=== PATIENT | male | born 1960 | race Caucasian/White ===

== ENCOUNTER 2018-08-14 16:48 | Inpatient (IN) ==
--- NOTE | 2018-08-14 18:42 | XRay Report ---
XR chest 1V portable CLINICAL HISTORY: raza dyspnea COMPARISON STUDY: No previous studies for comparison. FINDINGS: Mild cardiomegaly. Right lung is clear. Diffuse parenchymal infiltrative process left mid t o lower lung. Probable small left pleural effusion. IMPRESSION: 1. Diffuse parenchymal infiltrative process left mid and lower lung. 2. This study should be repeated as a later date to ensure complete resolution. The above report was generated using voice recognition software. It may contain grammatical, syntax or spelling errors. Electronically signed by: Favian De Jesus M.D. 08/14/2018 6:40 PM
[2018-08-14 18:58] LABS: INR 2.2 (0.9-1.1); Prothrombin Time 21.7 Seconds (9.0-12.0)
[2018-08-14 19:16] LABS: Alanine Aminotransferase 35 U/L (12-78); Albumin Globulin Ratio 0.2 (0.9-2); Albumin Level 1.4 gm/dl (3.4-5.0); Alkaline Phosphatase 80 U/L (45-117); Aspartate Aminotransferase 100 U/L (15-37); BUN Creatinine Ratio 8.7 (10-20); Bilirubin,Total 14.2 mg/dl (0.2-1); Blood Urea Nitrogen 5 mg/dl (7-18); Calcium 7.2 mg/dl (8.5-10.1); Carbon Dioxide 23 mmol/L (21-32); Chloride 92 mmol/L (98-107); Est GFR (African American) 126.7; Est GFR (Non-African American) 109.3; Globulin 5.7 gm/dl (2.5-4.0); Glucose 111 mg/dl (70-99); Magnesium 2.1 mg/dl (1.8-2.4); Potassium 4.3 mmol/L (3.5-5.1); Sodium 121 mmol/L (136-145); Total Protein 7.1 gm/dl (6.4-8.2); Troponin I < 0.015 ng/ml (0-0.045)
[2018-08-14 19:17] LABS: Anisocytosis Present; Basophils # (auto) 0.02 K/uL (0-0.2); Basophils % (auto) 0.7 %; Eosinophils # (auto) 0.04 K/uL (0-0.5); Eosinophils % (auto) 1.4 %; Hematocrit (blood only) 17.9 % (42-52); Hemoglobin 6.2 g/dL (14.0-18.0); Immature Granulocytes # (auto) 0.03 K/uL (0.00-0.02); Lymphocytes # (auto) 0.52 K/uL (1.2-3.4); Lymphocytes % (auto) 18.1 %; Mean Corpuscular Hgb Conc 34.6 g/dL (32-36); Mean Corpuscular Volume 113.3 fL (80-100); Mean Platelet Volume 8.2 fL (7.4-10.4); Monocytes # (auto) 0.28 K/uL (0.11-0.59); Monocytes % (auto) 9.7 %; Neutrophils # (auto) 1.99 K/uL (1.4-6.5); Neutrophils % (auto) 69.1 %; Platelet Count 61 K/uL (130-400); Platelet Estimate Decreased (Normal); Polychromasia 1+; RDW Coefficient of Variation 17.8 % (11.5-14.5); RDW Standard Deviation 71.9 fL (36.4-46.3); Red Blood Count 1.58 M/uL (4.7-6.1); White Blood Count 2.88 K/uL (4.8-10.8)
[2018-08-14] MEDS ORDERED: IOVERSOL 100ml IV PRN (20:24)
--- NOTE | 2018-08-14 20:43 | CT Scan Report ---
CT abd pelvis IV con only CT DOSE: 1420.67 mGy.cm HISTORY: abd distention, new anemia, cirrhosis TECHNIQUE: Multiaxial CT images of the abdomen and pelvis were performed following the use of intrave nous contrast. A dose lowering technique was utilized adhering to the principles of ALARA. COMPARISON STUDY: None. FINDINGS: Moderate to significant left pleural effusion. Mild bibasilar dependent atelectasis. Considerable abdominal and pelvic ascites. Significant hepatic cirrhosis. Moderate splenomegaly. Sign ificant upper abdominal or calyces. Bowel pattern is nonobstructive. Kidneys negative for hydronephro sis. Moderate renal cortical scarring bilaterally. Moderate body wall anasarca. Right inguinal hernia containing fluid exclusively. Soft tissue edematou s change about the upper thighs and pelvic region. IMPRESSION: 1. Significant abdominal and pelvic ascites. 2. Hepatic cirrhosis. 3. Splenomegaly. 4. Left pleural effusion. 5. Body wall anasarca 6. Fluid containing right inguinal hernia. 7. Abdominal varicosities 8. Several very small gallstones. The above report was generated using voice recognition software. It may contain grammatical, syntax or spelling errors. Electronically signed by: Favian De Jesus M.D. 08/14/2018 8:40 PM
[2018-08-14] MEDS ORDERED: levoFLOXacin 750 MG TAB PO ONE (21:35)
--- NOTE | 2018-08-14 21:35 | Emergency Department Note ---
Entered by Christiana Webb acting as a scribe for Emelia Carroll DO History of Present Illness General Chief complaint: Abnormal Labs/Diagnostic Testing Stated complaint: HEMOGLOBIN 5.9 Time Seen by Provider: 08/14/18 17:19 Source: patient Mode of arrival: ambulatory Limitations: no limitations History of Present Illness Provider complaint: Abnormal labs Onset (ago): hour(s) 1 Location: head ("labs") Relieved By: + none Exacerbated By: + none Associated symptoms: + denies other symptoms, + cough, + shortness of breath and + other (leg swelling); no chest pain, no fever/chills, no headaches and no nausea/vomiting Treatments prior to arrival: none Patient is a 58 year old male presenting to the ED with abnormal lab findings beginning today. Patient states that he had blood work done at [facility] in [place], noting his hemoglobin was low. Patient shares he has been coughing up mild red colored mucus intermittently. He denies every needing a blood transfusion. Patient was diagnosed with cirrhosis x3 years ago. He includes that he has seen a GI specialist since the diagnosis, and recommended a colonoscopy. He denies any endoscopy or colonoscopy. He denies any regular alcohol use. Patient shares that he noticed bilateral leg swelling for the past x2 weeks, radiating up to the upper thighs and lower abd. Patient includes he has been having increased SOB and weight gain as well. He denies any hematuria, hematochezia, melena, nausea, vomiting, diarrhea, fevers, chills, lightheadedness or any other complaints or concerns at this time. Home Medications Home Medications Medication Instructions Recorded Confirmed Type No Known Home Medications 08/14/18 08/14/18 History Allergies Allergy/AdvReac Type Severity Reaction Status Date / Time No Known Allergies Allergy Verified 08/14/18 17:20 Past Med/Surg History Medical History Cirrhosis (Chronic) Family history non-contributory Surgical History No pertinent past surgical history Family History Other Family history non-contributory Social History Preferred Language: Surinamese Communication Ability: Effective Title Assistant Required: No Beliefs That Will Affect Care: None Current Living Situation: Alone Current Living Situation Comment: Apt Other Information That Helps Us Care for You: No Feels Safe at Home: Yes Safety Concerns: Feels Safe At This Time Smoking Status: Never smoker Tobacco Type: smokeless tobacco Do You Dip or Chew Tobacco: Yes Hx Alcohol Use: Yes Alcohol type: beer Hx Substance Use: No Review of Systems See HPI for pertinent positives & negatives. and A total of 10 systems reviewed and were otherwise negative Physical Exam Vital Signs Vital Signs - 24 hr 08/16/18 00:21 08/16/18 00:28 08/16/18 00:41 Temperature 36.5 C 36.8 C 36.8 C Temperature Source Oral Oral Oral End-Tidal CO2 Pulse Rate 94 H 108 H Pulse Rate [Left Finger] 88 Pulse Rhythm Regular Regular Pulse Rhythm [Left Finger] Pulse Strength Normal Normal Pulse Strength [Left Finger] Respiratory Rate 16 18 20 Respiratory Effort / Characteristics Respiratory Depth Respiratory Pattern Blood Pressure 100/59 L 102/60 Blood Pressure [Left Arm] Blood Pressure [Right Arm] 102/62 Blood Pressure Mean 72 74 Blood Pressure Mean [Left Arm] Blood Pressure Mean [Right Arm] 75 Blood Pressure Position Lying Lying Blood Pressure Position [Left Arm] Blood Pressure Position [Right Arm] Pulse Oximetry 93 93 96 Oxygen Delivery Method Oxygen Flow Rate 2 2 2 Fraction of Inspired Oxygen SaO2/FiO2 Ratio 08/16/18 00:56 08/16/18 01:26 08/16/18 02:24 Temperature 36.7 C 36.6 C 36.7 C Temperature Source Oral Oral Oral End-Tidal CO2 Pulse Rate 101 H 112 H 80 Pulse Rate [Left Finger] Pulse Rhythm Regular Regular Regular Pulse Rhythm [Left Finger] Pulse Strength Normal Normal Normal Pulse Strength [Left Finger] Respiratory Rate 20 20 16 Respiratory Effort / Characteristics Respiratory Depth Respiratory Pattern Blood Pressure 99/59 L 108/64 96/62 L Blood Pressure [Left Arm] Blood Pressure [Right Arm] Blood Pressure Mean 72 78 73 Blood Pressure Mean [Left Arm] Blood Pressure Mean [Right Arm] Blood Pressure Position Lying Lying Lying Blood Pressure Position [Left Arm] Blood Pressure Position [Right Arm] Pulse Oximetry 95 97 93 Oxygen Delivery Method Oxygen Flow Rate 2 2 2 Fraction of Inspired Oxygen SaO2/FiO2 Ratio 08/16/18 03:47 08/16/18 06:53 08/16/18 07:15 Temperature 36.7 C 36.5 C Temperature Source Oral Oral End-Tidal CO2 Pulse Rate 80 Pulse Rate [Left Finger] 45 L 47 L Pulse Rhythm Pulse Rhythm [Left Finger] Regular Pulse Strength Pulse Strength [Left Finger] Normal Respiratory Rate 16 20 Respiratory Effort / Characteristics Non-Labored Spontaneous Respiratory Depth Normal Respiratory Pattern Regular Blood Pressure Blood Pressure [Left Arm] 88/60 L Blood Pressure [Right Arm] 92/56 L Blood Pressure Mean Blood Pressure Mean [Left Arm] 69 Blood Pressure Mean [Right Arm] 68 Blood Pressure Position Blood Pressure Position [Left Arm] Lying Blood Pressure Position [Right Arm] Lying Pulse Oximetry 93 95 Oxygen Delivery Method Nasal Cannula Nasal Cannula Oxygen Flow Rate 2 2.5 Fraction of Inspired Oxygen SaO2/FiO2 Ratio 08/16/18 07:20 08/16/18 11:22 08/16/18 14:20 Temperature 36.9 C Temperature Source Oral End-Tidal CO2 Pulse Rate 80 Pulse Rate [Left Finger] 121 H Pulse Rhythm Pulse Rhythm [Left Finger] Pulse Strength Pulse Strength [Left Finger] Respiratory Rate 21 Respiratory Effort / Characteristics Respiratory Depth Respiratory Pattern Blood Pressure Blood Pressure [Left Arm] 99/55 L Blood Pressure [Right Arm] 102/58 L Blood Pressure Mean Blood Pressure Mean [Left Arm] 69 Blood Pressure Mean [Right Arm] 72 Blood Pressure Position Blood Pressure Position [Left Arm] Blood Pressure Position [Right Arm] Lying Pulse Oximetry 92 Oxygen Delivery Method Room Air Oxygen Flow Rate 2.0 Fraction of Inspired Oxygen SaO2/FiO2 Ratio 08/16/18 15:30 08/16/18 18:46 08/16/18 20:20 Temperature 36.8 C 36.6 C Temperature Source Oral Oral End-Tidal CO2 Pulse Rate 125 H Pulse Rate [Left Finger] 86 78 Pulse Rhythm Pulse Rhythm [Left Finger] Regular Pulse Strength Pulse Strength [Left Finger] Normal Respiratory Rate 18 18 Respiratory Effort / Characteristics Non-Labored Respiratory Depth Normal Respiratory Pattern Blood Pressure Blood Pressure [Left Arm] 93/54 L Blood Pressure [Right Arm] 95/57 L Blood Pressure Mean Blood Pressure Mean [Left Arm] 67 Blood Pressure Mean [Right Arm] 69 Blood Pressure Position Blood Pressure Position [Left Arm] Blood Pressure Position [Right Arm] Pulse Oximetry 93 98 Oxygen Delivery Method Nasal Cannula Room Air Oxygen Flow Rate 2 Fraction of Inspired Oxygen SaO2/FiO2 Ratio 08/16/18 21:00 08/16/18 22:35 08/16/18 22:43 Temperature 37 C Temperature Source Oral End-Tidal CO2 30 Pulse Rate 121 H Pulse Rate [Left Finger] 89 131 H Pulse Rhythm Pulse Rhythm [Left Finger] Irregular Irregular Pulse Strength Pulse Strength [Left Finger] Normal Normal Respiratory Rate 26 H 22 14 Respiratory Effort / Characteristics Non-Labored Spontaneous Non-Labored Mechanically Ventilated Respiratory Depth Normal Normal Respiratory Pattern Regular Regular Blood Pressure Blood Pressure [Left Arm] 108/65 Blood Pressure [Right Arm] 108/65 98/53 L Blood Pressure Mean Blood Pressure Mean [Left Arm] 79 Blood Pressure Mean [Right Arm] 79 68 Blood Pressure Position Blood Pressure Position [Left Arm] Blood Pressure Position [Right Arm] Pulse Oximetry 97 97 99 Oxygen Delivery Method Nasal Cannula Mechanical Vent Oxygen Flow Rate 6 Fraction of Inspired Oxygen 40 40 SaO2/FiO2 Ratio 242 08/16/18 23:00 Temperature 37 C Temperature Source End-Tidal CO2 Pulse Rate Pulse Rate [Left Finger] 131 H Pulse Rhythm Pulse Rhythm [Left Finger] Pulse Strength Pulse Strength [Left Finger] Respiratory Rate 14 Respiratory Effort / Characteristics Respiratory Depth Respiratory Pattern Blood Pressure Blood Pressure [Left Arm] 108/65 Blood Pressure [Right Arm] 98/53 L Blood Pressure Mean Blood Pressure Mean [Left Arm] Blood Pressure Mean [Right Arm] Blood Pressure Position Blood Pressure Position [Left Arm] Blood Pressure Position [Right Arm] Pulse Oximetry 99 Oxygen Delivery Method Oxygen Flow Rate Fraction of Inspired Oxygen SaO2/FiO2 Ratio GENERAL: alert, well appearing, well nourished, no distress, non-toxic, obvious severe jaundice EYE EXAM: PERRL and EOM's grossly intact. Sclera icterus. OROPHARYNX: no exudate, no erythema, lips, buccal mucosa, and tongue normal and mucous membranes are dry NECK: supple, no nuchal rigidity, no adenopathy, non-tender LUNGS: Clear to auscultation. Normal chest wall mechanics, no W/R/R HEART: no murmurs, S1 normal and S2 normal ABDOMEN: abdomen soft, normo-active bowel sounds, no masses, no rebound or guarding. Distended abd. Lower abd wall edema. Positive fluid wave. BACK: Back is symmetrical on inspection and there is no deformity, no midline tenderness, no CVA tenderness. SKIN: Obvious jaundice. No petechiae, no rash. UPPER EXTREMITIES: upper extremities are grossly normal. Full range of motion bilaterally, normal pulses bilaterally. LOWER EXTREMITIES: Diffuse lower extremity edema up through the proximal thigh bilaterally. Mild erythema noted in the pretibial region however not consistent with acute cellulitis. NEURO EXAM: Normal sensorium, cranial nerves II-XII grossly intact, normal speech, no gross weakness of arms, no gross weakness of legs. Course 1747: Patient was evaluated in room A03. A full history and physical examination were obtained. 1910: Reassessed patient and discussed transfusion. Patient states he will thi nk about it in regards to blood transfusion. 1949: Discussed and went over all results. Patient was notified that he is at high risk for bleeding, infection, sudden . Patient wants to take some time to consider hospital admission. States he still does not want blood transfusion at this time. 2037: Reassessed patient who is back from receiving his CT scan. Patient is still debating admission and transfusion. Patient at this time does not wish to have blood transfusion, and is asking if he could leave and follow-up with his family doctor. 2106: Discussed risks again associated with leaving AMA. Discussed benefits of additional inpatient evaluation, transfusion and hemodynamic monitoring. Patient was given option of financial help with admission, to which he declined. Patient was encouraged to follow up with PCP and GI specialist. Patient was agreeable to course of antibiotics for pneumonia. I did asked case management to speak with him as a precaution while I completed additional paperwork. 2137: Updated by nursing staff and case management that patient is now in agreement to admission. 2146: Discussed case with Dr. Langston, who accepts patient for admission. Administered Medications Discontinued Medications Diltiazem HCl (Cardizem) 10 mg IV NOW STA Stop: 08/15/18 04:11 Last Admin: 08/15/18 04:32 Dose: 10 mg Documented by: [id number] Cosigned by: [id number] Doxycycline Hyclate (Vibramycin) 100 mg PO BID@1000,2200 [facility] Stop: 08/22/18 09:59 Last Admin: 08/16/18 21:35 Dose: Not Given Documented by: [id number] Admin: 08/16/18 09:57 Dose: 100 mg Documented by: [id number] Admin: 08/15/18 21:15 Dose: 100 mg Documented by: [id number] Admin: 08/15/18 11:18 Dose: 100 mg Documented by: [id number] Folic Acid (Folvite) 1 mg PO QAM [facility] Stop: 09/14/18 08:59 Last Admin: 08/16/18 08:09 Dose: 1 mg Documented by: [id number] Admin: 08/15/18 08:22 Dose: 1 mg Documented by: [id number] Gabapentin (Neurontin) 600 mg PO Q24H [facility] Stop: 08/18/18 14:01 Last Admin: 08/15/18 14:00 Dose: 600 mg Documented by: [id number] Gabapentin (Neurontin) 600 mg PO Q6H [facility] Stop: 08/15/18 14:01 Last Admin: 08/15/18 14:02 Dose: 600 mg Documented by: [id number] Admin: 08/15/18 08:23 Dose: 600 mg Documented by: [id number] Gabapentin (Neurontin) 600 mg PO Q8H [facility] Stop: 08/16/18 14:01 Last Admin: 08/16/18 13:41 Dose: 600 mg Documented by: [id number] Admin: 08/16/18 07:38 Dose: 600 mg Documented by: [id number] Admin: 08/15/18 21:16 Dose: 600 mg Documented by: [id number] Gabapentin (Neurontin) 1,200 mg PO TODAY@0200 [facility] Stop: 08/15/18 02:01 Last Admin: 08/15/18 02:15 Dose: 1,200 mg Documented by: [id number] Piperacillin Sod/Tazobactam Sod (Zosyn) 4.5 gm in 120 mls @ 240 mls/hr IV NOW ONE Stop: 08/14/18 22:07 Last Infusion: 08/14/18 23:24 Dose: 0 mls/hr Documented by: [id number] Admin: 08/14/18 22:41 Dose: 240 mls/hr Documented by: [id number] Vancomycin HCl 2,000 mg/ (Sodium Chloride) 540 mls @ 200 mls/hr IV NOW ONE; Protocol Stop: 08/15/18 00:19 Last Infusion: 08/15/18 02:57 Dose: 0 mls/hr Documented by: [id number] Admin: 08/15/18 00:10 Dose: 200 mls/hr Documented by: [id number] Sodium Chloride (Nss 1000ml) 1,000 mls @ 200 mls/hr IV .Q5H [facility] Stop: 09/13/18 21:44 Last Infusion: 08/15/18 01:47 Dose: 0 mls/hr Documented by: [id number] Admin: 08/14/18 22:45 Dose: 200 mls/hr Documented by: [id number] Lorazepam (Ativan) 1.5 mg in 3 mls @ 3 mls/min IV Q2H PRN PRN Reason: Anxiety/Agitation Stop: 09/14/18 01:43 Last Admin: 08/16/18 16:29 Dose: 3 mls/min Documented by: [id number] Thiamine HCl 100 mg/ Syringe 10 mls @ 2 mls/hr IV DAILY [facility] Stop: 09/14/18 08:59 Last Admin: 08/16/18 08:15 Dose: 2 mls/hr Documented by: [id number] Admin: 08/15/18 08:22 Dose: 2 mls/hr Documented by: [id number] Piperacillin Sod/Tazobactam (Sod 3.375 gm/ Dextrose) 115 mls @ 28.75 mls/hr IV Q8H [facility]; Protocol Stop: 08/22/18 03:59 Last Admin: 08/16/18 19:53 Dose: 28.8 mls/hr Documented by: [id number] Infusion: 08/16/18 15:52 Dose: 0 mls/hr Documented by: [id number] Admin: 08/16/18 11:54 Dose: 28.8 mls/hr Documented by: [id number] Infusion: 08/16/18 07:37 Dose: 0 mls/hr Documented by: [id number] Admin: 08/16/18 03:38 Dose: 28.8 mls/hr Documented by: [id number] Infusion: 08/16/18 01:12 Dose: 0 mls/hr Documented by: [id number] Admin: 08/15/18 21:12 Dose: 28.8 mls/hr Documented by: [id number] Infusion: 08/15/18 15:34 Dose: 0 mls/hr Documented by: [id number] Admin: 08/15/18 12:04 Dose: 28.8 mls/hr Documented by: [id number] Infusion: 08/15/18 10:52 Dose: 0 mls/hr Documented by: [id number] Infusion: 08/15/18 09:18 Dose: 28.8 mls/hr Documented by: [id number] Infusion: 08/15/18 08:28 Dose: 0 mls/hr Documented by: [id number] Infusion: 08/15/18 06:29 Dose: 28.8 mls/hr Documented by: [id number] Infusion: 08/15/18 04:11 Dose: 0 mls/hr Documented by: [id number] Admin: 08/15/18 04:06 Dose: 28.8 mls/hr Documented by: [id number] Multivitamins 10 ml/ Thiamine HCl 100 mg/ Folic Acid 1 mg/Sodium Chloride 1,011.2 mls @ 500 mls/hr IV .Q2H2M [facility] Stop: 08/15/18 04:01 Last Infusion: 08/15/18 04:41 Dose: 0 mls/hr Documented by: [id number] Admin: 08/15/18 02:14 Dose: 500 mls/hr Documented by: [id number] Furosemide 30 mg/ Albumin (Human) 53 mls @ 53 mls/hr IV Q6H [facility] Stop: 08/18/18 01:59 Last Infusion: 08/16/18 09:48 Dose: 0 mls/hr Documented by: [id number] Admin: 08/16/18 08:07 Dose: 53 mls/hr Documented by: [id number] Infusion: 08/16/18 03:16 Dose: 0 mls/hr Documented by: [id number] Admin: 08/16/18 02:43 Dose: 53 mls/hr Documented by: [id number] Infusion: 08/15/18 21:41 Dose: 0 mls/hr Documented by: [id number] Admin: 08/15/18 20:41 Dose: 53 mls/hr Documented by: [id number] Infusion: 08/15/18 15:54 Dose: 0 mls/hr Documented by: [id number] Admin: 08/15/18 14:46 Dose: 53 mls/hr Documented by: [id number] Infusion: 08/15/18 09:19 Dose: 0 mls/hr Documented by: [id number] Admin: 08/15/18 08:26 Dose: 53 mls/hr Documented by: [id number] Infusion: 08/15/18 02:25 Dose: 0 mls/hr Documented by: [id number] Admin: 08/15/18 02:15 Dose: 53 mls/hr Documented by: [id number] Famotidine 20 mg/ Syringe 5 mls @ 2.5 mls/min IV BID [facility] Stop: 09/14/18 01:59 Last Admin: 08/15/18 08:31 Dose: 2.5 mls/min Documented by: [id number] Admin: 08/15/18 02:14 Dose: 2.5 mls/min Documented by: [id number] Diltiazem HCl 125 mg/ Dextrose 125 mls @ 5 mls/hr IV .Q24H [facility]; Protocol Stop: 09/14/18 04:14 Last Titration: 08/15/18 10:23 Dose: 0 mg/hr, 0 mls/hr Documented by: [id number] Titration: 08/15/18 07:12 Dose: 5 mg/hr, 5 mls/hr Documented by: [id number] Cosigned by: [id number] Admin: 08/15/18 04:40 Dose: 5 mg/hr, 5 mls/hr Documented by: [id number] Cosigned by: [id number] Multivitamins 10 ml/ Thiamine HCl 100 mg/ Folic Acid 1 mg/Sodium Chloride 1,011.2 mls @ 1,011.2 mls/hr IV .Q1H [facility] Stop: 08/15/18 09:59 Last Infusion: 08/15/18 10:38 Dose: 0 mls/hr Documented by: [id number] Admin: 08/15/18 10:24 Dose: 500 mls/hr Documented by: [id number] Furosemide 60 mg/ Syringe 6 mls @ 4 mls/min IV ONE ONE Stop: 08/15/18 10:16 Last Admin: 08/15/18 11:05 Dose: 4 mls/min Documented by: [id number] Furosemide 100 mg/ Dextrose 100 mls @ 15 mls/hr IV .Q6H40M [facility] Stop: 09/14/18 10:29 Last Infusion: 08/16/18 21:24 Dose: 0 mg/hr, 0 mls/hr Documented by: [id number] Admin: 08/16/18 19:50 Dose: 15 mg/hr, 15 mls/hr Documented by: [id number] Infusion: 08/16/18 19:50 Dose: 15 mg/hr, 15 mls/hr Documented by: [id number] Admin: 08/16/18 13:54 Dose: 15 mg/hr, 15 mls/hr Documented by: [id number] Infusion: 08/16/18 10:23 Dose: 0 mg/hr, 0 mls/hr Documented by: [id number] Admin: 08/16/18 03:39 Dose: 15 mg/hr, 15 mls/hr Documented by: [id number] Infusion: 08/16/18 03:39 Dose: 15 mg/hr, 15 mls/hr Documented by: [id number] Admin: 08/15/18 21:10 Dose: 15 mg/hr, 15 mls/hr Documented by: [id number] Infusion: 08/15/18 21:10 Dose: 15 mg/hr, 15 mls/hr Documented by: [id number] Admin: 08/15/18 16:26 Dose: 15 mg/hr, 15 mls/hr Documented by: [id number] Infusion: 08/15/18 16:26 Dose: 15 mg/hr, 15 mls/hr Documented by: [id number] Admin: 08/15/18 11:05 Dose: 15 mg/hr, 15 mls/hr Documented by: [id number] Pantoprazole Sodium 40 mg/ (Syringe) 10 mls @ 5 mls/min IV BID@0900,2100 [facility] Stop: 09/14/18 20:59 Last Admin: 08/16/18 19:54 Dose: 5 mls/min Documented by: [id number] Admin: 08/16/18 08:15 Dose: 5 mls/min Documented by: [id number] Admin: 08/15/18 21:15 Dose: 5 mls/min Documented by: [id number] Pantoprazole Sodium 40 mg/ (Syringe) 10 mls @ 5 mls/min IV .EXTRA DOSE ONE Stop: 08/15/18 13:16 Last Admin: 08/15/18 13:59 Dose: 5 mls/min Documented by: [id number] Acetylcysteine 14,400 mg/ (Dextrose) 272 mls @ 272 mls/hr IV NOW ONE; Protocol Stop: 08/15/18 15:29 Last Infusion: 08/15/18 16:24 Dose: 0 mls/hr Documented by: [id number] Admin: 08/15/18 15:16 Dose: 272 mls/hr Documented by: [id number] Acetylcysteine 4,800 mg/ (Dextrose) 524 mls @ 131 mls/hr IV TODAY@1530 [facility]; Protocol Stop: 08/15/18 19:29 Last Infusion: 08/15/18 20:23 Dose: 0 mls/hr Documented by: [id number] Admin: 08/15/18 16:23 Dose: 131 mls/hr Documented by: [id number] Acetylcysteine 9,600 mg/ (Dextrose) 1,048 mls @ 65.5 mls/hr IV .Q16H [facility]; Protocol Stop: 08/16/18 11:29 Last Infusion: 08/16/18 13:38 Dose: 0 mls/hr Documented by: [id number] Infusion: 08/16/18 03:16 Dose: 65.5 mls/hr Documented by: [id number] Admin: 08/15/18 21:09 Dose: 65.5 mls/hr Documented by: [id number] Potassium Chloride (K Stefan / Wtr) 10 meq in 100 mls @ 100 mls/hr IV Q1H [facility] Stop: 08/16/18 02:03 Last Infusion: 08/16/18 03:35 Dose: 0 mls/hr Documented by: [id number] Admin: 08/16/18 02:35 Dose: 100 mls/hr Documented by: [id number] Infusion: 08/16/18 02:34 Dose: 100 mls/hr Documented by: [id number] Admin: 08/16/18 01:34 Dose: 100 mls/hr Documented by: [id number] Infusion: 08/16/18 01:30 Dose: 100 mls/hr Documented by: [id number] Admin: 08/16/18 00:30 Dose: 100 mls/hr Documented by: [id number] Infusion: 08/15/18 23:52 Dose: 100 mls/hr Documented by: [id number] Admin: 08/15/18 22:52 Dose: 100 mls/hr Documented by: [id number] Lorazepam (Ativan) 3 mg in 6 mls @ 6 mls/min IV Q1H PRN; Protocol PRN Reason: Symptoms of alcohol withdrawal Last Admin: 08/16/18 21:06 Dose: 6 mls/min Documented by: [id number] Potassium Chloride (K Stefan / Wtr) 10 meq in 100 mls @ 100 mls/hr IV Q1H [facility] Stop: 08/16/18 23:19 Last Admin: 08/16/18 22:51 Dose: 100 mls/hr Documented by: [id number] Infusion: 08/16/18 22:28 Dose: 100 mls/hr Documented by: [id number] Admin: 08/16/18 21:28 Dose: 100 mls/hr Documented by: [id number] Magnesium Sulfate/Dextrose (Magnesium Sulfate / D5w) 1 gm in 100 mls @ 100 mls/hr IV Q1H [facility] Stop: 08/16/18 23:29 Last Infusion: 08/16/18 22:34 Dose: 100 mls/hr Documented by: [id number] Admin: 08/16/18 21:34 Dose: 100 mls/hr Documented by: [id number] Ioversol (Optiray 320 100ml) 94 ml IV ONCE PRN PRN Reason: Interaction Checking Stop: 08/18/18 20:23 Last Admin: 08/14/18 20:25 Dose: 94 ml Documented by: [id number] Levofloxacin (Levaquin) 750 mg PO ONE ONE Stop: 08/14/18 21:36 Last Admin: 08/15/18 06:43 Dose: Not Given Documented by: [id number] Metoprolol Tartrate (Lopressor) 2.5 mg IV Q4 PRN PRN Reason: Tachycardia Stop: 09/14/18 03:59 Last Admin: 08/15/18 03:03 Dose: 2.5 mg Documented by: [id number] Metoprolol Tartrate (Lopressor) 12.5 mg PO QID [facility] Stop: 09/15/18 16:59 Last Admin: 08/16/18 18:42 Dose: Not Given Documented by: [id number] Metoprolol Tartrate (Lopressor) Confirm Administered Dose 5 mg IV .STK-MED ONE Stop: 08/16/18 18:46 Last Admin: 08/16/18 18:46 Dose: 5 mg Documented by: [id number] Miscellaneous (Patient's Height And/Or Weight Needed) 1 ea N/A Q2H [facility] Stop: 09/14/18 02:14 Last Admin: 08/15/18 02:49 Dose: Not Given Documented by: [id number] Miscellaneous Information (Consult) 1 ea N/A UD ONE Stop: 08/14/18 21:39 Last Admin: 08/15/18 06:43 Dose: Not Given Documented by: [id number] Multivitamins/Minerals (Multivitamin W/ Minerals Tab) 1 tab PO QAM [facility] Stop: 09/14/18 08:59 Last Admin: 08/16/18 08:07 Dose: 1 tab Documented by: [id number] Admin: 08/15/18 08:23 Dose: 1 tab Documented by: [id number] Naloxone HCl (Narcan) 0.4 mg IV NOW STA Stop: 08/16/18 17:43 Last Admin: 08/16/18 17:51 Dose: 0.4 mg Documented by: [id number] Naloxone HCl (Narcan) Confirm Administered Dose 0.4 mg .ROUTE .STK-MED ONE Stop: 08/16/18 17:51 Last Admin: 08/16/18 18:53 Dose: Not Given Documented by: [id number] Perflutren Lipid Microsphere (Definity) 2 ml IV ONCE ONE Stop: 08/15/18 07:02 Last Admin: 08/15/18 07:01 Dose: 2 ml Documented by: [id number] Phytonadione (Mephyton) 2.5 mg PO NOW STA Stop: 08/15/18 01:45 Last Admin: 08/15/18 02:14 Dose: 2.5 mg Documented by: [id number] Phytonadione (Mephyton) 5 mg PO ONE ONE Stop: 08/15/18 10:16 Last Admin: 08/15/18 11:06 Dose: 5 mg Documented by: [id number] Phytonadione (Mephyton) 5 mg PO NOW STA Stop: 08/15/18 16:51 Last Admin: 08/15/18 17:43 Dose: 5 mg Documented by: [id number] Potassium Chloride (Klor-Con M20) 40 meq PO NOW STA Stop: 08/15/18 16:52 Last Admin: 08/15/18 17:43 Dose: 40 meq Documented by: [id number] Potassium Chloride (Klor-Con M20) 40 meq PO TID [facility] Stop: 09/14/18 22:04 Last Admin: 08/16/18 08:07 Dose: 40 meq Documented by: [id number] Admin: 08/15/18 22:53 Dose: 40 meq Documented by: [id number] Potassium Chloride (Klor-Con M20) 80 meq PO TID [facility] Stop: 09/15/18 13:59 Last Admin: 08/16/18 21:35 Dose: Not Given Documented by: [id number] Admin: 08/16/18 13:39 Dose: 80 meq Documented by: [id number] Potassium Chloride (Klor-Con M20) 80 meq PO TODAY@1000 [facility]; Protocol Stop: 08/16/18 10:01 Last Admin: 08/16/18 09:57 Dose: 80 meq Documented by: [id number] Prednisone (Prednisone) 40 mg PO DAILY [facility] Stop: 09/14/18 01:43 Last Admin: 08/15/18 08:22 Dose: 40 mg Documented by: [id number] Admin: 08/15/18 05:28 Dose: 40 mg Documented by: [id number] Propranolol HCl (Inderal) 10 mg PO BID [facility] Stop: 09/14/18 10:29 Last Admin: 08/16/18 08:07 Dose: 10 mg Documented by: [id number] Admin: 08/15/18 21:15 Dose: 10 mg Documented by: [id number] Admin: 08/15/18 11:05 Dose: 10 mg Documented by: [id number] Medical Decision Making Differential Diagnosis Differential diagnosis: Etiologies such as metabolic, infection, hypo/hyperglycemia, electrolyte abnormalities, cardiac sources, intracerebral event, toxicologic, neurologic, as well as others were entertained. Medical Records Attestation: I reviewed the patient's medical records. Home Medications Current Medication List: was personally reviewed by me Laboratory Data Attestation: I reviewed the patient's lab results. Result diagrams: 08/16/18 19:28 08/16/18 19:28 Lab Results 08/14/18 08/14/18 08/14/18 Range/Units 18:35 18:35 18:35 WBC 2.88 L (4.8-10.8) K/uL RBC 1.58 L (4.7-6.1) M/uL Hgb 6.2 L* (14.0-18.0) g/dL Hct 17.9 L* (42-52) % MCV 113.3 H (80-100) fL MCH 39.2 H (25-34) pg MCHC 34.6 (32-36) g/dL RDW Std Deviation 71.9 H (36.4-46.3) fL RDW Coeff of Lesley 17.8 H (11.5-14.5) % Plt Count 61 L (130-400) K/uL MPV 8.2 (7.4-10.4) fL Immature Gran % (Auto) 1.0 % Neut % (Auto) 69.1 % Lymph % (Auto) 18.1 % [place] % (Auto) 9.7 % Eos % (Auto) 1.4 % Baso % (Auto) 0.7 % Immature Gran # (Auto) 0.03 H (0.00-0.02) K/uL Neut # (Auto) 1.99 (1.4-6.5) K/uL Lymph # (Auto) 0.52 L (1.2-3.4) K/uL [place] # (Auto) 0.28 (0.11-0.59) K/uL Eos # (Auto) 0.04 (0-0.5) K/uL Baso # (Auto) 0.02 (0-0.2) K/uL Absolute Nucleated RBC (0-0) K/uL Nucleated RBC % (auto) % Platelet Estimate Decreased (Normal) Polychromasia 1+ Basophilic Stippling Anisocytosis Present Macrocytosis Target Cells Tear Drop Cells PT 21.7 H (9.0-12.0) Seconds INR 2.2 H (0.9-1.1) Sample Site POC pH (7.35-7.45) POC pCO2 (35-46) mmHg POC pO2 (80-95) mmHg POC HCO3 (19-24) solomon/L POC Total CO2 (24-31) mEq/l POC Base Excess (-9-1.8) solomon/L POC ABG O2 Sat (90-95) % Mervin Test O2 Delivery Device Sodium 121 L (136-145) mmol/L Potassium 4.3 (3.5-5.1) mmol/L Chloride 92 L (98-107) mmol/L Carbon Dioxide 23 (21-32) mmol/L Anion Gap 6.0 (3-11) BUN 5 L (7-18) mg/dl Creatinine 0.60 (0.6-1.4) mg/dl Est Cr Clr Drug Dosing Not Reportable Est GFR ( Amer) 126.7 Est GFR (Non-Af Amer) 109.3 BUN/Creatinine Ratio 8.7 L (10-20) Glucose 111 H (70-99) mg/dl Osmolality (280-300) mOsm/kg Calcium 7.2 L (8.5-10.1) mg/dl Magnesium 2.1 (1.8-2.4) mg/dl Iron (35-175) mcg/dl Ferritin (8-388) ng/ml Total Bilirubin 14.2 H (0.2-1) mg/dl Direct Bilirubin (0-0.2) mg/dl AST 100 H (15-37) U/L ALT 35 (12-78) U/L Alkaline Phosphatase 80 (45-117) U/L Ammonia (11-32) umol/L Troponin I < 0.015 (0-0.045) ng/ml Total Protein 7.1 (6.4-8.2) gm/dl Albumin 1.4 L (3.4-5.0) gm/dl Globulin 5.7 H (2.5-4.0) gm/dl Albumin/Globulin Ratio 0.2 L (0.9-2) Lipase 385 (73-393) U/L Vitamin B12 (211-911) pg/ml Folate (>5.38) ng/ml Procalcitonin (0-0.5) ng/ml Urine Color Urine Appearance (Clear) Urine pH (4.5-7.5) Ur Specific [place] (1.000-1.030) Urine Protein (Negative) Urine Glucose (UA) (Negative) Urine Ketones (Negative) Urine Blood (Negative) Urine Nitrite (Negative) Urine Bilirubin (Negative) Urine Urobilinogen (Negative) Ur Leukocyte Esterase (Negative) Urine WBC (Auto) (0-5) /hpf Urine RBC (Auto) (0-4) /hpf U Hyaline Cast (Auto) (0-5) /lpf U Epithel Cells (Auto) (0-5) /lpf Urine Bacteria (Auto) (Negative) Urine Osmolality (500-800) mOsm/kg Ur Random Creatinine mg/dl U Random Total Protein (0-11.9) mg/dl Ur Random Sodium mmol/L Protein/Creatinin Ratio (0-0.2) Nasal Screen MRSA (PCR) (Negative) Ethyl Alcohol mg/dL (0-3) mg/dl Hep Bs Antigen (Neg) Hepatitis C Antibody (Neg) Blood Type Blood Type Recheck Antibody Screen Crossmatch 08/14/18 08/14/18 08/14/18 Range/Units 18:35 18:35 18:35 WBC (4.8-10.8) K/uL RBC (4.7-6.1) M/uL Hgb (14.0-18.0) g/dL Hct (42-52) % MCV (80-100) fL MCH (25-34) pg MCHC (32-36) g/dL RDW Std Deviation (36.4-46.3) fL RDW Coeff of [place] (11.5-14.5) % Plt Count (130-400) K/uL MPV (7.4-10.4) fL Immature Gran % (Auto) % Neut % (Auto) % Lymph % (Auto) % [place] % (Auto) % Eos % (Auto) % Baso % (Auto) % Immature Gran # (Auto) (0.00-0.02) K/uL Neut # (Auto) (1.4-6.5) K/uL Lymph # (Auto) (1.2-3.4) K/uL [place] # (Auto) (0.11-0.59) K/uL Eos # (Auto) (0-0.5) K/uL Baso # (Auto) (0-0.2) K/uL Absolute Nucleated RBC (0-0) K/uL Nucleated RBC % (auto) % Platelet Estimate (Normal) Polychromasia Basophilic Stippling Anisocytosis Macrocytosis Target Cells Tear Drop Cells PT (9.0-12.0) Seconds INR (0.9-1.1) Sample Site POC pH (7.35-7.45) POC pCO2 (35-46) mmHg POC pO2 (80-95) mmHg POC HCO3 (19-24) solomon/L POC Total CO2 (24-31) mEq/l POC Base Excess (-9-1.8) solomon/L POC ABG O2 Sat (90-95) % Mervin Test O2 Delivery Device Sodium (136-145) mmol/L Potassium (3.5-5.1) mmol/L Chloride (98-107) mmol/L Carbon Dioxide (21-32) mmol/L Anion Gap (3-11) BUN (7-18) mg/dl Creatinine (0.6-1.4) mg/dl Est Cr Clr Drug Dosing Est GFR ( Amer) Est GFR (Non-Af Amer) BUN/Creatinine Ratio (10-20) Glucose (70-99) mg/dl Osmolality (280-300) mOsm/kg Calcium (8.5-10.1) mg/dl Magnesium (1.8-2.4) mg/dl Iron (35-175) mcg/dl Ferritin (8-388) ng/ml Total Bilirubin (0.2-1) mg/dl Direct Bilirubin (0-0.2) mg/dl AST (15-37) U/L ALT (12-78) U/L Alkaline Phosphatase (45-117) U/L Ammonia 11.0 (11-32) umol/L Troponin I (0-0.045) ng/ml Total Protein (6.4-8.2) gm/dl Albumin (3.4-5.0) gm/dl Globulin (2.5-4.0) gm/dl Albumin/Globulin Ratio (0.9-2) Lipase (73-393) U/L Vitamin B12 (211-911) pg/ml Folate (>5.38) ng/ml Procalcitonin (0-0.5) ng/ml Urine Color Urine Appearance (Clear) Urine pH (4.5-7.5) Ur Specific [place] (1.000-1.030) Urine Protein (Negative) Urine Glucose (UA) (Negative) Urine Ketones (Negative) Urine Blood (Negative) Urine Nitrite (Negative) Urine Bilirubin (Negative) Urine Urobilinogen (Negative) Ur Leukocyte Esterase (Negative) Urine WBC (Auto) (0-5) /hpf Urine RBC (Auto) (0-4) /hpf U Hyaline Cast (Auto) (0-5) /lpf U Epithel Cells (Auto) (0-5) /lpf Urine Bacteria (Auto) (Negative) Urine Osmolality (500-800) mOsm/kg Ur Random Creatinine mg/dl U Random Total Protein (0-11.9) mg/dl Ur Random Sodium mmol/L Protein/Creatinin Ratio (0-0.2) Nasal Screen MRSA (PCR) (Negative) Ethyl Alcohol mg/dL 119.5 H (0-3) mg/dl Hep Bs Antigen (Neg) Hepatitis C Antibody (Neg) Blood Type O Negative Blood Type Recheck Antibody Screen NEGATIVE Crossmatch See Detail 08/14/18 08/14/18 08/15/18 Range/Units 18:35 19:14 01:53 WBC (4.8-10.8) K/uL RBC (4.7-6.1) M/uL Hgb (14.0-18.0) g/dL Hct (42-52) % MCV (80-100) fL MCH (25-34) pg MCHC (32-36) g/dL RDW Std Deviation (36.4-46.3) fL RDW Coeff of Lesley (11.5-14.5) % Plt Count (130-400) K/uL MPV (7.4-10.4) fL Immature Gran % (Auto) % Neut % (Auto) % Lymph % (Auto) % [place] % (Auto) % Eos % (Auto) % Baso % (Auto) % Immature Gran # (Auto) (0.00-0.02) K/uL Neut # (Auto) (1.4-6.5) K/uL Lymph # (Auto) (1.2-3.4) K/uL [place] # (Auto) (0.11-0.59) K/uL Eos # (Auto) (0-0.5) K/uL Baso # (Auto) (0-0.2) K/uL Absolute Nucleated RBC (0-0) K/uL Nucleated RBC % (auto) % Platelet Estimate (Normal) Polychromasia Basophilic Stippling Anisocytosis Macrocytosis Target Cells Tear Drop Cells PT (9.0-12.0) Seconds INR (0.9-1.1) Sample Site POC pH (7.35-7.45) POC pCO2 (35-46) mmHg POC pO2 (80-95) mmHg POC HCO3 (19-24) solomon/L POC Total CO2 (24-31) mEq/l POC Base Excess (-9-1.8) solomon/L POC ABG O2 Sat (90-95) % Mervin Test O2 Delivery Device Sodium (136-145) mmol/L Potassium (3.5-5.1) mmol/L Chloride (98-107) mmol/L Carbon Dioxide (21-32) mmol/L Anion Gap (3-11) BUN (7-18) mg/dl Creatinine (0.6-1.4) mg/dl Est Cr Clr Drug Dosing Est GFR ( Amer) Est GFR (Non-Af Amer) BUN/Creatinine Ratio (10-20) Glucose (70-99) mg/dl Osmolality 276 L (280-300) mOsm/kg Calcium (8.5-10.1) mg/dl Magnesium (1.8-2.4) mg/dl Iron (35-175) mcg/dl Ferritin (8-388) ng/ml Total Bilirubin (0.2-1) mg/dl Direct Bilirubin (0-0.2) mg/dl AST (15-37) U/L ALT (12-78) U/L Alkaline Phosphatase (45-117) U/L Ammonia (11-32) umol/L Troponin I (0-0.045) ng/ml Total Protein (6.4-8.2) gm/dl Albumin (3.4-5.0) gm/dl Globulin (2.5-4.0) gm/dl Albumin/Globulin Ratio (0.9-2) Lipase (73-393) U/L Vitamin B12 (211-911) pg/ml Folate (>5.38) ng/ml Procalcitonin 0.16 (0-0.5) ng/ml Urine Color Urine Appearance (Clear) Urine pH (4.5-7.5) Ur Specific [place] (1.000-1.030) Urine Protein (Negative) Urine Glucose (UA) (Negative) Urine Ketones (Negative) Urine Blood (Negative) Urine Nitrite (Negative) Urine Bilirubin (Negative) Urine Urobilinogen (Negative) Ur Leukocyte Esterase (Negative) Urine WBC (Auto) (0-5) /hpf Urine RBC (Auto) (0-4) /hpf U Hyaline Cast (Auto) (0-5) /lpf U Epithel Cells (Auto) (0-5) /lpf Urine Bacteria (Auto) (Negative) Urine Osmolality (500-800) mOsm/kg Ur Random Creatinine mg/dl U Random Total Protein (0-11.9) mg/dl Ur Random Sodium mmol/L Protein/Creatinin Ratio (0-0.2) Nasal Screen MRSA (PCR) (Negative) Ethyl Alcohol mg/dL (0-3) mg/dl Hep Bs Antigen (Neg) Hepatitis C Antibody (Neg) Blood Type Blood Type Recheck O Negative Antibody Screen Crossmatch 08/15/18 08/15/18 08/15/18 Range/Units 01:53 01:55 03:15 WBC (4.8-10.8) K/uL RBC (4.7-6.1) M/uL Hgb (14.0-18.0) g/dL Hct (42-52) % MCV (80-100) fL MCH (25-34) pg MCHC (32-36) g/dL RDW Std Deviation (36.4-46.3) fL RDW Coeff of Lesley (11.5-14.5) % Plt Count (130-400) K/uL MPV (7.4-10.4) fL Immature Gran % (Auto) % Neut % (Auto) % Lymph % (Auto) % [place] % (Auto) % Eos % (Auto) % Baso % (Auto) % Immature Gran # (Auto) (0.00-0.02) K/uL Neut # (Auto) (1.4-6.5) K/uL Lymph # (Auto) (1.2-3.4) K/uL [place] # (Auto) (0.11-0.59) K/uL Eos # (Auto) (0-0.5) K/uL Baso # (Auto) (0-0.2) K/uL Absolute Nucleated RBC (0-0) K/uL Nucleated RBC % (auto) % Platelet Estimate (Normal) Polychromasia Basophilic Stippling Anisocytosis Macrocytosis Target Cells Tear Drop Cells PT (9.0-12.0) Seconds INR (0.9-1.1) Sample Site POC pH (7.35-7.45) POC pCO2 (35-46) mmHg POC pO2 (80-95) mmHg POC HCO3 (19-24) solomon/L POC Total CO2 (24-31) mEq/l POC Base Excess (-9-1.8) solomon/L POC ABG O2 Sat (90-95) % Mervin Test O2 Delivery Device Sodium 123 L (136-145) mmol/L Potassium 4.2 (3.5-5.1) mmol/L Chloride 93 L (98-107) mmol/L Carbon Dioxide 25 (21-32) mmol/L Anion Gap 5.0 (3-11) BUN 5 L (7-18) mg/dl Creatinine 0.59 L (0.6-1.4) mg/dl Est Cr Clr Drug Dosing Not Reportable Est GFR ( Amer) 127.5 Est GFR (Non-Af Amer) 110.0 BUN/Creatinine Ratio 9.2 L (10-20) Glucose 91 (70-99) mg/dl Osmolality (280-300) mOsm/kg Calcium 6.8 L (8.5-10.1) mg/dl Magnesium (1.8-2.4) mg/dl Iron (35-175) mcg/dl Ferritin (8-388) ng/ml Total Bilirubin (0.2-1) mg/dl Direct Bilirubin (0-0.2) mg/dl AST (15-37) U/L ALT (12-78) U/L Alkaline Phosphatase (45-117) U/L Ammonia (11-32) umol/L Troponin I (0-0.045) ng/ml Total Protein (6.4-8.2) gm/dl Albumin (3.4-5.0) gm/dl Globulin (2.5-4.0) gm/dl Albumin/Globulin Ratio (0.9-2) Lipase (73-393) U/L Vitamin B12 (211-911) pg/ml Folate (>5.38) ng/ml Procalcitonin (0-0.5) ng/ml Urine Color [place] Urine Appearance Clear (Clear) Urine pH 5.0 (4.5-7.5) Ur Specific [place] 1.017 (1.000-1.030) Urine Protein Negative (Negative) Urine Glucose (UA) Negative (Negative) Urine Ketones Negative (Negative) Urine Blood Negative (Negative) Urine Nitrite Positive H (Negative) Urine Bilirubin 2+ H (Negative) Urine Urobilinogen Negative (Negative) Ur Leukocyte Esterase Trace H (Negative) Urine WBC (Auto) 0 (0-5) /hpf Urine RBC (Auto) 0-4 (0-4) /hpf U Hyaline Cast (Auto) 0 (0-5) /lpf U Epithel Cells (Auto) 0-5 (0-5) /lpf Urine Bacteria (Auto) Negative (Negative) Urine Osmolality (500-800) mOsm/kg Ur Random Creatinine mg/dl U Random Total Protein (0-11.9) mg/dl Ur Random Sodium mmol/L Protein/Creatinin Ratio (0-0.2) Nasal Screen MRSA (PCR) Negative (Negative) Ethyl Alcohol mg/dL (0-3) mg/dl Hep Bs Antigen (Neg) Hepatitis C Antibody (Neg) Blood Type Blood Type Recheck Antibody Screen Crossmatch 08/15/18 08/15/18 08/15/18 Range/Units 03:15 03:15 07:14 WBC 3.14 L (4.8-10.8) K/uL RBC 1.72 L (4.7-6.1) M/uL Hgb 6.5 L* (14.0-18.0) g/dL Hct 18.6 L* (42-52) % MCV 108.1 H (80-100) fL MCH 37.8 H (25-34) pg MCHC 34.9 (32-36) g/dL RDW Std Deviation 88.2 H (36.4-46.3) fL RDW Coeff of Lesley 23.6 H (11.5-14.5) % Plt Count 57 L (130-400) K/uL MPV 8.3 (7.4-10.4) fL Immature Gran % (Auto) 0.3 % Neut % (Auto) 70.1 % Lymph % (Auto) 11.1 % [place] % (Auto) 16.6 % Eos % (Auto) 1.3 % Baso % (Auto) 0.6 % Immature Gran # (Auto) 0.01 (0.00-0.02) K/uL Neut # (Auto) 2.20 (1.4-6.5) K/uL Lymph # (Auto) 0.35 L (1.2-3.4) K/uL [place] # (Auto) 0.52 (0.11-0.59) K/uL Eos # (Auto) 0.04 (0-0.5) K/uL Baso # (Auto) 0.02 (0-0.2) K/uL Absolute Nucleated RBC (0-0) K/uL Nucleated RBC % (auto) % Platelet Estimate (Normal) Polychromasia 1+ Basophilic Stippling Anisocytosis Macrocytosis Present Target Cells Tear Drop Cells PT (9.0-12.0) Seconds INR (0.9-1.1) Sample Site POC pH (7.35-7.45) POC pCO2 (35-46) mmHg POC pO2 (80-95) mmHg POC HCO3 (19-24) solomon/L POC Total CO2 (24-31) mEq/l POC Base Excess (-9-1.8) solomon/L POC ABG O2 Sat (90-95) % Mervin Test O2 Delivery Device Sodium (136-145) mmol/L Potassium (3.5-5.1) mmol/L Chloride (98-107) mmol/L Carbon Dioxide (21-32) mmol/L Anion Gap (3-11) BUN (7-18) mg/dl Creatinine (0.6-1.4) mg/dl Est Cr Clr Drug Dosing Est GFR ( Amer) Est GFR (Non-Af Amer) BUN/Creatinine Ratio (10-20) Glucose (70-99) mg/dl Osmolality (280-300) mOsm/kg Calcium (8.5-10.1) mg/dl Magnesium (1.8-2.4) mg/dl Iron (35-175) mcg/dl Ferritin (8-388) ng/ml Total Bilirubin (0.2-1) mg/dl Direct Bilirubin (0-0.2) mg/dl AST (15-37) U/L ALT (12-78) U/L Alkaline Phosphatase (45-117) U/L Ammonia (11-32) umol/L Troponin I (0-0.045) ng/ml Total Protein (6.4-8.2) gm/dl Albumin (3.4-5.0) gm/dl Globulin (2.5-4.0) gm/dl Albumin/Globulin Ratio (0.9-2) Lipase (73-393) U/L Vitamin B12 (211-911) pg/ml Folate (>5.38) ng/ml Procalcitonin (0-0.5) ng/ml Urine Color Urine Appearance (Clear) Urine pH (4.5-7.5) Ur Specific [place] (1.000-1.030) Urine Protein (Negative) Urine Glucose (UA) (Negative) Urine Ketones (Negative) Urine Blood (Negative) Urine Nitrite (Negative) Urine Bilirubin (Negative) Urine Urobilinogen (Negative) Ur Leukocyte Esterase (Negative) Urine WBC (Auto) (0-5) /hpf Urine RBC (Auto) (0-4) /hpf U Hyaline Cast (Auto) (0-5) /lpf U Epithel Cells (Auto) (0-5) /lpf Urine Bacteria (Auto) (Negative) Urine Osmolality 282 L (500-800) mOsm/kg Ur Random Creatinine 41.6 mg/dl U Random Total Protein 7.0 (0-11.9) mg/dl Ur Random Sodium 53 mmol/L Protein/Creatinin Ratio 0.2 (0-0.2) Nasal Screen MRSA (PCR) (Negative) Ethyl Alcohol mg/dL (0-3) mg/dl Hep Bs Antigen (Neg) Hepatitis C Antibody (Neg) Blood Type Blood Type Recheck Antibody Screen Crossmatch 08/15/18 08/15/18 08/15/18 Range/Units 07:14 07:14 07:14 WBC (4.8-10.8) K/uL RBC (4.7-6.1) M/uL Hgb (14.0-18.0) g/dL Hct (42-52) % MCV (80-100) fL MCH (25-34) pg MCHC (32-36) g/dL RDW Std Deviation (36.4-46.3) fL RDW Coeff of Lesley (11.5-14.5) % Plt Count (130-400) K/uL MPV (7.4-10.4) fL Immature Gran % (Auto) % Neut % (Auto) % Lymph % (Auto) % [place] % (Auto) % Eos % (Auto) % Baso % (Auto) % Immature Gran # (Auto) (0.00-0.02) K/uL Neut # (Auto) (1.4-6.5) K/uL Lymph # (Auto) (1.2-3.4) K/uL [place] # (Auto) (0.11-0.59) K/uL Eos # (Auto) (0-0.5) K/uL Baso # (Auto) (0-0.2) K/uL Absolute Nucleated RBC (0-0) K/uL Nucleated RBC % (auto) % Platelet Estimate (Normal) Polychromasia Basophilic Stippling Anisocytosis Macrocytosis Target Cells Tear Drop Cells PT 24.0 H (9.0-12.0) Seconds INR 2.5 H (0.9-1.1) Sample Site POC pH (7.35-7.45) POC pCO2 (35-46) mmHg POC pO2 (80-95) mmHg POC HCO3 (19-24) solomon/L POC Total CO2 (24-31) mEq/l POC Base Excess (-9-1.8) solomon/L POC ABG O2 Sat (90-95) % Mervin Test O2 Delivery Device Sodium 127 L (136-145) mmol/L Potassium 4.3 (3.5-5.1) mmol/L Chloride 96 L (98-107) mmol/L Carbon Dioxide 23 (21-32) mmol/L Anion Gap 8.0 (3-11) BUN 6 L (7-18) mg/dl Creatinine 0.61 (0.6-1.4) mg/dl Est Cr Clr Drug Dosing 144.8 Est GFR ( Amer) 125.8 Est GFR (Non-Af Amer) 108.5 BUN/Creatinine Ratio 9.3 L (10-20) Glucose 86 (70-99) mg/dl Osmolality (280-300) mOsm/kg Calcium 7.0 L (8.5-10.1) mg/dl Magnesium 1.9 (1.8-2.4) mg/dl Iron (35-175) mcg/dl Ferritin (8-388) ng/ml Total Bilirubin 13.7 H (0.2-1) mg/dl Direct Bilirubin 6.5 H (0-0.2) mg/dl AST 81 H (15-37) U/L ALT 30 (12-78) U/L Alkaline Phosphatase 78 (45-117) U/L Ammonia (11-32) umol/L Troponin I 0.020 (0-0.045) ng/ml Total Protein 6.3 L (6.4-8.2) gm/dl Albumin 1.4 L (3.4-5.0) gm/dl Globulin 4.9 H (2.5-4.0) gm/dl Albumin/Globulin Ratio 0.3 L (0.9-2) Lipase (73-393) U/L Vitamin B12 1533 H (211-911) pg/ml Folate 14.87 (>5.38) ng/ml Procalcitonin (0-0.5) ng/ml Urine Color Urine Appearance (Clear) Urine pH (4.5-7.5) Ur Specific [place] (1.000-1.030) Urine Protein (Negative) Urine Glucose (UA) (Negative) Urine Ketones (Negative) Urine Blood (Negative) Urine Nitrite (Negative) Urine Bilirubin (Negative) Urine Urobilinogen (Negative) Ur Leukocyte Esterase (Negative) Urine WBC (Auto) (0-5) /hpf Urine RBC (Auto) (0-4) /hpf U Hyaline Cast (Auto) (0-5) /lpf U Epithel Cells (Auto) (0-5) /lpf Urine Bacteria (Auto) (Negative) Urine Osmolality (500-800) mOsm/kg Ur Random Creatinine mg/dl U Random Total Protein (0-11.9) mg/dl Ur Random Sodium mmol/L Protein/Creatinin Ratio (0-0.2) Nasal Screen MRSA (PCR) (Negative) Ethyl Alcohol mg/dL (0-3) mg/dl Hep Bs Antigen (Neg) Hepatitis C Antibody (Neg) Blood Type Blood Type Recheck Antibody Screen Crossmatch 08/15/18 08/15/18 08/15/18 Range/Units 15:51 15:51 15:51 WBC 2.34 L (4.8-10.8) K/uL RBC 1.94 L (4.7-6.1) M/uL Hgb 6.9 L* (14.0-18.0) g/dL Hct 20.1 L* (42-52) % MCV 103.6 H (80-100) fL MCH 35.6 H (25-34) pg MCHC 34.3 (32-36) g/dL RDW Std Deviation (36.4-46.3) fL RDW Coeff of Lesley (11.5-14.5) % Plt Count 52 L (130-400) K/uL MPV 8.3 (7.4-10.4) fL Immature Gran % (Auto) % Neut % (Auto) % Lymph % (Auto) % [place] % (Auto) % Eos % (Auto) % Baso % (Auto) % Immature Gran # (Auto) (0.00-0.02) K/uL Neut # (Auto) (1.4-6.5) K/uL Lymph # (Auto) (1.2-3.4) K/uL [place] # (Auto) (0.11-0.59) K/uL Eos # (Auto) (0-0.5) K/uL Baso # (Auto) (0-0.2) K/uL Absolute Nucleated RBC 0.02 H (0-0) K/uL Nucleated RBC % (auto) 1.0 % Platelet Estimate (Normal) Polychromasia Basophilic Stippling Anisocytosis Macrocytosis Target Cells Tear Drop Cells PT 24.6 H (9.0-12.0) Seconds INR 2.6 H (0.9-1.1) Sample Site POC pH (7.35-7.45) POC pCO2 (35-46) mmHg POC pO2 (80-95) mmHg POC HCO3 (19-24) solomon/L POC Total CO2 (24-31) mEq/l POC Base Excess (-9-1.8) solomon/L POC ABG O2 Sat (90-95) % Mervin Test O2 Delivery Device Sodium 129 L (136-145) mmol/L Potassium 3.0 L D (3.5-5.1) mmol/L Chloride 91 L (98-107) mmol/L Carbon Dioxide 23 (21-32) mmol/L Anion Gap 15.0 H (3-11) BUN 7 (7-18) mg/dl Creatinine 0.72 (0.6-1.4) mg/dl Est Cr Clr Drug Dosing 122.7 Est GFR ( Amer) 117.5 Est GFR (Non-Af Amer) 101.4 BUN/Creatinine Ratio 9.3 L (10-20) Glucose 155 H (70-99) mg/dl Osmolality (280-300) mOsm/kg Calcium 7.0 L (8.5-10.1) mg/dl Magnesium (1.8-2.4) mg/dl Iron 116 (35-175) mcg/dl Ferritin 782.4 H (8-388) ng/ml Total Bilirubin (0.2-1) mg/dl Direct Bilirubin (0-0.2) mg/dl AST (15-37) U/L ALT (12-78) U/L Alkaline Phosphatase (45-117) U/L Ammonia (11-32) umol/L Troponin I (0-0.045) ng/ml Total Protein (6.4-8.2) gm/dl Albumin (3.4-5.0) gm/dl Globulin (2.5-4.0) gm/dl Albumin/Globulin Ratio (0.9-2) Lipase (73-393) U/L Vitamin B12 (211-911) pg/ml Folate (>5.38) ng/ml Procalcitonin (0-0.5) ng/ml Urine Color Urine Appearance (Clear) Urine pH (4.5-7.5) Ur Specific [place] (1.000-1.030) Urine Protein (Negative) Urine Glucose (UA) (Negative) Urine Ketones (Negative) Urine Blood (Negative) Urine Nitrite (Negative) Urine Bilirubin (Negative) Urine Urobilinogen (Negative) Ur Leukocyte Esterase (Negative) Urine WBC (Auto) (0-5) /hpf Urine RBC (Auto) (0-4) /hpf U Hyaline Cast (Auto) (0-5) /lpf U Epithel Cells (Auto) (0-5) /lpf Urine Bacteria (Auto) (Negative) Urine Osmolality (500-800) mOsm/kg Ur Random Creatinine mg/dl U Random Total Protein (0-11.9) mg/dl Ur Random Sodium mmol/L Protein/Creatinin Ratio (0-0.2) Nasal Screen MRSA (PCR) (Negative) Ethyl Alcohol mg/dL (0-3) mg/dl Hep Bs Antigen (Neg) Hepatitis C Antibody (Neg) Blood Type Blood Type Recheck Antibody Screen Crossmatch 08/15/18 08/15/18 08/15/18 Range/Units 15:51 19:57 21:54 WBC 2.95 L (4.8-10.8) K/uL RBC 2.00 L (4.7-6.1) M/uL Hgb 7.2 L (14.0-18.0) g/dL Hct 20.2 L* (42-52) % MCV 101.0 H (80-100) fL MCH 36.0 H (25-34) pg MCHC 35.6 (32-36) g/dL RDW Std Deviation 91.0 H (36.4-46.3) fL RDW Coeff of Lesley 26.8 H (11.5-14.5) % Plt Count 51 L (130-400) K/uL MPV 8.8 (7.4-10.4) fL Immature Gran % (Auto) % Neut % (Auto) % Lymph % (Auto) % [place] % (Auto) % Eos % (Auto) % Baso % (Auto) % Immature Gran # (Auto) (0.00-0.02) K/uL Neut # (Auto) (1.4-6.5) K/uL Lymph # (Auto) (1.2-3.4) K/uL [place] # (Auto) (0.11-0.59) K/uL Eos # (Auto) (0-0.5) K/uL Baso # (Auto) (0-0.2) K/uL Absolute Nucleated RBC (0-0) K/uL Nucleated RBC % (auto) % Platelet Estimate (Normal) Polychromasia Basophilic Stippling Anisocytosis Macrocytosis Target Cells Tear Drop Cells PT (9.0-12.0) Seconds INR (0.9-1.1) Sample Site POC pH (7.35-7.45) POC pCO2 (35-46) mmHg POC pO2 (80-95) mmHg POC HCO3 (19-24) solomon/L POC Total CO2 (24-31) mEq/l POC Base Excess (-9-1.8) solomon/L POC ABG O2 Sat (90-95) % Mervin Test O2 Delivery Device Sodium 130 L (136-145) mmol/L Potassium 2.8 L (3.5-5.1) mmol/L Chloride 91 L (98-107) mmol/L Carbon Dioxide 23 (21-32) mmol/L Anion Gap 15.0 H (3-11) BUN 9 (7-18) mg/dl Creatinine 0.90 (0.6-1.4) mg/dl Est Cr Clr Drug Dosing 98.1 Est GFR ( Amer) 107.2 Est GFR (Non-Af Amer) 92.5 BUN/Creatinine Ratio 10.1 (10-20) Glucose 220 H (70-99) mg/dl Osmolality (280-300) mOsm/kg Calcium 6.7 L (8.5-10.1) mg/dl Magnesium (1.8-2.4) mg/dl Iron (35-175) mcg/dl Ferritin (8-388) ng/ml Total Bilirubin (0.2-1) mg/dl Direct Bilirubin (0-0.2) mg/dl AST (15-37) U/L ALT (12-78) U/L Alkaline Phosphatase (45-117) U/L Ammonia (11-32) umol/L Troponin I (0-0.045) ng/ml Total Protein (6.4-8.2) gm/dl Albumin (3.4-5.0) gm/dl Globulin (2.5-4.0) gm/dl Albumin/Globulin Ratio (0.9-2) Lipase (73-393) U/L Vitamin B12 (211-911) pg/ml Folate (>5.38) ng/ml Procalcitonin (0-0.5) ng/ml Urine Color Urine Appearance (Clear) Urine pH (4.5-7.5) Ur Specific [place] (1.000-1.030) Urine Protein (Negative) Urine Glucose (UA) (Negative) Urine Ketones (Negative) Urine Blood (Negative) Urine Nitrite (Negative) Urine Bilirubin (Negative) Urine Urobilinogen (Negative) Ur Leukocyte Esterase (Negative) Urine WBC (Auto) (0-5) /hpf Urine RBC (Auto) (0-4) /hpf U Hyaline Cast (Auto) (0-5) /lpf U Epithel Cells (Auto) (0-5) /lpf Urine Bacteria (Auto) (Negative) Urine Osmolality (500-800) mOsm/kg Ur Random Creatinine mg/dl U Random Total Protein (0-11.9) mg/dl Ur Random Sodium mmol/L Protein/Creatinin Ratio (0-0.2) Nasal Screen MRSA (PCR) (Negative) Ethyl Alcohol mg/dL (0-3) mg/dl Hep Bs Antigen Neg (Neg) Hepatitis C Antibody Neg (Neg) Blood Type Blood Type Recheck Antibody Screen Crossmatch 08/15/18 08/16/18 08/16/18 Range/Units 21:54 06:02 06:02 WBC 4.20 L (4.8-10.8) K/uL RBC 2.22 L (4.7-6.1) M/uL Hgb Cancelled 7.8 L (14.0-18.0) g/dL Hct Cancelled 21.8 L (42-52) % MCV 98.2 (80-100) fL MCH 35.1 H (25-34) pg MCHC 35.8 (32-36) g/dL RDW Std Deviation 86.7 H (36.4-46.3) fL RDW Coeff of Lesley 27.2 H (11.5-14.5) % Plt Count 53 L (130-400) K/uL MPV 8.5 (7.4-10.4) fL Immature Gran % (Auto) 0.0 % Neut % (Auto) 80.0 % Lymph % (Auto) 10.7 % [place] % (Auto) 9.3 % Eos % (Auto) 0.0 % Baso % (Auto) 0.0 % Immature Gran # (Auto) 0.00 (0.00-0.02) K/uL Neut # (Auto) 3.36 (1.4-6.5) K/uL Lymph # (Auto) 0.45 L (1.2-3.4) K/uL [place] # (Auto) 0.39 (0.11-0.59) K/uL Eos # (Auto) 0.00 (0-0.5) K/uL Baso # (Auto) 0.00 (0-0.2) K/uL Absolute Nucleated RBC (0-0) K/uL Nucleated RBC % (auto) % Platelet Estimate (Normal) Polychromasia 1+ Basophilic Stippling 1+ Anisocytosis Present Macrocytosis Target Cells Tear Drop Cells PT 29.6 H (9.0-12.0) Seconds INR 3.1 H (0.9-1.1) Sample Site POC pH (7.35-7.45) POC pCO2 (35-46) mmHg POC pO2 (80-95) mmHg POC HCO3 (19-24) solomon/L POC Total CO2 (24-31) mEq/l POC Base Excess (-9-1.8) solomon/L POC ABG O2 Sat (90-95) % Mervin Test O2 Delivery Device Sodium (136-145) mmol/L Potassium (3.5-5.1) mmol/L Chloride (98-107) mmol/L Carbon Dioxide (21-32) mmol/L Anion Gap (3-11) BUN (7-18) mg/dl Creatinine (0.6-1.4) mg/dl Est Cr Clr Drug Dosing Est GFR ( Amer) Est GFR (Non-Af Amer) BUN/Creatinine Ratio (10-20) Glucose (70-99) mg/dl Osmolality (280-300) mOsm/kg Calcium (8.5-10.1) mg/dl Magnesium (1.8-2.4) mg/dl Iron (35-175) mcg/dl Ferritin (8-388) ng/ml Total Bilirubin (0.2-1) mg/dl Direct Bilirubin (0-0.2) mg/dl AST (15-37) U/L ALT (12-78) U/L Alkaline Phosphatase (45-117) U/L Ammonia (11-32) umol/L Troponin I (0-0.045) ng/ml Total Protein (6.4-8.2) gm/dl Albumin (3.4-5.0) gm/dl Globulin (2.5-4.0) gm/dl Albumin/Globulin Ratio (0.9-2) Lipase (73-393) U/L Vitamin B12 (211-911) pg/ml Folate (>5.38) ng/ml Procalcitonin (0-0.5) ng/ml Urine Color Urine Appearance (Clear) Urine pH (4.5-7.5) Ur Specific [place] (1.000-1.030) Urine Protein (Negative) Urine Glucose (UA) (Negative) Urine Ketones (Negative) Urine Blood (Negative) Urine Nitrite (Negative) Urine Bilirubin (Negative) Urine Urobilinogen (Negative) Ur Leukocyte Esterase (Negative) Urine WBC (Auto) (0-5) /hpf Urine RBC (Auto) (0-4) /hpf U Hyaline Cast (Auto) (0-5) /lpf U Epithel Cells (Auto) (0-5) /lpf Urine Bacteria (Auto) (Negative) Urine Osmolality (500-800) mOsm/kg Ur Random Creatinine mg/dl U Random Total Protein (0-11.9) mg/dl Ur Random Sodium mmol/L Protein/Creatinin Ratio (0-0.2) Nasal Screen MRSA (PCR) (Negative) Ethyl Alcohol mg/dL (0-3) mg/dl Hep Bs Antigen (Neg) Hepatitis C Antibody (Neg) Blood Type Blood Type Recheck Antibody Screen Crossmatch 08/16/18 08/16/18 08/16/18 Range/Units 06:02 19:28 19:28 WBC 4.28 L (4.8-10.8) K/uL RBC 2.46 L (4.7-6.1) M/uL Hgb 8.6 L (14.0-18.0) g/dL Hct 24.6 L (42-52) % MCV 100.0 (80-100) fL MCH 35.0 H (25-34) pg MCHC 35.0 (32-36) g/dL RDW Std Deviation 93.7 H (36.4-46.3) fL RDW Coeff of Lesley 28.3 H (11.5-14.5) % Plt Count 51 L (130-400) K/uL MPV 8.5 (7.4-10.4) fL Immature Gran % (Auto) 0.5 % Neut % (Auto) 73.9 % Lymph % (Auto) 10.0 % [place] % (Auto) 14.7 % Eos % (Auto) 0.7 % Baso % (Auto) 0.2 % Immature Gran # (Auto) 0.02 (0.00-0.02) K/uL Neut # (Auto) 3.16 (1.4-6.5) K/uL Lymph # (Auto) 0.43 L (1.2-3.4) K/uL [place] # (Auto) 0.63 H (0.11-0.59) K/uL Eos # (Auto) 0.03 (0-0.5) K/uL Baso # (Auto) 0.01 (0-0.2) K/uL Absolute Nucleated RBC (0-0) K/uL Nucleated RBC % (auto) % Platelet Estimate (Normal) Polychromasia 1+ Basophilic Stippling 1+ Anisocytosis Present Macrocytosis Target Cells 1+ Tear Drop Cells Occasional PT 28.2 H (9.0-12.0) Seconds INR 3.0 H (0.9-1.1) Sample Site POC pH (7.35-7.45) POC pCO2 (35-46) mmHg POC pO2 (80-95) mmHg POC HCO3 (19-24) sloomon/L POC Total CO2 (24-31) mEq/l POC Base Excess (-9-1.8) solomon/L POC ABG O2 Sat (90-95) % Mervin Test O2 Delivery Device Sodium 129 L (136-145) mmol/L Potassium 2.8 L (3.5-5.1) mmol/L Chloride 93 L (98-107) mmol/L Carbon Dioxide 28 (21-32) mmol/L Anion Gap 8.0 (3-11) BUN 11 (7-18) mg/dl Creatinine 0.88 (0.6-1.4) mg/dl Est Cr Clr Drug Dosing 99.9 Est GFR ( Amer) 108.2 Est GFR (Non-Af Amer) 93.4 BUN/Creatinine Ratio 12.4 (10-20) Glucose 165 H (70-99) mg/dl Osmolality (280-300) mOsm/kg Calcium 6.6 L (8.5-10.1) mg/dl Magnesium (1.8-2.4) mg/dl Iron (35-175) mcg/dl Ferritin (8-388) ng/ml Total Bilirubin 16.6 H (0.2-1) mg/dl Direct Bilirubin 7.4 H (0-0.2) mg/dl AST 66 H (15-37) U/L ALT 29 (12-78) U/L Alkaline Phosphatase 56 (45-117) U/L Ammonia (11-32) umol/L Troponin I (0-0.045) ng/ml Total Protein 6.3 L (6.4-8.2) gm/dl Albumin 1.9 L (3.4-5.0) gm/dl Globulin 4.4 H (2.5-4.0) gm/dl Albumin/Globulin Ratio 0.4 L (0.9-2) Lipase (73-393) U/L Vitamin B12 (211-911) pg/ml Folate (>5.38) ng/ml Procalcitonin (0-0.5) ng/ml Urine Color Urine Appearance (Clear) Urine pH (4.5-7.5) Ur Specific [place] (1.000-1.030) Urine Protein (Negative) Urine Glucose (UA) (Negative) Urine Ketones (Negative) Urine Blood (Negative) Urine Nitrite (Negative) Urine Bilirubin (Negative) Urine Urobilinogen (Negative) Ur Leukocyte Esterase (Negative) Urine WBC (Auto) (0-5) /hpf Urine RBC (Auto) (0-4) /hpf U Hyaline Cast (Auto) (0-5) /lpf U Epithel Cells (Auto) (0-5) /lpf Urine Bacteria (Auto) (Negative) Urine Osmolality (500-800) mOsm/kg Ur Random Creatinine mg/dl U Random Total Protein (0-11.9) mg/dl Ur Random Sodium mmol/L Protein/Creatinin Ratio (0-0.2) Nasal Screen MRSA (PCR) (Negative) Ethyl Alcohol mg/dL (0-3) mg/dl Hep Bs Antigen (Neg) Hepatitis C Antibody (Neg) Blood Type Blood Type Recheck Antibody Screen Crossmatch 08/16/18 08/16/18 08/16/18 Range/Units 19:28 22:04 Unknown WBC (4.8-10.8) K/uL RBC (4.7-6.1) M/uL Hgb (14.0-18.0) g/dL Hct (42-52) % MCV (80-100) fL MCH (25-34) pg MCHC (32-36) g/dL RDW Std Deviation (36.4-46.3) fL RDW Coeff of Lesley (11.5-14.5) % Plt Count (130-400) K/uL MPV (7.4-10.4) fL Immature Gran % (Auto) % Neut % (Auto) % Lymph % (Auto) % [place] % (Auto) % Eos % (Auto) % Baso % (Auto) % Immature Gran # (Auto) (0.00-0.02) K/uL Neut # (Auto) (1.4-6.5) K/uL Lymph # (Auto) (1.2-3.4) K/uL [place] # (Auto) (0.11-0.59) K/uL Eos # (Auto) (0-0.5) K/uL Baso # (Auto) (0-0.2) K/uL Absolute Nucleated RBC (0-0) K/uL Nucleated RBC % (auto) % Platelet Estimate (Normal) Polychromasia Basophilic Stippling Anisocytosis Macrocytosis Target Cells Tear Drop Cells PT (9.0-12.0) Seconds INR (0.9-1.1) Sample Site L Radial POC pH 7.49 H (7.35-7.45) POC pCO2 39 (35-46) mmHg POC pO2 94 (80-95) mmHg POC HCO3 30 H (19-24) solomon/L POC Total CO2 31 (24-31) mEq/l POC Base Excess 7.0 H (-9-1.8) solomon/L POC ABG O2 Sat 98.0 H (90-95) % Mervin Test Pass O2 Delivery Device Cannula Sodium 133 L (136-145) mmol/L Potassium 2.6 L (3.5-5.1) mmol/L Chloride 95 L (98-107) mmol/L Carbon Dioxide 33 H (21-32) mmol/L Anion Gap 5.0 (3-11) BUN 11 (7-18) mg/dl Creatinine 0.94 (0.6-1.4) mg/dl Est Cr Clr Drug Dosing 93.6 Est GFR ( Amer) 101.7 Est GFR (Non-Af Amer) 87.8 BUN/Creatinine Ratio 11.5 (10-20) Glucose 95 (70-99) mg/dl Osmolality (280-300) mOsm/kg Calcium 6.4 L (8.5-10.1) mg/dl Magnesium 1.5 L (1.8-2.4) mg/dl Iron (35-175) mcg/dl Ferritin (8-388) ng/ml Total Bilirubin 13.8 H (0.2-1) mg/dl Direct Bilirubin (0-0.2) mg/dl AST 66 H (15-37) U/L ALT 29 (12-78) U/L Alkaline Phosphatase 54 (45-117) U/L Ammonia (11-32) umol/L Troponin I (0-0.045) ng/ml Total Protein 6.5 (6.4-8.2) gm/dl Albumin 1.9 L (3.4-5.0) gm/dl Globulin 4.6 H (2.5-4.0) gm/dl Albumin/Globulin Ratio 0.4 L (0.9-2) Lipase (73-393) U/L Vitamin B12 (211-911) pg/ml Folate (>5.38) ng/ml Procalcitonin (0-0.5) ng/ml Urine Color Urine Appearance (Clear) Urine pH (4.5-7.5) Ur Specific [place] (1.000-1.030) Urine Protein (Negative) Urine Glucose (UA) (Negative) Urine Ketones (Negative) Urine Blood (Negative) Urine Nitrite (Negative) Urine Bilirubin (Negative) Urine Urobilinogen (Negative) Ur Leukocyte Esterase (Negative) Urine WBC (Auto) (0-5) /hpf Urine RBC (Auto) (0-4) /hpf U Hyaline Cast (Auto) (0-5) /lpf U Epithel Cells (Auto) (0-5) /lpf Urine Bacteria (Auto) (Negative) Urine Osmolality (500-800) mOsm/kg Ur Random Creatinine mg/dl U Random Total Protein (0-11.9) mg/dl Ur Random Sodium mmol/L Protein/Creatinin Ratio (0-0.2) Nasal Screen MRSA (PCR) Negative (Negative) Ethyl Alcohol mg/dL (0-3) mg/dl Hep Bs Antigen (Neg) Hepatitis C Antibody (Neg) Blood Type Blood Type Recheck Antibody Screen Crossmatch Imaging Data Radiologist's Impression: XR chest 1V portable CLINICAL HISTORY: raza dyspnea COMPARISON STUDY: No previous studies for comparison. FINDINGS: Mild cardiomegaly. Right lung is clear. Diffuse parenchymal infiltrative process left mid to lower lung. Probable small left pleural effusion. IMPRESSION: 1. Diffuse parenchymal infiltrative process left mid and lower lung. 2. This study should be repeated as a later date to ensure complete resolution. The above report was generated using voice recognition software. It may contain grammatical, syntax or spelling errors. Electronically signed by: Favian De Jesus M.D. 08/14/2018 6:[address] abd pelvis IV con only CT DOSE: 1420.67 mGy.cm HISTORY: abd distention, new anemia, cirrhosis TECHNIQUE: Multiaxial CT images of the abdomen and pelvis were performed following the use of intravenous contrast. A dose lowering technique was utilized adhering to the principles of ALARA. COMPARISON STUDY: None. FINDINGS: Moderate to significant left pleural effusion. Mild bibasilar dependent atelectasis. Considerable abdominal and pelvic ascites. Significant hepatic cirrhosis. Moderate splenomegaly. Significant upper abdominal or calyces. Bowel pattern is nonobstructive. Kidneys negative for hydronephrosis. Moderate renal cortical scarring bilaterally. Moderate body wall anasarca. Right inguinal hernia containing fluid exclusively. Soft tissue edematous change about the upper thighs and pelvic region. IMPRESSION: 1. Significant abdominal and pelvic ascites. 2. Hepatic cirrhosis. 3. Splenomegaly. 4. Left pleural effusion. 5. Body wall anasarca 6. Fluid containing right inguinal hernia. 7. Abdominal varicosities 8. Several very small gallstones. The above report was generated using voice recognition software. It may contain grammatical, syntax or spelling errors. Electronically signed by: Favian De Jesus M.D. 08/14/2018 8:40 PM ECG Data Attestation: I personally reviewed and interpreted this ECG as follows: Indication: other (abnormal labs) Rate (beats per minute): 103 Rhythm: sinus tachycardia Findings: + other (normal axis), + RBBB and + prolonged QT; no acute ischemic change Blood Pressure Blood Pressure Findings: Normal blood pressure MDM Narrative Patient here markedly ill-appearing with obvious jaundice, anasarca, abdominal distention. Patient admits to chronic alcohol use and likely alcohol related cirrhosis, pancytopenia, and hyponatremia due to beer drinker potomania. Per patient report, patient poorly compliant with follow-up with his family doctor. Patient found to be pancytopenic, elevated INR, and I discussed with him his risk of bleeding. Due to the abdominal distention and anemia, patient sent for CT abdomen and pelvis to rule out occult bleeding. Patient denied any recent black or bloody stools, hematemesis, hemoptysis. No evidence of petechiae despite thrombocytopenia. CT of the abdomen pelvis did not reveal any other acute trauma, source of bleeding, or infectious pathology. Did show the ascites that was noted clinically in the presumed cirrhosis given patient's constellation of physical exam findings and lab abnormalities. Patient was mildly tachycardic here was gently given a small amount of IV fluids. Patient was found to have an elevated alcohol level here although was clinically sober. I do feel patient is high risk for alcohol withdrawal related symptoms and DTs. Patient found to be hyponatremic, I suspect this is likely chronic and the patient do to his admission of beer consumption. No evidence of renal involvement. I discussed with patient need for blood transfusion, concern for [place] light abnormalities, coagulopathy, risk of bleeding, risk of seizures, risk of DTs and other alcohol withdrawal symptoms. I spent significant time at bedside discussing all of the lab abnormalities, risks associated with these, and need for additional management with the patient and he was very reluctant to agree with plan for inpatient treatment. I offered the patient blood transfusion and spent time going over risks versus benefits of transfusion at bedside and he refused on multiple occasions. I did not perform rectal exam due to thrombocytopenia and elevated INR. Concern for possible infiltrate noted on chest x-ray, patient was in agreement with plan for antibiotics. After patient agreed with admission, blood cultures drawn and sent and patient started on IV antibiotics. Feel patient is high risk for acute decompensation due to multiple medical problems, lab abnormalities, and high risk due to his pathology. This was discussed with patient as well as a friend at bedside as patient has no other family or POA. We did discuss CODE STATUS and end-of-life care as a precaution, at this time patient is a full code. Impression & Plan Pancytopenia, Cirrhosis, Pneumonia, Anemia, Hyperbilirubinemia, Pleural effusion, left, Alcohol intoxication, Anasarca, Hypoalbuminemia, Hyponatremia Critical Care Time I have personally spent 60 minutes of critical care time in the direct management of this patient. This includes bedside care, interpretation of diagnostic studies, and testing, discussion with consultants, patient, and family members, and other required patient management activities. This 60 minutes is in excess of all separately billable procedures. Critical Care Time: Yes Total Critical Care Time: 60 Discharge Plan Visit Data *Final* Discharge Date/Time: 08/15/18 00:59 Chief Complaint: Abnormal Labs/Diagnostic Testing Stated Complaint: HEMOGLOBIN 5.9 ED Provider: Emelia Carroll Discharge Problem: Pancytopenia, Cirrhosis, Pneumonia, Anemia, Hyperbilirubinemia, Pleural effusion, left, Alcohol intoxication, Anasarca, Hypoalbuminemia, Hyponatremia Patient Disposition: Admitted As Inpatient Condition: Serious Discharge Instructions Interventions: ED Discharge Assessment Last Done: 08/15/18 00:59 Discharge Problem: Cirrhosis Qualifiers: Hepatic cirrhosis type: alcoholic cirrhosis Ascites presence: with ascites Qualified Code(s): K70.31 - Alcoholic cirrhosis of liver with ascites Pneumonia Qualifiers: Pneumonia type: due to unspecified organism Laterality: left Lung location: lower lobe of lung Qualified Code(s): J18.1 - Lobar pneumonia, unspecified organism Anemia Qualifiers: Anemia type: other cause Other causes of anemia: other cause, not classified Qualified Code(s): D64.89 - Other specified anemias Alcohol intoxication Qualifiers: Complication of substance-induced condition: with unspecified complication Qualified Code(s): F10.929 - Alcohol use, unspecified with intoxication, unspecified The scribe's documentation has been prepared under my direction and personally reviewed by me in its entirety. I confirm that the note above accurately reflects all work, treatment, procedures, and medical decision making performed by me.
[2018-08-14] MEDS ORDERED: PIPERACILLIN/TAZOBACTAM 4.5 GM/120 ML BAG IV ONE (21:38)
[2018-08-14] MEDS ORDERED: VANCOMYCIN CONSULT ACTIVE ONE (21:38)
[2018-08-14] MEDS ORDERED: VANCOMYCIN CONSULT ACTIVE PRN (21:38)
[2018-08-14] MEDS ORDERED: VANCOMYCIN HCL 2,000 MG in SODIUM CHLORIDE 0.9% 500 ML IV ONE (21:38)
[2018-08-14] MEDS ORDERED: PIPERACILL/TAZOBAC CONSULT ACTIVE PRN (21:38)
[2018-08-14] MEDS ORDERED: SODIUM CHLORIDE 0.9% 1000ML 1,000 ML IV SCH (21:45)
[2018-08-15] MEDS ORDERED: SODIUM CHLORIDE 0.9% 250 ML IV PRN ×4 (01:44→22:30)
[2018-08-15] MEDS ORDERED: GABAPENTIN 1200MG ALCOHOL WITHDRAWAL LOAD PO STA (01:44)
[2018-08-15] MEDS ORDERED: PHYTONADIONE 5 MG TAB PO STA ×2 (01:44→16:50)
[2018-08-15] MEDS ORDERED: NITROGLYCERIN SL 0.4 MG/TAB TAB SL PRN (01:44)
[2018-08-15] MEDS ORDERED: LORazepam 1.5 MG/3 ML VIAL IV PRN (01:44)
[2018-08-15] MEDS ORDERED: PIPERACILL/TAZOBAC CONSULT ACTIVE PRN (01:44)
[2018-08-15] MEDS ORDERED: FAMOTIDINE 20MG/5ML IV PUSH IV STA (01:44)
[2018-08-15] MEDS ORDERED: ONDANSETRON INJ 2 MG/ML 2 ML VIAL IV PRN (01:44)
[2018-08-15] MEDS ORDERED: METOPROLOL TARTRATE 1 MG/ML VIAL IV PRN (01:59)
[2018-08-15] MEDS ORDERED: MULTI-VITAMIN INFUSION 10 ML, THIAMINE HCL 100 MG, FOLIC ACID 1 MG in SODIUM CHLORIDE 0... IV SCH ×2 (02:00→09:00)
[2018-08-15] MEDS ORDERED: GABAPENTIN 600 MG TAB PO SCH (02:00)
[2018-08-15] MEDS ORDERED: LEVOFLOXACIN CONSULT ACTIVE PRN (02:14)
[2018-08-15] MEDS: FAMOTIDINE 20 MG in SYRINGE 3 ML IV SCH ×2 (02:14→08:31)
[2018-08-15] MEDS: ALBUMIN 25% IV SCH ×4 (02:15→20:41)
[2018-08-15] MEDS: FUROSEMIDE IV SCH ×4 (02:15→20:41)
[2018-08-15] MEDS ORDERED: PATIENT'S HEIGHT AND/OR WEIGHT NEEDED SCH (02:15)
[2018-08-15 02:33] LABS: BUN Creatinine Ratio 9.2 (10-20); Blood Urea Nitrogen 5 mg/dl (7-18); Calcium 6.8 mg/dl (8.5-10.1); Carbon Dioxide 25 mmol/L (21-32); Chloride 93 mmol/L (98-107); Est GFR (African American) 127.5; Glucose 91 mg/dl (70-99); Potassium 4.2 mmol/L (3.5-5.1); Sodium 123 mmol/L (136-145)
[2018-08-15 03:37] LABS: Appearance Urine Clear (Clear); Bacteria Urine Automated Negative (Negative); Blood Urine Negative (Negative); Cast Urine Automated 0 /lpf (0-5); Color Urine Orange; Epithelial Cell Urine Auto 0-5 /lpf (0-5); Glucose Urine UA Negative (Negative); Ketones Urine Negative (Negative); Leukocyte Esterase Urine Trace (Negative); Nitrite Urine Positive (Negative); Protein Urine Negative (Negative); RBC Urine Automated 0-4 /hpf (0-4); Specific Gravity Urine 1.017 (1.000-1.030); Urobilinogen Urine Negative (Negative); WBC Urine Automated 0 /hpf (0-5)
[2018-08-15 03:54] LABS: Bilirubin Urine 2+ (Negative)
[2018-08-15 03:55] LABS: Ictotest Urine Positive (Negative)
[2018-08-15] MEDS: PIPERACILLIN/TAZOBACTAM 3.375 GM in DEXTROSE 5% 100 ML IV SCH ×3 (04:06→21:12)
[2018-08-15] MEDS ORDERED: dilTIAZem HCl 5 MG/ML 5 ML VIAL IV STA (04:10)
[2018-08-15] MEDS ORDERED: dilTIAZem HCl 125 MG in DEXTROSE 5% 100 ML IV SCH (04:15)
[2018-08-15 04:17] LABS: Creatinine Urine Random 41.6 mg/dl
[2018-08-15] MEDS: predniSONE 20 MG TAB PO SCH ×2 (05:28→08:22)
[2018-08-15] MEDS ORDERED: PERFLUTREN LIPID MICROSPHERE (DEFINITY) IV ONE (07:01)
--- NOTE | 2018-08-15 07:04 | Ultrasound Report ---
ULTRASOUND BILATERAL LOWER EXTREMITY VENOUS CLINICAL HISTORY: Lower extremity edema. COMPARISON STUDY: No priors. TECHNIQUE: Real-time, grayscale, and color Doppler sonography of the deep veins of the right and left lower extremity was performed from the inguinal crease to the calf. Compression and augmentation wer e utilized. FINDINGS: There is no sonographic evidence of deep venous thrombosis identified in the right or left lower extremity. The common femoral, superficial femoral, and popliteal veins are patent and normally compressible bilaterally. The greater saphenous vein and the profunda femoris vein at the junction w ith the common femoral vein are clear in both legs. The visualized calf veins are patent bilaterally. Soft tissue edema is noted in both legs. IMPRESSION: There is no sonographic evidence of deep venous thrombosis identified in the right or lef t lower extremity. Electronically signed by: Krunal Traylor M.D. 08/15/2018 7:03 AM
[2018-08-15 07:59] LABS: INR 2.5 (0.9-1.1)
--- NOTE | 2018-08-15 07:59 | History and Physical Report ---
DATE OF ADMISSION: 08/15/2018 CHIEF COMPLAINT: Abnormal labs. HISTORY OF PRESENT ILLNESS: This 58-year-old male who was diagnosed with alcoholic liver cirrhosis over 3 years ago, chronic alcoholism, presents because of abnormal labs. The patient states since last 3 weeks he has swollen up in his legs and his abdomen got distended and causing him shortness of breath. He is also having cough with yellowish phlegm, once in a while he gets arnold sputum. He lives alone. having difficulty ambulation.Because of his ongoing symptoms, he went to [facility] and labs were done and his friend was called and told that he needs to go to the ER and he came here. He has yellow discoloration of his skin and eyes and labs showed his hemoglobin was 6.2, pancytopenia with platelets of 51 and WBC is 2.8. His INR was 2.2. Sodium of 121, total bilirubin of 14.2, albumin of 1.4. Alcohol level 119. CT abdomen shows left pleural effusion, splenomegaly, hepatic cirrhosis, significant abdominal ascites. The patient initially refused blood transfusion, but he is okay now. Chest x-ray also shows pneumonia in the right lung. The patient denies any headache. No blurred vision, no earache, no runny nose, no sore throat, no difficulty swallowing. He says he is still drinking 4 beers every day. He says he is eating food okay. Denies any chest pain. Has some shortness of breath on exertion. Denies any fever, chills. Denies any abdominal pain. Normal bowel and bladder movements. Denies any black stools or blood in the stools. Denies any burning micturition or hematuria. Has lower extremity edema. Hemodynamics were okay in the ER. ALLERGIES: No known drug allergies. PAST MEDICAL HISTORY: As mentioned above. PAST SURGICAL HISTORY: The patient denies any surgeries. MEDICATIONS: The patient does not take any medication. FAMILY HISTORY: Denies any pertinent family history. SOCIAL HISTORY: He has been drinking alcohol for a long time. Denies any drug abuse. Denies any smoking. Lives alone. REVIEW OF SYMPTOMS: As per HPI. Rest of review of systems negative. PHYSICAL EXAMINATION: GENERAL: The patient is of moderate build, not in acute distress. VITAL SIGNS: Temperature 36.8, pulse 104, respiratory rate 19, blood pressure 100/49, oxygen 94% on 2 liters. HEENT: No pallor or icterus present. Pupils equal, round, reactive to light. NECK: No JVD, no neck masses, no carotid bruits. CARDIOVASCULAR: S1, S2 heard. Tachycardia. No murmurs. RESPIRATORY SYSTEM: Normal AP diameter. No accessory muscle use. No wheezing. Mild bibasilar crackles. ABDOMEN: Distended, nontender. Bowel sounds present. CENTRAL NERVOUS SYSTEM: Cranial nerves II-XII grossly intact. Nonfocal. EXTREMITIES: Bilateral lower extremity gross edema with erythematous changes. SKIN: Yellow discoloration. LABS: WBC 2.8, hemoglobin 6.2, hematocrit 17.9, platelets 61, PTT of 21.7, INR 2.2. Sodium 121, potassium 4.3, chloride 92, CO2 23, BUN 5, creatinine 0.6, serum glucose 111, calcium 7.2, magnesium 2.1, total bilirubin 14.2, AST 100, ALT 35, alkaline phosphatase 80, ammonia 11. Troponin I less than 0.015. Albumin 1.4, lipase 385. Procalcitonin 0.16. Ethyl alcohol 119. CT of abdomen and pelvis significant abdominal and pelvic ascites, hepatic cirrhosis, splenomegaly, left pleural effusion, body wall anasarca, fluid containing right inguinal hernia with small gallstones. Chest x-ray: Diffuse parenchymal infiltrative process in right mid and lower lung. EKG: Sinus tachycardia at the rate of 103, right bundle branch block, no previous EKG available. ASSESSMENT AND PLAN: This is a 58-year-old male who presents with alcoholism and abnormal labs. 1. Alcoholism and acute alcoholic hepatitis with total bilirubin of 14.2. Discriminant function score is 59. We will start him on prednisone 40 mg daily. Consult GI for further recommendations. Recommendation for alcohol abstinence. 2. Alcoholism. Alcohol level was 119. Chronic alcoholism We will put him back on alcohol withdrawal protocol with gabapentin and IV Ativan p.r.n. banana bag, thiamine and mvi . Needs counseling. 3. Hyponatremia. Sodium 121, most likely secondary from his alcoholism, has anasarca, volume overloaded. Discussed with Nephrology. We will check a urine osmolality, serum osmolality, urine sodium levels and urine protein-albumin ratio. Start him on IV albumin with IV Lasix 30 mg every 6 hours. We will follow daily weights, I's and O's. Closely monitor his sodium levels. Will avoid rapid sodium correction. 4. Pancytopenia and anemia, hemoglobin 6.2. No obvious signs of bleeding. Place him on IV Pepcid 20 b.i.d. The patient will be transfused 1 unit of PRBC. We will check stool for Hemoccult. GI consulted. Monitor for bleeding. 5. Pneumonia. CAT scan shows right middle and lower lobe pneumonia. Started on IV Zosyn and IV vancomycin in the ER. We will continue IV Zosyn and p.o. Levaquin. follow cx .Monitor for response.follow MRSA swab. 6. Elevated INR. We will give vitamin K mostly secondary to liver disease. 7. Lower extremity edema from liver cirrhosis. We will do lower extremity Doppler to rule out any deep venous thrombosis. 8. Possible UTI.follow cx. abx as above. 9. Left pleural effusion. On iv lasix. will monitor. 10. Deep venous thrombosis prophylaxis, sequential compression devices for now as patient has . Thrombocytopenia. DISPOSITION: Closely monitor in tele floor. Level 1 full code. Social service will help with discharge planning. Addendum: Later on the floor patient went into rapid afib. iv Lopressor did not helped. Started on iv Cardizem drip with bolus.Serial CE. Echo and cardiology consult. LISET[facility]
[2018-08-15] MEDS: THIAMINE HCL 100 MG in SYRINGE 9 ML IV SCH (08:22)
[2018-08-15] MEDS: FOLIC ACID 1 MG TAB PO SCH (08:22)
[2018-08-15] MEDS: CEROVITE ADV FORMULA TAB PO SCH (08:23)
[2018-08-15] MEDS: GABAPENTIN 600 MG TAB PO SCH ×3 (08:23→21:16)
[2018-08-15 08:36] LABS: Albumin Globulin Ratio 0.3 (0.9-2); Albumin Level 1.4 gm/dl (3.4-5.0); BUN Creatinine Ratio 9.3 (10-20); Bilirubin Direct 6.5 mg/dl (0-0.2); Bilirubin,Total 13.7 mg/dl (0.2-1); Creatinine Clr Calc Pharmacy 144.8 ml/min; Est GFR (African American) 125.8; Est GFR (Non-African American) 108.5; Globulin 4.9 gm/dl (2.5-4.0); Magnesium 1.9 mg/dl (1.8-2.4); Potassium 4.3 mmol/L (3.5-5.1); Total Protein 6.3 gm/dl (6.4-8.2); Troponin I 0.02 ng/ml (0-0.045)
[2018-08-15 08:39] LABS: Folate (Folic Acid) 14.87 ng/ml (>5.38)
[2018-08-15 08:41] LABS: Hematocrit (blood only) 18.6 % (42-52); Hemoglobin 6.5 g/dL (14.0-18.0); Mean Corpuscular Hgb Conc 34.9 g/dL (32-36); Mean Corpuscular Volume 108.1 fL (80-100); Mean Platelet Volume 8.3 fL (7.4-10.4); Platelet Count 57 K/uL (130-400); RDW Coefficient of Variation 23.6 % (11.5-14.5); RDW Standard Deviation 88.2 fL (36.4-46.3); Red Blood Count 1.72 M/uL (4.7-6.1); White Blood Count 3.14 K/uL (4.8-10.8)
[2018-08-15 09:26] LABS: Basophils # (auto) 0.02 K/uL (0-0.2); Basophils % (auto) 0.6 %; Eosinophils # (auto) 0.04 K/uL (0-0.5); Eosinophils % (auto) 1.3 %; Immature Granulocytes # (auto) 0.01 K/uL (0.00-0.02); Immature Granulocytes % (auto) 0.3 %; Lymphocytes # (auto) 0.35 K/uL (1.2-3.4); Lymphocytes % (auto) 11.1 %; Macrocytosis Present; Monocytes # (auto) 0.52 K/uL (0.11-0.59); Monocytes % (auto) 16.6 %; Neutrophils % (auto) 70.1 %; Polychromasia 1+
--- NOTE | 2018-08-15 09:36 | Gastrointestinal Consultation ---
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 He is jaundiced w/ elevated coagulation studies and low plt c ount, baseline unknown w/ suspected UTI and pneumonia Elevated LFTS - Concerning for ETOH hepatitis superimposed on ETOH cirrhosis - Please start NAC per protocol - Not candidate for steroid therapy given UTI/pneumonia - Once infectious etiology is cleared/ruled out would recommend prednisolone w/ Mayelin calculation on day 7 - Strict ETOH cessation was recommended and encouraged - ETOH withdrawal protocol - He has gallstones on CT imaging - Recommend MRCP to rule out biliary obstruction - Acute Hep panel - CHINMAY, AMA, ASMA, Tylenol level, HSV, CMV, EBV Anemia - Denies any gross evidence of GIB - HGB 6.2 on admission, 1 unit RBC, HGB this AM only 6.5 - Has never had EGD/Colonoscopy - Agree w/ IV PPI - Trend H&H - Transfuse PRN per primary service - Monitor and document all GI output - Keep NPO - Plan for EGD today vs tomorrow - Will need OP colonoscopy Ascites/Anasarca - Hepatic duplex to rule out PVT - Consider diagnostic echocardiogram - Agree w/ IV albumin as ordered - Agree w/ IV lasix as ordered - Once clinically stable will need a diagnostic and therapeutic - Would need PLTs> 60 - Would need INR < 1.6 - Send fluid for cytology, cell count, culture, protein and albumin Appreciate ongoing management of electrolytes per the primary service Daily MELD labs for now Consider transfer to tertiary care center. ESLD admitted w/ decompensations likely secondary to ongoing ETOH abuse and infectious etiology. Will discuss w/ attending and with primary service. Thank you for allowing us to participate in the care of this patient. Please call with any acute changes, questions or concerns. Please see addendum below with additional recommendation from my supervising physician. Present on Admission?: Yes (2) Anemia: Present on Admission?: Yes Supervising Physician Co-Signing Physician Notes I have performed a history and physical examination of this patient and reviewed the electronic medical record. Specifically, on physical examination there is deep jaundice, abdominal distention, and no asterixis. I have discussed the case with KULDIP Caruso. The above note reflects my findings, conclusions, and recommendations. Cheng Ray MD History of Present Illness Reason for Consultation: anemia, cirrhosis Requesting Physician: Jorje Attending Physician: Angelica Recinos MD History of Present Illness 58 year old male with history of cirrhosis, ETOH abuse still drinking ETOH 4-5 drinks 2-3 times a week who presents for abnormal outpatient labs - GI asked to evaluate for anemia. Pt was seen and evaluated, chart reviewed. He is awake, al ert and oriented. Denies any prior history other than cirrhosis. Does not follow with a GI or liver specialist. Notes that he was in his typical state of health up until about 2-3 weeks ago. Noted bilateral lower extremity edema which progress to his knees. Over this course of time he also noted worsening abdominal distention but denies any abd pain. Grew concerned when he developed cough w/ occasional blood tinged sputum so sought PCP evaluation. Basic labs prompted ED evaluation and admission. Upon arrival to pt room he notes he wants to go home. He denies any abd pain. Moving bowels well. Denies black or bloody stools. No nausea, vomiting. Denies any prior episodes of coffee ground emesis or hematemesis. Denies uring concerns. No fever, chills, CP, SOB. Diagnosis: suspected ETOH cirrhosis MELD: 31 - 52.6% estimated three month mortality Maddrey: 69.2 - indicative of a poor prognosis and that he may benefit from steroid once cleared from an infectious standpoint Decompensations Varices: unknown Ascites: new x 1 week HE: none Screenings Varices: due HCC: January Immunizations: unknown Venous Duplex: Negative exam CT: Moderate to significant left pleural effusion. Mild bibasilar dependent atelectasis.Considerable abdominal and pelvic ascites. Significant hepatic cirrhosis. Moderate splenomegaly. Significant upper abdominal or calyces. Bowel pattern is nonobstructive. Kidneys negative for hydronephrosis. Moderate renal cortical scarring bilaterally.Moderate body wall anasarca. Right inguinal hernia containing fluid exclusively. Soft tissue edematous change about the upper thighs and pelvic region. EGD: none Colonoscopy: none Allergies Allergy/AdvReac Type Severity Reaction Status Date / Time No Known Allergies Allergy Verified 08/14/18 17:20 Home Medications Home Medications Medication Instructions Recorded Confirmed Type No Known Home Medications 08/14/18 08/14/18 History Patient History Medical History Cirrhosis (Chronic) Family history non-contributory Surgical History No pertinent past surgical history Family History Other Family history non-contributory Social History Preferred Language: Kazakh Communication Ability: Effective Cargo Agent Required: No Beliefs That Will Affect Care: None Current Living Situation: Alone Current Living Situation Comment: Apt Other Information That Helps Us Care for You: No Feels Safe at Home: Yes Safety Concerns: Feels Safe At This Time Smoking Status: Never smoker Tobacco Type: smokeless tobacco Do You Dip or Chew Tobacco: Yes Hx Alcohol Use: Yes Alcohol type: beer Hx Substance Use: No Review of Systems Constitutional: + weight gain; no fever, no body aches, no weakness and no insomnia Respiratory: + cough, + change in sputum, + dyspnea and + sputum production; no pain on inspiration, no stopping breathing during sleep and no wheezing Cardiovascular: no chest pain, no radiating jaw, neck or arm pain, no dyspnea on exertion and no palpitations Gastrointestinal: no abdominal pain, no bloating, no early satiety, no heartburn, no nausea, no vomiting, no coffee ground emesis, no hematemesis, no pain with swallowing, no dysphagia, no cramping, no excessive flatulence, no change in bowel habits, no change in stools, no diarrhea/loose stools, no fecal incontinence, no blood in stools and no melena Physical Exam Constitutional: well developed, well nourished and + ill appearing; no acute distress Eyes: sclerae not anicteric Respiratory: normal respiratory effort, lungs clear to auscultation Cardiovascular: Rate/Rhythm: regular rate and regular rhythm Heart Sounds: no click, no gallop and no murmur Gastrointestinal (Abdomen): Inspection/Auscultation: + abdomen distended and normal bowel sounds Percussion/Palpation: abdomen soft and + ascites; abdomen nontender, no guarding, abdomen not rigid and no abdominal mass Skin: + jaundice Results & Data Vital Signs (Past 12 Hours) Vital Signs Temp Pulse Pulse Resp BP BP Pulse Ox 08/15/18 07:18 36.9 C 81 18 110/54 L 95 08/15/18 06:27 36.9 C 80 18 105/63 95 08/15/18 05:23 90 107/64 08/15/18 05:11 36.7 C 84 19 105/61 95 08/15/18 04:42 36.7 C 118 H 17 101/63 94 08/15/18 04:26 36.6 C 132 H 17 102/68 93 08/15/18 04:08 36.8 C 156 H 22 108/63 08/15/18 03:15 36.7 C 77 18 105/71 95 08/15/18 03:03 140 H 114/73 08/15/18 01:45 145 H 08/15/18 01:30 36.8 C 103 H 19 111/68 93 08/15/18 01:22 103 H 08/15/18 00:59 106 H 16 95/50 L 94 08/15/18 00:30 102 H 18 95/50 L 94 08/15/18 00:00 104 H 19 100/49 L 94 08/14/18 23:30 107 H 21 112/70 94 08/14/18 23:00 102 H 15 101/66 95 08/14/18 22:30 107 H 114/58 L 93 08/14/18 22:01 104 H 20 107/69 93 Pulse Ox 08/15/18 07:18 08/15/18 06:27 08/15/18 05:23 08/15/18 05:11 08/15/18 04:42 94 08/15/18 04:26 08/15/18 04:08 08/15/18 03:15 08/15/18 03:03 08/15/18 01:45 08/15/18 01:30 08/15/18 01:22 08/15/18 00:59 08/15/18 00:30 08/15/18 00:00 08/14/18 23:30 08/14/18 23:00 08/14/18 22:30 08/14/18 22:01 Laboratory Results 08/15/18 08/15/18 08/15/18 Range/Units 07:14 07:14 07:14 WBC (4.8-10.8) K/uL RBC (4.7-6.1) M/uL Hgb (14.0-18.0) g/dL Hct (42-52) % MCV (80-100) fL MCH (25-34) pg MCHC (32-36) g/dL RDW Std Deviation (36.4-46.3) fL RDW Coeff of Lesley (11.5-14.5) % Plt Count (130-400) K/uL MPV (7.4-10.4) fL Immature Gran % (Auto) % Neut % (Auto) % Lymph % (Auto) % [place] % (Auto) % Eos % (Auto) % Baso % (Auto) % Immature Gran # (Auto) (0.00-0.02) K/uL Neut # (Auto) (1.4-6.5) K/uL Lymph # (Auto) (1.2-3.4) K/uL [place] # (Auto) (0.11-0.59) K/uL Eos # (Auto) (0-0.5) K/uL Baso # (Auto) (0-0.2) K/uL Platelet Estimate (Normal) Polychromasia Anisocytosis Macrocytosis PT 24.0 H (9.0-12.0) Seconds INR 2.5 H (0.9-1.1) Sodium 127 L (136-145) mmol/L Potassium 4.3 (3.5-5.1) mmol/L Chloride 96 L (98-107) mmol/L Carbon Dioxide 23 (21-32) mmol/L Anion Gap 8.0 (3-11) BUN 6 L (7-18) mg/dl Creatinine 0.61 (0.6-1.4) mg/dl Est Cr Clr Drug Dosing 144.8 Est GFR ( Amer) 125.8 Est GFR (Non-Af Amer) 108.5 BUN/Creatinine Ratio 9.3 L (10-20) Glucose 86 (70-99) mg/dl Osmolality (280-300) mOsm/kg Calcium 7.0 L (8.5-10.1) mg/dl Magnesium 1.9 (1.8-2.4) mg/dl Total Bilirubin 13.7 H (0.2-1) mg/dl Direct Bilirubin 6.5 H (0-0.2) mg/dl AST 81 H (15-37) U/L ALT 30 (12-78) U/L Alkaline Phosphatase 78 (45-117) U/L Ammonia (11-32) umol/L Troponin I 0.020 (0-0.045) ng/ml Total Protein 6.3 L (6.4-8.2) gm/dl Albumin 1.4 L (3.4-5.0) gm/dl Globulin 4.9 H (2.5-4.0) gm/dl Albumin/Globulin Ratio 0.3 L (0.9-2) Lipase (73-393) U/L Vitamin B12 1533 H (211-911) pg/ml Folate 14.87 (>5.38) ng/ml Procalcitonin (0-0.5) ng/ml Urine Color Urine Appearance (Clear) Urine pH (4.5-7.5) Ur Specific [place] (1.000-1.030) Urine Protein (Negative) Urine Glucose (UA) (Negative) Urine Ketones (Negative) Urine Blood (Negative) Urine Nitrite (Negative) Urine Bilirubin (Negative) Urine Urobilinogen (Negative) Ur Leukocyte Esterase (Negative) Urine WBC (Auto) (0-5) /hpf Urine RBC (Auto) (0-4) /hpf U Hyaline Cast (Auto) (0-5) /lpf U Epithel Cells (Auto) (0-5) /lpf Urine Bacteria (Auto) (Negative) Urine Osmolality (500-800) mOsm/kg Ur Random Creatinine mg/dl U Random Total Protein (0-11.9) mg/dl Ur Random Sodium mmol/L Protein/Creatinin Ratio (0-0.2) Nasal Screen MRSA (PCR) (Negative) Ethyl Alcohol mg/dL (0-3) mg/dl Blood Type Blood Type Recheck Antibody Screen Crossmatch 08/15/18 08/15/18 08/15/18 Range/Units 07:14 03:15 03:15 WBC 3.14 L (4.8-10.8) K/uL RBC 1.72 L (4.7-6.1) M/uL Hgb 6.5 L* (14.0-18.0) g/dL Hct 18.6 L* (42-52) % MCV 108.1 H (80-100) fL MCH 37.8 H (25-34) pg MCHC 34.9 (32-36) g/dL RDW Std Deviation 88.2 H (36.4-46.3) fL RDW Coeff of Lesley 23.6 H (11.5-14.5) % Plt Count 57 L (130-400) K/uL MPV 8.3 (7.4-10.4) fL Immature Gran % (Auto) 0.3 % Neut % (Auto) 70.1 % Lymph % (Auto) 11.1 % [place] % (Auto) 16.6 % Eos % (Auto) 1.3 % Baso % (Auto) 0.6 % Immature Gran # (Auto) 0.01 (0.00-0.02) K/uL Neut # (Auto) 2.20 (1.4-6.5) K/uL Lymph # (Auto) 0.35 L (1.2-3.4) K/uL [place] # (Auto) 0.52 (0.11-0.59) K/uL Eos # (Auto) 0.04 (0-0.5) K/uL Baso # (Auto) 0.02 (0-0.2) K/uL Platelet Estimate (Normal) Polychromasia 1+ Anisocytosis Macrocytosis Present PT (9.0-12.0) Seconds INR (0.9-1.1) Sodium (136-145) mmol/L Potassium (3.5-5.1) mmol/L Chloride (98-107) mmol/L Carbon Dioxide (21-32) mmol/L Anion Gap (3-11) BUN (7-18) mg/dl Creatinine (0.6-1.4) mg/dl Est Cr Clr Drug Dosing Est GFR ( Amer) Est GFR (Non-Af Amer) BUN/Creatinine Ratio (10-20) Glucose (70-99) mg/dl Osmolality (280-300) mOsm/kg Calcium (8.5-10.1) mg/dl Magnesium (1.8-2.4) mg/dl Total Bilirubin (0.2-1) mg/dl Direct Bilirubin (0-0.2) mg/dl AST (15-37) U/L ALT (12-78) U/L Alkaline Phosphatase (45-117) U/L Ammonia (11-32) umol/L Troponin I (0-0.045) ng/ml Total Protein (6.4-8.2) gm/dl Albumin (3.4-5.0) gm/dl Globulin (2.5-4.0) gm/dl Albumin/Globulin Ratio (0.9-2) Lipase (73-393) U/L Vitamin B12 (211-911) pg/ml Folate (>5.38) ng/ml Procalcitonin (0-0.5) ng/ml Urine Color Urine Appearance (Clear) Urine pH (4.5-7.5) Ur Specific [place] (1.000-1.030) Urine Protein (Negative) Urine Glucose (UA) (Negative) Urine Ketones (Negative) Urine Blood (Negative) Urine Nitrite (Negative) Urine Bilirubin (Negative) Urine Urobilinogen (Negative) Ur Leukocyte Esterase (Negative) Urine WBC (Auto) (0-5) /hpf Urine RBC (Auto) (0-4) /hpf U Hyaline Cast (Auto) (0-5) /lpf U Epithel Cells (Auto) (0-5) /lpf Urine Bacteria (Auto) (Negative) Urine Osmolality 282 L (500-800) mOsm/kg Ur Random Creatinine 41.6 mg/dl U Random Total Protein 7.0 (0-11.9) mg/dl Ur Random Sodium 53 mmol/L Protein/Creatinin Ratio 0.2 (0-0.2) Nasal Screen MRSA (PCR) (Negative) Ethyl Alcohol mg/dL (0-3) mg/dl Blood Type Blood Type Recheck Antibody Screen Crossmatch 08/15/18 08/15/18 08/15/18 Range/Units 03:15 01:55 01:53 WBC (4.8-10.8) K/uL RBC (4.7-6.1) M/uL Hgb (14.0-18.0) g/dL Hct (42-52) % MCV (80-100) fL MCH (25-34) pg MCHC (32-36) g/dL RDW Std Deviation (36.4-46.3) fL RDW Coeff of Lesley (11.5-14.5) % Plt Count (130-400) K/uL MPV (7.4-10.4) fL Immature Gran % (Auto) % Neut % (Auto) % Lymph % (Auto) % [place] % (Auto) % Eos % (Auto) % Baso % (Auto) % Immature Gran # (Auto) (0.00-0.02) K/uL Neut # (Auto) (1.4-6.5) K/uL Lymph # (Auto) (1.2-3.4) K/uL [place] # (Auto) (0.11-0.59) K/uL Eos # (Auto) (0-0.5) K/uL Baso # (Auto) (0-0.2) K/uL Platelet Estimate (Normal) Polychromasia Anisocytosis Macrocytosis PT (9.0-12.0) Seconds INR (0.9-1.1) Sodium 123 L (136-145) mmol/L Potassium 4.2 (3.5-5.1) mmol/L Chloride 93 L (98-107) mmol/L Carbon Dioxide 25 (21-32) mmol/L Anion Gap 5.0 (3-11) BUN 5 L (7-18) mg/dl Creatinine 0.59 L (0.6-1.4) mg/dl Est Cr Clr Drug Dosing Not Reportable Est GFR ( Amer) 127.5 Est GFR (Non-Af Amer) 110.0 BUN/Creatinine Ratio 9.2 L (10-20) Glucose 91 (70-99) mg/dl Osmolality (280-300) mOsm/kg Calcium 6.8 L (8.5-10.1) mg/dl Magnesium (1.8-2.4) mg/dl Total Bilirubin (0.2-1) mg/dl Direct Bilirubin (0-0.2) mg/dl AST (15-37) U/L ALT (12-78) U/L Alkaline Phosphatase (45-117) U/L Ammonia (11-32) umol/L Troponin I (0-0.045) ng/ml Total Protein (6.4-8.2) gm/dl Albumin (3.4-5.0) gm/dl Globulin (2.5-4.0) gm/dl Albumin/Globulin Ratio (0.9-2) Lipase (73-393) U/L Vitamin B12 (211-911) pg/ml Folate (>5.38) ng/ml Procalcitonin (0-0.5) ng/ml Urine Color [place] Urine Appearance Clear (Clear) Urine pH 5.0 (4.5-7.5) Ur Specific [place] 1.017 (1.000-1.030) Urine Protein Negative (Negative) Urine Glucose (UA) Negative (Negative) Urine Ketones Negative (Negative) Urine Blood Negative (Negative) Urine Nitrite Positive H (Negative) Urine Bilirubin 2+ H (Negative) Urine Urobilinogen Negative (Negative) Ur Leukocyte Esterase Trace H (Negative) Urine WBC (Auto) 0 (0-5) /hpf Urine RBC (Auto) 0-4 (0-4) /hpf U Hyaline Cast (Auto) 0 (0-5) /lpf U Epithel Cells (Auto) 0-5 (0-5) /lpf Urine Bacteria (Auto) Negative (Negative) Urine Osmolality (500-800) mOsm/kg Ur Random Creatinine mg/dl U Random Total Protein (0-11.9) mg/dl Ur Random Sodium mmol/L Protein/Creatinin Ratio (0-0.2) Nasal Screen MRSA (PCR) Negative (Negative) Ethyl Alcohol mg/dL (0-3) mg/dl Blood Type Blood Type Recheck Antibody Screen Crossmatch 08/15/18 08/14/18 08/14/18 Range/Units 01:53 19:14 18:35 WBC (4.8-10.8) K/uL RBC (4.7-6.1) M/uL Hgb (14.0-18.0) g/dL Hct (42-52) % MCV (80-100) fL MCH (25-34) pg MCHC (32-36) g/dL RDW Std Deviation (36.4-46.3) fL RDW Coeff of Lesley (11.5-14.5) % Plt Count (130-400) K/uL MPV (7.4-10.4) fL Immature Gran % (Auto) % Neut % (Auto) % Lymph % (Auto) % [place] % (Auto) % Eos % (Auto) % Baso % (Auto) % Immature Gran # (Auto) (0.00-0.02) K/uL Neut # (Auto) (1.4-6.5) K/uL Lymph # (Auto) (1.2-3.4) K/uL [place] # (Auto) (0.11-0.59) K/uL Eos # (Auto) (0-0.5) K/uL Baso # (Auto) (0-0.2) K/uL Platelet Estimate (Normal) Polychromasia Anisocytosis Macrocytosis PT (9.0-12.0) Seconds INR (0.9-1.1) Sodium (136-145) mmol/L Potassium (3.5-5.1) mmol/L Chloride (98-107) mmol/L Carbon Dioxide (21-32) mmol/L Anion Gap (3-11) BUN (7-18) mg/dl Creatinine (0.6-1.4) mg/dl Est Cr Clr Drug Dosing Est GFR ( Amer) Est GFR (Non-Af Amer) BUN/Creatinine Ratio (10-20) Glucose (70-99) mg/dl Osmolality 276 L (280-300) mOsm/kg Calcium (8.5-10.1) mg/dl Magnesium (1.8-2.4) mg/dl Total Bilirubin (0.2-1) mg/dl Direct Bilirubin (0-0.2) mg/dl AST (15-37) U/L ALT (12-78) U/L Alkaline Phosphatase (45-117) U/L Ammonia (11-32) umol/L Troponin I (0-0.045) ng/ml Total Protein (6.4-8.2) gm/dl Albumin (3.4-5.0) gm/dl Globulin (2.5-4.0) gm/dl Albumin/Globulin Ratio (0.9-2) Lipase (73-393) U/L Vitamin B12 (211-911) pg/ml Folate (>5.38) ng/ml Procalcitonin 0.16 (0-0.5) ng/ml Urine Color Urine Appearance (Clear) Urine pH (4.5-7.5) Ur Specific [place] (1.000-1.030) Urine Protein (Negative) Urine Glucose (UA) (Negative) Urine Ketones (Negative) Urine Blood (Negative) Urine Nitrite (Negative) Urine Bilirubin (Negative) Urine Urobilinogen (Negative) Ur Leukocyte Esterase (Negative) Urine WBC (Auto) (0-5) /hpf Urine RBC (Auto) (0-4) /hpf U Hyaline Cast (Auto) (0-5) /lpf U Epithel Cells (Auto) (0-5) /lpf Urine Bacteria (Auto) (Negative) Urine Osmolality (500-800) mOsm/kg Ur Random Creatinine mg/dl U Random Total Protein (0-11.9) mg/dl Ur Random Sodium mmol/L Protein/Creatinin Ratio (0-0.2) Nasal Screen MRSA (PCR) (Negative) Ethyl Alcohol mg/dL (0-3) mg/dl Blood Type Blood Type Recheck O Negative Antibody Screen Crossmatch 08/14/18 08/14/18 08/14/18 Range/Units 18:35 18:35 18:35 WBC (4.8-10.8) K/uL RBC (4.7-6.1) M/uL Hgb (14.0-18.0) g/dL Hct (42-52) % MCV (80-100) fL MCH (25-34) pg MCHC (32-36) g/dL RDW Std Deviation (36.4-46.3) fL RDW Coeff of Lesley (11.5-14.5) % Plt Count (130-400) K/uL MPV (7.4-10.4) fL Immature Gran % (Auto) % Neut % (Auto) % Lymph % (Auto) % [place] % (Auto) % Eos % (Auto) % Baso % (Auto) % Immature Gran # (Auto) (0.00-0.02) K/uL Neut # (Auto) (1.4-6.5) K/uL Lymph # (Auto) (1.2-3.4) K/uL [place] # (Auto) (0.11-0.59) K/uL Eos # (Auto) (0-0.5) K/uL Baso # (Auto) (0-0.2) K/uL Platelet Estimate (Normal) Polychromasia Anisocytosis Macrocytosis PT (9.0-12.0) Seconds INR (0.9-1.1) Sodium (136-145) mmol/L Potassium (3.5-5.1) mmol/L Chloride (98-107) mmol/L Carbon Dioxide (21-32) mmol/L Anion Gap (3-11) BUN (7-18) mg/dl Creatinine (0.6-1.4) mg/dl Est Cr Clr Drug Dosing Est GFR ( Amer) Est GFR (Non-Af Amer) BUN/Creatinine Ratio (10-20) Glucose (70-99) mg/dl Osmolality (280-300) mOsm/kg Calcium (8.5-10.1) mg/dl Magnesium (1.8-2.4) mg/dl Total Bilirubin (0.2-1) mg/dl Direct Bilirubin (0-0.2) mg/dl AST (15-37) U/L ALT (12-78) U/L Alkaline Phosphatase (45-117) U/L Ammonia 11.0 (11-32) umol/L Troponin I (0-0.045) ng/ml Total Protein (6.4-8.2) gm/dl Albumin (3.4-5.0) gm/dl Globulin (2.5-4.0) gm/dl Albumin/Globulin Ratio (0.9-2) Lipase (73-393) U/L Vitamin B12 (211-911) pg/ml Folate (>5.38) ng/ml Procalcitonin (0-0.5) ng/ml Urine Color Urine Appearance (Clear) Urine pH (4.5-7.5) Ur Specific [place] (1.000-1.030) Urine Protein (Negative) Urine Glucose (UA) (Negative) Urine Ketones (Negative) Urine Blood (Negative) Urine Nitrite (Negative) Urine Bilirubin (Negative) Urine Urobilinogen (Negative) Ur Leukocyte Esterase (Negative) Urine WBC (Auto) (0-5) /hpf Urine RBC (Auto) (0-4) /hpf U Hyaline Cast (Auto) (0-5) /lpf U Epithel Cells (Auto) (0-5) /lpf Urine Bacteria (Auto) (Negative) Urine Osmolality (500-800) mOsm/kg Ur Random Creatinine mg/dl U Random Total Protein (0-11.9) mg/dl Ur Random Sodium mmol/L Protein/Creatinin Ratio (0-0.2) Nasal Screen MRSA (PCR) (Negative) Ethyl Alcohol mg/dL 119.5 H (0-3) mg/dl Blood Type O Negative Blood Type Recheck Antibody Screen NEGATIVE Crossmatch See Detail 04/08/14/18 08/14/18 Range/Units 18:35 18:35 18:35 WBC 2.88 L (4.8-10.8) K/uL RBC 1.58 L (4.7-6.1) M/uL Hgb 6.2 L* (14.0-18.0) g/dL Hct 17.9 L* (42-52) % MCV 113.3 H (80-100) fL MCH 39.2 H (25-34) pg MCHC 34.6 (32-36) g/dL RDW Std Deviation 71.9 H (36.4-46.3) fL RDW Coeff of Lesley 17.8 H (11.5-14.5) % Plt Count 61 L (130-400) K/uL MPV 8.2 (7.4-10.4) fL Immature Gran % (Auto) 1.0 % Neut % (Auto) 69.1 % Lymph % (Auto) 18.1 % [place] % (Auto) 9.7 % Eos % (Auto) 1.4 % Baso % (Auto) 0.7 % Immature Gran # (Auto) 0.03 H (0.00-0.02) K/uL Neut # (Auto) 1.99 (1.4-6.5) K/uL Lymph # (Auto) 0.52 L (1.2-3.4) K/uL [place] # (Auto) 0.28 (0.11-0.59) K/uL Eos # (Auto) 0.04 (0-0.5) K/uL Baso # (Auto) 0.02 (0-0.2) K/uL Platelet Estimate Decreased (Normal) Polychromasia 1+ Anisocytosis Present Macrocytosis PT 21.7 H (9.0-12.0) Seconds INR 2.2 H (0.9-1.1) Sodium 121 L (136-145) mmol/L Potassium 4.3 (3.5-5.1) mmol/L Chloride 92 L (98-107) mmol/L Carbon Dioxide 23 (21-32) mmol/L Anion Gap 6.0 (3-11) BUN 5 L (7-18) mg/dl Creatinine 0.60 (0.6-1.4) mg/dl Est Cr Clr Drug Dosing Not Reportable Est GFR ( Amer) 126.7 Est GFR (Non-Af Amer) 109.3 BUN/Creatinine Ratio 8.7 L (10-20) Glucose 111 H (70-99) mg/dl Osmolality (280-300) mOsm/kg Calcium 7.2 L (8.5-10.1) mg/dl Magnesium 2.1 (1.8-2.4) mg/dl Total Bilirubin 14.2 H (0.2-1) mg/dl Direct Bilirubin (0-0.2) mg/dl AST 100 H (15-37) U/L ALT 35 (12-78) U/L Alkaline Phosphatase 80 (45-117) U/L Ammonia (11-32) umol/L Troponin I < 0.015 (0-0.045) ng/ml Total Protein 7.1 (6.4-8.2) gm/dl Albumin 1.4 L (3.4-5.0) gm/dl Globulin 5.7 H (2.5-4.0) gm/dl Albumin/Globulin Ratio 0.2 L (0.9-2) Lipase 385 (73-393) U/L Vitamin B12 (211-911) pg/ml Folate (>5.38) ng/ml Procalcitonin (0-0.5) ng/ml Urine Color Urine Appearance (Clear) Urine pH (4.5-7.5) Ur Specific [place] (1.000-1.030) Urine Protein (Negative) Urine Glucose (UA) (Negative) Urine Ketones (Negative) Urine Blood (Negative) Urine Nitrite (Negative) Urine Bilirubin (Negative) Urine Urobilinogen (Negative) Ur Leukocyte Esterase (Negative) Urine WBC (Auto) (0-5) /hpf Urine RBC (Auto) (0-4) /hpf U Hyaline Cast (Auto) (0-5) /lpf U Epithel Cells (Auto) (0-5) /lpf Urine Bacteria (Auto) (Negative) Urine Osmolality (500-800) mOsm/kg Ur Random Creatinine mg/dl U Random Total Protein (0-11.9) mg/dl Ur Random Sodium mmol/L Protein/Creatinin Ratio (0-0.2) Nasal Screen MRSA (PCR) (Negative) Ethyl Alcohol mg/dL (0-3) mg/dl Blood Type Blood Type Recheck Antibody Screen Crossmatch (1) Anemia Anemia type: other cause Other causes of anemia: other cause, not classified Qualified Code(s): D64.89 - Other specified anemias (2) Cirrhosis Ascites presence: with ascites Hepatic cirrhosis type: alcoholic cirrhosis Qualified Code(s): K70.31 - Alcoholic cirrhosis of liver with ascites
--- NOTE | 2018-08-15 09:54 | Nephrology Consultation ---
Date of Consultation August 15, 2018 Assessment & Plan (1) Hyponatremia: Due hypervolemia. He has high urine osmolarity and physical exam consistent with hypervolemia. Recommend: -Fluid restriction when eating to 1.2 litres daily -IV diuresis. Will give lasix 60mg bolus and lasix drip titrated between 15mg to 20mg /hr depending on output -Strict input/output. -Monitor Na daily. -Target rate of correction of 6points daily (2) Alcoholic cirrhosis of liver with ascites: Patient with decompensated cirrhosis. He continues to drink. He likely needs paracentesis to reduce intrabdominal hypertension. Will continue diuresis although hypoalbuminemia will be a limiting factor in mobilizing fluid (3) Anemia: Likely due to GI bleed. He is getting EGD. Monitor and transfuse as needed. No role for CELESTE History of Present Illness Reason for Consultation: Hyponatremia Requesting Physician: Kian Vivar MD Attending Physician: Angelica Recinos MD History of Present Illness This is a 58-year-old male with history of alcoholic cirrhosis who continues to drink 4-5 beers a day, he does not see doctors often, anemia who came in 08/14 after finding of abnormal labs. Patient had gone to primary care physician with complaints of lower extremity swelling for 2 weeks. He was found to have severe anemia and sent to the emergency room. He reports progressive lower extremity swelling all the way up to the abdomen over 2 to 3-week. He was also having nausea but denied vomiting or diarrhea. He continues to drink alcohol 4-5 beers a day. He drinks about 1 L of water in addition. He does not recall having hyponatremia in the past. He was found to have a sodium 1.1 yesterday and that increased to 123 this morning. Urine osmolality was 282 and urine sodium of 53. He was found to have severe anemia with hemoglobin of 6.2. CT abdomen with contrast showed left pleural effusion, liver cirrhosis and ascites. We have been asked to evaluate him for etiology and management of his hyponatremia. Overnight he got 1 L of normal saline. He is also on diltiazem drip for atrial fibrillation with RVR. He denies shortness of breath. He has no urinary symptoms such as dysuria, hematuria or frequency. He denied NSAID use. 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: No Beliefs That Will Affect Care: None Current Living Situation: Alone Current Living Situation Comment: Apt Other Information That Helps Us Care for You: No Feels Safe at Home: Yes Safety Concerns: Feels Safe At This Time Smoking Status: Never smoker Tobacco Type: smokeless tobacco Do You Dip or Chew Tobacco: Yes Hx Alcohol Use: Yes Alcohol type: beer Hx Substance Use: No Review of Systems Review of Systems: All systems reviewed & are unremarkable except as noted in HPI & below Physical Exam Physical Exam: General exam: Patient has anasarca, appears comfortable, no acute distress HEENT: Pupils are equal and reactive to light. Deep jaundice Neck: No JVD, neck is supple trachea is midline Respiratory system: Crackles in the bases bilaterally. Gastrointestinal: Abdomen is soft, distended and tense, non tender, bowel sounds are present CVS: Regular rate and rhythm. No murmurs, rubs or gallops Musculoskeletal: No joint or muscle tenderness Extremities: Non tender, 3+ edema, peripheral pulses are present Neuro: Oriented, no tremors, no focal neurological deficits Skin: No rashes but deep jaundice Results & Data Vital Signs (Past 12 Hours) Vital Signs Temp Pulse Pulse Resp BP BP Pulse Ox 08/15/18 07:18 36.9 C 81 18 110/54 L 95 08/15/18 06:27 36.9 C 80 18 105/63 95 08/15/18 05:23 90 107/64 08/15/18 05:11 36.7 C 84 19 105/61 95 08/15/18 04:42 36.7 C 118 H 17 101/63 94 08/15/18 04:26 36.6 C 132 H 17 102/68 93 08/15/18 04:08 36.8 C 156 H 22 108/63 08/15/18 03:15 36.7 C 77 18 105/71 95 08/15/18 03:03 140 H 114/73 08/15/18 01:45 145 H 08/15/18 01:30 36.8 C 103 H 19 111/68 93 08/15/18 01:22 103 H 08/15/18 00:59 106 H 16 95/50 L 94 08/15/18 00:30 102 H 18 95/50 L 94 08/15/18 00:00 104 H 19 100/49 L 94 08/14/18 23:30 107 H 21 112/70 94 08/14/18 23:00 102 H 15 101/66 95 08/14/18 22:30 107 H 114/58 L 93 08/14/18 22:01 104 H 20 107/69 93 Pulse Ox 08/15/18 07:18 08/15/18 06:27 08/15/18 05:23 08/15/18 05:11 08/15/18 04:42 94 08/15/18 04:26 08/15/18 04:08 08/15/18 03:15 08/15/18 03:03 08/15/18 01:45 08/15/18 01:30 08/15/18 01:22 08/15/18 00:59 08/15/18 00:30 08/15/18 00:00 08/14/18 23:30 08/14/18 23:00 08/14/18 22:30 08/14/18 22:01 Laboratory Results Laboratory Results - last 24 hr 08/14/18 08/14/18 08/14/18 18:35 18:35 18:35 WBC 2.88 L RBC 1.58 L Hgb 6.2 L* Hct 17.9 L* MCV 113.3 H MCH 39.2 H MCHC 34.6 RDW Std Deviation 71.9 H RDW Coeff of Lesley 17.8 H Plt Count 61 L MPV 8.2 Immature Gran % (Auto) 1.0 Neut % (Auto) 69.1 Lymph % (Auto) 18.1 [place] % (Auto) 9.7 Eos % (Auto) 1.4 Baso % (Auto) 0.7 Immature Gran # (Auto) 0.03 H Neut # (Auto) 1.99 Lymph # (Auto) 0.52 L [place] # (Auto) 0.28 Eos # (Auto) 0.04 Baso # (Auto) 0.02 Platelet Estimate Decreased Polychromasia 1+ Anisocytosis Present Macrocytosis PT 21.7 H INR 2.2 H Sodium 121 L Potassium 4.3 Chloride 92 L Carbon Dioxide 23 Anion Gap 6.0 BUN 5 L Creatinine 0.60 Est Cr Clr Drug Dosing Not Reportable Est GFR ( Amer) 126.7 Est GFR (Non-Af Amer) 109.3 BUN/Creatinine Ratio 8.7 L Glucose 111 H Osmolality Calcium 7.2 L Magnesium 2.1 Total Bilirubin 14.2 H Direct Bilirubin AST 100 H ALT 35 Alkaline Phosphatase 80 Ammonia Troponin I < 0.015 Total Protein 7.1 Albumin 1.4 L Globulin 5.7 H Albumin/Globulin Ratio 0.2 L Lipase 385 Vitamin B12 Folate Procalcitonin Urine Color Urine Appearance Urine pH Ur Specific [place] Urine Protein Urine Glucose (UA) Urine Ketones Urine Blood Urine Nitrite Urine Bilirubin Urine Urobilinogen Ur Leukocyte Esterase Urine WBC (Auto) Urine RBC (Auto) U Hyaline Cast (Auto) U Epithel Cells (Auto) Urine Bacteria (Auto) Urine Osmolality Ur Random Creatinine U Random Total Protein Ur Random Sodium Protein/Creatinin Ratio Nasal Screen MRSA (PCR) Ethyl Alcohol mg/dL Blood Type Blood Type Recheck Antibody Screen Crossmatch 08/14/18 08/14/18 08/14/18 18:35 18:35 18:35 WBC RBC Hgb Hct MCV MCH MCHC RDW Std Deviation RDW Coeff of Lesley Plt Count MPV Immature Gran % (Auto) Neut % (Auto) Lymph % (Auto) [place] % (Auto) Eos % (Auto) Baso % (Auto) Immature Gran # (Auto) Neut # (Auto) Lymph # (Auto) [place] # (Auto) Eos # (Auto) Baso # (Auto) Platelet Estimate Polychromasia Anisocytosis Macrocytosis PT INR Sodium Potassium Chloride Carbon Dioxide Anion Gap BUN Creatinine Est Cr Clr Drug Dosing Est GFR ( Amer) Est GFR (Non-Af Amer) BUN/Creatinine Ratio Glucose Osmolality Calcium Magnesium Total Bilirubin Direct Bilirubin AST ALT Alkaline Phosphatase Ammonia 11.0 Troponin I Total Protein Albumin Globulin Albumin/Globulin Ratio Lipase Vitamin B12 Folate Procalcitonin Urine Color Urine Appearance Urine pH Ur Specific [place] Urine Protein Urine Glucose (UA) Urine Ketones Urine Blood Urine Nitrite Urine Bilirubin Urine Urobilinogen Ur Leukocyte Esterase Urine WBC (Auto) Urine RBC (Auto) U Hyaline Cast (Auto) U Epithel Cells (Auto) Urine Bacteria (Auto) Urine Osmolality Ur Random Creatinine U Random Total Protein Ur Random Sodium Protein/Creatinin Ratio Nasal Screen MRSA (PCR) Ethyl Alcohol mg/dL 119.5 H Blood Type O Negative Blood Type Recheck Antibody Screen NEGATIVE Crossmatch See Detail 08/14/18 08/14/18 08/15/18 18:35 19:14 01:53 WBC RBC Hgb Hct MCV MCH MCHC RDW Std Deviation RDW Coeff of Lesley Plt Count MPV Immature Gran % (Auto) Neut % (Auto) Lymph % (Auto) [place] % (Auto) Eos % (Auto) Baso % (Auto) Immature Gran # (Auto) Neut # (Auto) Lymph # (Auto) [place] # (Auto) Eos # (Auto) Baso # (Auto) Platelet Estimate Polychromasia Anisocytosis Macrocytosis PT INR Sodium Potassium Chloride Carbon Dioxide Anion Gap BUN Creatinine Est Cr Clr Drug Dosing Est GFR ( Amer) Est GFR (Non-Af Amer) BUN/Creatinine Ratio Glucose Osmolality 276 L Calcium Magnesium Total Bilirubin Direct Bilirubin AST ALT Alkaline Phosphatase Ammonia Troponin I Total Protein Albumin Globulin Albumin/Globulin Ratio Lipase Vitamin B12 Folate Procalcitonin 0.16 Urine Color Urine Appearance Urine pH Ur Specific [place] Urine Protein Urine Glucose (UA) Urine Ketones Urine Blood Urine Nitrite Urine Bilirubin Urine Urobilinogen Ur Leukocyte Esterase Urine WBC (Auto) Urine RBC (Auto) U Hyaline Cast (Auto) U Epithel Cells (Auto) Urine Bacteria (Auto) Urine Osmolality Ur Random Creatinine U Random Total Protein Ur Random Sodium Protein/Creatinin Ratio Nasal Screen MRSA (PCR) Ethyl Alcohol mg/dL Blood Type Blood Type Recheck O Negative Antibody Screen Crossmatch 08/15/18 08/15/18 08/15/18 01:53 01:55 03:15 WBC RBC Hgb Hct MCV MCH MCHC RDW Std Deviation RDW Coeff of Lesley Plt Count MPV Immature Gran % (Auto) Neut % (Auto) Lymph % (Auto) [place] % (Auto) Eos % (Auto) Baso % (Auto) Immature Gran # (Auto) Neut # (Auto) Lymph # (Auto) [place] # (Auto) Eos # (Auto) Baso # (Auto) Platelet Estimate Polychromasia Anisocytosis Macrocytosis PT INR Sodium 123 L Potassium 4.2 Chloride 93 L Carbon Dioxide 25 Anion Gap 5.0 BUN 5 L Creatinine 0.59 L Est Cr Clr Drug Dosing Not Reportable Est GFR ( Amer) 127.5 Est GFR (Non-Af Amer) 110.0 BUN/Creatinine Ratio 9.2 L Glucose 91 Osmolality Calcium 6.8 L Magnesium Total Bilirubin Direct Bilirubin AST ALT Alkaline Phosphatase Ammonia Troponin I Total Protein Albumin Globulin Albumin/Globulin Ratio Lipase Vitamin B12 Folate Procalcitonin Urine Color [place] Urine Appearance Clear Urine pH 5.0 Ur Specific [place] 1.017 Urine Protein Negative Urine Glucose (UA) Negative Urine Ketones Negative Urine Blood Negative Urine Nitrite Positive H Urine Bilirubin 2+ H Urine Urobilinogen Negative Ur Leukocyte Esterase Trace H Urine WBC (Auto) 0 Urine RBC (Auto) 0-4 U Hyaline Cast (Auto) 0 U Epithel Cells (Auto) 0-5 Urine Bacteria (Auto) Negative Urine Osmolality Ur Random Creatinine U Random Total Protein Ur Random Sodium Protein/Creatinin Ratio Nasal Screen MRSA (PCR) Negative Ethyl Alcohol mg/dL Blood Type Blood Type Recheck Antibody Screen Crossmatch 08/15/18 08/15/18 08/15/18 03:15 03:15 07:14 WBC 3.14 L RBC 1.72 L Hgb 6.5 L* Hct 18.6 L* MCV 108.1 H MCH 37.8 H MCHC 34.9 RDW Std Deviation 88.2 H RDW Coeff of Lesley 23.6 H Plt Count 57 L MPV 8.3 Immature Gran % (Auto) 0.3 Neut % (Auto) 70.1 Lymph % (Auto) 11.1 [place] % (Auto) 16.6 Eos % (Auto) 1.3 Baso % (Auto) 0.6 Immature Gran # (Auto) 0.01 Neut # (Auto) 2.20 Lymph # (Auto) 0.35 L [place] # (Auto) 0.52 Eos # (Auto) 0.04 Baso # (Auto) 0.02 Platelet Estimate Polychromasia 1+ Anisocytosis Macrocytosis Present PT INR Sodium Potassium Chloride Carbon Dioxide Anion Gap BUN Creatinine Est Cr Clr Drug Dosing Est GFR ( Amer) Est GFR (Non-Af Amer) BUN/Creatinine Ratio Glucose Osmolality Calcium Magnesium Total Bilirubin Direct Bilirubin AST ALT Alkaline Phosphatase Ammonia Troponin I Total Protein Albumin Globulin Albumin/Globulin Ratio Lipase Vitamin B12 Folate Procalcitonin Urine Color Urine Appearance Urine pH Ur Specific [place] Urine Protein Urine Glucose (UA) Urine Ketones Urine Blood Urine Nitrite Urine Bilirubin Urine Urobilinogen Ur Leukocyte Esterase Urine WBC (Auto) Urine RBC (Auto) U Hyaline Cast (Auto) U Epithel Cells (Auto) Urine Bacteria (Auto) Urine Osmolality 282 L Ur Random Creatinine 41.6 U Random Total Protein 7.0 Ur Random Sodium 53 Protein/Creatinin Ratio 0.2 Nasal Screen MRSA (PCR) Ethyl Alcohol mg/dL Blood Type Blood Type Recheck Antibody Screen Crossmatch 08/15/18 08/15/18 08/15/18 07:14 07:14 07:14 WBC RBC Hgb Hct MCV MCH MCHC RDW Std Deviation RDW Coeff of Lesley Plt Count MPV Immature Gran % (Auto) Neut % (Auto) Lymph % (Auto) [place] % (Auto) Eos % (Auto) Baso % (Auto) Immature Gran # (Auto) Neut # (Auto) Lymph # (Auto) [place] # (Auto) Eos # (Auto) Baso # (Auto) Platelet Estimate Polychromasia Anisocytosis Macrocytosis PT 24.0 H INR 2.5 H Sodium 127 L Potassium 4.3 Chloride 96 L Carbon Dioxide 23 Anion Gap 8.0 BUN 6 L Creatinine 0.61 Est Cr Clr Drug Dosing 144.8 Est GFR ( Amer) 125.8 Est GFR (Non-Af Amer) 108.5 BUN/Creatinine Ratio 9.3 L Glucose 86 Osmolality Calcium 7.0 L Magnesium 1.9 Total Bilirubin 13.7 H Direct Bilirubin 6.5 H AST 81 H ALT 30 Alkaline Phosphatase 78 Ammonia Troponin I 0.020 Total Protein 6.3 L Albumin 1.4 L Globulin 4.9 H Albumin/Globulin Ratio 0.3 L Lipase Vitamin B12 1533 H Folate 14.87 Procalcitonin Urine Color Urine Appearance Urine pH Ur Specific [place] Urine Protein Urine Glucose (UA) Urine Ketones Urine Blood Urine Nitrite Urine Bilirubin Urine Urobilinogen Ur Leukocyte Esterase Urine WBC (Auto) Urine RBC (Auto) U Hyaline Cast (Auto) U Epithel Cells (Auto) Urine Bacteria (Auto) Urine Osmolality Ur Random Creatinine U Random Total Protein Ur Random Sodium Protein/Creatinin Ratio Nasal Screen MRSA (PCR) Ethyl Alcohol mg/dL Blood Type Blood Type Recheck Antibody Screen Crossmatch (1) Anemia Anemia type: other cause Other causes of anemia: other cause, not classified Qualified Code(s): D64.89 - Other specified anemias
[2018-08-15] MEDS ORDERED: PHYTONADIONE 5 MG TAB PO ONE (10:15)
[2018-08-15] MEDS ORDERED: FUROSEMIDE 60 MG in SYRINGE 0 ML IV ONE (10:15)
--- NOTE | 2018-08-15 10:29 | Cardiology Consultation ---
Date of Consultation August 15, 2018 Assessment & Plan (1) Paroxysmal atrial fibrillation with RVR: Patient denies any symptoms. Echocardiogram reveals normal to hyperdynamic LV systolic function. He has a mild murmur, likely due to aortic valve sclerosis. It is difficult to determine the chronicity of his atrial fibrillation. If he did not feel the episode last evening, he could be going in and out of it on a long-term basis. This is likely due to his underlying alcohol use, and myocardial strain from his volume overload related to cirrhosis. At this time we will discontinue IV diltiazem, although if he reverts back to atrial fibrillation, we know that this is worked for him and may be useful again in the future. Given his history of cirrhosis, we will proceed with a trial of nonselective beta-negro as he may have underlying esophageal varices. My initial preference would be for the patient to be on nadolol, but his blood pressure is relatively low. I think it would be most reasonable to start him on propranolol 10 mg twice daily and titrate as tolerated. In terms of stroke prophylaxis, the patient is not a candidate for systemic anticoagulation due to his profound anemia and thrombocytopenia. Agree with transfusion. (2) RBBB: This is not typically associated with coronary heart disease. We will continue to follow. (3) Cirrhosis: Patient with market volume overload including pleural effusion, abdominal ascites, lower extremity edema. Patient requires transfusion and IV antibiotics, agree with also proceeding with furosemide. Nephrology input noted and appreciated. History of Present Illness Attending Physician: Angelica Recinos MD History of Present Illness Niranjan Barraza is a 58-year-old male seen in cardiology consultation per the request of Dr. Langston for the evaluation of new onset atrial fibrillation with rapid ventricular response. The patient tells me this is the first time he has seen a business director. He denies any past history of congestive heart failure, coronary heart disease, or atrial fibrillation. 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 He describes having been seen by primary care at [facility] yesterday for complaints of progressive lower extremity edema that he states recently started in his ankles and progressed to his knees. Per his description it sounds as if he has some degree of chronic abdominal swelling but this is also worsened. Blood work was performed and revealed significant lab abnormalities including anemia and hyponatremia. He was therefore referred for admission. On presentation he was noted to be grossly jaundiced in appearance. Hemoglobin had been 6.2 on admission, platelet count 61,000, INR 2.2 on no anticoagulants, sodium 123. His albumin was 14.2 and 13.7 on repeat this morning. The patient had been admitted to the telemetry unit and at 131 a.m. he was observed to go into atrial fibrillation with rapid ventricular response in the 100 to 130 bpm range. He was placed on an IV diltiazem infusion and spontaneously converted to sinus rhythm at 505 this morning. Remains in sinus rhythm. He has no subjective sensation of having an irregular heartbeat overnight last night. Allergies Allergy/AdvReac Type Severity Reaction Status Date / Time No Known Allergies Allergy Verified 08/14/18 17:20 Home Medications Home Medications Medication Instructions Recorded Confirmed Type No Known Home Medications 08/14/18 08/14/18 History Patient History Medical History Cirrhosis (Chronic) Family history non-contributory Surgical History No pertinent past surgical history Family History Other Family history non-contributory Social History Preferred Language: Kyr[place]z Communication Ability: Effective Processing Assistant Required: No Beliefs That Will Affect Care: None Current Living Situation: Alone Current Living Situation Comment: Apt Other Information That Helps Us Care for You: No Feels Safe at Home: Yes Safety Concerns: Feels Safe At This Time Smoking Status: Never smoker Tobacco Type: smokeless tobacco Do You Dip or Chew Tobacco: Yes Hx Alcohol Use: Yes Alcohol type: beer Hx Substance Use: No Review of Systems Review of Systems: All systems reviewed & are unremarkable except as noted in HPI & below Physical Exam Constitutional: + ill appearing Eyes: + scleral abnormality (Scleral icterus noted) Respiratory: Decreased breath sounds the bases, no rales rhonchi or wheezing Cardiovascular: Rate/Rhythm: regular rate and regular rhythm Heart Sounds: + murmur (I/ systolic murmur) Extremities: + edema (2+ lower extremity edema) Gastrointestinal (Abdomen): Inspection/Auscultation: + abdomen distended Percussion/Palpation: + hepatomegaly; abdomen nontender Skin: + jaundice Neurologic: moves all extremities; no focal motor deficits Results & Data Vital Signs (Past 12 Hours) Vital Signs Temp Pulse Pulse Resp BP BP Pulse Ox 08/15/18 09:53 36.7 C 86 18 112/63 94 08/15/18 07:18 36.9 C 81 18 110/54 L 95 08/15/18 06:27 36.9 C 80 18 105/63 95 08/15/18 05:23 90 107/64 08/15/18 05:11 36.7 C 84 19 105/61 95 08/15/18 04:42 36.7 C 118 H 17 101/63 94 08/15/18 04:26 36.6 C 132 H 17 102/68 93 08/15/18 04:08 36.8 C 156 H 22 108/63 08/15/18 03:15 36.7 C 77 18 105/71 95 08/15/18 03:03 140 H 114/73 08/15/18 01:45 145 H 08/15/18 01:30 36.8 C 103 H 19 111/68 93 08/15/18 01:22 103 H 08/15/18 00:59 106 H 16 95/50 L 94 08/15/18 00:30 102 H 18 95/50 L 94 08/15/18 00:00 104 H 19 100/49 L 94 08/14/18 23:30 107 H 21 112/70 94 08/14/18 23:00 102 H 15 101/66 95 08/14/18 22:30 107 H 114/58 L 93 08/14/18 22:01 104 H 20 107/69 93 Pulse Ox 08/15/18 09:53 08/15/18 07:18 08/15/18 06:27 08/15/18 05:23 08/15/18 05:11 08/15/18 04:42 94 08/15/18 04:26 08/15/18 04:08 08/15/18 03:15 08/15/18 03:03 08/15/18 01:45 08/15/18 01:30 08/15/18 01:22 08/15/18 00:59 08/15/18 00:30 08/15/18 00:00 08/14/18 23:30 08/14/18 23:00 08/14/18 22:30 08/14/18 22:01 Laboratory Results Cardiac Enzymes 08/14/18 08/15/18 Range/Units 18:35 07:14 AST 100 H 81 H (15-37) U/L Troponin I < 0.015 0.020 (0-0.045) ng/ml Coagulation 08/14/18 08/15/18 Range/Units 18:35 07:14 PT 21.7 H 24.0 H (9.0-12.0) Seconds CBC 08/14/18 08/15/18 Range/Units 18:35 07:14 WBC 2.88 L 3.14 L (4.8-10.8) K/uL RBC 1.58 L 1.72 L (4.7-6.1) M/uL Hgb 6.2 L* 6.5 L* (14.0-18.0) g/dL Hct 17.9 L* 18.6 L* (42-52) % Plt Count 61 L 57 L (130-400) K/uL Neut # (Auto) 1.99 2.20 (1.4-6.5) K/uL Lymph # (Auto) 0.52 L 0.35 L (1.2-3.4) K/uL [place] # (Auto) 0.28 0.52 (0.11-0.59) K/uL Eos # (Auto) 0.04 0.04 (0-0.5) K/uL Baso # (Auto) 0.02 0.02 (0-0.2) K/uL Comprehensive Metabolic Panel 08/14/18 08/15/18 08/15/18 Range/Units 18:35 01:53 07:14 Sodium 121 L 123 L 127 L (136-145) mmol/L Potassium 4.3 4.2 4.3 (3.5-5.1) mmol/L Chloride 92 L 93 L 96 L (98-107) mmol/L Carbon Dioxide 23 25 23 (21-32) mmol/L BUN 5 L 5 L 6 L (7-18) mg/dl Creatinine 0.60 0.59 L 0.61 (0.6-1.4) mg/dl Glucose 111 H 91 86 (70-99) mg/dl Calcium 7.2 L 6.8 L 7.0 L (8.5-10.1) mg/dl Direct Bilirubin 6.5 H (0-0.2) mg/dl AST 100 H 81 H (15-37) U/L ALT 35 30 (12-78) U/L Alkaline Phosphatase 80 78 (45-117) U/L Total Protein 7.1 6.3 L (6.4-8.2) gm/dl Albumin 1.4 L 1.4 L (3.4-5.0) gm/dl Intake and Output 08/14/18 08/15/18 08/15/18 22:59 06:59 14:59 Intake Total 2721.267 / 2721.267 122.787 / 122.787 Output Total 1500 / 1500 Balance 1221.267 / 1221.267 122.787 / 122.787 Intake: IV 2333.267 / 2333.267 122.787 / 122.787 Lasix 30 mg In Albumin 25% 50 53 / 53 53 / 53 ml @ 53 mls/hr IV Q6H [facility] Rx#: [id number] Mvi Infusion 10 ml Vitamin B-1 1011.2 / 1011.2 100 mg Folvite 1 mg In Nss 1000ML 1,000 ml @ 500 mls/hr IV .Q2H2M [facility] Rx#:[id number] Zosyn 3.375 gm In D5 100 ml @ 2.4 / 2.4 57.12 / 57.12 28.75 mls/hr IV Q8H [facility] Rx#: [id number] ZOSYN 4.5 gm In 120 ml @ 240 120 / 120 mls/hr IV NOW ONE Rx#:[id number] Nss 1000ML 1,000 ml @ 200 mls/ 606.667 / 606.667 hr IV .Q5H [facility] Rx#:[id number] Vancomycin HCl 2,000 mg In Nss 540 / 540 500 ml @ 200 mls/hr IV NOW ONE Rx#:[id number] Cardizem 125 mg In D5 100 ml @ 12.667 / 12.667 5 mls/hr IV .Q24H [facility] Rx#: [id number] Oral 100 / 100 Intake (Blood Product) Amt 288 / 288 0 / 0 Packed Cells, Leukoreduced 288 / 288 Unit [id number] Packed Cells, Leukoreduced 2 0 / 0 Unit [id number] Output: Urine 1500 / 1500 Other: Weight 105 kg 96.1 kg Diagnostic Findings Summary of CT of the abdomen and pelvis per radiology report: IMPRESSION: 1. Significant abdominal and pelvic ascites. 2. Hepatic cirrhosis. 3. Splenomegaly. 4. Left pleural effusion. 5. Body wall anasarca 6. Fluid containing right inguinal hernia. 7. Abdominal varicosities 8. Several very small gallstones. Lower extremity venous duplex, negative for DVT Transthoracic echocardiogram performed this morning reviewed independently by the undersigned. Sinus rhythm at 80 bpm was present during the echocardiogram evaluation. Left ventricle chamber size and myocardial thickness were normal. No left ventricular wall motion abnormalities were noted. The left ventricular systolic function is hyperdynamic with ejection fraction of 65 to 70%. The right ventricular chamber size and systolic function are normal. The aortic valve is not well-visualized and therefore the number of leaflets cannot be determined, no significant aortic valve stenosis or aortic valve regurgitation was noted. Grade 1 diastolic dysfunction was present. EKG performed 08/14/2018 1826 revealed sinus tachycardia 103 bpm with right bundle branch block. EKG performed 08/15/2018 at 1:50 AM: Atrial fibrillation with rapid ventricular response at 151 bpm, right bundle branch block, T wave abnormality noted. Compared to the prior tracing, atrial fibrillation replaced sinus rhythm. Troponin was performed x2 with level of less than 0.015 08/14/2018, 1835, and 0.020 NG per mL on 08/15/2018 7:14 AM. Medications Administered Current Inpatient Medications Doxycycline Hyclate (Vibramycin) 100 mg PO BID@1000,2200 [facility] Stop: 08/22/18 09:59 Folic Acid (Folvite) 1 mg PO QAM [facility] Stop: 09/14/18 08:59 Last Admin: 08/15/18 08:22 Dose: 1 mg Documented by: Gabapentin (Neurontin) 600 mg PO Q24H [facility] Stop: 08/18/18 14:01 Gabapentin (Neurontin) 600 mg PO Q6H [facility] Stop: 08/15/18 14:01 Last Admin: 08/15/18 08:23 Dose: 600 mg Documented by: Gabapentin (Neurontin) 600 mg PO Q8H [facility] Stop: 08/16/18 14:01 Gabapentin (Neurontin) 600 mg PO Q12H [facility] Stop: 08/17/18 14:01 Lorazepam (Ativan) 1.5 mg in 3 mls @ 3 mls/min IV Q2H PRN PRN Reason: Anxiety/Agitation Stop: 09/14/18 01:43 Thiamine HCl 100 mg/ Syringe 10 mls @ 2 mls/hr IV DAILY [facility] Stop: 09/14/18 08:59 Last Admin: 08/15/18 08:22 Dose: 2 mls/hr Documented by: Sodium Chloride (Nss) 250 mls @ 15 mls/hr IV .[id number] PRN PRN Reason: For Transfusion Stop: 09/14/18 01:43 Piperacillin Sod/Tazobactam (Sod 3.375 gm/ Dextrose) 115 mls @ 28.75 mls/hr IV Q8H [facility]; Protocol Stop: 08/22/18 03:59 Last Infusion: 08/15/18 09:18 Dose: 28.8 mls/hr Documented by: Furosemide 30 mg/ Albumin (Human) 53 mls @ 53 mls/hr IV Q6H [facility] Stop: 08/18/18 01:59 Last Infusion: 08/15/18 09:19 Dose: Infused Documented by: Famotidine 20 mg/ Syringe 5 mls @ 2.5 mls/min IV BID [facility] Stop: 09/14/18 01:59 Last Admin: 08/15/18 08:31 Dose: 2.5 mls/min Documented by: Diltiazem HCl 125 mg/ Dextrose 125 mls @ 5 mls/hr IV .Q24H [facility]; Protocol Stop: 09/14/18 04:14 Last Titration: 08/15/18 07:12 Dose: 5 mg/hr, 5 mls/hr Documented by: Sodium Chloride (Nss) 250 mls @ 15 mls/hr IV .[id number] PRN PRN Reason: For Transfusion Stop: 09/14/18 08:46 Furosemide 60 mg/ Syringe 6 mls @ 4 mls/min IV ONE ONE Stop: 08/15/18 10:16 Furosemide 100 mg/ Dextrose 100 mls @ 15 mls/hr IV .Q6H40M [facility] Stop: 09/14/18 10:29 Metoprolol Tartrate (Lopressor) 2.5 mg IV Q4 PRN PRN Reason: Tachycardia Stop: 09/14/18 03:59 Last Admin: 08/15/18 03:03 Dose: 2.5 mg Documented by: Miscellaneous Information (Consult) 1 ea N/A UD PRN PRN Reason: Consult Stop: 09/14/18 01:43 Multivitamins/Minerals (Multivitamin W/ Minerals Tab) 1 tab PO QAM [facility] Stop: 09/14/18 08:59 Last Admin: 08/15/18 08:23 Dose: 1 tab Documented by: Nitroglycerin (Nitrostat) 0.4 mg SL UD PRN PRN Reason: Chest Pain Stop: 09/14/18 01:43 Ondansetron HCl (Zofran) 4 mg IV Q6H PRN PRN Reason: Nausea Stop: 09/14/18 01:43 Phytonadione (Mephyton) 5 mg PO ONE ONE Stop: 08/15/18 10:16 Prednisone (Prednisone) 40 mg PO DAILY [facility] Stop: 09/14/18 01:43 Last Admin: 08/15/18 08:22 Dose: 40 mg Documented by:
[2018-08-15] MEDS ORDERED: levoFLOXacin 750 MG TAB PO SCH (11:00)
[2018-08-15] MEDS: PROPRANOLOL HCL 10 MG TAB PO SCH ×2 (11:05→21:15)
[2018-08-15] MEDS: FUROSEMIDE 100 MG in DEXTROSE 5% 90 ML IV SCH ×3 (11:05→21:10)
[2018-08-15] MEDS: DOXYCYCLINE HYCLATE 100 MG CAP PO SCH ×2 (11:18→21:15)
[2018-08-15] MEDS ORDERED: PANTOprazole 40 MG in SYRINGE 0 ML IV ONE (13:15)
--- NOTE | 2018-08-15 13:33 | Hospitalist Progress Note ---
Date of Service August 15, 2018 Assessment & Plan (1) Alcoholic liver disease: History of chronic heavy alcohol consumption, presents with anasarca, deeply jaundiced Patient input from GI, Advanced end-stage alcoholic liver disease Strict abstinence from alcohol is advised Patient given IV albumin Started on alcohol withdrawal protocol, Risk for DT, severe withdrawal reaction Continue monitoring telemetry, very low threshold to transfer to ICU for IV Precedex drip Given advanced liver disease, GI team suggested transfer to tertiary care, pt is unstable for EGD/endoscopy, high risk for life-threatening organ failure for severe alcohol withdrawal Plan of care discussed with Mr. Barraza at bedside Updated regarding advanced liver disease, risk of seizure, bleeding, needs tertiary care transfer for support of multiorgan failure Patient refused to be transferred to [place], states he has high deductible approximately $3000, does not want to be transferred as it may cost him more money Present on Admission?: Yes (2) Alcoholic cirrhosis of liver with ascites: Presents with end-stage alcoholic liver disease/alcoholic hepatitis with large amount of ascites CT abdomen pelvis confirmed-ascites Appreciate input from GI Patient ordered IV Lasix Will need diagnostic and therapeutic paracentesis INR needs to be less than 1.6(present auto anticoagulated INR more than 2, ordered p.o. vitamin K) We will repeat CBC INR at 4 PM today Radiology consulted for diagnostic paracentesis will need to be drainage approximately 4 to 6 L of ascitic fluids, albumin will be given pre-and post procedure Ascitic fluid will be sent for diagnostic studies: Cell count, Gram stain, albumin Present on Admission?: Yes (3) Hyponatremia: Possible secondary to chronic alcohol abuse, advanced cirrhosis of liver/anasarca Appreciate input from nephrology Patient given IV Lasix Follow PRP Present on Admission?: Yes (4) Paroxysmal atrial fibrillation with RVR: Developed paroxysmal A. fib with RVR, Converted to sinus with IV Cardizem Echo shows normal ejection fraction, no significant valvular disease, no wall motion abnormality Should input from cardiology, started on beta-negro Anticoagulation is not indicated, patient is already auto anticoagulated secondary to end-stage liver disease, severe thrombocytopenia Overall prognosis remains extremely poor Present on Admission?: Yes (5) Hypoalbuminemia: Secondary to alcoholic liver disease, advanced cirrhosis Ordered for albumin And will need albumin 25%, 25 g transfusion before and after paracentesis Present on Admission?: Yes (6) Anasarca: Secondary to advanced alcoholic disease alcoholic cirrhosis, with high me ld score 34 prognosis Order for IV Lasix Need diagnostic and therapeutic paracentesis Present on Admission?: Yes (7) Alcohol intoxication: Here for long-term chronic alcohol abuse On admission alcohol level 119 High risk for severe withdrawal Continue Neurontin/PRN IV Ativan for withdrawal protocol Low threshold to transfer to intensive care unit Present on Admission?: Yes (8) Pleural effusion, left: Secondary to alcoholic liver disease cirrhosis, hypoalbuminemia. Given IV Lasix Present on Admission?: Yes (9) Hyperbilirubinemia: Secondary to end-stage liver disease GI following The poor prognosis (10) Anemia: anemia of chronic disease, secondary to end-stage liver disease, presents with worsening of hemoglobin 6.2 Received 2 units of PRBC transfusion No overt sign of GI bleed On Protonix IV 40 g twice daily Should input from GI, high risk for upper endoscopy EGD-poor anesthesia candidate, paroxysmal A. fib /high risk for alcohol withdrawal Recommends transfer to higher level of care, patient declines to transfer to [place] Present on Admission?: Yes (11) Pneumonia: Possible secondary to aspiration during intoxicated status\ Continue on Zosyn, doxycycline (12) Pancytopenia: Secondary to advanced liver disease, alcoholic cirrhosis Follow CBC closely Avoid antiplatelets, anticoagulation Status: Full code DVT prophylaxis: SCD and teds, pharmacological anticoagulation prohibited Patient is auto anticoagulated INR more than 2 for end-stage liver disease Disposition: Be determined To monitor in PCUpatient refused to be transferred to [place] Low threshold to transfer to ICU with any signs or symptoms of alcohol withdrawal Subjective Seen in room 234 bed 1, Deeply icteric/jaundiced, denies of any discomfort, Confusion or agitation noted Patient feels his legs swelling has improved, Persistent abdominal distention/ascites, denies of any abdominal pain, No nausea vomiting Physical Exam Constitutional: + ill appearing Deeply jaundiced Eyes: + scleral abnormality (Deeply jaundiced) Deeply jaundiced ENMT: Dry oral mucosa, Neck: trachea midline, no thyromegaly Respiratory: normal respiratory effort, lungs clear to auscultation Cardiovascular: Rate/Rhythm: regular rate and regular rhythm Extremities: + pedal edema and + edema (+3 bilateral pitting edema) +3 bilateral pitting edema Gastrointestinal (Abdomen): Inspection/Auscultation: + abdomen distended Percussion/Palpation: + ascites; abdomen nontender Distention with positive tense ascites, Musculoskeletal: Deeply icteric sclera, multiple petechiae noted, bilateral +3 lower extremity pitting edema, Skin: + jaundice (Deeply jaundiced) Neurologic: PERRL, EOMI, accommodation nl, no face palsy, no dysarthria Psychiatric: A+Ox3, euthymic affect Results & Data Vital Signs (Past 12 Hours) Vital Signs Temp Pulse Pulse Resp BP BP Pulse Ox 08/15/18 12:01 36.7 C 79 18 121/76 94 08/15/18 10:56 36.8 C 90 16 109/64 95 08/15/18 10:55 36.8 C 90 16 109/64 95 08/15/18 10:25 36.7 C 88 18 112/66 94 08/15/18 10:10 36.7 C 85 18 117/63 93 08/15/18 09:53 36.7 C 86 18 112/63 94 08/15/18 07:18 36.9 C 81 18 110/54 L 95 08/15/18 06:27 36.9 C 80 18 105/63 95 08/15/18 05:23 90 107/64 08/15/18 05:11 36.7 C 84 19 105/61 95 08/15/18 04:42 36.7 C 118 H 17 101/63 94 08/15/18 04:26 36.6 C 132 H 17 102/68 93 08/15/18 04:08 36.8 C 156 H 22 108/63 08/15/18 03:15 36.7 C 77 18 105/71 95 08/15/18 03:03 140 H 114/73 08/15/18 01:45 145 H Pulse Ox 08/15/18 12:01 08/15/18 10:56 08/15/18 10:55 08/15/18 10:25 08/15/18 10:10 08/15/18 09:53 08/15/18 07:18 08/15/18 06:27 08/15/18 05:23 08/15/18 05:11 08/15/18 04:42 94 08/15/18 04:26 08/15/18 04:08 08/15/18 03:15 08/15/18 03:03 08/15/18 01:45 (1) Alcohol intoxication Complication of substance-induced condition: with unspecified complication Qualified Code(s): F10.929 - Alcohol use, unspecified with intoxication, unspecified (2) Anemia Anemia type: other cause Other causes of anemia: other cause, not classified Qualified Code(s): D64.89 - Other specified anemias (3) Pneumonia Laterality: left Lung location: lower lobe of lung Pneumonia type: due to unspecified organism Qualified Code(s): J18.1 - Lobar pneumonia, unspecified organism
[2018-08-15] MEDS ORDERED: AcetylCYSTEINE IV 21 HR REGIMEN (21-40KG) IV STA (14:15)
[2018-08-15] MEDS ORDERED: DEXTROSE 5% IV SCH ×2 (15:30→19:30)
[2018-08-15] MEDS ORDERED: ACETYLCYSTEINE IV SCH ×2 (15:30→19:30)
[2018-08-15 16:30] LABS: INR 2.6 (0.9-1.1); Prothrombin Time 24.6 Seconds (9.0-12.0)
[2018-08-15 16:35] LABS: BUN Creatinine Ratio 9.3 (10-20); Creatinine Clr Calc Pharmacy 122.7 ml/min; Est GFR (African American) 117.5; Est GFR (Non-African American) 101.4
[2018-08-15 16:37] LABS: Ferritin 782.4 ng/ml (8-388); Hematocrit (blood only) 20.1 % (42-52); Hemoglobin 6.9 g/dL (14.0-18.0); Mean Corpuscular Hgb Conc 34.3 g/dL (32-36); Mean Corpuscular Volume 103.6 fL (80-100); Mean Platelet Volume 8.3 fL (7.4-10.4); Nucleated RBC # (auto) 0.02 K/uL (0-0); Platelet Count 52 K/uL (130-400); Red Blood Count 1.94 M/uL (4.7-6.1); White Blood Count 2.34 K/uL (4.8-10.8)
[2018-08-15] MEDS ORDERED: POTASSIUM CHLORIDE 20 MEQ TABCR PO STA (16:51)
[2018-08-15 17:02] LABS: Hepatitis B Surface Antigen Neg (Neg)
[2018-08-15 17:30] LABS: Hepatitis C IgG 13Yrs+Old_Rflx Neg (Neg)
[2018-08-15 20:22] LABS: BUN Creatinine Ratio 10.1 (10-20); Calcium 6.7 mg/dl (8.5-10.1); Creatinine Clr Calc Pharmacy 98.1 ml/min; Est GFR (African American) 107.2; Est GFR (Non-African American) 92.5; Potassium 2.8 mmol/L (3.5-5.1)
[2018-08-15] MEDS: PANTOprazole 40 MG in SYRINGE 0 ML IV SCH (21:15)
[2018-08-15 22:27] LABS: Hematocrit (blood only) 20.2 % (42-52); Hemoglobin 7.2 g/dL (14.0-18.0); Mean Corpuscular Hgb Conc 35.6 g/dL (32-36); Mean Platelet Volume 8.8 fL (7.4-10.4); Platelet Count 51 K/uL (130-400); RDW Coefficient of Variation 26.8 % (11.5-14.5); White Blood Count 2.95 K/uL (4.8-10.8)
[2018-08-15] MEDS: POTASSIUM CHLORIDE / WTR 10 MEQ/100 ML PLCT IV SCH (22:52)
[2018-08-15] MEDS: POTASSIUM CHLORIDE 20 MEQ TABCR PO SCH (22:53)
[2018-08-15] MEDS ORDERED: ETOMIDATE 2 MG/ML 20 ML VIAL IV ONE (23:44)
[2018-08-15] MEDS ORDERED: ROCURONIUM BROMIDE 10 MG/ML 5 ML VIAL IV ONE (23:44)
[2018-08-15] MEDS ORDERED: fentaNYL citrate 100 MCG/2 ML CARP IV ONE (23:44)
[2018-08-15] MEDS ORDERED: SUCCINYLCHOLINE CHLORIDE 20 MG/ML 10 ML VIAL IV ONE (23:44)
[2018-08-16] MEDS: POTASSIUM CHLORIDE / WTR 10 MEQ/100 ML PLCT IV SCH ×5 (00:30→22:51)
[2018-08-16] MEDS: ALBUMIN 25% IV SCH ×2 (02:43→08:07)
[2018-08-16] MEDS: FUROSEMIDE IV SCH ×2 (02:43→08:07)
[2018-08-16] MEDS: PIPERACILLIN/TAZOBACTAM 3.375 GM in DEXTROSE 5% 100 ML IV SCH ×3 (03:38→19:53)
[2018-08-16] MEDS: FUROSEMIDE 100 MG in DEXTROSE 5% 90 ML IV SCH ×3 (03:39→19:50)
[2018-08-16 06:48] LABS: Hematocrit (blood only) 21.8 % (42-52); Hemoglobin 7.8 g/dL (14.0-18.0); Mean Corpuscular Hgb Conc 35.8 g/dL (32-36); Mean Corpuscular Volume 98.2 fL (80-100); RDW Coefficient of Variation 27.2 % (11.5-14.5); RDW Standard Deviation 86.7 fL (36.4-46.3); Red Blood Count 2.22 M/uL (4.7-6.1)
[2018-08-16 06:52] LABS: INR 3.1 (0.9-1.1); Prothrombin Time 29.6 Seconds (9.0-12.0)
[2018-08-16 07:14] LABS: Mean Platelet Volume 8.5 fL (7.4-10.4); Platelet Count 53 K/uL (130-400)
[2018-08-16 07:15] LABS: Anisocytosis Present; Basophilic Stippling 1+; Lymphocytes # (auto) 0.45 K/uL (1.2-3.4); Lymphocytes % (auto) 10.7 %; Monocytes # (auto) 0.39 K/uL (0.11-0.59); Monocytes % (auto) 9.3 %; Neutrophils # (auto) 3.36 K/uL (1.4-6.5); Polychromasia 1+
[2018-08-16 07:28] LABS: Albumin Globulin Ratio 0.4 (0.9-2); Albumin Level 1.9 gm/dl (3.4-5.0); BUN Creatinine Ratio 12.4 (10-20); Bilirubin Direct 7.4 mg/dl (0-0.2); Bilirubin,Total 16.6 mg/dl (0.2-1); Calcium 6.6 mg/dl (8.5-10.1); Creatinine Clr Calc Pharmacy 99.9 ml/min; Est GFR (African American) 108.2; Est GFR (Non-African American) 93.4; Globulin 4.4 gm/dl (2.5-4.0); Potassium 2.8 mmol/L (3.5-5.1); Total Protein 6.3 gm/dl (6.4-8.2)
[2018-08-16] MEDS: GABAPENTIN 600 MG TAB PO SCH ×2 (07:38→13:41)
[2018-08-16] MEDS: PROPRANOLOL HCL 10 MG TAB PO SCH (08:07)
[2018-08-16] MEDS: POTASSIUM CHLORIDE 20 MEQ TABCR PO SCH ×3 (08:07→21:35)
[2018-08-16] MEDS: CEROVITE ADV FORMULA TAB PO SCH (08:07)
[2018-08-16] MEDS: FOLIC ACID 1 MG TAB PO SCH (08:09)
[2018-08-16] MEDS: THIAMINE HCL 100 MG in SYRINGE 9 ML IV SCH (08:15)
[2018-08-16] MEDS: PANTOprazole 40 MG in SYRINGE 0 ML IV SCH ×2 (08:15→19:54)
[2018-08-16] MEDS ORDERED: prednisoLONE SYRUP 15 MG/5 ML BTL PO SCH (09:00)
[2018-08-16] MEDS ORDERED: POTASSIUM CHLORIDE 20 MEQ TABCR PO STA (09:25)
--- NOTE | 2018-08-16 09:51 | Gastroenterology Progress Note ---
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 He is jaundiced w/ elevated coagulation studies and low plt count, baseline unknown w/ suspected UTI and pneumonia. Given his ESLD, it was recommend he be transfer to a tertiary care center w/ hepatology on 08/15/18 but he had refused transfer. This AM, we discussed this option given concern for worsening liver function w/ raise in MELD in 33, DF 98. He was started on NAC per protocol, received 1 day of IV steroid but this was held given infectious concern. In light of worsening DF will discuss re- initiation of steroid despite ?pneumonia. Elevated LFTS - Concerning for ETOH hepatitis superimposed on ETOH cirrhosis - Please start NAC per protocol - Treat infection - UTI/Pneumonia - Would recommend re-starting prednisolone w/ [place] calculation on day 7 - Strict ETOH cessation was recommended and encouraged - ETOH withdrawal protocol - He has gallstones on CT imaging - reviewed w/ radiology no evidence of CBD stone - Acute Hep panel - CHINMAY, AMA, ASMA, Tylenol level, HSV, CMV, EBV Anemia - Denies any gross evidence of GIB - HGB 6.2 on admission, 1 unit RBC, HGB this AM only 6.5 - Has never had EGD/Colonoscopy - Agree w/ IV PPI - Trend H&H - Transfuse PRN per primary service - Monitor and document all GI output - Keep NPO - EGD planning candidacy - ? new afib - Will need OP colonoscopy Ascites/Anasarca - Hepatic duplex to rule out PVT - Consider diagnostic echocardiogram - Agree w/ IV albumin as ordered - Agree w/ IV lasix as ordered - Once clinically stable will need a diagnostic and therapeutic - Would need PLTs> 60 - Would need INR < 1.6 - Send fluid for cytology, cell count, culture, protein and albumin Appreciate ongoing management of electrolytes per the primary service Daily MELD labs for now Pt now agreeable to transfer to liver center. Primary team was updated. ESLD admitted w/ decompensations likely secondary to ongoing ETOH abuse and infectious etiology. Thank you for allowing us to participate in the care of this patient. Please call with any acute changes, questions or concerns. Please see addendum below with additional recommendation from my supervising physician. (2) Anemia: Supervising Physician Co-Signing Physician Notes I have performed a history and physical examination of this patient and reviewed the electronic medical record. Specifically, on physical examination there is mild lethargy and deep jaundice. Abdomen is distended. I have discussed the case with KULDIP Caruso. The above note reflects my findings, conclusions, and recommendations. Cheng Ray MD Subjective Pt was seen and evaluated, chart reviewed. Pt was to be transferred to liver center yesterday, however later had refused this despite recommendation. Was concerned about his deductible This AM after discussion seems more agreeable. Offers no complaints other than abd distention No abd painNo nausea, vomiting Denies black/bloody stools.No fever, chills Nursing verbalizes concern regarding change in mental status but pt is alert, oriented and answering questions appropriately this AM for me. Was unable to have diagnostic para yesterday secondary to increasing coag studies desptie Vit K therapy. Diagnosis: suspected ETOH cirrhosis MELD: 33 - 53% estimated three month mortality [place]: 98 - indicative of a poor prognosis and that he may benefit from steroid once cleared from an infectious standpoint Decompensations Varices: unknown Ascites: new x 1 week HE: none Screenings Varices: due HCC: January Immunizations: unknown Venous Duplex: Negative exam CT: Moderate to significant left pleural effusion. Mild bibasilar dependent atelectasis.Considerable abdominal and pelvic ascites. Significant hepatic cirrhosis. Moderate splenomegaly. Significant upper abdominal or calyces. Bowel pattern is nonobstructive. Kidneys negative for hydronephrosis. Moderate renal cortical scarring bilaterally.Moderate body wall anasarca. Right inguinal hernia containing fluid exclusively. Soft tissue edematous change about the upper thighs and pelvic region. EGD: none Colonoscopy: none Review of Systems Constitutional: no fever, no body aches, no weakness and no insomnia Respiratory: + cough; no dyspnea, no pain on inspiration and no wheezing Cardiovascular: no chest pain, no radiating jaw, neck or arm pain, no dyspnea on exertion and no palpitations Gastrointestinal: + bloating; no abdominal pain, no belching, no early satiety, no heartburn, no nausea, no vomiting, no coffee ground emesis, no hematemesis, no pain with swallowing, no dysphagia, no cramping, no excessive flatulence, no change in bowel habits, no change in stools, no constipation, no diarrhea/loose stools, no fecal incontinence, no constant urge to pass stools, no blood in stools, no melena and no problem reported Physical Exam Constitutional: well developed, well nourished and + ill appearing; no acute distress Eyes: sclerae not anicteric Respiratory: normal respiratory effort, lungs clear to auscultation Cardiovascular: Rate/Rhythm: regular rate and regular rhythm Heart Sounds: no click, no gallop and no murmur Gastrointestinal (Abdomen): Inspection/Auscultation: + abdomen distended and normal bowel sounds Percussion/Palpation: abdomen soft and + ascites; abdomen nontender, no guarding, abdomen not rigid and no abdominal mass Skin: + jaundice Results & Data Vital Signs (Past 12 Hours) Vital Signs Temp Pulse Pulse Resp BP BP BP 08/16/18 07:20 99/55 L 08/16/18 07:15 36.5 C 47 L 20 88/60 L 08/16/18 06:53 80 08/16/18 03:47 36.7 C 45 L 16 92/56 L 08/16/18 02:24 36.7 C 80 16 96/62 L 08/16/18 01:26 36.6 C 112 H 20 108/64 08/16/18 00:56 36.7 C 101 H 20 99/59 L 08/16/18 00:41 36.8 C 108 H 20 102/60 08/16/18 00:28 36.8 C 88 18 102/62 08/16/18 00:21 36.5 C 94 H 16 100/59 L 08/16/18 00:00 87 Pulse Ox 08/16/18 07:20 08/16/18 07:15 95 08/16/18 06:53 08/16/18 03:47 93 08/16/18 02:24 93 08/16/18 01:26 97 08/16/18 00:56 95 08/16/18 00:41 96 08/16/18 00:28 93 08/16/18 00:21 93 08/16/18 00:00 Laboratory Results 08/16/18 08/16/18 08/16/18 Range/Units 06:02 06:02 06:02 WBC 4.20 L (4.8-10.8) K/uL RBC 2.22 L (4.7-6.1) M/uL Hgb 7.8 L (14.0-18.0) g/dL Hct 21.8 L (42-52) % MCV 98.2 (80-100) fL MCH 35.1 H (25-34) pg MCHC 35.8 (32-36) g/dL RDW Std Deviation 86.7 H (36.4-46.3) fL RDW Coeff of Lesley 27.2 H (11.5-14.5) % Plt Count 53 L (130-400) K/uL MPV 8.5 (7.4-10.4) fL Immature Gran % (Auto) 0.0 % Neut % (Auto) 80.0 % Lymph % (Auto) 10.7 % [place] % (Auto) 9.3 % Eos % (Auto) 0.0 % Baso % (Auto) 0.0 % Immature Gran # (Auto) 0.00 (0.00-0.02) K/uL Neut # (Auto) 3.36 (1.4-6.5) K/uL Lymph # (Auto) 0.45 L (1.2-3.4) K/uL [place] # (Auto) 0.39 (0.11-0.59) K/uL Eos # (Auto) 0.00 (0-0.5) K/uL Baso # (Auto) 0.00 (0-0.2) K/uL Absolute Nucleated RBC (0-0) K/uL Nucleated RBC % (auto) % Polychromasia 1+ Basophilic Stippling 1+ Anisocytosis Present PT 29.6 H (9.0-12.0) Seconds INR 3.1 H (0.9-1.1) Sodium 129 L (136-145) mmol/L Potassium 2.8 L (3.5-5.1) mmol/L Chloride 93 L (98-107) mmol/L Carbon Dioxide 28 (21-32) mmol/L Anion Gap 8.0 (3-11) BUN 11 (7-18) mg/dl Creatinine 0.88 (0.6-1.4) mg/dl Est Cr Clr Drug Dosing 99.9 ml/min Est GFR ( Amer) 108.2 Est GFR (Non-Af Amer) 93.4 BUN/Creatinine Ratio 12.4 (10-20) Glucose 165 H (70-99) mg/dl Calcium 6.6 L (8.5-10.1) mg/dl Iron (35-175) mcg/dl Ferritin (8-388) ng/ml Total Bilirubin 16.6 H (0.2-1) mg/dl Direct Bilirubin 7.4 H (0-0.2) mg/dl AST 66 H (15-37) U/L ALT 29 (12-78) U/L Alkaline Phosphatase 56 (45-117) U/L Total Protein 6.3 L (6.4-8.2) gm/dl Albumin 1.9 L (3.4-5.0) gm/dl Globulin 4.4 H (2.5-4.0) gm/dl Albumin/Globulin Ratio 0.4 L (0.9-2) IgA [facility] Screen Anti-Mitochondrial Ab Anti-Smooth Muscle Ab Tiss Transglutamin IgA Celiac Disease Interp CMV IgG Ab CMV IgM Ab EBV Capsid Ag IgM Ab Hepatitis A IgM Ab Hep Bs Antigen (Neg) Hep B Core IgM Ab Hepatitis C Antibody (Neg) Blood Type Antibody Screen Crossmatch 08/15/18 08/15/18 08/15/18 Range/Units 21:54 21:54 19:57 WBC 2.95 L (4.8-10.8) K/uL RBC 2.00 L (4.7-6.1) M/uL Hgb Cancelled 7.2 L (14.0-18.0) g/dL Hct Cancelled 20.2 L* (42-52) % MCV 101.0 H (80-100) fL MCH 36.0 H (25-34) pg MCHC 35.6 (32-36) g/dL RDW Std Deviation 91.0 H (36.4-46.3) fL RDW Coeff of Lesley 26.8 H (11.5-14.5) % Plt Count 51 L (130-400) K/uL MPV 8.8 (7.4-10.4) fL Immature Gran % (Auto) % Neut % (Auto) % Lymph % (Auto) % [place] % (Auto) % Eos % (Auto) % Baso % (Auto) % Immature Gran # (Auto) (0.00-0.02) K/uL Neut # (Auto) (1.4-6.5) K/uL Lymph # (Auto) (1.2-3.4) K/uL [place] # (Auto) (0.11-0.59) K/uL Eos # (Auto) (0-0.5) K/uL Baso # (Auto) (0-0.2) K/uL Absolute Nucleated RBC (0-0) K/uL Nucleated RBC % (auto) % Polychromasia Basophilic Stippling Anisocytosis PT (9.0-12.0) Seconds INR (0.9-1.1) Sodium 130 L (136-145) mmol/L Potassium 2.8 L (3.5-5.1) mmol/L Chloride 91 L (98-107) mmol/L Carbon Dioxide 23 (21-32) mmol/L Anion Gap 15.0 H (3-11) BUN 9 (7-18) mg/dl Creatinine 0.90 (0.6-1.4) mg/dl Est Cr Clr Drug Dosing 98.1 ml/min Est GFR ( Amer) 107.2 Est GFR (Non-Af Amer) 92.5 BUN/Creatinine Ratio 10.1 (10-20) Glucose 220 H (70-99) mg/dl Calcium 6.7 L (8.5-10.1) mg/dl Iron (35-175) mcg/dl Ferritin (8-388) ng/ml Total Bilirubin (0.2-1) mg/dl Direct Bilirubin (0-0.2) mg/dl AST (15-37) U/L ALT (12-78) U/L Alkaline Phosphatase (45-117) U/L Total Protein (6.4-8.2) gm/dl Albumin (3.4-5.0) gm/dl Globulin (2.5-4.0) gm/dl Albumin/Globulin Ratio (0.9-2) IgA [facility] Screen Anti-Mitochondrial Ab Anti-Smooth Muscle Ab Tiss Transglutamin IgA Celiac Disease Interp CMV IgG Ab CMV IgM Ab EBV Capsid Ag IgM Ab Hepatitis A IgM Ab Hep Bs Antigen (Neg) Hep B Core IgM Ab Hepatitis C Antibody (Neg) Blood Type Antibody Screen Crossmatch 05/01/19 05/01/19 05/01/19 Range/Units 15:51 15:51 15:51 WBC (4.8-10.8) K/uL RBC (4.7-6.1) M/uL Hgb (14.0-18.0) g/dL Hct (42-52) % MCV (80-100) fL MCH (25-34) pg MCHC (32-36) g/dL RDW Std Deviation (36.4-46.3) fL RDW Coeff of Lesley (11.5-14.5) % Plt Count (130-400) K/uL MPV (7.4-10.4) fL Immature Gran % (Auto) % Neut % (Auto) % Lymph % (Auto) % [place] % (Auto) % Eos % (Auto) % Baso % (Auto) % Immature Gran # (Auto) (0.00-0.02) K/uL Neut # (Auto) (1.4-6.5) K/uL Lymph # (Auto) (1.2-3.4) K/uL [place] # (Auto) (0.11-0.59) K/uL Eos # (Auto) (0-0.5) K/uL Baso # (Auto) (0-0.2) K/uL Absolute Nucleated RBC (0-0) K/uL Nucleated RBC % (auto) % Polychromasia Basophilic Stippling Anisocytosis PT 24.6 H (9.0-12.0) Seconds INR 2.6 H (0.9-1.1) Sodium (136-145) mmol/L Potassium (3.5-5.1) mmol/L Chloride (98-107) mmol/L Carbon Dioxide (21-32) mmol/L Anion Gap (3-11) BUN (7-18) mg/dl Creatinine (0.6-1.4) mg/dl Est Cr Clr Drug Dosing ml/min Est GFR ( Amer) Est GFR (Non-Af Amer) BUN/Creatinine Ratio (10-20) Glucose (70-99) mg/dl Calcium (8.5-10.1) mg/dl Iron (35-175) mcg/dl Ferritin (8-388) ng/ml Total Bilirubin (0.2-1) mg/dl Direct Bilirubin (0-0.2) mg/dl AST (15-37) U/L ALT (12-78) U/L Alkaline Phosphatase (45-117) U/L Total Protein (6.4-8.2) gm/dl Albumin (3.4-5.0) gm/dl Globulin (2.5-4.0) gm/dl Albumin/Globulin Ratio (0.9-2) IgA Pending [facility]Y Screen Pending Anti-Mitochondrial Ab Pending Anti-Smooth Muscle Ab Pending Tiss Transglutamin IgA Pending Celiac Disease Interp Pending CMV IgG Ab Pending CMV IgM Ab Pending EBV Capsid Ag IgM Ab Pending Hepatitis A IgM Ab Pending Hep Bs Antigen Neg (Neg) Hep B Core IgM Ab Pending Hepatitis C Antibody Neg (Neg) Blood Type Antibody Screen Crossmatch 08/15/18 08/15/18 08/14/18 Range/Units 15:51 15:51 18:35 WBC 2.34 L (4.8-10.8) K/uL RBC 1.94 L (4.7-6.1) M/uL Hgb 6.9 L* (14.0-18.0) g/dL Hct 20.1 L* (42-52) % MCV 103.6 H (80-100) fL MCH 35.6 H (25-34) pg MCHC 34.3 (32-36) g/dL RDW Std Deviation (36.4-46.3) fL RDW Coeff of Lesley (11.5-14.5) % Plt Count 52 L (130-400) K/uL MPV 8.3 (7.4-10.4) fL Immature Gran % (Auto) % Neut % (Auto) % Lymph % (Auto) % [place] % (Auto) % Eos % (Auto) % Baso % (Auto) % Immature Gran # (Auto) (0.00-0.02) K/uL Neut # (Auto) (1.4-6.5) K/uL Lymph # (Auto) (1.2-3.4) K/uL [place] # (Auto) (0.11-0.59) K/uL Eos # (Auto) (0-0.5) K/uL Baso # (Auto) (0-0.2) K/uL Absolute Nucleated RBC 0.02 H (0-0) K/uL Nucleated RBC % (auto) 1.0 % Polychromasia Basophilic Stippling Anisocytosis PT (9.0-12.0) Seconds INR (0.9-1.1) Sodium 129 L (136-145) mmol/L Potassium 3.0 L D (3.5-5.1) mmol/L Chloride 91 L (98-107) mmol/L Carbon Dioxide 23 (21-32) mmol/L Anion Gap 15.0 H (3-11) BUN 7 (7-18) mg/dl Creatinine 0.72 (0.6-1.4) mg/dl Est Cr Clr Drug Dosing 122.7 ml/min Est GFR ( Amer) 117.5 Est GFR (Non-Af Amer) 101.4 BUN/Creatinine Ratio 9.3 L (10-20) Glucose 155 H (70-99) mg/dl Calcium 7.0 L (8.5-10.1) mg/dl Iron 116 (35-175) mcg/dl Ferritin 782.4 H (8-388) ng/ml Total Bilirubin (0.2-1) mg/dl Direct Bilirubin (0-0.2) mg/dl AST (15-37) U/L ALT (12-78) U/L Alkaline Phosphatase (45-117) U/L Total Protein (6.4-8.2) gm/dl Albumin (3.4-5.0) gm/dl Globulin (2.5-4.0) gm/dl Albumin/Globulin Ratio (0.9-2) IgA [facility] Screen Anti-Mitochondrial Ab Anti-Smooth Muscle Ab Tiss Transglutamin IgA Celiac Disease Interp CMV IgG Ab CMV IgM Ab EBV Capsid Ag IgM Ab Hepatitis A IgM Ab Hep Bs Antigen (Neg) Hep B Core IgM Ab Hepatitis C Antibody (Neg) Blood Type O Negative Antibody Screen NEGATIVE Crossmatch See Detail (1) Anemia Anemia type: other cause Other causes of anemia: other cause, not classified Qualified Code(s): D64.89 - Other specified anemias (2) Cirrhosis Ascites presence: with ascites Hepatic cirrhosis type: alcoholic cirrhosis Qualified Code(s): K70.31 - Alcoholic cirrhosis of liver with ascites
[2018-08-16] MEDS: DOXYCYCLINE HYCLATE 100 MG CAP PO SCH ×2 (09:57→21:35)
[2018-08-16] MEDS ORDERED: POTASSIUM CHLORIDE 20 MEQ TABCR PO SCH (10:00)
--- NOTE | 2018-08-16 12:29 | Nephrology Progress Note ---
Date of Service August 16, 2018 Assessment & Plan (1) Hyponatremia: Due hypervolemia. He has high urine osmolarity and physical exam consistent with hypervolemia. Na is better at 129 today with diuresis Recommend: -Fluid restriction when eating to 1.2 litres daily -IV diuresis. Will continue lasix drip titrated between 15mg to 20mg /hr depending on output -Strict input/output. -Monitor Na daily. -Target rate of correction of 6points daily (2) Alcoholic cirrhosis of liver with ascites: Patient with decompensated cirrhosis. He continues to drink. He likely needs paracentesis. Will continue diuresis although hypoalbuminemia will be a limiting factor in mobilizing fluid. GI is on board and suggesting transfer to tertiary center (3) Anemia: Likely due to GI bleed. He is on PPI. Monitor and transfuse as needed. No role for CELESTE Subjective Patient seen this morning during rounds. He reports to be feeling fine. He says one doctor told him he has 3 weeks to live but yet he feels fine. No SOB. Urine output has increased markedly on lasix drip and net negative 3litres. Still grossly swollen. Review of Systems Constitutional: + weakness and + weight gain Eyes: yellow eyes Ear, Nose, Mouth, Throat: no problem reported Respiratory: no dyspnea Cardiovascular: + palpitations and + edema Gastrointestinal: Swollen abdomen Genitourinary: no problem reported Musculoskeletal: no problem reported Integumentary: + change in skin color Neurologic: + generalized weakness Physical Exam Physical Exam: General exam: [place], Appears comfortable, no acute distress HEENT: Pupils are equal and reactive to light Neck: No JVD, neck is supple trachea is midline Respiratory system: Clear breath sounds bilaterally. Gastrointestinal: Abdomen is soft, non distended, non tender, bowel sounds are present CVS: Regular rate and rhythm. No murmurs, rubs or gallops Musculoskeletal: No joint or muscle tenderness Extremities: Non tender, 3+ edema, peripheral pulses are present Neuro: Oriented, no tremors, no focal neurological deficits Skin: Deep jaundice Results & Data Vital Signs (Past 12 Hours) Vital Signs Temp Pulse Pulse Resp BP BP BP 08/16/18 11:22 36.9 C 121 H 21 102/58 L 08/16/18 07:20 99/55 L 08/16/18 07:15 36.5 C 47 L 20 88/60 L 08/16/18 06:53 80 08/16/18 03:47 36.7 C 45 L 16 92/56 L 08/16/18 02:24 36.7 C 80 16 96/62 L 08/16/18 01:26 36.6 C 112 H 20 108/64 08/16/18 00:56 36.7 C 101 H 20 99/59 L 08/16/18 00:41 36.8 C 108 H 20 102/60 08/16/18 00:28 36.8 C 88 18 102/62 08/16/18 00:21 36.5 C 94 H 16 100/59 L Pulse Ox 08/16/18 11:22 92 08/16/18 07:20 08/16/18 07:15 95 08/16/18 06:53 08/16/18 03:47 93 08/16/18 02:24 93 08/16/18 01:26 97 08/16/18 00:56 95 08/16/18 00:41 96 08/16/18 00:28 93 08/16/18 00:21 93 Laboratory Results Laboratory Results - last 24 hr 08/14/18 08/15/18 08/15/18 18:35 15:51 15:51 WBC 2.34 L RBC 1.94 L Hgb 6.9 L* Hct 20.1 L* MCV 103.6 H MCH 35.6 H MCHC 34.3 RDW Std Deviation RDW Coeff of Lesley Plt Count 52 L MPV 8.3 Immature Gran % (Auto) Neut % (Auto) Lymph % (Auto) [place] % (Auto) Eos % (Auto) Baso % (Auto) Immature Gran # (Auto) Neut # (Auto) Lymph # (Auto) [place] # (Auto) Eos # (Auto) Baso # (Auto) Absolute Nucleated RBC 0.02 H Nucleated RBC % (auto) 1.0 Polychromasia Basophilic Stippling Anisocytosis PT INR Sodium 129 L Potassium 3.0 L D Chloride 91 L Carbon Dioxide 23 Anion Gap 15.0 H BUN 7 Creatinine 0.72 Est Cr Clr Drug Dosing 122.7 Est GFR ( Amer) 117.5 Est GFR (Non-Af Amer) 101.4 BUN/Creatinine Ratio 9.3 L Glucose 155 H Calcium 7.0 L Iron 116 Ferritin 782.4 H Total Bilirubin Direct Bilirubin AST ALT Alkaline Phosphatase Total Protein Albumin Globulin Albumin/Globulin Ratio Hep Bs Antigen Hepatitis C Antibody Blood Type O Negative Antibody Screen NEGATIVE Crossmatch See Detail 08/15/18 08/15/18 08/15/18 15:51 15:51 19:57 WBC RBC Hgb Hct MCV MCH MCHC RDW Std Deviation RDW Coeff of Lesley Plt Count MPV Immature Gran % (Auto) Neut % (Auto) Lymph % (Auto) [place] % (Auto) Eos % (Auto) Baso % (Auto) Immature Gran # (Auto) Neut # (Auto) Lymph # (Auto) [place] # (Auto) Eos # (Auto) Baso # (Auto) Absolute Nucleated RBC Nucleated RBC % (auto) Polychromasia Basophilic Stippling Anisocytosis PT 24.6 H INR 2.6 H Sodium 130 L Potassium 2.8 L Chloride 91 L Carbon Dioxide 23 Anion Gap 15.0 H BUN 9 Creatinine 0.90 Est Cr Clr Drug Dosing 98.1 Est GFR ( Amer) 107.2 Est GFR (Non-Af Amer) 92.5 BUN/Creatinine Ratio 10.1 Glucose 220 H Calcium 6.7 L Iron Ferritin Total Bilirubin Direct Bilirubin AST ALT Alkaline Phosphatase Total Protein Albumin Globulin Albumin/Globulin Ratio Hep Bs Antigen Neg Hepatitis C Antibody Neg Blood Type Antibody Screen Crossmatch 08/15/18 08/15/18 08/16/18 21:54 21:54 06:02 WBC 2.95 L 4.20 L RBC 2.00 L 2.22 L Hgb 7.2 L Cancelled 7.8 L Hct 20.2 L* Cancelled 21.8 L MCV 101.0 H 98.2 MCH 36.0 H 35.1 H MCHC 35.6 35.8 RDW Std Deviation 91.0 H 86.7 H RDW Coeff of Lesley 26.8 H 27.2 H Plt Count 51 L 53 L MPV 8.8 8.5 Immature Gran % (Auto) 0.0 Neut % (Auto) 80.0 Lymph % (Auto) 10.7 [place] % (Auto) 9.3 Eos % (Auto) 0.0 Baso % (Auto) 0.0 Immature Gran # (Auto) 0.00 Neut # (Auto) 3.36 Lymph # (Auto) 0.45 L [place] # (Auto) 0.39 Eos # (Auto) 0.00 Baso # (Auto) 0.00 Absolute Nucleated RBC Nucleated RBC % (auto) Polychromasia 1+ Basophilic Stippling 1+ Anisocytosis Present PT INR Sodium Potassium Chloride Carbon Dioxide Anion Gap BUN Creatinine Est Cr Clr Drug Dosing Est GFR ( Amer) Est GFR (Non-Af Amer) BUN/Creatinine Ratio Glucose Calcium Iron Ferritin Total Bilirubin Direct Bilirubin AST ALT Alkaline Phosphatase Total Protein Albumin Globulin Albumin/Globulin Ratio Hep Bs Antigen Hepatitis C Antibody Blood Type Antibody Screen Crossmatch 08/16/18 08/16/18 06:02 06:02 WBC RBC Hgb Hct MCV MCH MCHC RDW Std Deviation RDW Coeff of Lesley Plt Count MPV Immature Gran % (Auto) Neut % (Auto) Lymph % (Auto) [place] % (Auto) Eos % (Auto) Baso % (Auto) Immature Gran # (Auto) Neut # (Auto) Lymph # (Auto) [place] # (Auto) Eos # (Auto) Baso # (Auto) Absolute Nucleated RBC Nucleated RBC % (auto) Polychromasia Basophilic Stippling Anisocytosis PT 29.6 H INR 3.1 H Sodium 129 L Potassium 2.8 L Chloride 93 L Carbon Dioxide 28 Anion Gap 8.0 BUN 11 Creatinine 0.88 Est Cr Clr Drug Dosing 99.9 Est GFR ( Amer) 108.2 Est GFR (Non-Af Amer) 93.4 BUN/Creatinine Ratio 12.4 Glucose 165 H Calcium 6.6 L Iron Ferritin Total Bilirubin 16.6 H Direct Bilirubin 7.4 H AST 66 H ALT 29 Alkaline Phosphatase 56 Total Protein 6.3 L Albumin 1.9 L Globulin 4.4 H Albumin/Globulin Ratio 0.4 L Hep Bs Antigen Hepatitis C Antibody Blood Type Antibody Screen Crossmatch (1) Anemia Anemia type: other cause Other causes of anemia: other cause, not classified Qualified Code(s): D64.89 - Other specified anemias
[2018-08-16] MEDS ORDERED: METOPROLOL TARTRATE 25 MG TAB PO SCH (17:00)
--- NOTE | 2018-08-16 17:02 | Cardiology Progress Note ---
Date of Service August 16, 2018 Assessment & Plan (1) Paroxysmal atrial fibrillation with RVR: DC propranolol Change to metoprolol tartrate 12.5 mg QID for improved heart rate control. Pt has no subjective symptoms of AF. INR 3.1 without any anticoagulation medication due to coagulopathy from liver disease. Hgb improved from 6.2 to 7.8 s/p transfusion. (2) Alcoholic cirrhosis of liver with ascites: agree with furosemide infusion. 7.1 liters of urine output yesterday. Potassium was down to 2.8, and is on oral replacement KCL 80 mEq TID. (3) Anemia: Subjective CC: follow up atrial fribrillation: Subjective : pt sitting in bedside chair. Telemetry reveals recent brief episodes of atrial fibrillation with V rates in the 120s. Spontanteously converted to SR during my interview with him. Physical Exam Constitutional: + ill appearing Eyes: sclerae not anicteric (icteric slceraa) Respiratory: decreased BS at bases, no rales Cardiovascular: Rate/Rhythm: regular rate Heart Sounds: no murmur Gastrointestinal (Abdomen): Inspection/Auscultation: + abdomen distended Percussion/Palpation: abdomen nontender Skin: + jaundice Neurologic: moves all extremities; no focal motor deficits Results & Data Vital Signs (Past 12 Hours) Vital Signs Temp Pulse Pulse Resp BP BP Pulse Ox 08/16/18 15:30 36.8 C 86 18 93/54 L 93 08/16/18 14:20 80 08/16/18 11:22 36.9 C 121 H 21 102/58 L 92 08/16/18 07:20 99/55 L 08/16/18 07:15 36.5 C 47 L 20 88/60 L 95 08/16/18 06:53 80 (1) Anemia Anemia type: other cause Other causes of anemia: other cause, not classified Qualified Code(s): D64.89 - Other specified anemias
[2018-08-16] MEDS ORDERED: NALOXONE HCL 0.4 MG/1 ML VIAL/CARP IV STA (17:42)
[2018-08-16] MEDS ORDERED: ATIVAN IV ALCOHOL WITHDRAWL IV SCH (17:45)
--- NOTE | 2018-08-16 17:45 | Hospitalist Progress Note ---
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 transferred to ICU for IV percedex gtt (2) Alcoholic liver disease: History of chronic heavy alcohol consumption, presents with anasarca, deeply jaundiced Patient input from GI, Advanced end-stage alcoholic liver disease Strict abstinence from alcohol is advised Patient given IV albumin Started on alcohol withdrawal protocol, developing signs of DT, severe withdrawal reaction transfer to ICU for IV Precedex drip Given advanced liver disease, GI team suggested transfer to tertiary care, pt is unstable for EGD/endoscopy, high risk for life-threatening organ failure for severe alcohol withdrawal Plan of care discussed with Mr. Barraza at bedside Updated regarding advanced liver disease, risk of seizure, bleeding, needs tertiary care transfer for support of multiorgan failure Patient refused to be transferred to [place], (3) Alcoholic cirrhosis of liver with ascites: Presents with end-stage alcoholic liver disease/alcoholic hepatitis with large amount of ascites CT abdomen pelvis confirmed-ascites Appreciate input from GI/nephrology Patient ordered IV Lasix gtt Will need diagnostic and therapeutic paracentesis INR needs to be less than 1.6(present auto anticoagulated INR more than 3 , given 10 mg pO vit K ) very poor prognosis refused to be transferred to tertiary center earlier developing s/s severe ETOH withdrawal symptoms-transferred to ICU (4) Hyponatremia: Possible secondary to chronic alcohol abuse, advanced cirrhosis of liver/anasarca Appreciate input from nephrology Patient given IV Lasix Follow PRP (5) Paroxysmal atrial fibrillation with RVR: -worsening of tachycarryhmia /Rapid Afib RVR due to Etoh withdrawl Echo shows normal ejection fraction, no significant valvular disease, no wall motion abnormality cardiology consult apprecaited was ordered PO Lopressor 12.5 mg QiD changed to IV for altered mental status /ETOH withdrawl Anticoagulation is not indicated, patient is already auto anticoagulated INR> 3 secondary to end-stage liver disease, severe thrombocytopenia Overall prognosis remains extremely poor (6) Hypoalbuminemia: Secondary to alcoholic liver disease, advanced cirrhosis Ordered for albumin (7) Anasarca: Secondary to advanced alcoholic disease alcoholic cirrhosis, worsening of MELD score GI following On IV LAsix will need theraputic /diagnositc paracenthesis when medically stable , coagulopathty improves (8) Alcohol intoxication: hx of long-term chronic alcohol abuse On admission alcohol level 119 was ordered Neurontin/PRN IV Ativan for withdrawal protocol developing s/s of severe withdrawal transfer to intensive care unit (9) Pleural effusion, left: Secondary to alcoholic liver disease cirrhosis, hypoalbuminemia. Given IV Lasix (10) Hyperbilirubinemia: Secondary to end-stage liver disease GI following The poor prognosis (11) Anemia: anemia of chronic disease, secondary to end-stage liver disease, presents with worsening of hemoglobin 6.2 Received multyiple units > 4 PRBC transfusion No overt sign of GI bleed On Protonix IV 40 g twice daily hb > 8 post transfusion Should input from GI, high risk for upper endoscopy EGD-poor anesthesia candidate, paroxysmal A. fib /high risk for alcohol withdrawal Recommends transfer to higher level of care, patient declines to transfer to [place] Pt refused transfer againg today 08/16/2018 (12) Pneumonia: Possible secondary to aspiration during intoxicated status\\ Continue on Zosyn, doxycycline (13) Electrolyte abnormality: due to end stage liver disease chronic ETOH abuse on Iv LAsix gtt oral K supplement ordered by Nephrology follow Mg and K closely may need to change oral supplements to IV if mental status /agitation worsens due to withdrawl symptom (14) Pancytopenia: Secondary to advanced liver disease, alcoholic cirrhosis Follow CBC closely Avoid antiplatelets, anticoagulation Status: Full code DVT prophylaxis: SCD and teds, pharmacological anticoagulation prohibited Patient is auto anticoagulated INR more than 2 for end-stage liver disease Disposition: Be determined pt being transferred to ICU for symptoms of alcohol withdrawal pt will need discussion with palliative care hospice his ultimate goal is to return home , willing for hospice care if it provides support for end stage condition Subjective pt was evaluated by GI team this AM discussed the benefit of transfer to [facility] -with lung transplant facility /lathe spotter pt was agreeable for transfer , I was updated by GI team later when I came to evaluate pt and asked to call to [place] for transfer , pt declined transfer does not want to go to any other hospital , does not want to stay at [facility] , want s to go home babar had a long discussion with him regarding seriousness of his liver disease /and life threatening consequences -GI bleed , infection , sepsis , increase in ascitic fluid leading to respiratory failure pt says he feels fine , he has been breathing better than he did in past few weeks he understands he has end stage liver disease ( liver -in his words ) , what other hospital can offer and liver transplant is a long wait list , does not want wait that long he is Ok to , but does not want to in hospital feels he is in a prisoner here -not allowed to walk , get out of bed by him self pt is counselled the fall precaution is for his own safety he is very coagulopahtic and weak any fall can lead to life threatening bleed Pt thinks he will be ok walking around pt is shows very poor insight and judgement , also concern about his congnitive status , able to understand and realize his illness offered for Palliative care /hopsice -with his poor life expectancy -he will qualify for hospice if he does not want to persue further care can return home with hospice /end of life care pt is willing for hospice consult discussed code status with him -very poor comprehension , does not feel he will need any heroic life resuscitation because " he is fine " indecisive about code status so per default : pt is FULL CODE Physical Exam Constitutional: + ill appearing Eyes: + scleral abnormality (Deeply jaundiced) Neck: trachea midline, no thyromegaly Respiratory: normal respiratory effort, lungs clear to auscultation Cardiovascular: Rate/Rhythm: regular rate and regular rhythm Extremities: + pedal edema and + edema (+3 bilateral pitting edema) Gastrointestinal (Abdomen): Inspection/Auscultation: + abdomen distended Percussion/Palpation: + ascites; abdomen nontender Skin: + jaundice (Deeply jaundiced) Neurologic: PERRL, EOMI, accommodation nl, no face palsy, no dysarthria Psychiatric: Insight: + poor insight Judgement: + poor judgement confusion , disorientation noted , very poor short term memory , attention span requiring same thing to be repeated multiple times Results & Data Vital Signs (Past 12 Hours) Vital Signs Temp Pulse Pulse Resp BP BP Pulse Ox 08/16/18 15:30 36.8 C 86 18 93/54 L 93 05/02/19 14:20 80 08/16/18 11:22 36.9 C 121 H 21 102/58 L 92 08/16/18 07:20 99/55 L 08/16/18 07:15 36.5 C 47 L 20 88/60 L 95 08/16/18 06:53 80 (1) Alcohol intoxication Complication of substance-induced condition: with unspecified complication Qualified Code(s): F10.929 - Alcohol use, unspecified with intoxication, unspecified (2) Anemia Anemia type: other cause Other causes of anemia: other cause, not classified Qualified Code(s): D64.89 - Other specified anemias (3) Pneumonia Laterality: left Lung location: lower lobe of lung Pneumonia type: due to unspecified organism Qualified Code(s): J18.1 - Lobar pneumonia, unspecified organism
[2018-08-16] MEDS ORDERED: NALOXONE HCL 0.4 MG/1 ML VIAL/CARP ONE (17:50)
[2018-08-16] MEDS ORDERED: LORAZEPAM 3MG IV ACTIVE PROTOCOL IV PRN (18:15)
[2018-08-16] MEDS ORDERED: LORAZEPAM 1MG IV AT RISK PROTOCOL IV PRN (18:15)
[2018-08-16] MEDS ORDERED: LORAZEPAM 2MG IV ACTIVE PROTOCOL IV PRN (18:15)
[2018-08-16] MEDS ORDERED: LORAZEPAM 1MG TAB AT RISK PROTOCOL PO PRN (18:15)
[2018-08-16] MEDS ORDERED: LORAZEPAM 1MG IV ACTIVE PROTOCOL IV PRN (18:15)
[2018-08-16] MEDS ORDERED: LORAZEPAM 1MG TAB ACTIVE PROTOCOL PO PRN (18:15)
[2018-08-16] MEDS ORDERED: METOPROLOL TARTRATE 1 MG/ML VIAL IV ONE (18:45)
[2018-08-16 19:53] LABS: Hematocrit (blood only) 24.6 % (42-52); Hemoglobin 8.6 g/dL (14.0-18.0); RDW Coefficient of Variation 28.3 % (11.5-14.5); RDW Standard Deviation 93.7 fL (36.4-46.3); Red Blood Count 2.46 M/uL (4.7-6.1); White Blood Count 4.28 K/uL (4.8-10.8)
[2018-08-16 19:55] LABS: Mean Platelet Volume 8.5 fL (7.4-10.4); Platelet Count 51 K/uL (130-400)
[2018-08-16 20:02] LABS: Prothrombin Time 28.2 Seconds (9.0-12.0)
[2018-08-16 20:04] LABS: Albumin Globulin Ratio 0.4 (0.9-2); Albumin Level 1.9 gm/dl (3.4-5.0); BUN Creatinine Ratio 11.5 (10-20); Bilirubin,Total 13.8 mg/dl (0.2-1); Calcium 6.4 mg/dl (8.5-10.1); Creatinine Clr Calc Pharmacy 93.6 ml/min; Est GFR (African American) 101.7; Est GFR (Non-African American) 87.8; Globulin 4.6 gm/dl (2.5-4.0); Magnesium 1.5 mg/dl (1.8-2.4); Potassium 2.6 mmol/L (3.5-5.1); Total Protein 6.5 gm/dl (6.4-8.2)
[2018-08-16 20:35] LABS: Anisocytosis Present; Basophilic Stippling 1+; Basophils # (auto) 0.01 K/uL (0-0.2); Basophils % (auto) 0.2 %; Eosinophils # (auto) 0.03 K/uL (0-0.5); Eosinophils % (auto) 0.7 %; Immature Granulocytes # (auto) 0.02 K/uL (0.00-0.02); Immature Granulocytes % (auto) 0.5 %; Lymphocytes # (auto) 0.43 K/uL (1.2-3.4); Monocytes # (auto) 0.63 K/uL (0.11-0.59); Monocytes % (auto) 14.7 %; Neutrophils # (auto) 3.16 K/uL (1.4-6.5); Neutrophils % (auto) 73.9 %; Polychromasia 1+; Target Cells 1+; Tear Drop Cells Occasional
[2018-08-16] MEDS ORDERED: MAGNESIUM SULFATE / D5W 1 GM/100 ML BAG IV SCH (21:30)
[2018-08-16] MEDS ORDERED: RAPID SEQUENCE INDUCTION BAG ONE (22:08)
--- NOTE | 2018-08-16 22:15 | Critical Care Consultation ---
Date of Consultation August 16, 2018 Assessment & Plan (1) Electrolyte abnormality: Patient was initially transferred down to the ICU in the setting of acute delirium tremens with need for escalating care. On review of nurse's notes as well as recent documentation, the patient had been receiving intravenous Ativan per nurse driven CIWA protocol. He had change in mental status with worsening agitation. He had received a dose of Narcan for somnolence prior to this. In an effort to prevent self-harm or injury to staff members, the patient received a dose of Ativan per withdrawal scale protocol. This did seem to help sedate the patient appropriately. End-tidal CO2 was monitored without significant changes noted. SaO2 remained in the high 90s throughout. The patient did have fluctuations of A. fib with rapid RVR with heart rates ranging into the 130s to 140s. His Lasix drip was discontinued secondary to moderate hypokalemia. I did add an additional 20 mEq of IV potassium chloride. He was treated with albumin 4 labile blood pressures. I did have a discussion with the patient's primary service and there was reviewed previous documentation. Apparently, there was discussion as to patient's wishes for transfer to tertiary care facility. The patient's friend, Mckenna, had presented to the ICU. Discussion was had with her. She reports that she had spoken with the patient earlier this morning and he had expressed to her that they were discussing need for transfer. She reports that he seemed amenable to transfer to higher level of care. Per gastroenterology documentation, he had agreed to transfer to higher level of care at the recommendation. Per recent notes, however, there is discussion where he had declined transfer. At this point, the patient is unable to make any informed decisions at this time secondary to mental status in the setting of delirium tremens and acutely ill state. After discussion with hospitalist and discussion with friends, I do feel that at this point, the patient has reached a point where he is unable to make decisions for himself. He has no next of kin. His friend is unable to make decisions for him, however she does appear to be his point of contact at this point. Apparently, he has been ex- whom he is estranged from. Regardless, in the young patient with full CODE STATUS and inability to make decisions for himself, I do feel that is necessary to proceed with his appropriate. Hospitalist did arrange transport, however they do request intubation for airway protection. I did reach out to anesthesia who were kind enough to perform intubation procedure. Please see separate note. Patient did have some transient hypotension after intubation procedure. He received small fluid boluses and order was placed for low-dose levo fed as needed. Patient was transferred to [facility] for higher level c are in the setting of alcoholic cirrhosis with acute liver failure, pancytopenia, elevated INR with inability to perform interventions likely, left lower lobe pneumonia -presumed to be aspiration, A. fib with rapid ventricular response, amongst others. I have personally spent 60 minutes of critical care time in the direct management of this patient. This is a life/limb threatening event. This includes time spent evaluating patient, direct bedside care, chart review, placing orders, interpretation of diagnostic studies, discussion with consultants, patient, and family members, as well as other required patient management activities. This time is exclusive of all separately billable procedures, and teaching time and separate from and in addition to any other critical care service time. (2) Acute alcohol intoxication delirium with moderate or severe use disorder: (3) Alcoholic cirrhosis of liver with ascites: (4) Alcoholic liver disease: (5) Paroxysmal atrial fibrillation with RVR: (6) Pancytopenia: (7) Anasarca: History of Present Illness Attending Physician: Angelica Recinos MD I was contacted by the nocturnal hospitalist group regarding patient's declining status. History of present illness was limited secondary to patient's current state of delirium tremens and need for sedation. Apparently, the patient has a history of heavy alcohol abuse with associated cirrhosis which was diagnosed approximately 3 years ago. The patient has not followed regularly with primary care GI since. He was admitted to this facility with new diagnosis of left lower lobe pneumonia presumed to be aspiration in nature. In addition, he was found to be pancytopenic with elevated INR. His meld score was 33 and worsening throughout stay. Per previous review of records, the patient had apparently been reluctant for admission initially. He showed reluctance for receiving PRBCs as well. On review of gastroenterology note from earlier this morning, they had recommended transfer to tertiary care facility for further evaluation. He did agree per the records for transfer. Apparently this evening during evaluation by hospitalist team, the patient was found to be more somnolent. He had been receiving Ativan as part of his alcohol withdrawal scale. He was provided a one-time dose of Narcan. Shortly after, the patient became increasingly agitated. He was defecating himself and pulling out IVs. Nursing staff was concerned as the patient had been reportedly kicking as well. On arrival in the ICU, the patient is escorted by 4 separate staff members who have been required to help prevent patient from causing harm to himself or other staff members. Patient was treated with 3 mg IV Ativan per withdrawal protocol scale. This did seem to help with symptoms. Allergies Allergy/AdvReac Type Severity Reaction Status Date / Time No Known Allergies Allergy Verified 08/14/18 17:20 Home Medications Home Medications Medication Instructions Recorded Confirmed Type No Known Home Medications 08/14/18 08/14/18 History Patient History Medical History Cirrhosis (Chronic) Family history non-contributory Surgical History No pertinent past surgical history Family History Other Family history non-contributory Social History Preferred Language: Greek Communication Ability: Effective Balance Sheet Analyst Required: No Beliefs That Will Affect Care: None Current Living Situation: Alone Current Living Situation Comment: Apt Other Information That Helps Us Care for You: No Feels Safe at Home: Yes Safety Concerns: Feels Safe At This Time Smoking Status: Never smoker Tobacco Type: smokeless tobacco Do You Dip or Chew Tobacco: Yes Hx Alcohol Use: Yes Alcohol type: beer Hx Substance Use: No Review of Systems Review of Systems: Unobtainable due to cognitive status Physical Exam Physical Exam: VITAL SIGNS - Vital signs and nursing notes were reviewed. GENERAL - 58-year-old mal appearing his stated age who is in no acute distress. Confused. Scleral icterus noted. Jaundiced skin. SKIN -jaundiced HEAD - NC/AT. EYES - PERRL with EOMI bilaterally. Sclera icterus. Palpebral conjunctiva pink and moist with no injection noted. EARS - No deformities of external structures noted on gross examination bilaterally. NOSE - Midline and without cyanosis. MOUTH/OROPHARYNX - Without perioral cyanosis. Buccal mucosa pink and moist and without leukoplakia. NECK - Neck with FROM. Supple to palpation. LUNGS - Chest wall symmetric without accessory muscle use, intercostals retractions, or central cyanosis. Coarse breath sounds appreciated bilaterally. CARDIAC - RRR with S1/S2. No murmur, rubs, or gallops appreciated. ABDOMEN - Abdominal contour protuberant with obvious ascites. EXTREMITIES - No clubbing or peripheral cyanosis. No pretibial edema present. +3/5 radial and dorsalis pedis pulses palpated throughout. +5/5 strength noted in UE/LE bilaterally. NEUROLOGIC - Cranial nerves II through XII grossly intact. PSYCH -patient is alert to name and date of . He is uncertain of location at this time. He is confused and agitated. Somewhat tremulous. Results & Data Vital Signs (Past 12 Hours) Vital Signs Temp Pulse Pulse Resp BP BP Pulse Ox 08/16/18 20:20 36.6 C 78 18 95/57 L 98 08/16/18 18:46 125 H 08/16/18 15:30 36.8 C 86 18 93/54 L 93 08/16/18 14:20 80 08/16/18 11:22 36.9 C 121 H 21 102/58 L 92
[2018-08-16 22:19] LABS: iSTAT Allen Test Pass; iSTAT Arterial Blood Gas HCO3 30 meg/L (19-24); iSTAT Arterial Blood Gas pCO2 39 mmHg (35-46); iSTAT Arterial Blood Gas pH 7.49 (7.35-7.45); iSTAT Carbon Dioxide 31 mEq/l (24-31); iSTAT Site L Radial
--- NOTE | 2018-08-16 22:20 | Discharge Summary ---
Date of Service August 16, 2018 Admission HPI Per Admitting Provider This 58-year-old male who was diagnosed with alcoholic liver cirrhosis over 3 years ago, chronic alcoholism, presents because of abnormal labs. The patient states since last 3 weeks he has swollen up in his legs and his abdomen got distended and causing him shortness of breath. He is also having cough with yellowish phlegm, once in a while he gets arnold sputum. He lives alone. having difficulty ambulation.Because of his ongoing symptoms, he went to [facility] and labs were done and his friend was called and told that he needs to go to the ER and he came here. He has yellow discoloration of his skin and eyes and labs showed his hemoglobin was 6.2, pancytopenia with platelets of 51 and WBC is 2.8. His INR was 2.2. Sodium of 121, total bilirubin of 14.2, albumin of 1.4. Alcohol level 119. CT abdomen shows left pleural effusion, splenomegaly, hepatic cirrhosis, significant abdominal ascites. The patient initially refused blood transfusion, but he is okay now. Chest x-ray also shows pneumonia in the right lung. The patient denies any headache. No blurred vision, no earache, no runny nose, no sore throat, no difficulty swallowing. He says he is still drinking 4 beers every day. He says he is eating food okay. Denies any chest pain. Has some shortness of breath on exertion. Denies any fever, chills. Denies any abdominal pain. Normal bowel and bladder movements. Denies any black stools or blood in the stools. Denies any burning micturition or hematuria. Has lower extremity edema. Hemodynamics were okay in the ER. Admission Exam Per Admitting Provider PHYSICAL EXAMINATION: GENERAL: The patient is of moderate build, not in acute distress. VITAL SIGNS: Temperature 36.8, pulse 104, respiratory rate 19, blood pressure 100/49, oxygen 94% on 2 liters. HEENT: No pallor or icterus present. Pupils equal, round, reactive to light. NECK: No JVD, no neck masses, no carotid bruits. CARDIOVASCULAR: S1, S2 heard. Tachycardia. No murmurs. RESPIRATORY SYSTEM: Normal AP diameter. No accessory muscle use. No wheezing. Mild bibasilar crackles. ABDOMEN: Distended, nontender. Bowel sounds present. CENTRAL NERVOUS SYSTEM: Cranial nerves II-XII grossly intact. Nonfocal. EXTREMITIES: Bilateral lower extremity gross edema with erythematous changes. SKIN: Yellow discoloration. Principal Diagnosis Alcohol Hepatitis Alcohol withdrawal Hyponatremia Hypokalemia Pneumonia UTI Volume overloaded Discharge Data Allergies Allergy/AdvReac Type Severity Reaction Status Date / Time No Known Allergies Allergy Verified 08/14/18 17:20 Consultations 08/14/18 21:48 ED Decision to Admit Stat 08/15/18 01:44 Consult Case Management - Discharge Planning Routine 08/15/18 08:00 Consult Cardiology Routine Consult Gastroenterology Routine Consult Nephrology Routine 08/16/18 17:06 Consult Palliative Care Routine 08/16/18 20:26 Consult On Air Director Routine 08/16/18 21:21 Burn CD for patient Stat Procedures Performed Operation Date: 08/15/18 09:30 <No data on this case meets the specified criteria> Ordered Studies 08/14/18 18:35 CT abd pelvis IV con only Stat 08/15/18 01:44 US venous doppler LE BI Routine Hospital Course (1) Acute alcohol intoxication delirium with moderate or severe use disorder: Patient was getting more agitated. Given IV ativan. Became Drowsy. Having tachycardia. Blood pressure on lower side.Transferred to ICU. As per documentation he was ok for tertiary care transfer in am When GI talked to him. But later in the day he declined to hospitalist.But question of he already in DT's by that time. Talked to the patient friend who brought him to the hospital. ( No family locally). She said that patient talked to her in the morning and he was considering going to [place] or [place] and she was ok for transfer to [facility] ICU kindly accepted patient for transfer. Nereyda will be intubated prior to transfer as he ias actively in DT's Also his K is 2.6.and Mg 1.5 Stopping lasix drip for now and replacing potassium and magnesium.Continue zosyn and doxy for pneumonia.sedation protocol for intubation and alcohol withdrawal as per ICU. 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 should be transferred to ICU for IV percedex gtt (2) Alcoholic liver disease: History of chronic heavy alcohol consumption, presents with anasarca, deeply jaundiced Patient input from GI, Advanced end-stage alcoholic liver disease Strict abstinence from alcohol is advised Patient given IV albumin Started on alcohol withdrawal protocol, developing signs of DT, severe withdrawal reaction transfer to ICU for IV Precedex drip Given advanced liver disease, GI team suggested transfer to tertiary care, pt is unstable for EGD/endoscopy, high risk for life-threatening organ failure for severe alcohol withdrawal Plan of care discussed with Mr. Barraza at bedside Updated regarding advanced liver disease, risk of seizure, bleeding, needs tertiary care transfer for support of multiorgan failure Patient refused to be transferred to [place], (3) Alcoholic cirrhosis of liver with ascites: Presents with end-stage alcoholic liver disease/alcoholic hepatitis with large amount of ascites CT abdomen pelvis confirmed-ascites Appreciate input from GI/nephrology Patient ordered IV Lasix gtt Will need diagnostic and therapeutic paracentesis INR needs to be less than 1.6(present auto anticoagulated INR more than 3 , given 10 mg pO vit K ) very poor prognosis refused to be transferred to tertiary center earlier developing s/s severe ETOH withdrawal symptoms-transferred to ICU (4) Hyponatremia: Possible secondary to chronic alcohol abuse, advanced cirrhosis of liver/anasarca Appreciate input from nephrology Patient given IV Lasix Follow PRP (5) Paroxysmal atrial fibrillation with RVR: -worsening of tachycarryhmia /Rapid Afib RVR due to Etoh withdrawl Echo shows normal ejection fraction, no significant valvular disease, no wall motion abnormality cardiology consult apprecaited was ordered PO Lopressor 12.5 mg QiD changed to IV for altered mental status /ETOH withdrawl Anticoagulation is not indicated, patient is already auto anticoagulated INR> 3 secondary to end-stage liver disease, severe thrombocytopenia Overall prognosis remains extremely poor (6) Hypoalbuminemia: Secondary to alcoholic liver disease, advanced cirrhosis Ordered for albumin (7) Anasarca: Secondary to advanced alcoholic disease alcoholic cirrhosis, worsening of MELD score GI following On IV LAsix will need theraputic /diagnositc paracenthesis when medically stable , coagulopathty improves (8) Alcohol intoxication: hx of long-term chronic alcohol abuse On admission alcohol level 119 was ordered Neurontin/PRN IV Ativan for withdrawal protocol developing s/s of severe withdrawal transfer to intensive care unit (9) Pleural effusion, left: Secondary to alcoholic liver disease cirrhosis, hypoalbuminemia. Given IV Lasix (10) Hyperbilirubinemia: Secondary to end-stage liver disease GI following The poor prognosis (11) Anemia: anemia of chronic disease, secondary to end-stage liver disease, presents with worsening of hemoglobin 6.2 Received multyiple units > 4 PRBC transfusion No overt sign of GI bleed On Protonix IV 40 g twice daily hb > 8 post transfusion Should input from GI, high risk for upper endoscopy EGD-poor anesthesia candidate, paroxysmal A. fib /high risk for alcohol withdrawal Recommends transfer to higher level of care, patient declines to transfer to [place] Pt refused transfer againg today 08/16/2018 (12) Pneumonia: Possible secondary to aspiration during intoxicated status\ Continue on Zosyn, doxycycline (13) Electrolyte abnormality: due to end stage liver disease chronic ETOH abuse on Iv LAsix gtt oral K supplement ordered by Nephrology follow Mg and K closely may need to change oral supplements to IV if mental status /agitation worsens due to withdrawl symptom (14) Pancytopenia: Secondary to advanced liver disease, alcoholic cirrhosis Follow CBC closely Avoid antiplatelets, anticoagulation Status: Full code Total Time Total Time Spent Total Time Spent (In Minutes): 60 minutes. Discharge Plan Discharge Items Patient Disposition: Transfer Acute Care Hospital Reason For Visit: ABNORMAL LABS Discharge Diagnosis: alcohol withdrawal, alcohol hepatitis, electrolyte abnorma lity, pneumonia Condition: Serious Discharge Goals: Decrease discomfort and Therapeutic intervention Activity: As commented below Activity Comment: bed rest Non-emergency contact: Primary Care Provider Call non-emergency contact if: you have any medication questions Follow-up/Referrals: Alexandre Kraus DO [Primary Care Provider] - Diet: Low Sodium (2gm) Diet Comment: NPO for now Addtl Provider Instructions: Transferring TO [place] Prescriptions: No Action No Known Home Medications RF: 0 Stand-Alone Forms: [facility] Discharge Orders: Discharge Order (Routine); Ordered 08/16/18 Ordered By: Cb Langston Admission Data Admit Date/Time: 08/15/18 00:25 Attending Provider: Angelica Recinos Admit Provider: Cb Langston Primary Care Provider: Alexandre Kraus Other Providers: Mervin Reyes ; Cb Langston ; Efren Chavez ; Alexandre Ross ; Mohamud Chacon ; Neal Wynne ; Tim Simmons ; Favian Lawson ; Lena Stinson ; Meme Sims ; Johnathan De Jesus ; Gabo Whittaker ; Margaret Soto ; Honorio Kaur ; Carl Parker ; Dread Mercado ; Maria M Ramos ; Cheng Ray ; Aleksandr Vanegas ; Kristal Jo ; Mamta Dickey ; Moni Perla ; Slime So ; Adi Valadez ; Beckie Aguirre ; Zia Hickman ; Guero Pa I ; Emmy Garcia ; Rosalba Lorenzana ; Rylee Hurt ; Liliana Velazquez ; Tim Clark. Service: Intensive Care Unit Other Studies:: please copy chart and send along with patient to [facility].
[2018-08-16] MEDS ORDERED: ICU PROTOCOL FOR HYPERGLYCEMIA PRN (22:35)
[2018-08-16] MEDS ORDERED: fentaNYL citrate 100 MCG/2 ML VIAL IV PRN (22:35)
[2018-08-16] MEDS ORDERED: MIDAZOLAM HCL 1 MG/ML 2ML VIAL IV PRN (22:35)
[2018-08-16] MEDS ORDERED: NOREPINEPHRINE BIT INJ 8 MG in DEXTROSE 5% 500 ML IV STA (22:39)
--- NOTE | 2018-08-16 22:44 | Procedure Note ---
Procedure Note Date of Service August 16, 2018 Intubation Note The patient is a 58 y/o male with alcoholic cirrhosis. Other PMH includes aspi ration pneumonia, atrial fibrillation, hypokalemia, alcoholism, and pancytopenia. He has been obtunded since receiving a dose of Ativan for delirium tremens. I was called by the ICU to intubate the patient due to the patient being obtunded. On exam he had an enlarged abdomen and was jaundiced. He was obtunded but spontaneously ventilating. Lungs were muffled. Heart was irregular. TMD >3 cm. Unable to examine MP but poor dentition noted. Dr. Dotson pushed the induction medicines. Indication for Intubation: Unable to protect airway Consent: Emergency procedure, implied consent Time Out: A time-out was performed verifying correct patient with two identifiers, procedure, site, positioning, and special equipment. Monitors Attached: [x] EKG [x] NIBP [x] Pulse Oximetry Induction Medications: [100]mcg Fentanyl [8]mg Midazolam Paralytic Medication: [120]mg Succinylcholine Intubation Technique: [x] Patient preoxygenated [x] RSI [x] Airway Suctioned Equipment: Glidescope #3 Grade View: 1 Endotracheal Tube: [x] Oral [x] 7.5 Procedure Details: ET tube was placed atraumatically on one attempt. Thick dark secretions visible in oropharynx. Balloon was inflated and the tube was secured at 23 cm. Placement was confirmed by positive CO2 detection and auscultation. Post-procedure: The patients vital signs were monitored throughout the proc edure. Patient tolerated the procedure well without apparent complications. Post placement CXR ordered. The patient is being managed by [place] in the ICU. His SpO2 remained 100 throughout. HR has been 80s-100s in afib. SBP in the 90s. Coding
--- NOTE | 2018-08-16 22:52 | XRay Report ---
PORTABLE SUPINE AP CHEST RADIOGRAPH CLINICAL HISTORY: s/p intubation COMPARISON STUDY: Chest radiograph August 14, 2018. FINDINGS: Tip of endotracheal tube is 3.2 cm above the rio. Sensitivity for detection of pneumotho rax is diminished on this exam but no pneumothorax is identified. Left midlung opacity has increased. Right infrahilar opacity is noted. Cardiomediastinal silhouette is stable. Patient is rotated. IMPRESSION: 1. Tip of endotracheal tube 3.2 cm above the rio. 2. Increasing left lung opacity. In part, this reflects a layering pleural effusion on this supine ex am however superimposed pneumonia cannot be excluded. Radiographic follow-up is recommended. 3. Right infrahilar opacity which may reflect pneumonia or atelectasis. Electronically signed by: Estrada Greene M.D. 08/16/2018 10:51 PM
[2018-08-16] MEDS ORDERED: METOPROLOL TARTRATE 1 MG/ML VIAL IV SCH (23:00)
[2018-08-17] MEDS ORDERED: GABAPENTIN 600 MG TAB PO SCH (02:00)
[2018-08-18] MEDS ORDERED: GABAPENTIN 600 MG TAB PO SCH (14:00)
[2018-08-27 08:10] LABS: Anti Nuclear Antibody Screen NEGATIVE (NEGATIVE); CMV IgG Antibody <0.60 U/ML; CMV IgM Antibody <30.00 Au/mL; IgA Serum 1248 mg/dL (81-463); Smooth Muscle Antibody 1:40 TITER; Tis Trans IgA 10 U/mL (<4)
[2018-08-27 09:03] LABS: Endomysial IgA Antibody Negative
== END 2018-08-16 23:45 | disposition short-term general hospital (02) | DRG 432 ==
LOC: ED 16:48 → 2S 08-15 00:25 → SUATTDRO 08-15 00:25 → 2S 08-15 00:59 → 1E 08-16 20:22

== ENCOUNTER 2018-10-29 16:49 | Inpatient (IN) ==
[2018-10-29 18:03] LABS: Hematocrit (blood only) 25.7 % (42-52); Hemoglobin 8.7 g/dL (14.0-18.0); Mean Corpuscular Hgb Conc 33.9 g/dL (32-36); Mean Corpuscular Volume 106.6 fL (80-100); RDW Standard Deviation 58.3 fL (36.4-46.3); Red Blood Count 2.41 M/uL (4.7-6.1); White Blood Count 2.52 K/uL (4.8-10.8)
--- NOTE | 2018-10-29 18:20 | XRay Report ---
XR chest 1V portable CLINICAL HISTORY: Dyspnea COMPARISON STUDY: Chest radiograph August 16, 2018. FINDINGS: There is atypical configurational left mediastinal contour. This is of questionable signifi cance. A small left pleural effusion is noted. There is left basilar opacity. There is no evidence fo r pulmonary edema. No pneumothorax is noted. IMPRESSION: 1. Small left pleural effusion with left basilar opacity which may reflect pneumonia or atelectasis. Radiographic follow-up is recommended to ensure resolution. 2. Atypical configuration of the left mediastinal contour, a finding of questionable significance whi ch can be assessed on follow-up chest radiographs. Electronically signed by: Estrada Greene M.D. 10/29/2018 6:18 PM
[2018-10-29 18:25] LABS: INR 2.2 (0.9-1.1); Partial Thromboplastin Ratio 1.9; Prothrombin Time 21.4 Seconds (9.0-12.0)
[2018-10-29 18:35] LABS: Basophils # (auto) 0.02 K/uL (0-0.2); Basophils % (auto) 0.8 %; Eosinophils # (auto) 0.07 K/uL (0-0.5); Eosinophils % (auto) 2.8 %; Lymphocytes # (auto) 0.47 K/uL (1.2-3.4); Lymphocytes % (auto) 18.7 %; Mean Platelet Volume 8.4 fL (7.4-10.4); Monocytes # (auto) 0.43 K/uL (0.11-0.59); Monocytes % (auto) 17.1 %; Neutrophils # (auto) 1.43 K/uL (1.4-6.5); Neutrophils % (auto) 56.6 %; Partial Thromboplastin Time 51.3 Seconds (21.0-31.0); Platelet Count 66 K/uL (130-400); Platelet Estimate Decreased (Normal)
[2018-10-29 18:46] LABS: Albumin Globulin Ratio 0.3 (0.9-2); Albumin Level 1.7 gm/dl (3.4-5.0); BUN Creatinine Ratio 15.3 (10-20); Bilirubin,Total 11.2 mg/dl (0.2-1); Calcium 7.5 mg/dl (8.5-10.1); Creatinine Clr Calc Pharmacy 112.6 ml/min; Est GFR (African American) 113.7; Est GFR (Non-African American) 98.1; Potassium 3.7 mmol/L (3.5-5.1); Total Protein 6.7 gm/dl (6.4-8.2)
[2018-10-29] MEDS ORDERED: FUROSEMIDE 40 MG in SYRINGE 0 ML IV ONE (19:43)
[2018-10-29] MEDS ORDERED: FUROSEMIDE 40 MG/4 ML VIAL IV STA (19:51)
--- NOTE | 2018-10-29 20:41 | History & Physical Report ---
Date of Service October 29, 2018 Assessment & Plan (1) Ascites due to alcoholic cirrhosis: Nonpainful Shortness of breath secondary to above Bilateral leg swelling secondary to liver disease rule out DVT hx PAF past alcohol abuse chronic hyponatremia secondary to cirrhosis chronic anemia, hemoglobin at baseline chronic thrombocytopenia secondary to chronic liver disease Mood disorder, stable Hyperglycemia rule out DM [facility] Lasix IV 1 dose now Continue home diuretic regimen Fluid restriction Therapeutic paracentesis in a.m. GI consult RE ascites LE venous Dopplers for DVT Check hemoglobin A1c DVT prophylaxis. SCDs RE thrombocytopenia Full code History of Present Illness Chief Complaint: Shortness of breath, increased abdominal distention Primary Care Provider: Alexandre Kraus DO History obtained from patient and records. Medical history significant for alcoholic cirrhosis, gout, PAF, past alcohol abuse, chronic hyponatremia, chronic anemia (baseline hemoglobin of 8-9), chronic thrombocytopenia. Recent confinement August 2018 for alcoholic hepatitis, alcohol withdrawal. Patient intubated for delirium tremens. Recent had alcohol withdrawal seizures status post intubation as per records. Patient transferred to [facility] for higher level of care. Patient admitted [facility] from August 17 to September 04, 2018. Patient developed transient A. fib during confinement. Repeat paracentesis also performed during confinement, with removal of 4.5 L. Patient discharged on diuretic regimen. The last few days patient noted increasing abdominal distention without abdominal pain, bilateral leg swelling. Increasing shortness of breath from abdominal girth as per patient. Chronic cough symptoms. Patient compliant with home diuretic regimen. No instructions about fluid restriction on discharge from [place] as per patient. Patient has been sober since discharge 2 months ago. Patient sent to the emergency room by his PCP. Medical History as above Surgical History : Eye surgery for retinal detachment Family History : Lung cancer, brain cancer, heart disease Personal/Social history : Non-smoker, past alcohol abuse, prior work at [employer] Allergies Allergy/AdvReac Type Severity Reaction Status Date / Time No Known Allergies Allergy Verified 10/29/18 18:41 Home Medications Home Medications Medication Instructions Recorded Confirmed Type famotidine 20 mg PO DAILY 10/29/18 10/29/18 History folic acid 1 mg PO DAILY 10/29/18 10/29/18 History furosemide 40 mg PO BID 10/29/18 10/29/18 History lactulose 20 g PO QID 10/29/18 10/29/18 History spironolactone 100 mg PO BID 10/29/18 10/29/18 History thiamine HCl (vitamin B1) 100 mg PO DAILY 10/29/18 10/29/18 History Past Med/Surg History Medical History Cirrhosis (Chronic) Family history non-contributory Surgical History No pertinent past surgical history Family History Other Family history non-contributory Social History Preferred Language: Upper Sorbian Communication Ability: Effective Knockout Man Required: No Beliefs That Will Affect Care: None Current Living Situation: Alone Current Living Situation Comment: Apartment Other Information That Helps Us Care for You: No Feels Safe at Home: Yes Safety Concerns: Feels Safe At This Time Smoking Status: Never smoker Tobacco Type: smokeless tobacco Do You Dip or Chew Tobacco: No Second Hand Exposure: No Hx Alcohol Use: Yes Alcohol type: beer Hx Substance Use: No Review of Systems Review of Systems: As per HPI, all 10 systems reviewed, all other ROS negative Physical Exam Physical Exam: GENERAL: Comfortable, no respiratory distress SKIN: Jaundiced, warm HEENT: pale palpebral conjunctivae, icteric sclerae, no ptosis, dry buccal muc kevin NECK : Supple, no tenderness CHEST : CTA, no tenderness HEART : RRR, systolic murmur ABDOMEN: distention, nontender, fluid wave noted EXTREMITIES : Bilateral LE swelling, no LE tenderness, no other conspicuous deformities noted NEUROLOGIC : Coherent, no facial asymmetry, no other gross focality Results & Data Vital Signs (Past 12 Hours) Vital Signs Temp Pulse Resp BP Pulse Ox 10/29/18 20:01 89 21 128/78 96 10/29/18 19:01 88 20 121/78 96 10/29/18 18:11 93 H 19 127/81 96 10/29/18 17:37 95 H 18 96 10/29/18 16:57 36.5 C 95 H 18 113/71 96 Laboratory Results Laboratory Results WBC 2.52 K/uL (4.8-10.8) L 10/29/18 17:48 RBC 2.41 M/uL (4.7-6.1) L 10/29/18 17:48 Hgb 8.7 g/dL (14.0-18.0) L 10/29/18 17:48 Hct 25.7 % (42-52) L 10/29/18 17:48 MCV 106.6 fL (80-100) H 10/29/18 17:48 MCH 36.1 pg (25-34) H 10/29/18 17:48 MCHC 33.9 g/dL (32-36) 10/29/18 17:48 RDW Std Deviation 58.3 fL (36.4-46.3) H 10/29/18 17:48 RDW Coeff of Lesley 15.0 % (11.5-14.5) H 10/29/18 17:48 Plt Count 66 K/uL (130-400) L 10/29/18 17:48 MPV 8.4 fL (7.4-10.4) 10/29/18 17:48 Immature Gran % (Auto) 4.0 % 10/29/18 17:48 Neut % (Auto) 56.6 % 10/29/18 17:48 Lymph % (Auto) 18.7 % 10/29/18 17:48 [place] % (Auto) 17.1 % 10/29/18 17:48 Eos % (Auto) 2.8 % 10/29/18 17:48 Baso % (Auto) 0.8 % 10/29/18 17:48 Immature Gran # (Auto) 0.10 K/uL (0.00-0.02) H 10/29/18 17:48 Neut # (Auto) 1.43 K/uL (1.4-6.5) 10/29/18 17:48 Lymph # (Auto) 0.47 K/uL (1.2-3.4) L 10/29/18 17:48 [place] # (Auto) 0.43 K/uL (0.11-0.59) 10/29/18 17:48 Eos # (Auto) 0.07 K/uL (0-0.5) 10/29/18 17:48 Baso # (Auto) 0.02 K/uL (0-0.2) 10/29/18 17:48 Platelet Estimate Decreased (Normal) L 10/29/18 17:48 PT 21.4 Seconds (9.0-12.0) H 10/29/18 17:48 INR 2.2 (0.9-1.1) H 10/29/18 17:48 APTT 51.3 Seconds (21.0-31.0) H* 10/29/18 17:48 PTT Ratio 1.9 10/29/18 17:48 Sodium 132 mmol/L (136-145) L 10/29/18 17:48 Potassium 3.7 mmol/L (3.5-5.1) 10/29/18 17:48 Chloride 101 mmol/L (98-107) 10/29/18 17:48 Carbon Dioxide 24 mmol/L (21-32) 10/29/18 17:48 Anion Gap 7.0 (3-11) 10/29/18 17:48 BUN 12 mg/dl (7-18) 10/29/18 17:48 Creatinine 0.78 mg/dl (0.6-1.4) 10/29/18 17:48 Est Cr Clr Drug Dosing 112.6 ml/min 10/29/18 17:48 Est GFR ( Amer) 113.7 10/29/18 17:48 Est GFR (Non-Af Amer) 98.1 10/29/18 17:48 BUN/Creatinine Ratio 15.3 (10-20) 10/29/18 17:48 Glucose 171 mg/dl (70-99) H 10/29/18 17:48 POC Glucose 170 (70-99) H 10/29/18 17:54 Calcium 7.5 mg/dl (8.5-10.1) L 10/29/18 17:48 Magnesium 2.0 mg/dl (1.8-2.4) 10/29/18 17:48 Total Bilirubin 11.2 mg/dl (0.2-1) H 10/29/18 17:48 AST 51 U/L (15-37) H 10/29/18 17:48 ALT 34 U/L (12-78) 10/29/18 17:48 Alkaline Phosphatase 168 U/L (45-117) H 10/29/18 17:48 Total Protein 6.7 gm/dl (6.4-8.2) 10/29/18 17:48 Albumin 1.7 gm/dl (3.4-5.0) L 07/15/19 17:48 Globulin 5.0 gm/dl (2.5-4.0) H 10/29/18 17:48 Albumin/Globulin Ratio 0.3 (0.9-2) L 10/29/18 17:48 Diagnostic Findings Chest x-ray showed 1. Small left pleural effusion with left basilar opacity which may reflect pneumonia or atelectasis. Radiographic follow-up is recommended to ensure resolution. 2. Atypical configuration of the left mediastinal contour, a finding of questionable significance which can be assessed on follow-up chest radiographs. EKG as per my interpretation : Rate 90, NSR, right bundle branch block, T wave flattening inferior lateral leads
[2018-10-29 20:43] LABS: Appearance Urine Slightly Cloudy (Clear); Bilirubin Urine 3+ (Negative); Blood Urine Negative (Negative); Color Urine Amber; Glucose Urine UA Trace (Negative); Ketones Urine Trace (Negative); Leukocyte Esterase Urine Negative (Negative); Nitrite Urine Positive (Negative); Protein Urine 1+ (Negative); Specific Gravity Urine 1.025 (1.000-1.030); Urobilinogen Urine Positive (Negative)
[2018-10-29 20:44] LABS: Ictotest Urine Positive (Negative)
[2018-10-29 20:47] LABS: Mucus Urine Present (None Prsent)
[2018-10-29 20:48] LABS: Epithelial Cell Urine 0-5 /lpf (0-5)
[2018-10-29 20:50] LABS: Bacteria Urine Negative (Negative); RBC Urine 0-4 /hpf (0-4)
[2018-10-29 20:52] LABS: Calcium Oxalate Crystals Urine Present (None Prsent)
[2018-10-29] MEDS ORDERED: ACETAMINOPHEN 325 MG TAB PO PRN (22:10)
[2018-10-29] MEDS ORDERED: OXYCODONE HCL IR 5 MG TAB (IMMEDIATE RELEASE) PO PRN (22:10)
[2018-10-29] MEDS ORDERED: POTASSIUM CHLORIDE 10 MEQ TABCR PO STA (22:10)
[2018-10-29] MEDS ORDERED: SODIUM CHLORIDE 0.9% 250 ML IV PRN (22:10)
[2018-10-29] MEDS: POTASSIUM CHLORIDE 20 MEQ TABCR PO SCH (23:58)
[2018-10-29] MEDS: SPIRONOLACTONE 100 MG TAB PO SCH (23:59)
--- NOTE | 2018-10-30 00:19 | Emergency Department Note ---
Entered by Ana Washington acting as a scribe for Melvina Colon MD History of Present Illness General Chief complaint: Referred by Doctor Stated complaint: NEEDS TREATMENT Time Seen by Provider: 10/29/18 17:03 Source: patient Limitations: no limitations History of Present Illness Onset (ago): week(s) Location: abdomen and lower extremity Pain Consistency: + other (worsening) Quality: + constant Associated symptoms: + denies other symptoms (abdominal pain) and + other (wheezing); no fever/chills The patient is a 58 year old male who presents to the ED complaining of constant swelling in his abdomen and lower extremities. He reports that he has had swelling for weeks, but symptoms worsened today. The patient complains of wheezing. He denies any abdominal pain and fevers. He notes that he had a paracentesis about 2 months ago at [facility]. The patient reports a history of ETOH cirrhosis, states he has not had any alcohol for 2 months.. Home Medications Home Medications Medication Instructions Recorded Confirmed Type famotidine 20 mg PO DAILY 10/29/18 10/29/18 History folic acid 1 mg PO DAILY 10/29/18 10/29/18 History furosemide 40 mg PO BID 10/29/18 10/29/18 History lactulose 20 g PO QID 10/29/18 10/29/18 History spironolactone 100 mg PO BID 10/29/18 10/29/18 History thiamine HCl (vitamin B1) 100 mg PO DAILY 10/29/18 10/29/18 History Allergies Allergy/AdvReac Type Severity Reaction Status Date / Time No Known Allergies Allergy Verified 10/29/18 18:41 Past Med/Surg History Medical History Cirrhosis (Chronic) Family history non-contributory Surgical History No pertinent past surgical history Family History Other Family history non-contributory Social History Preferred Language: Surinamese Communication Ability: Effective Body And Frame Man Required: No Beliefs That Will Affect Care: None Current Living Situation: Alone Current Living Situation Comment: Apartment Other Information That Helps Us Care for You: No Feels Safe at Home: Yes Safety Concerns: Feels Safe At This Time Smoking Status: Never smoker Tobacco Type: smokeless tobacco Do You Dip or Chew Tobacco: No Second Hand Exposure: No Hx Alcohol Use: Yes Alcohol type: beer Hx Substance Use: No Review of Systems See HPI for pertinent positives & negatives. and A total of 10 systems reviewed and were otherwise negative Physical Exam Vital Signs Vital Signs - 24 hr 10/29/18 16:57 10/29/18 17:37 10/29/18 18:11 Temperature 36.5 C Temperature Source Oral Sepsis Recent Fever Within 48 Hours No Sepsis Action Taken by Nursing No Action Required Pulse Rate 95 H 95 H 93 H Pulse Rate from SpO2 Sensor 90 Pulse Rhythm Regular Respiratory Rate 18 18 19 Blood Pressure 113/71 127/81 Blood Pressure Mean 85 96 Blood Pressure Position Sitting Pulse Oximetry 96 96 96 Oxygen Delivery Method Room Air Room Air Room Air 10/29/18 19:01 10/29/18 20:01 Temperature Temperature Source Sepsis Recent Fever Within 48 Hours Sepsis Action Taken by Nursing Pulse Rate 88 89 Pulse Rate from SpO2 Sensor 88 89 Pulse Rhythm Respiratory Rate 20 21 Blood Pressure 121/78 128/78 Blood Pressure Mean 92 94 Blood Pressure Position Pulse Oximetry 96 96 Oxygen Delivery Method Vital signs reviewed. General: Chronically ill-appearing male, in no significant distress. Cachectic. HEENT: Positive scleral icterus, PERRLA, neck supple. Atraumatic. Cardiovascular: Regular rate and rhythm. Systolic ejection murmur. Pulmonary: Clear to auscultation bilaterally, normal work of breathing. Abdomen: Soft, nontender, markedly distended, positive bowel sounds. No tympany to percussion. Musculoskeletal: Atraumatic, no peripheral edema. Neurologic: Patient awake alert and oriented x 3. Skin: Warm, dry, no rash. 1-2+ pitting edema to the bilateral lower extremities. Course 1711: The patient was evaluated in room A03. A complete history and physical exam was performed. 1928: I updated and reevaluated the patient. 193: [facility] He will further evaluate the patient. Consultations Consultation #1: [facility] He will further evaluate the patient. Time: 19:37 Administered Medications Famotidine (Pepcid) 20 mg PO DAILY [facility] Stop: 11/29/18 08:59 Last Admin: 10/31/18 07:31 Dose: 20 mg Documented by: [id number] Admin: 10/30/18 07:40 Dose: 20 mg Documented by: [id number] Folic Acid (Folvite) 1 mg PO DAILY [facility] Stop: 11/29/18 08:59 Last Admin: 10/31/18 07:31 Dose: 1 mg Documented by: [id number] Admin: 10/30/18 07:40 Dose: 1 mg Documented by: [id number] Furosemide (Lasix) 40 mg PO BID17 [facility] Stop: 11/29/18 08:59 Last Admin: 10/31/18 07:31 Dose: 40 mg Documented by: [id number] Admin: 10/30/18 16:10 Dose: 40 mg Documented by: [id number] Admin: 10/30/18 07:40 Dose: 40 mg Documented by: [id number] Lactulose (Chronulac) 20 gm PO QID [facility] Stop: 11/28/18 22:09 Last Admin: 10/31/18 07:31 Dose: 20 gm Documented by: [id number] Admin: 10/30/18 21:00 Dose: 20 gm Documented by: [id number] Admin: 10/30/18 16:10 Dose: 20 gm Documented by: [id number] Admin: 10/30/18 12:47 Dose: 20 gm Documented by: [id number] Admin: 10/30/18 07:40 Dose: 20 gm Documented by: [id number] Admin: 10/30/18 00:00 Dose: 20 gm Documented by: [id number] Potassium Chloride (Klor-Con M20) 20 meq PO BID [facility] Stop: 11/28/18 22:09 Last Admin: 10/31/18 07:30 Dose: 20 meq Documented by: [id number] Admin: 10/30/18 21:01 Dose: 20 meq Documented by: [id number] Admin: 10/30/18 07:40 Dose: 20 meq Documented by: [id number] Admin: 10/29/18 23:58 Dose: 20 meq Documented by: [id number] Spironolactone (Aldactone) 100 mg PO BID17 [facility] Stop: 11/28/18 22:09 Last Admin: 10/31/18 07:31 Dose: 100 mg Documented by: [id number] Admin: 10/30/18 16:10 Dose: 100 mg Documented by: [id number] Admin: 10/30/18 07:40 Dose: 100 mg Documented by: [id number] Admin: 10/29/18 23:59 Dose: 100 mg Documented by: [id number] Thiamine HCl (Vitamin B-1) 100 mg PO DAILY [facility] Stop: 11/29/18 08:59 Last Admin: 10/31/18 07:30 Dose: 100 mg Documented by: [id number] Admin: 10/30/18 07:40 Dose: 100 mg Documented by: [id number] Discontinued Medications Furosemide (Lasix) 40 mg IV ONE STA Stop: 10/29/18 19:52 Last Admin: 10/29/18 21:10 Dose: 40 mg Documented by: [id number] Albumin Human (Albumin 25%) 50 mls @ 50 mls/hr IV Q1H [facility] Stop: 10/30/18 16:44 Last Infusion: 10/30/18 17:19 Dose: 0 mls/hr Documented by: [id number] Admin: 10/30/18 16:11 Dose: 50 mls/hr Documented by: [id number] Infusion: 10/30/18 16:11 Dose: 50 mls/hr Documented by: [id number] Admin: 10/30/18 15:16 Dose: 50 mls/hr Documented by: [id number] Potassium Chloride (Klor-Con M10) 40 meq PO NOW STA Stop: 10/29/18 22:11 Last Admin: 10/30/18 00:01 Dose: 40 meq Documented by: [id number] Medical Decision Making Differential Diagnosis The differential diagnosis includes: ESLD, renal failure, bowel obstruction, bowel perforation, SBP, acute infectious process, medication mismanagement, and alcohol consumption. Medical Records Attestation: I reviewed the patient's medical records. Home Medications Current Medication List: was personally reviewed by me Laboratory Data Attestation: I reviewed the patient's lab results. Result diagrams: 10/31/18 04:47 10/31/18 04:47 Lab Results 10/29/18 10/29/18 10/29/18 Range/Units 17:48 17:48 17:48 WBC 2.52 L (4.8-10.8) K/uL RBC 2.41 L (4.7-6.1) M/uL Hgb 8.7 L (14.0-18.0) g/dL Hct 25.7 L (42-52) % MCV 106.6 H (80-100) fL MCH 36.1 H (25-34) pg MCHC 33.9 (32-36) g/dL RDW Std Deviation 58.3 H (36.4-46.3) fL RDW Coeff of Lesley 15.0 H (11.5-14.5) % Plt Count 66 L (130-400) K/uL MPV 8.4 (7.4-10.4) fL Immature Gran % (Auto) 4.0 % Neut % (Auto) 56.6 % Lymph % (Auto) 18.7 % [place] % (Auto) 17.1 % Eos % (Auto) 2.8 % Baso % (Auto) 0.8 % Immature Gran # (Auto) 0.10 H (0.00-0.02) K/uL Neut # (Auto) 1.43 (1.4-6.5) K/uL Lymph # (Auto) 0.47 L (1.2-3.4) K/uL [place] # (Auto) 0.43 (0.11-0.59) K/uL Eos # (Auto) 0.07 (0-0.5) K/uL Baso # (Auto) 0.02 (0-0.2) K/uL Platelet Estimate Decreased L (Normal) PT 21.4 H (9.0-12.0) Seconds INR 2.2 H (0.9-1.1) APTT 51.3 H* (21.0-31.0) Seconds PTT Ratio 1.9 Sodium 132 L (136-145) mmol/L Potassium 3.7 (3.5-5.1) mmol/L Chloride 101 (98-107) mmol/L Carbon Dioxide 24 (21-32) mmol/L Anion Gap 7.0 (3-11) BUN 12 (7-18) mg/dl Creatinine 0.78 (0.6-1.4) mg/dl Est Cr Clr Drug Dosing 112.6 ml/min Est GFR ( Amer) 113.7 Est GFR (Non-Af Amer) 98.1 BUN/Creatinine Ratio 15.3 (10-20) Glucose 171 H (70-99) mg/dl POC Glucose (70-99) Estimat Average Glucose Hemoglobin A1c Calcium 7.5 L (8.5-10.1) mg/dl Magnesium 2.0 (1.8-2.4) mg/dl Total Bilirubin 11.2 H (0.2-1) mg/dl AST 51 H (15-37) U/L ALT 34 (12-78) U/L Alkaline Phosphatase 168 H (45-117) U/L Total Protein 6.7 (6.4-8.2) gm/dl Albumin 1.7 L (3.4-5.0) gm/dl Globulin 5.0 H (2.5-4.0) gm/dl Albumin/Globulin Ratio 0.3 L (0.9-2) Urine Color Urine Appearance (Clear) Urine pH (4.5-7.5) Ur Specific Mikana (1.000-1.030) Urine Protein (Negative) Urine Glucose (UA) (Negative) Urine Ketones (Negative) Urine Blood (Negative) Urine Nitrite (Negative) Urine Bilirubin (Negative) Urine Urobilinogen (Negative) Ur Leukocyte Esterase (Negative) Urine RBC (0-4) /hpf Urine WBC (0-5) /hpf Ur Epithelial Cells (0-5) /lpf Calcium Oxalate Crystal (None Prsent) Urine Bacteria (Negative) Urine Mucus (None Prsent) Miscellaneous Test 10/29/18 10/29/18 10/29/18 Range/Units 17:48 17:48 17:54 WBC (4.8-10.8) K/uL RBC (4.7-6.1) M/uL Hgb (14.0-18.0) g/dL Hct (42-52) % MCV (80-100) fL MCH (25-34) pg MCHC (32-36) g/dL RDW Std Deviation (36.4-46.3) fL RDW Coeff of Lesley (11.5-14.5) % Plt Count (130-400) K/uL MPV (7.4-10.4) fL Immature Gran % (Auto) % Neut % (Auto) % Lymph % (Auto) % [place] % (Auto) % Eos % (Auto) % Baso % (Auto) % Immature Gran # (Auto) (0.00-0.02) K/uL Neut # (Auto) (1.4-6.5) K/uL Lymph # (Auto) (1.2-3.4) K/uL [place] # (Auto) (0.11-0.59) K/uL Eos # (Auto) (0-0.5) K/uL Baso # (Auto) (0-0.2) K/uL Platelet Estimate (Normal) PT (9.0-12.0) Seconds INR (0.9-1.1) APTT (21.0-31.0) Seconds PTT Ratio Sodium (136-145) mmol/L Potassium (3.5-5.1) mmol/L Chloride (98-107) mmol/L Carbon Dioxide (21-32) mmol/L Anion Gap (3-11) BUN (7-18) mg/dl Creatinine (0.6-1.4) mg/dl Est Cr Clr Drug Dosing ml/min Est GFR ( Amer) Est GFR (Non-Af Amer) BUN/Creatinine Ratio (10-20) Glucose (70-99) mg/dl POC Glucose 170 H (70-99) Estimat Average Glucose Cancelled Hemoglobin A1c Cancelled Calcium (8.5-10.1) mg/dl Magnesium (1.8-2.4) mg/dl Total Bilirubin (0.2-1) mg/dl AST (15-37) U/L ALT (12-78) U/L Alkaline Phosphatase (45-117) U/L Total Protein (6.4-8.2) gm/dl Albumin (3.4-5.0) gm/dl Globulin (2.5-4.0) gm/dl Albumin/Globulin Ratio (0.9-2) Urine Color Urine Appearance (Clear) Urine pH (4.5-7.5) Ur Specific Mikana (1.000-1.030) Urine Protein (Negative) Urine Glucose (UA) (Negative) Urine Ketones (Negative) Urine Blood (Negative) Urine Nitrite (Negative) Urine Bilirubin (Negative) Urine Urobilinogen (Negative) Ur Leukocyte Esterase (Negative) Urine RBC (0-4) /hpf Urine WBC (0-5) /hpf Ur Epithelial Cells (0-5) /lpf Calcium Oxalate Crystal (None Prsent) Urine Bacteria (Negative) Urine Mucus (None Prsent) Miscellaneous Test REPORT 10/29/18 Range/Units 19:47 WBC (4.8-10.8) K/uL RBC (4.7-6.1) M/uL Hgb (14.0-18.0) g/dL Hct (42-52) % MCV (80-100) fL MCH (25-34) pg MCHC (32-36) g/dL RDW Std Deviation (36.4-46.3) fL RDW Coeff of Lesley (11.5-14.5) % Plt Count (130-400) K/uL MPV (7.4-10.4) fL Immature Gran % (Auto) % Neut % (Auto) % Lymph % (Auto) % [place] % (Auto) % Eos % (Auto) % Baso % (Auto) % Immature Gran # (Auto) (0.00-0.02) K/uL Neut # (Auto) (1.4-6.5) K/uL Lymph # (Auto) (1.2-3.4) K/uL [place] # (Auto) (0.11-0.59) K/uL Eos # (Auto) (0-0.5) K/uL Baso # (Auto) (0-0.2) K/uL Platelet Estimate (Normal) PT (9.0-12.0) Seconds INR (0.9-1.1) APTT (21.0-31.0) Seconds PTT Ratio Sodium (136-145) mmol/L Potassium (3.5-5.1) mmol/L Chloride (98-107) mmol/L Carbon Dioxide (21-32) mmol/L Anion Gap (3-11) BUN (7-18) mg/dl Creatinine (0.6-1.4) mg/dl Est Cr Clr Drug Dosing ml/min Est GFR ( Amer) Est GFR (Non-Af Amer) BUN/Creatinine Ratio (10-20) Glucose (70-99) mg/dl POC Glucose (70-99) Estimat Average Glucose Hemoglobin A1c Calcium (8.5-10.1) mg/dl Magnesium (1.8-2.4) mg/dl Total Bilirubin (0.2-1) mg/dl AST (15-37) U/L ALT (12-78) U/L Alkaline Phosphatase (45-117) U/L Total Protein (6.4-8.2) gm/dl Albumin (3.4-5.0) gm/dl Globulin (2.5-4.0) gm/dl Albumin/Globulin Ratio (0.9-2) Urine Color Ashley Urine Appearance Slightly Cloudy (Clear) Urine pH 5.0 (4.5-7.5) Ur Specific [place]ana 1.025 (1.000-1.030) Urine Protein 1+ H (Negative) Urine Glucose (UA) Trace H (Negative) Urine Ketones Trace H (Negative) Urine Blood Negative (Negative) Urine Nitrite Positive A (Negative) Urine Bilirubin 3+ H (Negative) Urine Urobilinogen Positive H (Negative) Ur Leukocyte Esterase Negative (Negative) Urine RBC 0-4 (0-4) /hpf Urine WBC 10-30 H (0-5) /hpf Ur Epithelial Cells 0-5 (0-5) /lpf Calcium Oxalate Crystal Present A (None Prsent) Urine Bacteria Negative (Negative) Urine Mucus Present A (None Prsent) Miscellaneous Test Imaging Data Radiologist's Impression: Radiology results as stated below per my review and the radiologist's interpretation: XR chest 1V portable CLINICAL HISTORY: Dyspnea COMPARISON STUDY: Chest radiograph August 16, 2018. FINDINGS: There is atypical configurational left mediastinal contour. This is of questionable significance. A small left pleural effusion is noted. There is left basilar opacity. There is no evidence for pulmonary edema. No pneumothorax is noted. IMPRESSION: 1. Small left pleural effusion with left basilar opacity which may reflect pneumonia or atelectasis. Radiographic follow-up is recommended to ensure resolution. 2. Atypical configuration of the left mediastinal contour, a finding of questionable significance which can be assessed on follow-up chest radiographs. Electronically signed by: Estrada Greene M.D. 10/29/2018 6:18 PM ECG Data Attestation: I personally reviewed and interpreted this ECG as follows: Indication: other (lower extremity swelling) Rate (beats per minute): 93 Rhythm: normal sinus Findings: + other (repolarization abnormality, QTC is 539) and + RBBB; no acute ischemic change and no ectopy Blood Pressure Blood Pressure Findings: Normal blood pressure Blood Pressure Disposition: did not require urgent referral MDM Narrative This patient was evaluated and appeared to be in no distress. IV access was obtained and laboratory work was drawn. Patient was placed on the cardiac lauren tor. Laboratory work is concerning for elevated total bilirubin of 11.2 with an INR of 2.2. Chest x-ray was performed and is read as above. Patient will require a large volume paracentesis and likely medical management of his end- stage liver disease that has decompensated. The hospitalist service was contacted and Dr. Greenwood will evaluate the patient for further management. Patient and family are aware of the plan and agree. Impression & Plan End stage liver disease, Alcoholic cirrhosis, Elevated INR, Acquired hyperbilirubinemia Discharge Plan Visit Data *Final* Discharge Date/Time: 10/29/18 21:30 Chief Complaint: Referred by Doctor Stated Complaint: NEEDS TREATMENT ED Provider: Melvina Colon Discharge Problem: End stage liver disease, Alcoholic cirrhosis, Elevated INR, Acquired hyperbilirubinemia Patient Disposition: Admitted As Inpatient Discharge Instructions Interventions: ED Discharge Assessment Last Done: 10/29/18 21:30 Discharge Problem: Alcoholic cirrhosis Qualifiers: Ascites presence: with ascites Qualified Code(s): K70.31 - Alcoholic cirrhosis of liver with ascites The scribe's documentation has been prepared under my direction and personally reviewed by me in its entirety. I confirm that the note above accurately reflects all work, treatment, procedures, and medical decision making performed by me.
[2018-10-30 06:25] LABS: Hematocrit (blood only) 21.2 % (42-52); Hemoglobin 7.3 g/dL (14.0-18.0); Mean Corpuscular Hgb Conc 34.4 g/dL (32-36); Mean Corpuscular Volume 105.5 fL (80-100); RDW Coefficient of Variation 14.9 % (11.5-14.5); RDW Standard Deviation 57.5 fL (36.4-46.3); Red Blood Count 2.01 M/uL (4.7-6.1); White Blood Count 2.43 K/uL (4.8-10.8)
[2018-10-30 06:27] LABS: Mean Platelet Volume 8.2 fL (7.4-10.4); Platelet Count 56 K/uL (130-400)
[2018-10-30 06:33] LABS: INR 1.9 (0.9-1.1); Prothrombin Time 18.9 Seconds (9.0-12.0)
[2018-10-30] MEDS ORDERED: SODIUM CHLORIDE 0.9% 250 ML IV PRN (06:54)
--- NOTE | 2018-10-30 06:55 | Ultrasound Report ---
US venous doppler LE BI CLINICAL HISTORY: leg swelling COMPARISON STUDY: 08/15/2018 FINDINGS: Real-time and color flow Doppler imaging were performed. Flow was seen within the femoral, popliteal and calf veins with no intraluminal thrombus demonstrated. The saphenous vein is patent. Th ere is bilateral lower extremity soft tissue edema. IMPRESSION: No evidence of lower extremity DVT. Electronically signed by: Carlos Burden M.D. 10/30/2018 6:54 AM
[2018-10-30 06:57] LABS: Basophils # (auto) 0.03 K/uL (0-0.2); Basophils % (auto) 1.2 %; Eosinophils # (auto) 0.09 K/uL (0-0.5); Eosinophils % (auto) 3.7 %; Immature Granulocytes # (auto) 0.03 K/uL (0.00-0.02); Immature Granulocytes % (auto) 1.2 %; Lymphocytes # (auto) 0.66 K/uL (1.2-3.4); Lymphocytes % (auto) 27.2 %; Macrocytosis Present; Monocytes # (auto) 0.34 K/uL (0.11-0.59); Neutrophils # (auto) 1.28 K/uL (1.4-6.5); Neutrophils % (auto) 52.7 %
[2018-10-30 07:16] LABS: Albumin Globulin Ratio 0.4 (0.9-2); Albumin Level 1.8 gm/dl (3.4-5.0); BUN Creatinine Ratio 16.2 (10-20); Bilirubin,Total 11.6 mg/dl (0.2-1); Calcium 7.8 mg/dl (8.5-10.1); Creatinine Clr Calc Pharmacy 132.5 ml/min; Est GFR (African American) 122.6; Est GFR (Non-African American) 105.7; Globulin 4.1 gm/dl (2.5-4.0); Potassium 3.8 mmol/L (3.5-5.1); Total Protein 5.9 gm/dl (6.4-8.2)
[2018-10-30] MEDS: FUROSEMIDE 40 MG TAB PO SCH ×2 (07:40→16:10)
[2018-10-30] MEDS: FOLIC ACID 1 MG TAB PO SCH (07:40)
[2018-10-30] MEDS: LACTULOSE SYRUP 20 GM/30 ML UDC PO SCH ×5 (07:40→21:00)
[2018-10-30] MEDS: SPIRONOLACTONE 100 MG TAB PO SCH ×2 (07:40→16:10)
[2018-10-30] MEDS: POTASSIUM CHLORIDE 20 MEQ TABCR PO SCH ×2 (07:40→21:01)
[2018-10-30] MEDS: FAMOTIDINE 20 MG TAB PO SCH (07:40)
[2018-10-30] MEDS: THIAMINE HCL 100 MG TAB PO SCH (07:40)
--- NOTE | 2018-10-30 09:31 | Gastrointestinal Consultation ---
Date of Consultation October 30, 2018 Assessment & Plan (1) Ascites due to alcoholic cirrhosis: 58 year old male w/ history of ETOH induced cirrhosis admitted w/ bilateral pitting edema, abdominal distention, MELD 25. He is non-compliant with a low sodium diet and it is unclear to me if he was taking high dose diuretics prescribed at time of discharge from [place] in August Elevated LFTS - MELD 25 - Discriminant Function 38 indicative of overall poor prognosis. Did not respond to NAC therapy, not candidate for prednisolone therapy in August given pnemonia - Concerning for ETOH hepatitis superimposed on ETOH cirrhosis - Strict ETOH cessation was recommended and encouraged - ETOH withdrawal protocol Anemia - Denies any gross evidence of GIB - Has never had EGD/Colonoscopy - Trend H&H - Transfuse PRN per primary service - Monitor and document all GI output - OP EGD/Colonoscopy Ascites/Anasarca - Appears a paracentesis was already ordered - Would need PLTs> 60 - Would need INR < 1.6 - Send fluid for cytology, cell count, culture, protein and albumin - Would obtain abdominal imaging - Hepatic duplex to rule out PVT - Consider diagnostic echocardiogram - Agree w/ IV lasix as ordered - Would add PO aldactone 100 mg daily Appreciate ongoing management of electrolytes per the primary service Outpatient hepatology follow up Thank you for allowing us to participate in the care of this patient. Please call with any acute changes, questions or concerns. Please see addendum below with additional recommendation from my supervising physician. Present on Admission?: Yes Supervising Physician Co-Signing Physician Notes I have personally seen and examined the patient with KULDIP Caruso. Her note reflects my exam and findings. I agree with her impression and plan. Poor prognosis in this patient with end stage alcoholic liver disease. Cont cureent care and will need out patient liver follow up. Aleksandr Vanegas M.D. History of Present Illness Reason for Consultation: ascites Requesting Physician: Jorje Attending Physician: Angelica Recinos MD History of Present Illness 58 year old male with history of cirrhosis who presented through the ED at the request of his family practice doctor for evaluation of edema, ascites. Pt was seen and evaluated, chart reviewed. He endorses worsening lower extremity edema and ascites over the past 2/3 weeks. Endorses ETOH sobriety since discharge from [facility] in August. Does not follow a low sodium dating, stating he eats a lot of taco [place]. Today, feels well. Denies abd pain. No nausea, vomiting. Is hungry. Moves bowels well. Most recent BM this AM was brown. Denies prior black/bloody stools or emesis. No fever, chills, CP, SOB. Diagnosis: suspected ETOH cirrhosis MELD: 25 - 20% estimated three month mortality Decompensations Varices: unknown Ascites: present, was to be on lasix 40 BID, Spironolactone 100 mg BID HE: none Screenings Varices: due HCC: January Immunizations: unknown Venous Duplex: No evidence of lower extremity DVT EGD: none Colonoscopy: none Allergies Allergy/AdvReac Type Severity Reaction Status Date / Time No Known Allergies Allergy Verified 10/29/18 18:41 Home Medications Home Medications Medication Instructions Recorded Confirmed Type famotidine 20 mg PO DAILY 10/29/18 10/29/18 History folic acid 1 mg PO DAILY 10/29/18 10/29/18 History furosemide 40 mg PO BID 10/29/18 10/29/18 History lactulose 20 g PO QID 10/29/18 10/29/18 History spironolactone 100 mg PO BID 10/29/18 10/29/18 History thiamine HCl (vitamin B1) 100 mg PO DAILY 10/29/18 10/29/18 History Patient History Medical History Cirrhosis (Chronic) Family history non-contributory Surgical History No pertinent past surgical history Family History Other Family history non-contributory Social History Preferred Language: [place] Communication Ability: Effective Nutrition Representative Required: No Beliefs That Will Affect Care: None Current Living Situation: Alone Current Living Situation Comment: Apartment Other Information That Helps Us Care for You: No Feels Safe at Home: Yes Safety Concerns: Feels Safe At This Time Smoking Status: Never smoker Tobacco Type: smokeless tobacco Do You Dip or Chew Tobacco: No Second Hand Exposure: No Hx Alcohol Use: Yes Alcohol type: beer Hx Substance Use: No Review of Systems Constitutional: no fever, no chills and no fatigue Respiratory: no cough, no dyspnea and no wheezing Cardiovascular: no chest pain, no radiating jaw, neck or arm pain and no dyspnea Gastrointestinal: + bloating; no abdominal pain, no early satiety, no nausea, no vomiting, no coffee ground emesis, no hematemesis, no change in bowel habits, no diarrhea/loose stools, no blood in stools and no melena Physical Exam Constitutional: WD/WN, vitals as above + ill appearing (chronically ill) Respiratory: normal respiratory effort, lungs clear to auscultation Cardiovascular: Rate/Rhythm: regular rate and regular rhythm Extremities: + edema (bilateral pitting edema) Gastrointestinal (Abdomen): Inspection/Auscultation: + abdomen distended and normal bowel sounds Percussion/Palpation: abdomen soft and + ascites; abdomen nontender, no guarding and abdomen not rigid Skin: no rashes, warm and dry + jaundice Results & Data Vital Signs (Past 12 Hours) Vital Signs Temp Pulse Pulse Resp BP BP BP 10/30/18 08:35 36.7 C 94 H 18 117/74 10/30/18 08:20 36.7 C 94 H 18 113/71 10/30/18 07:29 36.8 C 94 H 20 114/70 10/30/18 05:45 36.8 C 92 H 18 111/70 10/30/18 04:45 36.8 C 90 18 105/70 10/30/18 04:15 36.7 C 92 H 20 114/72 10/30/18 04:00 36.4 C L 90 18 107/69 10/30/18 03:46 36.7 C 93 H 18 110/75 10/30/18 03:45 36.7 C 93 H 18 110/75 10/30/18 03:00 36.8 C 95 H 20 101/64 10/30/18 02:00 36.8 C 95 H 20 117/70 10/30/18 01:30 36.8 C 92 H 20 107/67 10/30/18 01:15 36.8 C 94 H 16 116/70 10/30/18 01:00 36.6 C 92 H 18 117/74 10/29/18 22:08 36.9 C 101 H 20 137/77 Pulse Ox 10/30/18 08:35 97 10/30/18 08:20 10/30/18 07:29 94 10/30/18 05:45 96 10/30/18 04:45 96 10/30/18 04:15 97 10/30/18 04:00 96 10/30/18 03:46 97 10/30/18 03:45 97 10/30/18 03:00 96 10/30/18 02:00 97 10/30/18 01:30 95 10/30/18 01:15 97 10/30/18 01:00 97 10/29/18 22:08 97
--- NOTE | 2018-10-30 09:52 | Ultrasound Report ---
PARACENTESIS UNDER ULTRASOUND GUIDANCE CLINICAL HISTORY: ascites COMPARISON STUDY: No previous studies for comparison. FINDINGS: The risks, benefits, and alternatives to the procedure were discussed with the patient. Wri wanda informed consent was obtained. Following real-time ultrasound localization, the skin was prepped and draped. Following local anesthesia with Xylocaine, the sheath paracentesis needle was inserted a nd approximately 9 liters of straw-colored fluid was removed by vacuum suction. A right lower quadran t approach was utilized. The patient tolerated the procedure well and left the department in satisfactory condition. IMPRESSION: Successful ultrasound-guided paracentesis with removal of approximately 9 liters of ascit ic fluid. Electronically signed by: Carlos Burden M.D. 10/30/2018 9:50 AM
[2018-10-30] MEDS: ALBUMIN 25% 50 ML IV SCH ×2 (15:16→16:11)
--- NOTE | 2018-10-30 18:24 | Hospitalist Progress Note ---
Date of Service October 30, 2018 Assessment & Plan (1) Ascites due to alcoholic cirrhosis: History of end-stage liver disease secondary to alcoholic cirrhosis, requires frequent paracentesis Last paracentesis was approximately 3 months ago Presents with significant abdominal distention, weight gain, orthopnea, dyspnea on exertion Status post ultrasound-guided paracentesis by radiology with drainage of approximately 9 L of ascitic fluid Patient reports a significant improvement of symptoms Appreciate input from GI Added Aldactone 100 mg p.o. twice daily Patient is already Lasix Counseling provided for low-sodium diet We will repeat basic metabolic panel tomorrow to assess renal function (2) End stage liver disease: Due to chronic alcohol abuse Presents with Anasarca/worsening of ascites Continue diuretics Low-salt diet Status post large amount of ascitic fluid paracentesis today given albumin post Procedure (3) Pancytopenia: Anemia/thrombocytopenia:Secondary to advanced liver disease Continue monitor CBC CODE STATUS: Full code Disposition:Repeat BMP in a.m. Can be discharged home if renal function stays stable after addition of Aldactone Subjective Status post paracentesis today With removal approximately 9 L of ascitic fluid Patient reports Significant improvement of shortness of breath/ abdominal pain and discomfort Denies of any fever chills no nausea vomiting tolerating diet well Physical Exam Constitutional: + ill appearing ENMT: external ear and nose normal, oropharynx normal Neck: trachea midline, no thyromegaly Respiratory: normal respiratory effort, lungs clear to auscultation Cardiovascular: Rate/Rhythm: regular rate and regular rhythm Gastrointestinal (Abdomen): Inspection/Auscultation: + abdomen distended Percussion/Palpation: abdomen soft; abdomen nontender Musculoskeletal: no cyanosis or clubbing, extremities motor strength 5/5 Neurologic: PERRL, EOMI, accommodation nl, no face palsy, no dysarthria Results & Data Vital Signs (Past 12 Hours) Vital Signs Temp Pulse Pulse Resp BP BP BP 10/30/18 15:21 37.2 C 100 H 18 114/68 10/30/18 12:00 37.0 C 97 H 18 108/64 10/30/18 11:30 37.3 C 93 H 18 101/63 10/30/18 11:00 36.8 C 92 H 18 103/68 10/30/18 10:30 36.7 C 92 H 18 95/57 L 10/30/18 10:00 36.7 C 94 H 20 126/76 10/30/18 09:35 96 H 12 112/69 10/30/18 09:20 94 H 12 121/66 10/30/18 09:05 94 H 14 121/71 10/30/18 08:50 94 H 14 118/78 10/30/18 08:35 36.7 C 94 H 18 117/74 10/30/18 08:20 36.7 C 94 H 18 113/71 10/30/18 07:29 36.8 C 94 H 20 114/70 Pulse Ox 10/30/18 15:21 100 10/30/18 12:00 98 10/30/18 11:30 99 10/30/18 11:00 96 10/30/18 10:30 99 10/30/18 10:00 99 10/30/18 09:35 98 10/30/18 09:20 99 10/30/18 09:05 98 10/30/18 08:50 96 10/30/18 08:35 97 10/30/18 08:20 10/30/18 07:29 94
[2018-10-31 05:33] LABS: Hemoglobin 7.2 g/dL (14.0-18.0); Mean Corpuscular Hgb Conc 34.3 g/dL (32-36); Mean Corpuscular Volume 106.1 fL (80-100); RDW Coefficient of Variation 14.9 % (11.5-14.5); RDW Standard Deviation 57.4 fL (36.4-46.3); Red Blood Count 1.98 M/uL (4.7-6.1); White Blood Count 2.35 K/uL (4.8-10.8)
[2018-10-31 05:36] LABS: Mean Platelet Volume 8.3 fL (7.4-10.4); Platelet Count 56 K/uL (130-400)
[2018-10-31 05:44] LABS: INR 2.2 (0.9-1.1); Prothrombin Time 21.2 Seconds (9.0-12.0)
[2018-10-31 06:17] LABS: Albumin Globulin Ratio 0.5 (0.9-2); Albumin Level 1.9 gm/dl (3.4-5.0); Bilirubin,Total 11.6 mg/dl (0.2-1); Calcium 7.6 mg/dl (8.5-10.1); Creatinine Clr Calc Pharmacy 103.8 ml/min; Est GFR (African American) 110.8; Est GFR (Non-African American) 95.6; Globulin 3.5 gm/dl (2.5-4.0); Potassium 3.6 mmol/L (3.5-5.1); Total Protein 5.4 gm/dl (6.4-8.2)
--- NOTE | 2018-10-31 06:28 | Ultrasound Report ---
Study: Doppler upper abdomen. HISTORY: Hepatic cirrhosis FINDINGS: Antegrade flow is present within the hepatic as well as portal venous structures. Mild asci marcus is present. IMPRESSION: Normal antegrade venous flow within the hepatic as well as portal venous system. Electronically signed by: Favian De Jesus M.D. 10/31/2018 6:27 AM
[2018-10-31] MEDS: THIAMINE HCL 100 MG TAB PO SCH (07:30)
[2018-10-31] MEDS: POTASSIUM CHLORIDE 20 MEQ TABCR PO SCH ×2 (07:30→20:20)
[2018-10-31] MEDS: FAMOTIDINE 20 MG TAB PO SCH (07:31)
[2018-10-31] MEDS: LACTULOSE SYRUP 20 GM/30 ML UDC PO SCH ×4 (07:31→20:20)
[2018-10-31] MEDS: SPIRONOLACTONE 100 MG TAB PO SCH ×2 (07:31→16:15)
[2018-10-31] MEDS: FUROSEMIDE 40 MG TAB PO SCH ×2 (07:31→16:15)
[2018-10-31] MEDS: FOLIC ACID 1 MG TAB PO SCH (07:31)
--- NOTE | 2018-10-31 08:58 | Gastroenterology Progress Note ---
Date of Service October 31, 2018 Assessment & Plan (1) Ascites due to alcoholic cirrhosis: 58 year old male w/ history of ETOH induced cirrhosis admitted w/ bilateral pitting edema, abdominal distention, MELD 25. He is non-compliant with a low sodium diet and it is unclear to me if he was taking high dose diuretics prescribed at time of discharge from [place] in August Elevated LFTS - MELD 25 - Discriminant Function 38 indicative of overall poor prognosis. Did not respond to NAC therapy, not candidate for prednisolone therapy in August given pneumonia - Concerning for ETOH hepatitis superimposed on ETOH cirrhosis - Strict ETOH cessation was recommended and encouraged - ETOH withdrawal protocol Anemia - Denies any gross evidence of GIB - Has never had EGD/Colonoscopy - Trend H&H - Transfuse PRN per primary service - Monitor and document all GI output - OP EGD/Colonoscopy Ascites/Anasarca - No fluid was sent, would recommend coverage for SBP for full course. - Please transition to PO cipro at discharge to complete 7 day course - Would continue Lasix/Aldatone at home dose that was provided from [facility] - Low NA diet, less than 2G Appreciate ongoing management of electrolytes per the primary service Outpatient hepatology follow up Thank you for allowing us to participate in the care of this patient. Please call with any acute changes, questions or concerns. Please see addendum below with additional recommendation from my supervising physician. Supervising Physician Co-Signing Physician Notes I have personally seen and examined the patient with KULDIP Caruso. Her note reflects my exam and findings. I agree with her impression and plan. Doing well today. No complaints. Eating. Out patient follow up. Aleksandr Vanegas M.D. Subjective Pt was seen and evaluated, chart reviewed. Continues w/ IV diuresis S/P paracentesis Unfortunately fluid was not sent I did call to get this sent but appears this was unable to be arranged Just returned from [facility] feeling well No abd pain Tolerating PO Moving bowels Denies black/bloody stools No fever, chills, CP, SOB. Review of Systems Constitutional: no fever, no chills and no fatigue Respiratory: no cough, no dyspnea and no wheezing Cardiovascular: no chest pain, no radiating jaw, neck or arm pain and no claudication Gastrointestinal: no abdominal pain, no early satiety, no vomiting, no coffee ground emesis, no hematemesis, no blood in stools and no melena Physical Exam Constitutional: WD/WN, vitals as above + ill appearing (chronically ill) Respiratory: normal respiratory effort, lungs clear to auscultation Cardiovascular: RRR, no murmur, no edema Rate/Rhythm: regular rate and regular rhythm Extremities: + edema (bilateral pitting edema) Gastrointestinal (Abdomen): Inspection/Auscultation: + abdomen distended and normal bowel sounds Percussion/Palpation: abdomen soft and + ascites; abdomen nontender, no guarding and abdomen not rigid Skin: no rashes, warm and dry + jaundice Results & Data Vital Signs (Past 12 Hours) Vital Signs Temp Pulse Resp BP Pulse Ox 10/31/18 07:37 37.1 C 94 H 18 93/52 L 96 10/30/18 23:55 37.5 C 102 H 20 101/59 L 97 Laboratory Results 10/31/18 10/31/18 10/31/18 Range/Units 04:47 04:47 04:47 WBC 2.35 L (4.8-10.8) K/uL RBC 1.98 L (4.7-6.1) M/uL Hgb 7.2 L (14.0-18.0) g/dL Hct 21.0 L (42-52) % MCV 106.1 H (80-100) fL MCH 36.4 H (25-34) pg MCHC 34.3 (32-36) g/dL RDW Std Deviation 57.4 H (36.4-46.3) fL RDW Coeff of Lesley 14.9 H (11.5-14.5) % Plt Count 56 L (130-400) K/uL MPV 8.3 (7.4-10.4) fL PT 21.2 H (9.0-12.0) Seconds INR 2.2 H (0.9-1.1) Sodium 134 L (136-145) mmol/L Potassium 3.6 (3.5-5.1) mmol/L Chloride 102 (98-107) mmol/L Carbon Dioxide 26 (21-32) mmol/L Anion Gap 6.0 (3-11) BUN 10 (7-18) mg/dl Creatinine 0.83 (0.6-1.4) mg/dl Est Cr Clr Drug Dosing 103.8 ml/min Est GFR ( Amer) 110.8 Est GFR (Non-Af Amer) 95.6 BUN/Creatinine Ratio 12.0 (10-20) Glucose 119 H (70-99) mg/dl Calcium 7.6 L (8.5-10.1) mg/dl Total Bilirubin 11.6 H (0.2-1) mg/dl AST 38 H (15-37) U/L ALT 26 (12-78) U/L Alkaline Phosphatase 105 (45-117) U/L Total Protein 5.4 L (6.4-8.2) gm/dl Albumin 1.9 L (3.4-5.0) gm/dl Globulin 3.5 (2.5-4.0) gm/dl Albumin/Globulin Ratio 0.5 L (0.9-2) Miscellaneous Test 10/29/18 Range/Units 17:48 WBC (4.8-10.8) K/uL RBC (4.7-6.1) M/uL Hgb (14.0-18.0) g/dL Hct (42-52) % MCV (80-100) fL MCH (25-34) pg MCHC (32-36) g/dL RDW Std Deviation (36.4-46.3) fL RDW Coeff of Lesley (11.5-14.5) % Plt Count (130-400) K/uL MPV (7.4-10.4) fL PT (9.0-12.0) Seconds INR (0.9-1.1) Sodium (136-145) mmol/L Potassium (3.5-5.1) mmol/L Chloride (98-107) mmol/L Carbon Dioxide (21-32) mmol/L Anion Gap (3-11) BUN (7-18) mg/dl Creatinine (0.6-1.4) mg/dl Est Cr Clr Drug Dosing ml/min Est GFR ( Amer) Est GFR (Non-Af Amer) BUN/Creatinine Ratio (10-20) Glucose (70-99) mg/dl Calcium (8.5-10.1) mg/dl Total Bilirubin (0.2-1) mg/dl AST (15-37) U/L ALT (12-78) U/L Alkaline Phosphatase (45-117) U/L Total Protein (6.4-8.2) gm/dl Albumin (3.4-5.0) gm/dl Globulin (2.5-4.0) gm/dl Albumin/Globulin Ratio (0.9-2) Miscellaneous Test REPORT
--- NOTE | 2018-10-31 21:05 | Hospitalist Progress Note ---
Date of Service October 31, 2018 Assessment & Plan (1) Ascites due to alcoholic cirrhosis: History of end-stage liver disease secondary to alcoholic cirrhosis, requires frequent paracentesis Presents on admission with significant abdominal distention, weight gain, orthopnea, dyspnea on exertion Status post ultrasound-guided paracentesis by radiology with drainage of approximately 9 L of ascitic fluid on 10/30 Portal vein u/s showed normal antegrade venous flow within the hepatic as well as portal venous system. Gastro on board MELD score 25 Discriminant Function 38 indicative of overall poor prognosis. Continue Aldactone 100 mg p.o. twice daily and lasix 40mg BID Follow a low salt diet and fluid restriction 1.5L daily Gastro recommended Cipro 500mg for 7 days Echo pending Clinically improves (2) End stage liver disease: Due to chronic alcohol abuse Presents with Anasarca/worsening of ascites S/P paracentesis where 9L fluid removed Continue diuretics Low-salt diet (3) Pancytopenia: Anemia/thrombocytopenia:Secondary to advanced liver disease Hgb 7.3 Will transfuse PRBC if hemoglobin drops below 7 CODE STATUS: Full code Disposition: Waiting for ECHO result to discharge Subjective Pt was seen and examined Lying in bed with no distress Pt said that he feels much better 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
[2018-11-01 05:58] LABS: Hematocrit (blood only) 21.3 % (42-52); Hemoglobin 7.3 g/dL (14.0-18.0); Mean Corpuscular Hgb Conc 34.3 g/dL (32-36); Mean Corpuscular Volume 108.1 fL (80-100); RDW Coefficient of Variation 15.2 % (11.5-14.5); RDW Standard Deviation 58.4 fL (36.4-46.3); Red Blood Count 1.97 M/uL (4.7-6.1); White Blood Count 2.78 K/uL (4.8-10.8)
[2018-11-01 06:01] LABS: Mean Platelet Volume 8.4 fL (7.4-10.4); Platelet Count 61 K/uL (130-400)
[2018-11-01 06:40] LABS: Albumin Globulin Ratio 0.5 (0.9-2); Albumin Level 1.8 gm/dl (3.4-5.0); BUN Creatinine Ratio 8.5 (10-20); Bilirubin,Total 10.1 mg/dl (0.2-1); Calcium 7.6 mg/dl (8.5-10.1); Est GFR (African American) 95.5; Est GFR (Non-African American) 82.4; Globulin 3.9 gm/dl (2.5-4.0); Potassium 3.9 mmol/L (3.5-5.1); Total Protein 5.7 gm/dl (6.4-8.2)
[2018-11-01] MEDS: POTASSIUM CHLORIDE 20 MEQ TABCR PO SCH (07:16)
[2018-11-01] MEDS: LACTULOSE SYRUP 20 GM/30 ML UDC PO SCH ×2 (07:16→12:21)
[2018-11-01] MEDS: THIAMINE HCL 100 MG TAB PO SCH (07:16)
[2018-11-01] MEDS: FUROSEMIDE 40 MG TAB PO SCH (07:16)
[2018-11-01] MEDS: FAMOTIDINE 20 MG TAB PO SCH (07:16)
[2018-11-01] MEDS: FOLIC ACID 1 MG TAB PO SCH (07:17)
[2018-11-01] MEDS: SPIRONOLACTONE 100 MG TAB PO SCH (07:17)
[2018-11-01 07:18] VITALS: PULSE 92; TEMP 99.1; O2SAT 98
[2018-11-01] MEDS ORDERED: CIPROFLOXACIN 500 MG TAB PO SCH (09:00)
--- NOTE | 2018-11-01 13:29 | Hospitalist Progress Note ---
Date of Service November 01, 2018 Assessment & Plan (1) Ascites due to alcoholic cirrhosis: History of end-stage liver disease secondary to alcoholic cirrhosis, requires frequent paracentesis Presents on admission with significant abdominal distention, weight gain, orthopnea, dyspnea on exertion Status post ultrasound-guided paracentesis by radiology with drainage of approximately 9 L of ascitic fluid on 10/30 Portal vein u/s showed normal antegrade venous flow within the hepatic as well as portal venous system. Gastro on board MELD score 25 Discriminant Function 38 indicative of overall poor prognosis. Continue Aldactone 100 mg p.o. twice daily and lasix 40mg BID Follow a low salt diet and fluid restriction 1.5L daily Gastro recommended Cipro 500mg for 7 days course for SBP Echo showed no wall motion abnormality with EF 70% Follow up with gastro outpatient Clinically improves (2) End stage liver disease: Due to chronic alcohol abuse Presents with Anasarca/worsening of ascites S/P paracentesis where 9L fluid removed Continue diuretics Low-salt diet (3) Pancytopenia: Anemia/thrombocytopenia:Secondary to advanced liver disease Hgb 7.3 Will transfuse PRBC if hemoglobin drops below 7 CODE STATUS: Full code Disposition: Discharge home today Subjective Pt was seen and examined Lying in bed with no distress Pt said that he feels fine He said that his strength much better Denies any chest pain, palpitation, dizziness and SOB Physical Exam Physical Exam: General- No acute distress Head- atraumatic Eyes- PERRL, EOMI, Jaundice ENT- oropharynx clear Neck- supple, no JVD Lungs- clear to auscultation Heart- regular rhythm; +murmur Abdomen- normal bowel sounds, +distended, +ascites Extremities- no calf tenderness, +edema Neuro- alert, oriented x 3; PERRL, EOMI; no facial palsy; no dysarthria Skin- warm & dry Results & Data Vital Signs (Past 12 Hours) Vital Signs Temp Pulse Resp BP Pulse Ox 11/01/18 07:17 37.3 C 92 H 16 95/48 L 98
[2018-11-01 13:45] VITALS: BP 102/66
--- NOTE | 2018-11-02 08:34 | Discharge Summary ---
Date of Service November 01, 2018 Admission HPI Per Admitting Provider History obtained from patient and records. Medical history significant for alcoholic cirrhosis, gout, PAF, past alcohol abuse, chronic hyponatremia, chronic anemia (baseline hemoglobin of 8-9), chronic thrombocytopenia. Recent confinement August 2018 for alcoholic hepatitis, alcohol withdrawal. Patient intubated for delirium tremens. Recent had alcohol withdrawal seizures status post intubation as per records. Patient transferred to [facility] for higher level of care. Patient admitted [facility] from August 17 to September 04, 2018. Patient developed transient A. fib during confinement. Repeat paracentesis also performed during confinement, with removal of 4.5 L. Patient discharged on diuretic regimen. The last few days patient noted increasing abdominal distention without abdominal pain, bilateral leg swelling. Increasing shortness of breath from abdominal girth as per patient. Chronic cough symptoms. Patient compliant with home diuretic regimen. No instructions about fluid restriction on discharge from [place] as per patient. Patient has been sober since discharge 2 months ago. Patient sent to the emergency room by his PCP. Medical History as above Surgical History : Eye surgery for retinal detachment Family History : Lung cancer, brain cancer, heart disease Personal/Social history : Non-smoker, past alcohol abuse, prior work at [employer] Admission Exam Per Admitting Provider GENERAL: Comfortable, no respiratory distress SKIN: Jaundiced, warm HEENT: pale palpebral conjunctivae, icteric sclerae, no ptosis, dry buccal mucosa NECK : Supple, no tenderness CHEST : CTA, no tenderness HEART : RRR, systolic murmur ABDOMEN: distention, nontender, fluid wave noted EXTREMITIES : Bilateral LE swelling, no LE tenderness, no other conspicuous deformities noted NEUROLOGIC : Coherent, no facial asymmetry, no other gross focality Principal Diagnosis Alcoholic liver disease cirrhosis Pancytopenia secondary to advanced liver disease Discharge Exam General- No acute distress Head- atraumatic Eyes- PERRL, EOMI, Jaundice ENT- oropharynx clear Neck- supple, no JVD Lungs- clear to auscultation Heart- regular rhythm; +murmur Abdomen- normal bowel sounds, +distended, +ascites Extremities- no calf tenderness, +edema Neuro- alert, oriented x 3; PERRL, EOMI; no facial palsy; no dysarthria Skin- warm & dry Discharge Data Allergies Allergy/AdvReac Type Severity Reaction Status Date / Time No Known Allergies Allergy Verified 10/29/18 18:41 Consultations 10/29/18 19:46 ED Decision to Admit Stat 10/29/18 22:10 Consult Gastroenterology Routine Ordered Studies 10/29/18 22:10 US venous doppler LE BI Urgent 10/30/18 08:00 US paracentesis abd w/image Routine 10/31/18 10:00 US duplex portal hepatic veins Routine Study: Doppler upper abdomen. HISTORY: Hepatic cirrhosis FINDINGS: Antegrade flow is present within the hepatic as well as portal venous structures. Mild ascites is present. IMPRESSION: Normal antegrade venous flow within the hepatic as well as portal venous system. Electronically signed by: Favian De Jesus M.D. 10/31/2018 6:27 AM Dictated: 10/31/18625 Transcribed: 10/31/18625 PARACENTESIS UNDER ULTRASOUND GUIDANCE CLINICAL HISTORY: ascites COMPARISON STUDY: No previous studies for comparison. FINDINGS: The risks, benefits, and alternatives to the procedure were discussed with the patient. Written informed consent was obtained. Following real-time ultrasound localization, the skin was prepped and draped. Following local anesthesia with Xylocaine, the sheath paracentesis needle was inserted and approximately 9 liters of straw-colored fluid was removed by vacuum suction. A right lower quadrant approach was utilized. The patient tolerated the procedure well and left the department in satisfactory condition. IMPRESSION: Successful ultrasound-guided paracentesis with removal of approximately 9 liters of ascitic fluid. Electronically signed by: Carlos Burden M.D. 10/30/2018 9:50 AM Dictated: 10/30/18 0950 Transcribed: 10/30/1850 US venous doppler LE BI CLINICAL HISTORY: leg swelling COMPARISON STUDY: 08/15/2018 FINDINGS: Real-time and color flow Doppler imaging were performed. Flow was seen within the femoral, popliteal and calf veins with no intraluminal thrombus demonstrated. The saphenous vein is patent. There is bilateral lower extremity soft tissue edema. IMPRESSION: No evidence of lower extremity DVT. Electronically signed by: Carlos Burden M.D. 10/30/2018 6:54 AM Dictated: 10/30/1853 Transcribed: 10/30/18652 XR chest 1V portable CLINICAL HISTORY: Dyspnea COMPARISON STUDY: Chest radiograph August 16, 2018. FINDINGS: There is atypical configurational left mediastinal contour. This is of questionable significance. A small left pleural effusion is noted. There is left basilar opacity. There is no evidence for pulmonary edema. No pneumothorax is noted. IMPRESSION: 1. Small left pleural effusion with left basilar opacity which may reflect pneumonia or atelectasis. Radiographic follow-up is recommended to ensure resolution. 2. Atypical configuration of the left mediastinal contour, a finding of questionable significance which can be assessed on follow-up chest radiographs. Electronically signed by: Estrada Greene M.D. 10/29/2018 6:18 PM Dictated: 10/29/181815 Transcribed: 10/29/181815 Hospital Course (1) Ascites due to alcoholic cirrhosis: History of end-stage liver disease secondary to alcoholic cirrhosis, requires frequent paracentesis Presents on admission with significant abdominal distention, weight gain, orthopnea, dyspnea on exertion Status post ultrasound-guided paracentesis by radiology with drainage of approximately 9 L of ascitic fluid on 10/30 Portal vein u/s showed normal antegrade venous flow within the hepatic as well as portal venous system. Gastro on board MELD score 25 Discriminant Function 38 indicative of overall poor prognosis. Continue Aldactone 100 mg p.o. twice daily and lasix 40mg BID Follow a low salt diet and fluid restriction 1.5L daily Gastro recommended Cipro 500mg for 7 days course for SBP Echo showed no wall motion abnormality with EF 70% Follow up with gastro outpatient Clinically improves (2) End stage liver disease: Due to chronic alcohol abuse Presents with Anasarca/worsening of ascites S/P paracentesis where 9L fluid removed Continue diuretics Low-salt diet (3) Pancytopenia: Anemia/thrombocytopenia:Secondary to advanced liver disease Hgb 7.3 Will transfuse PRBC if hemoglobin drops below 7 CODE STATUS: Full code Disposition: Discharge home today Total Time Total Time Spent Total Time Spent (In Minutes): 35 minutes Total Time Includes: Examination of the Patient, Discharge Planning, Medication Reconciliation, Communication With Other Providers and Other Discharge Plan Discharge Items Patient Disposition: Home - Self-Care Reason For Visit: ASCITES Discharge Diagnosis: Alcoholic liver disease/cirrhosis/anasarca/worsening of ascites required paracentesis/pancytopenia secondary to advanced liver disease Discharge Goals: Decrease discomfort and Therapeutic intervention Activity: Resume your previous activity Non-emergency contact: Primary Care Provider Call non-emergency contact if: you have any medication questions Follow-up/Referrals: Alexandre Kraus DO [Primary Care Provider] - Diet: Low Sodium (2gm) Addtl Provider Instructions: Follow up with your primary care provider Dr. Salguero ([facility]) on 11/05 @ 11:15 AM Follow up with Gastroenterology clinic (Will need to arrange with Gastro for outpatient paracentesis when needed) Follow a low salt intake to prevent recurrence of ascites/worsening of abdominal distention Fluid restriction to 1.5L daily Check CBC in 1 week to monitor hemoglobin Prescriptions: New ciprofloxacin HCl 500 mg Tablet 500 mg PO BID 6 Days Qty: 12 RF: 0 Continued furosemide 40 mg tablet 40 mg PO BID RF: 0 thiamine HCl (vitamin B1) 100 mg Tablet 100 mg PO DAILY RF: 0 spironolactone 100 mg Tablet 100 mg PO BID RF: 0 lactulose 10 gram/15 mL (15 mL) Solution 20 g PO QID RF: 0 folic acid 1 mg tablet 1 mg PO DAILY RF: 0 famotidine 20 mg Tablet 20 mg PO DAILY RF: 0 Stand-Alone Forms: [facility] Discharge Orders: Discharge Order (Routine); Ordered 11/01/18 Ordered By: Zoraida Gentile Admission Data Admit Date/Time: 10/29/18 20:34 Attending Provider: Zoraida Gentile Admit Provider: Abdulkadir Acuna Primary Care Provider: Alexandre Kraus Other Providers: Abdulkadir Acuna ; Johnathan De Jesus ; Gabo Whittaker ; Margaret Soto ; Honorio Kaur ; Carl Parker ; Dread Mercado ; Maria M Ramos ; Cheng Ray ; Aleksandr Vanegas ; Kristal Jo ; Mamta Dickey ; Moni Perla ; Slime So ; Adi Valadez ; Angelica Recinos H. Service: Medical Other Interventions: Discharge Summary Assessment (RN) Last Done: 11/01/18 13:43 DC Date/Time DO NOT enter until pt leaves facility: 11/01/18 15:24
== END 2018-11-01 15:24 | disposition home health service (06) | DRG 433 ==
LOC: ED 16:49 → SUATTDRO 20:34 → 4W 20:34

== ENCOUNTER 2019-01-03 07:17 | Inpatient (IN) ==
[~2019-01-03 07:17] MED LIST: ETOMIDATE 2 MG/ML 20 ML VIAL IV ONE; LIDOCAINE 2% 20 MG/ML 5 ML SYR IV ONE
[2019-01-03] MEDS ORDERED: MULTI-VITAMIN INFUSION 10 ML, THIAMINE HCL 100 MG, FOLIC ACID 1 MG in SODIUM CHLORIDE 0... IV ONE (07:33)
[2019-01-03] MEDS: DEXTROSE 10% 1,000 ML IV SCH ×2 (08:01→19:38)
[2019-01-03 08:05] LABS: Hemoglobin 7.1 g/dL (14.0-18.0); Mean Corpuscular Hemoglobin 37.6 pg (25-34); Mean Corpuscular Hgb Conc 32.3 g/dL (32-36); Mean Corpuscular Volume 116.4 fL (80-100); Mean Platelet Volume 9.1 fL (7.4-10.4); Nucleated RBC # (auto) 0.14 K/uL (0-0); Nucleated RBC % (auto) 6.7 %; Platelet Count 104 K/uL (130-400); RDW Coefficient of Variation 18.2 % (11.5-14.5); RDW Standard Deviation 71.8 fL (36.4-46.3); Red Blood Count 1.89 M/uL (4.7-6.1); White Blood Count 2.07 K/uL (4.8-10.8)
--- NOTE | 2019-01-03 08:11 | XRay Report ---
XR chest 1V portable CLINICAL HISTORY: 58 years-old Male presenting with weakness. TECHNIQUE: Portable semiupright AP view of the chest was obtained. COMPARISON: 10/29/2018. FINDINGS: Low lung volumes with prominence of the cardiomediastinal silhouette. Pulmonary vasculature prominenc e slightly increased from prior. Increased density of the bilateral lungs with a mid to basilar predo minance, greater on the left. No pleural effusion or pneumothorax. Osseous structures normal. Upper a bdomen normal. IMPRESSION: 1. Low lung volumes and increasing mid to basilar opacities greater on the left. Infection or aspira tion are not excluded. Electronically signed by: Micah Hernandez M.D. 01/03/2019 8:09 AM
--- NOTE | 2019-01-03 08:22 | Emergency Department Note ---
Entered by Lizzeth Bill acting as a scribe for Anam Santiago DO History of Present Illness General Chief complaint: Hypoglycemia Stated complaint: hypoglycemia/ams Time Seen by Provider: 01/03/19 07:21 Source: patient History of Present Illness Provider complaint: fall Onset (ago): unknown Location: head and mouth Radiation: non-radiation Pain Consistency: + now resolved Relieved By: + none Exacerbated By: + none Associated symptoms: + denies other symptoms The patient is a 58 y/o male who presents tot emergency department for evaluation following an episode of a fall. EMS states the patient was found lying on his floor with a bruise on his head and blood in his mouth. They note the neighbor below the patient herd him screaming and moaning and called for EMS. EMS reports that the caregiver has seen him yesterday on the ground and left him there, therefore it is unknown how long he was on the ground. EMS also notes that the patient is liver cirrhosis and is not a diabetic. The patient states that he does not currently drink. The patient denies any other symptoms. Home Medications Home Medications Medication Instructions Recorded Confirmed Type famotidine 20 mg PO HS 10/29/18 01/03/19 History folic acid 1 mg PO QAM 10/29/18 01/03/19 History furosemide 40 mg PO BID 10/29/18 01/03/19 History lactulose 20 g PO QID 10/29/18 01/03/19 History spironolactone 100 mg PO BID 10/29/18 01/03/19 History thiamine HCl (vitamin B1) 100 mg PO DAILY 10/29/18 01/03/19 History Caffeine Free Water Pills 1 tab PO UD 01/03/19 01/03/19 History docusate sodium 100 mg PO BID 01/03/19 01/03/19 History furosemide 20 mg PO BID 01/03/19 01/03/19 History Allergies Allergy/AdvReac Type Severity Reaction Status Date / Time No Known Allergies Allergy Verified 10/29/18 18:41 Past Med/Surg History Medical History Cirrhosis (Chronic) Family history non-contributory Surgical History No pertinent past surgical history Family History Other Family history non-contributory Social History Preferred Language: [place] Communication Ability: Effective Sonar Technician Required: No Beliefs That Will Affect Care: None Current Living Situation: Alone Current Living Situation Comment: Apartment Feels Safe at Home: Yes Smoking Status: Former smoker Tobacco Type: smokeless tobacco ; Second Hand Exposure: No ; Hx Alcohol Use: Yes Alcohol type: beer Hx Substance Use: No Review of Systems See HPI for pertinent positives & negatives. and A total of 10 systems reviewed and were otherwise negative Physical Exam Vital Signs Vital Signs - 24 hr 01/03/19 07:24 01/03/19 07:31 01/03/19 07:35 Temperature Temperature Source Sepsis Recent Fever Within 48 Hours Sepsis Action Taken by Nursing Pulse Rate 116 H 117 H 115 H Pulse Rate [Bilateral] Pulse Rate from SpO2 Sensor 116 H 117 H 115 H Pulse Rhythm Respiratory Rate 25 H 23 22 Respiratory Depth Blood Pressure 95/58 L 99/53 L Blood Pressure [Right Arm] Blood Pressure Mean 70 68 Blood Pressure Mean [Right Arm] Pulse Oximetry 90 85 L 93 Oxygen Delivery Method Oxygen Flow Rate 01/03/19 07:37 01/03/19 07:40 01/03/19 07:45 Temperature 34.5 C L Temperature Source Rectal Sepsis Recent Fever Within 48 Hours No Sepsis Action Taken by Nursing No Action Required Pulse Rate 114 H 113 H 115 H Pulse Rate [Bilateral] Pulse Rate from SpO2 Sensor 114 H Pulse Rhythm Regular Respiratory Rate 18 23 20 Respiratory Depth Normal Blood Pressure Blood Pressure [Right Arm] Blood Pressure Mean Blood Pressure Mean [Right Arm] Pulse Oximetry 85 L 91 85 L Oxygen Delivery Method Room Air Oxygen Flow Rate 01/03/19 07:46 01/03/19 07:48 01/03/19 07:50 Temperature Temperature Source Sepsis Recent Fever Within 48 Hours Sepsis Action Taken by Nursing Pulse Rate 114 H 114 H 113 H Pulse Rate [Bilateral] Pulse Rate from SpO2 Sensor 115 H 117 H Pulse Rhythm Respiratory Rate 26 H 24 22 Respiratory Depth Blood Pressure 58/40 L 88/51 L Blood Pressure [Right Arm] Blood Pressure Mean 46 63 Blood Pressure Mean [Right Arm] Pulse Oximetry 87 L 88 L 89 L Oxygen Delivery Method Oxygen Flow Rate 01/03/19 07:55 01/03/19 07:56 01/03/19 07:59 Temperature Temperature Source Sepsis Recent Fever Within 48 Hours Sepsis Action Taken by Nursing Pulse Rate 111 H 112 H Pulse Rate [Bilateral] 111 H Pulse Rate from SpO2 Sensor 112 H Pulse Rhythm Respiratory Rate 22 22 20 Respiratory Depth Normal Blood Pressure 105/49 L Blood Pressure [Right Arm] 105/49 L Blood Pressure Mean 67 Blood Pressure Mean [Right Arm] 67 Pulse Oximetry 93 97 96 Oxygen Delivery Method Non-rebreather Non-rebreather Oxygen Flow Rate 10 01/03/19 08:00 01/03/19 08:01 01/03/19 08:03 Temperature Temperature Source Sepsis Recent Fever Within 48 Hours Sepsis Action Taken by Nursing Pulse Rate 112 H 111 H 112 H Pulse Rate [Bilateral] Pulse Rate from SpO2 Sensor 111 H 112 H 112 H Pulse Rhythm Respiratory Rate 23 25 H 23 Respiratory Depth Blood Pressure 80/54 L 77/44 L 76/42 L Blood Pressure [Right Arm] Blood Pressure Mean 62 55 53 Blood Pressure Mean [Right Arm] Pulse Oximetry 97 96 94 Oxygen Delivery Method Oxygen Flow Rate 01/03/19 08:05 01/03/19 08:07 01/03/19 08:10 Temperature Temperature Source Sepsis Recent Fever Within 48 Hours Sepsis Action Taken by Nursing Pulse Rate 111 H 111 H 112 H Pulse Rate [Bilateral] Pulse Rate from SpO2 Sensor 109 H Pulse Rhythm Respiratory Rate 24 20 22 Respiratory Depth Blood Pressure 83/48 L Blood Pressure [Right Arm] Blood Pressure Mean 59 Blood Pressure Mean [Right Arm] Pulse Oximetry 95 95 95 Oxygen Delivery Method Oxygen Flow Rate 01/03/19 08:15 01/03/19 08:20 01/03/19 08:42 Temperature Temperature Source Sepsis Recent Fever Within 48 Hours Sepsis Action Taken by Nursing Pulse Rate 112 H 121 H 112 H Pulse Rate [Bilateral] Pulse Rate from SpO2 Sensor 112 H 112 H Pulse Rhythm Respiratory Rate 23 23 19 Respiratory Depth Blood Pressure 83/50 L Blood Pressure [Right Arm] Blood Pressure Mean 61 Blood Pressure Mean [Right Arm] Pulse Oximetry 96 95 93 Oxygen Delivery Method Oxygen Flow Rate 01/03/19 08:43 01/03/19 08:45 01/03/19 08:46 Temperature Temperature Source Sepsis Recent Fever Within 48 Hours Sepsis Action Taken by Nursing Pulse Rate 111 H 110 H Pulse Rate [Bilateral] 110 H Pulse Rate from SpO2 Sensor 113 H 110 H Pulse Rhythm Respiratory Rate 19 19 20 Respiratory Depth Blood Pressure 75/46 L 77/44 L Blood Pressure [Right Arm] 77/44 L Blood Pressure Mean 55 55 Blood Pressure Mean [Right Arm] 55 Pulse Oximetry 96 93 96 Oxygen Delivery Method Room Air Oxygen Flow Rate 01/03/19 08:50 01/03/19 08:51 01/03/19 08:55 Temperature Temperature Source Sepsis Recent Fever Within 48 Hours Sepsis Action Taken by Nursing Pulse Rate 165 H 145 H 158 H Pulse Rate [Bilateral] Pulse Rate from SpO2 Sensor 154 H Pulse Rhythm Respiratory Rate 24 23 21 Respiratory Depth Blood Pressure 88/67 L Blood Pressure [Right Arm] Blood Pressure Mean 74 Blood Pressure Mean [Right Arm] Pulse Oximetry 90 89 L 93 Oxygen Delivery Method Oxygen Flow Rate 01/03/19 09:05 01/03/19 09:10 01/03/19 09:12 Temperature Temperature Source Sepsis Recent Fever Within 48 Hours Sepsis Action Taken by Nursing Pulse Rate 158 H 136 H 152 H Pulse Rate [Bilateral] Pulse Rate from SpO2 Sensor 144 H 156 H Pulse Rhythm Respiratory Rate 18 21 21 Respiratory Depth Blood Pressure 68/51 L Blood Pressure [Right Arm] Blood Pressure Mean 56 Blood Pressure Mean [Right Arm] Pulse Oximetry 94 90 92 Oxygen Delivery Method Oxygen Flow Rate 01/03/19 09:15 01/03/19 09:20 01/03/19 09:25 Temperature Temperature Source Sepsis Recent Fever Within 48 Hours Sepsis Action Taken by Nursing Pulse Rate 134 H 128 H Pulse Rate [Bilateral] Pulse Rate from SpO2 Sensor 151 H 128 H Pulse Rhythm Respiratory Rate 23 22 19 Respiratory Depth Blood Pressure 75/53 L 75/51 L Blood Pressure [Right Arm] Blood Pressure Mean 60 59 Blood Pressure Mean [Right Arm] Pulse Oximetry 92 92 94 Oxygen Delivery Method Oxygen Flow Rate 01/03/19 09:26 01/03/19 09:30 01/03/19 09:33 Temperature 34.6 C L Temperature Source Rectal Sepsis Recent Fever Within 48 Hours Sepsis Action Taken by Nursing Pulse Rate 139 H 128 H 139 H Pulse Rate [Bilateral] Pulse Rate from SpO2 Sensor 131 H Pulse Rhythm Respiratory Rate 17 20 20 Respiratory Depth Blood Pressure 65/44 L 65/44 L Blood Pressure [Right Arm] Blood Pressure Mean 51 51 Blood Pressure Mean [Right Arm] Pulse Oximetry 81 L 95 97 Oxygen Delivery Method Oxygen Flow Rate 01/03/19 09:35 01/03/19 09:36 01/03/19 09:37 Temperature Temperature Source Sepsis Recent Fever Within 48 Hours Sepsis Action Taken by Nursing Pulse Rate 149 H 144 H 140 H Pulse Rate [Bilateral] Pulse Rate from SpO2 Sensor 142 H 143 H Pulse Rhythm Respiratory Rate 19 18 20 Respiratory Depth Blood Pressure 66/52 L Blood Pressure [Right Arm] Blood Pressure Mean 56 Blood Pressure Mean [Right Arm] Pulse Oximetry 97 97 96 Oxygen Delivery Method Oxygen Flow Rate 01/03/19 09:40 01/03/19 09:45 01/03/19 09:46 Temperature Temperature Source Sepsis Recent Fever Within 48 Hours Sepsis Action Taken by Nursing Pulse Rate 135 H 132 H 132 H Pulse Rate [Bilateral] Pulse Rate from SpO2 Sensor 135 H 132 H 142 H Pulse Rhythm Respiratory Rate 20 18 19 Respiratory Depth Blood Pressure 70/51 L 70/51 L Blood Pressure [Right Arm] Blood Pressure Mean 57 57 Blood Pressure Mean [Right Arm] Pulse Oximetry 93 88 L 93 Oxygen Delivery Method Oxygen Flow Rate 15 01/03/19 09:47 01/03/19 09:50 01/03/19 09:55 Temperature 34.3 C L Temperature Source Rectal Sepsis Recent Fever Within 48 Hours Sepsis Action Taken by Nursing Pulse Rate 134 H 134 H 142 H Pulse Rate [Bilateral] Pulse Rate from SpO2 Sensor 135 H 145 H Pulse Rhythm Respiratory Rate 20 18 22 Respiratory Depth Blood Pressure 70/51 L Blood Pressure [Right Arm] Blood Pressure Mean 57 Blood Pressure Mean [Right Arm] Pulse Oximetry 93 92 94 Oxygen Delivery Method Oxygen Flow Rate 15 01/03/19 09:58 01/03/19 10:00 Temperature Temperature Source Sepsis Recent Fever Within 48 Hours Sepsis Action Taken by Nursing Pulse Rate 149 H 141 H Pulse Rate [Bilateral] Pulse Rate from SpO2 Sensor 138 H 141 H Pulse Rhythm Respiratory Rate 19 21 Respiratory Depth Blood Pressure 70/33 L 92/47 L Blood Pressure [Right Arm] Blood Pressure Mean 45 62 Blood Pressure Mean [Right Arm] Pulse Oximetry 94 93 Oxygen Delivery Method Oxygen Flow Rate CONSTITUTIONAL/VITAL SIGNS: Reviewed / noted above. GENERAL: Non-toxic in appearance. Skin is jaundice INTEGUMENTARY: Warm, dry, and [place]. HEAD: Normocephalic. EYES: Positive scleral icterus and no trauma. ENT/OROPHARYNX: clear and dry with dried blood on lips. LYMPHADENOPATHY/NECK: Is supple without lymphadenopathy or meningismus. RESPIRATORY: Lungs clear and equal. CARDIOVASCULAR: Regular rate and rhythm. GI/ABDOMEN: Soft and nontender. No organomegaly or pulsatile mass. No rebound or guarding. Normal bowel sounds. Distended EXTREMITIES: Warm and well perfused. BACK: No CVA tenderness. NEUROLOGICAL: Intact without focal deficits. PSYCHIATRIC: normal affect. MUSCULOSKELETAL: Normally developed with good muscle tone. Course 0724: Past medical records reviewed. The patient was evaluated in room B03. A complete history and physical exam was performed. 0823: BSG 46. Increased D10 to 125cc/hr. Patient drank OJ with 5 packets of sugar. 0852: The patient is tachycardia, and the nurses note he is bleeding from his rectum. He will be given blood. 0915: BSG 46. 1 AMPD 50 give, increased D10 to 250cc/hr, blood transfusion has been ordered and norepinephrine for hypotension despite adequate fluid recitation. 0917: I spoke with Pete Lea the resident for the ICU service. 0923: I spoke with Dariana BAEZ [facility] hospitalist, she will evaluate for further management Administered Medications Dextrose (D10w) 1,000 mls @ 125 mls/hr IV .Q8H [facility] Stop: 02/02/19 07:44 Last Admin: 01/03/19 08:01 Dose: 75 mls/hr Documented by: [id number] Octreotide Acetate 500 mcg/ (Sodium Chloride) 105 mls @ 10.5 mls/hr IV .Q10H VINICIUS Stop: 02/02/19 10:59 Last Admin: 01/03/19 11:20 Dose: 50 mcg/hr, 10.5 mls/hr Documented by: [id number] Vasopressin 20 units/ Sodium (Chloride) 101 mls @ 12.12 mls/hr IV .Q8H20M [facility] Stop: 02/02/19 11:04 Last Admin: 01/03/19 12:00 Dose: 0.04 unit/min, 12.1 mls/hr Documented by: [id number] Cosigned by: [id number] Pantoprazole Sodium 40 mg/ (Dextrose) 100 mls @ 20 mls/hr IV Q5H [facility]INICIUS Stop: 02/02/19 12:14 Last Admin: 01/03/19 13:10 Dose: 20 mls/hr Documented by: [id number] Phenylephrine HCl 60 mg/ (Dextrose) 506 mls @ 130.55 mls/hr IV .Q3H53M [facility]; Protocol Stop: 02/02/19 12:59 Last Titration: 01/03/19 14:25 Dose: 3 mcg/kg/min, 130.6 mls/hr Documented by: [id number] Titration: 01/03/19 13:25 Dose: 2.5 mcg/kg/min, 108.8 mls/hr Documented by: [id number] Titration: 01/03/19 13:23 Dose: 2 mcg/kg/min, 87 mls/hr Documented by: [id number] Titration: 01/03/19 13:22 Dose: 1.5 mcg/kg/min, 65.3 mls/hr Documented by: [id number] Titration: 01/03/19 13:21 Dose: 1 mcg/kg/min, 43.5 mls/hr Documented by: [id number] Admin: 01/03/19 13:20 Dose: 0.5 mcg/kg/min, 21.8 mls/hr Documented by: [id number] Norepinephrine Bitartrate 16 (mg/ Dextrose) 266 mls @ 85.79 mls/hr IV .Q3H7M [facility]; Protocol Stop: 02/02/19 13:59 Last Admin: 01/03/19 14:21 Dose: 2 mcg/kg/min, 171.6 mls/hr Documented by: [id number] Cosigned by: [id number] Discontinued Medications Dextrose (Dextrose 50%) 50 ml IV NOW ONE Stop: 01/03/19 09:16 Last Admin: 01/03/19 09:21 Dose: 50 ml Documented by: [id number] Fentanyl Citrate (Fentanyl Citrate) Confirm Administered Dose 100 mcg .ROUTE .STK-MED ONE Stop: 01/03/19 11:46 Last Admin: 01/03/19 13:09 Dose: Not Given Documented by: [id number] Multivitamins 10 ml/ Thiamine HCl 100 mg/ Folic Acid 1 mg/Sodium Chloride 1,011.2 mls @ 1,011.2 mls/hr IV .Q1H ONE Stop: 01/03/19 08:32 Last Infusion: 01/03/19 09:27 Dose: 0 mls/hr Documented by: [id number] Admin: 01/03/19 08:06 Dose: 1,011.2 mls/hr Documented by: [id number] Sodium Chloride (Nss 1000ml) 1,000 mls @ 999 mls/hr IV .Q1H1M ONE Stop: 01/03/19 09:32 Last Infusion: 01/03/19 13:10 Dose: 0 mls/hr Documented by: [id number] Admin: 01/03/19 08:53 Dose: 999 mls/hr Documented by: [id number] Norepinephrine Bitartrate 8 mg (/ Dextrose) 508 mls @ 327.66 mls/hr IV .Q1H34M [facility]; Protocol Stop: 02/02/19 09:14 Last Titration: 01/03/19 14:21 Dose: 0 mcg/kg/min, 0 mls/hr Documented by: [id number] Titration: 01/03/19 13:44 Dose: 1.2 mcg/kg/min, 393.2 mls/hr Documented by: [id number] Titration: 01/03/19 13:27 Dose: 1 mcg/kg/min, 327.7 mls/hr Documented by: [id number] Titration: 01/03/19 12:55 Dose: 0.5 mcg/kg/min, 163.8 mls/hr Documented by: [id number] Cosigned by: [id number] Admin: 01/03/19 12:55 Dose: 0.6 mcg/kg/min, 196.6 mls/hr Documented by: [id number] Cosigned by: [id number] Admin: 01/03/19 10:36 Dose: 0.5 mcg/kg/min, 163.8 mls/hr Documented by: [id number] Cosigned by: [id number] Octreotide Acetate 50 mcg/ (Syringe) 10 mls @ 3 mls/min IV ONE ONE Stop: 01/03/19 10:48 Last Admin: 01/03/19 11:15 Dose: 3 mls/min Documented by: [id number] Piperacillin Sod/Tazobactam Sod (Zosyn) 4.5 gm in 120 mls @ 240 mls/hr IV NOW ONE Stop: 01/03/19 10:30 Last Admin: 01/03/19 11:14 Dose: Not Given Documented by: [id number] Famotidine (Pepcid 20mg Iv Push) 20 mg in 5 mls @ 2.5 mls/min IV NOW ONE Stop: 01/03/19 11:01 Last Admin: 01/03/19 11:13 Dose: 2.5 mls/min Documented by: [id number] Phytonadione 10 mg/ Sodium (Chloride) 51 mls @ 102 mls/hr IV ONE ONE Stop: 01/03/19 11:29 Last Infusion: 01/03/19 13:10 Dose: 0 mls/hr Documented by: [id number] Admin: 01/03/19 11:16 Dose: 102 mls/hr Documented by: [id number] Ceftriaxone Sodium (Rocephin) 1,000 mg in 50 mls @ 100 mls/hr IV NOW STA Stop: 01/03/19 10:59 Last Infusion: 01/03/19 13:11 Dose: 0 mls/hr Documented by: [id number] Admin: 01/03/19 10:59 Dose: 100 mls/hr Documented by: [id number] Albumin Human (Albumin 25%) 50 mls @ 50 mls/hr IV ONE ONE Stop: 01/03/19 11:59 Last Infusion: 01/03/19 13:10 Dose: 0 mls/hr Documented by: [id number] Admin: 01/03/19 11:13 Dose: 50 mls/hr Documented by: [id number] Vancomycin HCl 1,500 mg/ (Sodium Chloride) 530 mls @ 200 mls/hr IV NOW ONE; Pro tocol Stop: 01/03/19 13:53 Last Admin: 01/03/19 13:30 Dose: 200 mls/hr Documented by: [id number] Pantoprazole Sodium 80 mg/ (Dextrose) 120 mls @ 480 mls/hr IV ONE ONE Stop: 01/03/19 12:14 Last Admin: 01/03/19 13:09 Dose: 480 mls/hr Documented by: [id number] Phenylephrine HCl 20 mg/ (Dextrose) 502 mls @ 259.03 mls/hr IV .Q1H57M [facility]; Protocol Stop: 01/03/19 15:00 Last Titration: 01/03/19 13:00 Dose: 0 mcg/kg/min, 0 mls/hr Documented by: [id number] Titration: 01/03/19 12:25 Dose: 2 mcg/kg/min, 259 mls/hr Documented by: [id number] Titration: 01/03/19 12:15 Dose: 1.5 mcg/kg/min, 194.3 mls/hr Documented by: [id number] Titration: 01/03/19 12:10 Dose: 1 mcg/kg/min, 129.5 mls/hr Documented by: [id number] Admin: 01/03/19 12:05 Dose: 0.5 mcg/kg/min, 64.8 mls/hr Documented by: [id number] Cosigned by: [id number] Piperacillin Sod/Tazobactam Sod (Zosyn) Confirm Administered Dose 4.5 gm .ROUTE .STK-MED ONE Stop: 01/03/19 10:31 Last Admin: 01/03/19 10:35 Dose: 4.5 gm Documented by: [id number] Medical Decision Making Differential Diagnosis Differential includes acute coronary syndrome, myocardial infarction, CVA, TIA, anemia, infection, pneumonia, UTI, pyelonephritis, poor nutrition, dehydration, electrolyte disturbance,hypoglycemia. Medical Records Attestation: I reviewed the patient's medical records. Home Medications Current Medication List: was personally reviewed by me Laboratory Data Attestation: I reviewed the patient's lab results. Result diagrams: 01/03/19 13:41 01/03/19 12:42 Lab Results 01/03/19 01/03/19 01/03/19 Range/Units 07:25 07:27 07:30 WBC (4.8-10.8) K/uL RBC (4.7-6.1) M/uL Hgb (14.0-18.0) g/dL Hct (42-52) % MCV (80-100) fL MCH (25-34) pg MCHC (32-36) g/dL RDW Std Deviation (36.4-46.3) fL RDW Coeff of Lesley (11.5-14.5) % Plt Count (130-400) K/uL MPV (7.4-10.4) fL Immature Gran % (Auto) % Neut % (Auto) % Lymph % (Auto) % [place] % (Auto) % Eos % (Auto) % Baso % (Auto) % Immature Gran # (Auto) (0.00-0.02) K/uL Neut # (Auto) (1.4-6.5) K/uL Lymph # (Auto) (1.2-3.4) K/uL [place] # (Auto) (0.11-0.59) K/uL Eos # (Auto) (0-0.5) K/uL Baso # (Auto) (0-0.2) K/uL Absolute Nucleated RBC (0-0) K/uL Nucleated RBC % (auto) % Toxic Vacuolation Dohle Bodies Polychromasia Macrocytosis Echinocytes PT (9.0-12.0) Seconds INR (0.9-1.1) Sodium (136-145) mmol/L Potassium (3.5-5.1) mmol/L Chloride (98-107) mmol/L Carbon Dioxide (21-32) mmol/L Anion Gap (3-11) BUN (7-18) mg/dl Creatinine (0.6-1.4) mg/dl Est Cr Clr Drug Dosing Est GFR ( Amer) Est GFR (Non-Af Amer) BUN/Creatinine Ratio Glucose (70-99) mg/dl POC Glucose 66 L* 63 L* (70-99) Lactate (0.4-2.0) mmol/L Calcium (8.5-10.1) mg/dl Total Bilirubin (0.2-1) mg/dl AST (15-37) U/L ALT (12-78) U/L Alkaline Phosphatase (45-117) U/L Ammonia (11-32) umol/L Total Creatine Kinase (39-308) U/L Troponin I (0-0.045) ng/ml Total Protein (6.4-8.2) gm/dl Albumin (3.4-5.0) gm/dl Globulin Albumin/Globulin Ratio TSH (0.300-4.500) uIu/ml Hep Bs Antigen Cancelled Hep Bs Antibody Cancelled Hep Bs Antibody, Quant Cancelled Ref Lab Test Result Blood Type Antibody Screen Crossmatch 01/03/19 01/03/19 01/03/19 Range/Units 07:41 07:41 07:41 WBC 2.07 L (4.8-10.8) K/uL RBC 1.89 L (4.7-6.1) M/uL Hgb 7.1 L (14.0-18.0) g/dL Hct 22.0 L (42-52) % MCV 116.4 H (80-100) fL MCH 37.6 H (25-34) pg MCHC 32.3 (32-36) g/dL RDW Std Deviation 71.8 H (36.4-46.3) fL RDW Coeff of Lesley 18.2 H (11.5-14.5) % Plt Count 104 L (130-400) K/uL MPV 9.1 (7.4-10.4) fL Immature Gran % (Auto) 1.4 % Neut % (Auto) 64.8 % Lymph % (Auto) 30.9 % [place] % (Auto) 1.9 % Eos % (Auto) 0.5 % Baso % (Auto) 0.5 % Immature Gran # (Auto) 0.03 H (0.00-0.02) K/uL Neut # (Auto) 1.34 L (1.4-6.5) K/uL Lymph # (Auto) 0.64 L (1.2-3.4) K/uL [place] # (Auto) 0.04 L (0.11-0.59) K/uL Eos # (Auto) 0.01 (0-0.5) K/uL Baso # (Auto) 0.01 (0-0.2) K/uL Absolute Nucleated RBC 0.14 H (0-0) K/uL Nucleated RBC % (auto) 6.7 % Toxic Vacuolation 1+ Dohle Bodies 1+ Polychromasia 1+ Macrocytosis Present Echinocytes 1+ PT 42.5 H (9.0-12.0) Seconds INR 4.6 H (0.9-1.1) Sodium 131 L (136-145) mmol/L Potassium 4.9 (3.5-5.1) mmol/L Chloride 97 L (98-107) mmol/L Carbon Dioxide 16 L (21-32) mmol/L Anion Gap 19.0 H (3-11) BUN 42 H (7-18) mg/dl Creatinine (0.6-1.4) mg/dl Est Cr Clr Drug Dosing Not Reportable Est GFR ( Amer) Not Reportable Est GFR (Non-Af Amer) Not Reportable BUN/Creatinine Ratio TNP Glucose 49 L* (70-99) mg/dl POC Glucose (70-99) Lactate (0.4-2.0) mmol/L Calcium 7.8 L (8.5-10.1) mg/dl Total Bilirubin 24.0 H (0.2-1) mg/dl AST 118 H (15-37) U/L ALT 42 (12-78) U/L Alkaline Phosphatase 40 L (45-117) U/L Ammonia (11-32) umol/L Total Creatine Kinase 675 H (39-308) U/L Troponin I 0.141 H* (0-0.045) ng/ml Total Protein (6.4-8.2) gm/dl Albumin 1.5 L (3.4-5.0) gm/dl Globulin TNP Albumin/Globulin Ratio TNP TSH 0.705 (0.300-4.500) uIu/ml Hep Bs Antigen Hep Bs Antibody Hep Bs Antibody, Quant Ref Lab Test Result Blood Type Antibody Screen Crossmatch 01/03/19 01/03/19 01/03/19 Range/Units 07:41 07:41 07:41 WBC (4.8-10.8) K/uL RBC (4.7-6.1) M/uL Hgb (14.0-18.0) g/dL Hct (42-52) % MCV (80-100) fL MCH (25-34) pg MCHC (32-36) g/dL RDW Std Deviation (36.4-46.3) fL RDW Coeff of Lesley (11.5-14.5) % Plt Count (130-400) K/uL MPV (7.4-10.4) fL Immature Gran % (Auto) % Neut % (Auto) % Lymph % (Auto) % [place] % (Auto) % Eos % (Auto) % Baso % (Auto) % Immature Gran # (Auto) (0.00-0.02) K/uL Neut # (Auto) (1.4-6.5) K/uL Lymph # (Auto) (1.2-3.4) K/uL [place] # (Auto) (0.11-0.59) K/uL Eos # (Auto) (0-0.5) K/uL Baso # (Auto) (0-0.2) K/uL Absolute Nucleated RBC (0-0) K/uL Nucleated RBC % (auto) % Toxic Vacuolation Dohle Bodies Polychromasia Macrocytosis Echinocytes PT (9.0-12.0) Seconds INR (0.9-1.1) Sodium (136-145) mmol/L Potassium (3.5-5.1) mmol/L Chloride (98-107) mmol/L Carbon Dioxide (21-32) mmol/L Anion Gap (3-11) BUN (7-18) mg/dl Creatinine (0.6-1.4) mg/dl Est Cr Clr Drug Dosing Est GFR ( Amer) Est GFR (Non-Af Amer) BUN/Creatinine Ratio Glucose (70-99) mg/dl POC Glucose (70-99) Lactate 12.4 H* (0.4-2.0) mmol/L Calcium (8.5-10.1) mg/dl Total Bilirubin (0.2-1) mg/dl AST (15-37) U/L ALT (12-78) U/L Alkaline Phosphatase (45-117) U/L Ammonia (11-32) umol/L Total Creatine Kinase (39-308) U/L Troponin I Cancelled (0-0.045) ng/ml Total Protein (6.4-8.2) gm/dl Albumin (3.4-5.0) gm/dl Globulin Albumin/Globulin Ratio TSH (0.300-4.500) uIu/ml Hep Bs Antigen Hep Bs Antibody Hep Bs Antibody, Quant Ref Lab Test Result Blood Type O Negative Antibody Screen NEGATIVE Crossmatch See Detail 01/03/19 01/03/19 01/03/19 Range/Units 07:41 07:41 08:09 WBC (4.8-10.8) K/uL RBC (4.7-6.1) M/uL Hgb (14.0-18.0) g/dL Hct (42-52) % MCV (80-100) fL MCH (25-34) pg MCHC (32-36) g/dL RDW Std Deviation (36.4-46.3) fL RDW Coeff of Lesley (11.5-14.5) % Plt Count (130-400) K/uL MPV (7.4-10.4) fL Immature Gran % (Auto) % Neut % (Auto) % Lymph % (Auto) % [place] % (Auto) % Eos % (Auto) % Baso % (Auto) % Immature Gran # (Auto) (0.00-0.02) K/uL Neut # (Auto) (1.4-6.5) K/uL Lymph # (Auto) (1.2-3.4) K/uL [place] # (Auto) (0.11-0.59) K/uL Eos # (Auto) (0-0.5) K/uL Baso # (Auto) (0-0.2) K/uL Absolute Nucleated RBC (0-0) K/uL Nucleated RBC % (auto) % Toxic Vacuolation Dohle Bodies Polychromasia Macrocytosis Echinocytes PT (9.0-12.0) Seconds INR (0.9-1.1) Sodium (136-145) mmol/L Potassium (3.5-5.1) mmol/L Chloride (98-107) mmol/L Carbon Dioxide (21-32) mmol/L Anion Gap (3-11) BUN (7-18) mg/dl Creatinine (0.6-1.4) mg/dl Est Cr Clr Drug Dosing Est GFR ( Amer) Est GFR (Non-Af Amer) BUN/Creatinine Ratio Glucose (70-99) mg/dl POC Glucose 43 L* (70-99) Lactate (0.4-2.0) mmol/L Calcium (8.5-10.1) mg/dl Total Bilirubin (0.2-1) mg/dl AST (15-37) U/L ALT (12-78) U/L Alkaline Phosphatase (45-117) U/L Ammonia 276.1 H (11-32) umol/L Total Creatine Kinase (39-308) U/L Troponin I (0-0.045) ng/ml Total Protein (6.4-8.2) gm/dl Albumin (3.4-5.0) gm/dl Globulin Albumin/Globulin Ratio TSH (0.300-4.500) uIu/ml Hep Bs Antigen Hep Bs Antibody Hep Bs Antibody, Quant Ref Lab Test Result Blood Type Antibody Screen Crossmatch 01/03/19 01/03/19 Range/Units 09:13 09:56 WBC (4.8-10.8) K/uL RBC (4.7-6.1) M/uL Hgb (14.0-18.0) g/dL Hct (42-52) % MCV (80-100) fL MCH (25-34) pg MCHC (32-36) g/dL RDW Std Deviation (36.4-46.3) fL RDW Coeff of Lesley (11.5-14.5) % Plt Count (130-400) K/uL MPV (7.4-10.4) fL Immature Gran % (Auto) % Neut % (Auto) % Lymph % (Auto) % Chaves % (Auto) % Eos % (Auto) % Baso % (Auto) % Immature Gran # (Auto) (0.00-0.02) K/uL Neut # (Auto) (1.4-6.5) K/uL Lymph # (Auto) (1.2-3.4) K/uL Chaves # (Auto) (0.11-0.59) K/uL Eos # (Auto) (0-0.5) K/uL Baso # (Auto) (0-0.2) K/uL Absolute Nucleated RBC (0-0) K/uL Nucleated RBC % (auto) % Toxic Vacuolation Dohle Bodies Polychromasia Macrocytosis Echinocytes PT (9.0-12.0) Seconds INR (0.9-1.1) Sodium (136-145) mmol/L Potassium (3.5-5.1) mmol/L Chloride (98-107) mmol/L Carbon Dioxide (21-32) mmol/L Anion Gap (3-11) BUN (7-18) mg/dl Creatinine (0.6-1.4) mg/dl Est Cr Clr Drug Dosing Est GFR ( Amer) Est GFR (Non-Af Amer) BUN/Creatinine Ratio Glucose (70-99) mg/dl POC Glucose 46 L* 130 H (70-99) Lactate (0.4-2.0) mmol/L Calcium (8.5-10.1) mg/dl Total Bilirubin (0.2-1) mg/dl AST (15-37) U/L ALT (12-78) U/L Alkaline Phosphatase (45-117) U/L Ammonia (11-32) umol/L Total Creatine Kinase (39-308) U/L Troponin I (0-0.045) ng/ml Total Protein (6.4-8.2) gm/dl Albumin (3.4-5.0) gm/dl Globulin Albumin/Globulin Ratio TSH (0.300-4.500) uIu/ml Hep Bs Antigen Hep Bs Antibody Hep Bs Antibody, Quant Ref Lab Test Result Blood Type Antibody Screen Crossmatch Imaging Data Radiologist's Impression: Radiology results as stated below per my review and the radiologist's interpretation: XR chest 1V portable CLINICAL HISTORY: 58 years-old Male presenting with weakness. TECHNIQUE: Portable semiupright AP view of the chest was obtained. COMPARISON: 10/29/2018. FINDINGS: Low lung volumes with prominence of the cardiomediastinal silhouette. Pulmonary vasculature prominence slightly increased from prior. Increased density of the bilateral lungs with a mid to basilar predominance, greater on the left. No pleural effusion or pneumothorax. Osseous structures normal. Upper abdomen normal. IMPRESSION: 1. Low lung volumes and increasing mid to basilar opacities greater on the left. Infection or aspiration are not excluded. Electronically signed by: Micah Hernandez M.D. 01/03/2019 8:09 AM ECG Data Attestation: I personally reviewed and interpreted this ECG as follows: Indication: other (fall) Rate (beats per minute): 116 Rhythm: sinus tachycardia Findings: + ST depression (Anterior, lateral ) Comparison ECG Date: from (10/29/18) Change: no significant change Blood Pressure Blood Pressure Findings: Low blood pressure Blood Pressure Disposition: further management by hospitalist MDM Narrative This is a 58-year-old male who presents to the ED with a chief complaint of altered mental status. The patient was seen by a caregiver yesterday and was reportedly on the floor, per EMS. The patient was hollering today and a neighbor heard him and called EMS. The patient was transported here by EMS. He was initially found to have a blood sugar of 27. The patient was given D10 which seemed to help the symptoms somewhat. The patient was brought here for further evaluation. The patient is able to answer basic questions on my exam. He seems to be somewhat confused. He is otherwise in no distress. His breathing appears to be comfortable. The patient is jaundiced. His abdomen is distended. He has scleral icterus. He denies any pain. Chest x-ray reveals basilar opacity left greater than right. The patient's CT scan of the brain did not show acute process. EKG shows a sinus tach with a rate of [address] depressions anterolateral. Hemoglobin is 7.1. This appears to be somewhat baseline for the patient. INR is 4.6. Glucose is 49. Lactic acid level is 12. BUN is 42. Troponin is 0.141. Ammonia level was 276. CK is 675. Total bilirubin was 24. The patient was treated with several liters of IV fluid during his initial resuscitation for his hypotension. He was also started on the 10. He was able to drink some juice with sugar in it. The nurse did notice some blood near the rectum. The patient remained hypotensive after 3 L of fluid and was also ordered blood. He was given at least 2 units of blood here in the emergency department. Despite the hydration, the patient remained hypotensive and started on norepinephrine. He was also given FFP. The hospitalist service was consulted as well as intensive care. They came to see the patient in the emergency department. The patient does not have any family. His only friend was contacted and does not have any information with regards to living will or DNR. See the consult note for additional information. Impression & Plan Anemia, Hypotension, Hypoglycemia, Hyperammonemia, Acute liver failure, Shock, Elevated troponin, Multiorgan failure Critical Care Time Critical Care Time: Yes Total Critical Care Time: 60 I have personally spent 60 minutes of critical care time in the direct management of this patient. This includes bedside care, interpretation of diagnostic studies, and testing, discussion with consultants, patient, and f amily members, and other required patient management activities. This 60 minutes is in excess of all separately billable procedures. Discharge Plan Visit Data *Final* Discharge Date/Time: 01/03/19 12:50 Chief Complaint: Hypoglycemia Stated Complaint: hypoglycemia/ams ED Provider: Anam Santiago Discharge Problem: Anemia, Hypotension, Hypoglycemia, Hyperammonemia, Acute liver failure, Shock, Elevated troponin, Multiorgan failure Patient Disposition: Admitted As Inpatient Discharge Instructions Interventions: ED Discharge Assessment Last Done: 01/03/19 12:50 Discharge Problem: Anemia Qualifiers: Anemia type: unspecified type Qualified Code(s): D64.9 - Anemia, unspecified Hypotension Qualifiers: Hypotension type: unspecified hypotension type Qualified Code(s): I95.9 - Hypotension, unspecified Acute liver failure Qualifiers: Hepatic coma status: without hepatic coma Qualified Code(s): K72.00 - Acute and subacute hepatic failure without coma The scribe's documentation has been prepared under my direction and personally reviewed by me in its entirety. I confirm that the note above accurately reflects all work, treatment, procedures, and medical decision making performed by me.
[2019-01-03 08:24] LABS: Glucose 49 mg/dl (70-99); INR 4.6 (0.9-1.1); Prothrombin Time 42.5 Seconds (9.0-12.0)
[2019-01-03 08:30] LABS: Alanine Aminotransferase 42 U/L (12-78); Albumin Level 1.5 gm/dl (3.4-5.0); Alkaline Phosphatase 40 U/L (45-117); Aspartate Aminotransferase 118 U/L (15-37); Blood Urea Nitrogen 42 mg/dl (7-18); Calcium 7.8 mg/dl (8.5-10.1); Carbon Dioxide 16 mmol/L (21-32); Chloride 97 mmol/L (98-107); Creatine Kinase 675 U/L (39-308); Potassium 4.9 mmol/L (3.5-5.1); Sodium 131 mmol/L (136-145); Thyroid Stimulating Hormone 0.705 uIu/ml (0.300-4.500); Troponin I 0.141 ng/ml (0-0.045)
[2019-01-03 08:31] LABS: Basophils # (auto) 0.01 K/uL (0-0.2); Basophils % (auto) 0.5 %; Dohle Bodies 1+; Echinocytes 1+; Eosinophils # (auto) 0.01 K/uL (0-0.5); Eosinophils % (auto) 0.5 %; Immature Granulocytes # (auto) 0.03 K/uL (0.00-0.02); Immature Granulocytes % (auto) 1.4 %; Lymphocytes # (auto) 0.64 K/uL (1.2-3.4); Lymphocytes % (auto) 30.9 %; Macrocytosis Present; Monocytes # (auto) 0.04 K/uL (0.11-0.59); Monocytes % (auto) 1.9 %; Neutrophils # (auto) 1.34 K/uL (1.4-6.5); Neutrophils % (auto) 64.8 %; Polychromasia 1+; Toxic Vacuolation 1+
[2019-01-03] MEDS ORDERED: SODIUM CHLORIDE 0.9% 1000ML 1,000 ML IV ONE (08:32)
[2019-01-03] MEDS ORDERED: SODIUM CHLORIDE 0.9% 250 ML IV PRN ×4 (08:53→23:53)
[2019-01-03] MEDS ORDERED: DEXTROSE 50% 50 ML SYRINGE IV ONE (09:15)
--- NOTE | 2019-01-03 09:30 | CT Scan Report ---
CT head/brain wo con CT DOSE: 1915.68 mGycm HISTORY: Mental status change ams TECHNIQUE: Multiaxial CT images of the head were performed without the use of intravenous contrast. A dose lowering technique was utilized adhering to the principles of ALARA. Comparison: None. Findings: Limited study due to considerable patient motion. Ventricular system is midline. No evidenc e for intracranial hemorrhage or midline shift. Major sinuses appear clear. The calvarium and skull base are intact. The ventricles and sulci are wit hin normal limits. There is no mass, hematoma, midline shift, or acute infarct. This again is within the limitations of patient motion Impression: 1. Limited study due to patient motion. 2. No significant intracranial abnormalities appreciated. The above report was generated using voice recognition software. It may contain grammatical, syntax or spelling errors. Electronically signed by: Favian De Jesus M.D. 01/03/2019 9:29 AM
[2019-01-03] MEDS ORDERED: ICU PROTOCOL FOR HYPERGLYCEMIA PRN ×2 (10:00→12:12)
[2019-01-03] MEDS ORDERED: PIPERACILLIN/TAZOBACTAM 4.5 GM/120 ML BAG IV ONE (10:01)
[2019-01-03] MEDS ORDERED: PIPERACILL/TAZOBAC CONSULT ACTIVE PRN (10:01)
[2019-01-03] MEDS ORDERED: PIPERACILLIN/TAZOBACTAM 4.5 GM/120ML D5W ONE (10:30)
[2019-01-03] MEDS ORDERED: cefTRIAXone SODIUM 1,000 MG/50 ML BAG IV STA (10:30)
[2019-01-03] MEDS: NOREPINEPHRINE BIT INJ 8 MG in DEXTROSE 5% 500 ML IV SCH ×2 (10:36→12:55)
[2019-01-03] MEDS ORDERED: RAPID SEQUENCE INDUCTION BAG ONE (10:42)
[2019-01-03 10:43] LABS: iSTAT Arterial Blood Gas HCO3 13 meg/L (19-24); iSTAT Arterial Blood Gas pCO2 42 mmHg (35-46); iSTAT Arterial Blood Gas pO2 98 mmHg (80-95); iSTAT Carbon Dioxide 14 mEq/l (24-31); iSTAT Hematocrit 19 % (42-52); iSTAT Hemoglobin 6.5 g/dl (14.0-18.0); iSTAT Potassium 4.5 mEq/L (3.3-5.0); iSTAT Sodium 130 mEq/L (135-144)
--- NOTE | 2019-01-03 10:44 | History & Physical Report ---
Date of Service January 03, 2019 Assessment & Plan (1) Acute liver failure: History limited but apparently pt is still drinking and refused rehab during admission in August. Current prognosis is poor. Attempted to reach an emergency contact using information from [facility] records as well as [facility]. Called pt's PCP office for additional information but those contacts were also invalid. Pt has a friend Mckenna Chandler who assists with his care and apparently brings him to his appointments. Attempted to reach her at [phone] and [phone] without success. Tried a second number from PCP office [phone] but this may be patient's cell? No voice mail set up. Attempted to call a Guillermo Pineda (contact info in [place]) - left generic message but no call back. Had a number for ex- in [employer], Gemini Barraza, , which was disconnected. Reviewed chart extensively. Per records, it appears that Mckenna has no legal authority to make any decisions. PCP office had no POA or living will on file. For now, pt will be FULL CODE although prognosis appears poor even with aggressive interventions. Stat ethics consult to determine appropriate code status for this complicated patient in a very difficult situation. - Consult GI - spoke with Dr. Parker. Pt with acute liver failure/ESLD, hepatorenal syndrome - prognosis is poor - Consult nephrology - spoke with Dr. Hurt. Consider HD for acidosis. Monitor labs - Awaiting creatinine from this AM (unable to run initially due to icterus - sent out) but calculated MELD using prior creatinine and today's labs is ~40. - Potential transfer to [facility] [place] [place] discussed - Dr. Recinos spoke with transfer center/critical care/hepatology. Please see her note for details. Decision made not to transfer - Paracentesis done by CC at bedside - fluid sent for cell count and culture. GI recommends coverage for SBP with ceftriaxone - Consult palliative care for recommendations re: code status (2) Shock: Management per critical care - persistent hypotension despite fluids/norepi - Continue aggressive fluid replacement and pressors - Initial lactate elevated at 12.4 - following - Blood cultures pending - empiric antibiotics with Zosyn and ceftriaxone (3) Hepatic encephalopathy: Ammonia level upon presentation of 276 - pt obtunded in ED and unable to answer questions - Continue supportive care (4) Coagulopathy: INR elevated on admission at 4.6 - pt receiving FFP in ED - GI recommends addition of vitamin K - Closely monitor labs - unclear if pt actively bleeding at present although small amount of rectal bleeding was noted upon presentation. No additional melena or hematochezia. Starting pantoprazole gtt and octreotide per GI recommendations (5) Rectal bleeding: Closely monitor labs - unclear if pt actively bleeding at present although small amount of rectal bleeding was noted upon presentation. No additional melena or hematochezia. - Starting pantoprazole gtt and octreotide per GI recommendations - no known prior screening for varices, no prior variceal bleed - Serial H&H with additional transfusions as needed (6) Alcoholic cirrhosis: See above plan of care Per history available, pt still actively drinking - will need to monitor for s/s of withdrawal Pt seen and evaluated with attending physician Dr. Angelica Recinos. Approximately 2 hours spent evaluation and admitting the patient, discussing patient with consultants, attempting to contact next of kin, reviewing test results. Arthur Varma PA-C History of Present Illness Chief Complaint: Hypoglycemia Primary Care Provider: Alexandre Kraus DO This is a 58 y/o male with a PMH of EtOH cirrhosis, ascities, PAF with RVR, RBBB, acute liver failure and prior EtOH withdrawal/DTs who was found hypoglycemic in his apartment this morning. History obtained from ED provider and EMS records as when pt seen in the ED he was unable to provide any history. Apparently, someone went to check on pt yesterday and was found to be lying on the floor. He told her that he was comfortable and so she left him there. This morning, pt's neighbor heard him screaming for help so called EMS. Pt found to be hypoglycemic was BSG of 27. EMS gave D10 wiht improvement of BSG to 84. When presented to the ED, pt was hypotensive and has been persistently hypotensive in spite of receiving a banana bag and two additional liters of fluid. When initially called for admission to ICU, BP in 70s/40s. Hgb upon presentation was 7.1 which appears to be around pt's baseline. However, he was noted by ED physician to have small amount of rectal bleeding as well as an INR of 4.6 (not on anticoagulation). Two units of PRBCs were ordered and being transfused upon my assessment. Also to receive FFP and being started on norepinephrine drip. Continues to require D10 in ED to maintain blood glucose. Critical care has been consulted as well. Initially when pt arrived in ED he was able to answer some simple questions but mental status has been declining. When I assessed pt, history from pt was unobtainable. Allergies Allergy/AdvReac Type Severity Reaction Status Date / Time No Known Allergies Allergy Verified 10/29/18 18:41 Home Medications Home Medications Medication Instructions Recorded Confirmed Type famotidine 20 mg PO HS 10/29/18 01/03/19 History folic acid 1 mg PO QAM 10/29/18 01/03/19 History furosemide 40 mg PO BID 10/29/18 01/03/19 History lactulose 20 g PO QID 10/29/18 01/03/19 History spironolactone 100 mg PO BID 10/29/18 01/03/19 History thiamine HCl (vitamin B1) 100 mg PO DAILY 10/29/18 01/03/19 History Caffeine Free Water Pills 1 tab PO UD 01/03/19 01/03/19 History docusate sodium 100 mg PO BID 01/03/19 01/03/19 History furosemide 20 mg PO BID 01/03/19 01/03/19 History Past Med/Surg History Medical History Cirrhosis (Chronic) Family history non-contributory Surgical History No pertinent past surgical history Family History Other Family history non-contributory Social History Preferred Language: Chilean Communication Ability: Unable Communication Ability Comment: Intubated at this time, no response to stimulation Research Instructor Required: No Beliefs That Will Affect Care: None Current Living Situation: Alone Current Living Situation Comment: Apartment Feels Safe at Home: Yes Smoking Status: Never smoker Tobacco Type: smokeless tobacco ; Second Hand Exposure: No ; Hx Alcohol Use: Yes Alcohol type: beer Hx Substance Use: No Review of Systems Review of Systems: Unobtainable due to endotracheal tube and Unobtainable due to reduced consciousness Physical Exam Constitutional: + acute distress, + ill appearing and + altered mental status Eyes: + scleral abnormality (icterus) and + dilated pupils (minimally reactive ) ENMT: Mouth: + oral mucosal abnormality (small amount of dried blood) Respiratory: + labored breathing and + tachypneic (mild (22-24)) Auscultation: + crackles; no wheezes Cardiovascular: Rate/Rhythm: regular rhythm and + tachycardic Gastrointestinal (Abdomen): Inspection/Auscultation: + abdomen distended and normal bowel sounds Percussion/Palpation: + ascites (tense) and + dullness to percussion Skin: + jaundice (dark yellowing of skin) Neurologic: + obtunded (encephalopathic, groaning but no intelligible speech/responses to questions) Speech / Cognition: + abnormal cognition Results & Data Vital Signs (Past 12 Hours) Vital Signs Temp Pulse Pulse Resp BP BP Pulse Ox 01/03/19 10:06 146 H 21 91/57 L 95 01/03/19 09:47 34.3 C L 134 H 20 70/51 L 93 01/03/19 09:46 132 H 19 70/51 L 94 01/03/19 09:36 144 H 18 66/52 L 97 01/03/19 09:33 34.6 C L 139 H 20 65/44 L 97 01/03/19 09:30 128 H 20 65/44 L 95 01/03/19 09:25 128 H 19 75/51 L 94 01/03/19 09:15 23 75/53 L 92 01/03/19 09:12 152 H 21 68/51 L 92 01/03/19 09:05 158 H 18 94 01/03/19 08:51 145 H 23 88/67 L 89 L 01/03/19 08:46 110 H 20 77/44 L 96 01/03/19 08:45 110 H 19 77/44 L 93 01/03/19 08:43 111 H 19 75/46 L 96 01/03/19 08:42 112 H 19 93 01/03/19 08:15 112 H 23 83/50 L 96 01/03/19 08:07 111 H 20 83/48 L 95 01/03/19 08:03 112 H 23 76/42 L 94 01/03/19 08:01 111 H 25 H 77/44 L 96 01/03/19 08:00 112 H 23 80/54 L 97 01/03/19 07:59 111 H 20 105/49 L 96 01/03/19 07:56 112 H 22 105/49 L 97 01/03/19 07:48 114 H 24 88/51 L 88 L 01/03/19 07:46 114 H 26 H 58/40 L 87 L 01/03/19 07:45 115 H 20 85 L 01/03/19 07:37 34.5 C L 114 H 18 85 L 01/03/19 07:35 115 H 22 99/53 L 93 01/03/19 07:31 117 H 23 85 L 01/03/19 07:24 116 H 25 H 95/58 L 90 Laboratory Results Laboratory Results - last 24 hr 01/03/19 01/03/19 01/03/19 07:25 07:27 07:41 WBC 2.07 L RBC 1.89 L Hgb 7.1 L POC Hgb Hct 22.0 L POC Hct MCV 116.4 H MCH 37.6 H MCHC 32.3 RDW Std Deviation 71.8 H RDW Coeff of Lesley 18.2 H Plt Count 104 L MPV 9.1 Immature Gran % (Auto) 1.4 Neut % (Auto) 64.8 Lymph % (Auto) 30.9 [place] % (Auto) 1.9 Eos % (Auto) 0.5 Baso % (Auto) 0.5 Immature Gran # (Auto) 0.03 H Neut # (Auto) 1.34 L Lymph # (Auto) 0.64 L [place] # (Auto) 0.04 L Eos # (Auto) 0.01 Baso # (Auto) 0.01 Absolute Nucleated RBC 0.14 H Nucleated RBC % (auto) 6.7 Toxic Vacuolation 1+ Dohle Bodies 1+ Polychromasia 1+ Macrocytosis Present Echinocytes 1+ PT INR POC pH POC pCO2 POC pO2 POC HCO3 POC Total CO2 POC Base Excess POC Sodium Sodium POC Potassium Potassium Chloride Carbon Dioxide Anion Gap BUN Creatinine Est Cr Clr Drug Dosing Est GFR ( Amer) Est GFR (Non-Af Amer) BUN/Creatinine Ratio Glucose POC Glucose 66 L* 63 L* Lactate Calcium Total Bilirubin AST ALT Alkaline Phosphatase Ammonia Total Creatine Kinase Troponin I Total Protein Albumin Globulin Albumin/Globulin Ratio TSH Ref Lab Test Result Blood Type Antibody Screen Crossmatch 01/03/19 01/03/19 01/03/19 07:41 07:41 07:41 WBC RBC Hgb POC Hgb Hct POC Hct MCV MCH MCHC RDW Std Deviation RDW Coeff of Lesley Plt Count MPV Immature Gran % (Auto) Neut % (Auto) Lymph % (Auto) [place] % (Auto) Eos % (Auto) Baso % (Auto) Immature Gran # (Auto) Neut # (Auto) Lymph # (Auto) [place] # (Auto) Eos # (Auto) Baso # (Auto) Absolute Nucleated RBC Nucleated RBC % (auto) Toxic Vacuolation Dohle Bodies Polychromasia Macrocytosis Echinocytes PT 42.5 H INR 4.6 H POC pH POC pCO2 POC pO2 POC HCO3 POC Total CO2 POC Base Excess POC Sodium Sodium 131 L POC Potassium Potassium 4.9 Chloride 97 L Carbon Dioxide 16 L Anion Gap 19.0 H BUN 42 H Creatinine Est Cr Clr Drug Dosing Not Reportable Est GFR ( Amer) Not Reportable Est GFR (Non-Af Amer) Not Reportable BUN/Creatinine Ratio TNP Glucose 49 L* POC Glucose Lactate 12.4 H* Calcium 7.8 L Total Bilirubin 24.0 H AST 118 H ALT 42 Alkaline Phosphatase 40 L Ammonia Total Creatine Kinase 675 H Troponin I 0.141 H* Total Protein Albumin 1.5 L Globulin TNP Albumin/Globulin Ratio TNP TSH 0.705 Ref Lab Test Result Blood Type Antibody Screen Crossmatch 01/03/19 01/03/19 01/03/19 07:41 07:41 07:41 WBC RBC Hgb POC Hgb Hct POC Hct MCV MCH MCHC RDW Std Deviation RDW Coeff of Lesley Plt Count MPV Immature Gran % (Auto) Neut % (Auto) Lymph % (Auto) [place] % (Auto) Eos % (Auto) Baso % (Auto) Immature Gran # (Auto) Neut # (Auto) Lymph # (Auto) [place] # (Auto) Eos # (Auto) Baso # (Auto) Absolute Nucleated RBC Nucleated RBC % (auto) Toxic Vacuolation Dohle Bodies Polychromasia Macrocytosis Echinocytes PT INR POC pH POC pCO2 POC pO2 POC HCO3 POC Total CO2 POC Base Excess POC Sodium Sodium POC Potassium Potassium Chloride Carbon Dioxide Anion Gap BUN Creatinine Est Cr Clr Drug Dosing Est GFR ( Amer) Est GFR (Non-Af Amer) BUN/Creatinine Ratio Glucose POC Glucose Lactate Calcium Total Bilirubin AST ALT Alkaline Phosphatase Ammonia 276.1 H Total Creatine Kinase Troponin I Cancelled Total Protein Albumin Globulin Albumin/Globulin Ratio TSH Ref Lab Test Result Blood Type O Negative Antibody Screen NEGATIVE Crossmatch See Detail 01/03/19 01/03/19 01/03/19 07:41 08:09 09:13 WBC RBC Hgb POC Hgb Hct POC Hct MCV MCH MCHC RDW Std Deviation RDW Coeff of Lesley Plt Count MPV Immature Gran % (Auto) Neut % (Auto) Lymph % (Auto) [place] % (Auto) Eos % (Auto) Baso % (Auto) Immature Gran # (Auto) Neut # (Auto) Lymph # (Auto) [place] # (Auto) Eos # (Auto) Baso # (Auto) Absolute Nucleated RBC Nucleated RBC % (auto) Toxic Vacuolation Dohle Bodies Polychromasia Macrocytosis Echinocytes PT INR POC pH POC pCO2 POC pO2 POC HCO3 POC Total CO2 POC Base Excess POC Sodium Sodium POC Potassium Potassium Chloride Carbon Dioxide Anion Gap BUN Creatinine Est Cr Clr Drug Dosing Est GFR ( Amer) Est GFR (Non-Af Amer) BUN/Creatinine Ratio Glucose POC Glucose 43 L* 46 L* Lactate Calcium Total Bilirubin AST ALT Alkaline Phosphatase Ammonia Total Creatine Kinase Troponin I Total Protein Albumin Globulin Albumin/Globulin Ratio TSH Ref Lab Test Result Pending Blood Type Antibody Screen Crossmatch 01/03/19 01/03/19 09:56 10:27 WBC RBC Hgb POC Hgb 6.5 L* Hct POC Hct 19 L* MCV MCH MCHC RDW Std Deviation RDW Coeff of Lesley Plt Count MPV Immature Gran % (Auto) Neut % (Auto) Lymph % (Auto) [place] % (Auto) Eos % (Auto) Baso % (Auto) Immature Gran # (Auto) Neut # (Auto) Lymph # (Auto) [place] # (Auto) Eos # (Auto) Baso # (Auto) Absolute Nucleated RBC Nucleated RBC % (auto) Toxic Vacuolation Dohle Bodies Polychromasia Macrocytosis Echinocytes PT INR POC pH 7.10 L* POC pCO2 42 POC pO2 98 H POC HCO3 13 L POC Total CO2 14 L POC Base Excess -17.0 L POC Sodium 130 L Sodium POC Potassium 4.5 Potassium Chloride Carbon Dioxide Anion Gap BUN Creatinine Est Cr Clr Drug Dosing Est GFR ( Amer) Est GFR (Non-Af Amer) BUN/Creatinine Ratio Glucose POC Glucose 130 H Lactate Calcium Total Bilirubin AST ALT Alkaline Phosphatase Ammonia Total Creatine Kinase Troponin I Total Protein Albumin Globulin Albumin/Globulin Ratio TSH Ref Lab Test Result Blood Type Antibody Screen Crossmatch Diagnostic Findings CT Head 01/03/19 - Impression: 1. Limited study due to patient motion. 2. No significant intracranial abnormalities appreciated. Chest X-ray 01/03/19 - IMPRESSION: 1. Low lung volumes and increasing mid to basilar opacities greater on the left. Infection or aspiration are not excluded. Medications Administered Dextrose (D10w) 1,000 mls @ 125 mls/hr IV .Q8H [facility] Stop: 02/02/19 07:44 Last Admin: 01/03/19 08:01 Dose: 75 mls/hr Documented by: [id number] Norepinephrine Bitartrate 8 mg (/ Dextrose) 508 mls @ 32.77 mls/hr IV .[id number] [facility]; Protocol Stop: 02/02/19 09:14 Last Admin: 01/03/19 10:36 Dose: 0.5 mcg/kg/min, 163.8 mls/hr Documented by: [id number] Cosigned by: [id number] Discontinued Medications Dextrose (Dextrose 50%) 50 ml IV NOW ONE Stop: 01/03/19 09:16 Last Admin: 01/03/19 09:21 Dose: 50 ml Documented by: [id number] Multivitamins 10 ml/ Thiamine HCl 100 mg/ Folic Acid 1 mg/Sodium Chloride 1,011.2 mls @ 1,011.2 mls/hr IV .Q1H ONE Stop: 01/03/19 08:32 Last Infusion: 01/03/19 09:27 Dose: 0 mls/hr Documented by: [id number] Admin: 01/03/19 08:06 Dose: 1,011.2 mls/hr Documented by: [id number] Sodium Chloride (Nss 1000ml) 1,000 mls @ 999 mls/hr IV .Q1H1M ONE Stop: 01/03/19 09:32 Last Admin: 01/03/19 08:53 Dose: 999 mls/hr Documented by: [id number] Piperacillin Sod/Tazobactam Sod (Zosyn) Confirm Administered Dose 4.5 gm .ROUTE .STK-MED ONE Stop: 01/03/19 10:31 Last Admin: 01/03/19 10:35 Dose: 4.5 gm Documented by: [id number] Code Status & VTE Plan Code Status See plan - unable to reach a next of kin/to identify next of kin. Pt will be FULL CODE at this time. VTE Prophylaxis Plan VTE Prophylaxis will be ordered: No Reason for no VTE drug order: Contraindicated (shock/potential active bleeding/coagulopathy) Supervising Physician Co-Signing Physician Notes ATTENDING ADDENDUM : Patient seen and examined in ER room B1, care coordinated with Amanda Varma PA-C, labs, images reviewed This is a 58-year-old male who is known to [facility] service for chronic alcohol abuse, alcohol withdrawal, advanced alcoholic liver disease Patient has been continues to drink heavily in spite of multiple counseling provided by GI and internal medicine team: For the consequence of end- stage/fulminant liver failure Was recently admitted to [facility] on 08/2018, for severe alcohol withdrawal, DT Was life flighted to [facility] Patient was evaluated by liver transplant team/hepatology : Found not to be a transplant candidate secondary to poor compliance, ongoing alcohol abuse Patient was brought to ER in unresponsive, confused status Unable to obtain any information from patient secondary to altered mental status, Information obtained from ER physician and records as follows: Yesterday patient fell and was found on floor by caregiver, but patient refused help saying "he is fine" The caregiver left(we could not locate the name or phone number of caregiver-in any of the documents) This morning, apparently a neighbor heard him moaning/screaming for help 911 was called EMS found him on the floor lethargic, severely hypoglycemic with the BSG 28, hypotensive patient was given dextrose and IV fluid bolus in route On arrival to ER patient was found to be hypotensive SBP in low 70s Given 2 L IV fluid bolus, with minimum response patient was found continued to be hypotensive, tachycardic, lethargic, severely severely jaundiced Started on pressors, : Blood work showed pancytopenia WBC 2k /hemoglobin 7.1/hematocrit 22 Repeat lab: Hemoglobin 6.5/hematocrit 19 K Spontaneous anticoagulation:/Coagulopathy INR 4.5 BSG 49, received multiple episodes of dextrose Bilirubin 24/AST 118/ALT 42/ammonia 276 BUN 42, creatinine undetectable secondary to hyperbilirubinemia Metabolic acidosis with bicarb 16, anion gap 12, lactic acidosis: Lactate level elevated 12.4 PHYSICAL EXAM: General: Severely jaundiced: Deep yellow skin coloration Confused, obtunded, with rapid shallow breathing HEENT: Deeply icteric sclera: Eyes open with minimally reactive pupils, mid dilated, unable to follow commands Dried blood tinged oral mucosa Heart: Tachycardic Lungs: Bilateral , crackles Abdomen: Tense/severely distended severely distended with tense ascites Skin: Deeply jaundiced /dark yellow color Neuro: Severely encephalopathic/obtunded, ASSESSMENT AND PLAN Fulminant liver failure: History of advanced alcoholic liver disease, ongoing alcohol abuse, presents with unresponsiveness/hyperbilirubinemia, and uric renal failure, Report of fall yesterday and possibly was on the floor overnight INR more than 4, spontaneous anticoagulation secondary to liver failure Elevated MELD (model for end-stage liver disease) score more than 40: Suggestive of high mortality(more than 70% in 3 months) Patient is admitted to ICU, [facility] GI team updated Started on octreotide drip, ordered for IV Zosyn, added vancomycin Large amount of paracentesis done at the bedside in the ER by ICU team Patient was given IV vitamin K, FFP, albumin Intubated for airway protection Hepatorenal syndrome/anuria End-stage/fulminant liver failure causing acute renal failure with anuria: No urine output after giving multiple fluid bolus, PRBC transfusion, started on pressor Creatinine could not be calculated secondary to extremely high bilirubin level Last creatinine on 10/2018 was 0.9 Extremely poor prognosis, with massive volume overload [facility] nephrology consulted, case discussed with on-call nephrology Dr. Hurt Recommends ICU admission with hemodynamic support as much as possible, Will need to do dialysis if absolutely needed, Given patient is not a candidate for liver transplant, transferring patient to a tertiary care for CCRT will not provide any benefit SEVERE HYPOTENSION/SHOCK SBP in low 70s/80s, improved to 90s with multiple fluid bolus, given PRBC transfusion Altered factorial, fulminant liver failure: Causing massive vasodilatation /need to rule out sepsis as well IV fluid resuscitation, IV albumin, broad-spectrum antibiotic ordered, Admitted to ICU for further support Appreciate help/input from histology tech METABOLIC ACIDOSIS Secondary to liver failure/acute renal failure with complete anuria, possible sepsis Started on bicarb drip Continue volume resuscitation, May need dialysis if no improvement of metabolic acidosis with supportive care Continue to monitor electrolytes every 4 hours Nephrology consulted, case discussed with on-call wire coating machine operator already PROFOUND HYPOGLYCEMIA BSG on presentation was 46, given IV dextrose bolus, repeat hypoglycemic episode noted 53,58 Patient is continued with IV dextrose infusion Profound hypoglycemia: Secondary to liver failure causing marked metabolic compromise Very poor prognostic sign PANCYTOPENIA WITH SEVERE ANEMIA Secondary to advanced liver disease, with marked hepatosplenomegaly Hemoglobin 6.1, given 2 units of PRBC transfusion Repeat H&H ordered, Transfuse if hemoglobin less than 7 POSSIBLE GI BLEED Profound anemia, with heme positive stool noted in ER IV Protonix drip Correction of anemia GI consulted, overall prognosis remains extremely poor Octreotide drip to prevent variceal bleed SEVERE COAGULOPATHY INR 4.5 Spontaneous anticoagulation secondary to liver failure Patient giving FFP/vitamin K Continue to monitor PT/INR, extremely high bleeding risk HEPATIC ENCEPHALOPATHY/OBTUNDATION Ammonia level more than 200, with severe electrolyte derangement Continue supportive care as outlined above STATUS: FULL CODE Extremely poor prognosis: Patient's calculated MELD score > 40 /3 months mortality more than 70% Patient presented with severe hemodynamic compromise, with multi organ failure Chance for reasonable recovery with good clinical outcome remains extremely low Unable to locate friend or family member patient even after multiple attempts At present patient remains as a full code Patient is already intubated for airway protection Admitted to ICU with pressure support broad-spectrum antibiotic blood products and if if he transfusion to correct anemia and coagulopathy High likelihood of hemodynamic compromise that can lead to cardiac arrest Given patient's end-stage status full resuscitation with CPR/chest compression/shock:, May not provide reasonable recovery for this patient Patient developed anuric renal failure, with metabolic acidosis, will need emergent dialysis/with lack of effective blood pressure, option for CRRT(continuous renal replacement therapy: )-Which is available at [facility] in [place] was considered [facility] transfer center was contacted Discussed with [facility] ICU /histology tech Dr. Bruner : After reviewing patient's medical records, past medical history: Patient was in [facility] on 08/[address] Dr. Foley, suggests against transfer to tertiary care: As further escalation care with possible CCRT, may be "medically futile" as it will not change the outcome/patient's mortality Discussed with firefighting equipment specialist in [facility], in agreeable given fulminant liver failure, hepatorenal syndrome, poor outcome, escalation of further care will not provide any benefit [facility] ICU team/histology tech, on-call [facility] GI and [facility] nephrology services(patient is known to them from prior admissions) : Agreeable that patient has extremely poor prognosis, high mortality, Further escalation of care, including dialysis, CRRT may not change the outcome Patient will be admitted to ICU, continue supportive care Ethics committee consulted to address goal of care Please refer to further documentation by Amanda Varma PA-C for discussion of other chronic issues Angelica Recinos MD (1) Alcoholic cirrhosis Ascites presence: with ascites Qualified Code(s): K70.31 - Alcoholic cirrhosis of liver with ascites (2) Acute liver failure Hepatic coma status: without hepatic coma Qualified Code(s): K72.00 - Acute and subacute hepatic failure without coma
[2019-01-03] MEDS ORDERED: DEXTROSE 10% 1,000 ML IV SCH (10:45)
[2019-01-03] MEDS ORDERED: OCTREOTIDE ACETATE 50 MCG in SYRINGE 9.5 ML IV ONE (10:45)
[2019-01-03] MEDS ORDERED: VANCOMYCIN CONSULT ACTIVE PRN (10:47)
[2019-01-03] MEDS ORDERED: SODIUM BICARB 8.4% INJ 50 MEQ/50 ML SYR IV STA ×2 (10:48→23:53)
[2019-01-03] MEDS ORDERED: SODIUM BICARB 8.4% INJ 50 MEQ/50 ML SYR ONE (10:52)
[2019-01-03] MEDS ORDERED: PHYTONADIONE 10 MG in SODIUM CHLORIDE 0.9% 50 ML IV ONE (11:00)
[2019-01-03] MEDS ORDERED: SODIUM BICARBONATE 8.4% 100 MEQ in DEXTROSE 5% 1,000 ML IV SCH (11:00)
[2019-01-03] MEDS ORDERED: FAMOTIDINE 20MG IV PUSH 20 MG/5 ML SYR IV ONE (11:00)
[2019-01-03] MEDS ORDERED: ALBUMIN 25% 50 ML IV ONE (11:00)
--- NOTE | 2019-01-03 11:12 | XRay Report ---
XR chest 1V portable CLINICAL HISTORY: Endotracheal tube and central venous catheter placement. COMPARISON STUDY: 01/03/2019 FINDINGS: There is abnormal mediastinal contour. Adenopathy cannot be excluded. There is an endotrach eal tube 34 mm above the rio. There is been interval placement of right internal jugular central v enous catheter. The tip projects in the right atrium. No pneumothorax is visualized on the supine zaria dy. There is diffuse elevation of interstitium suspicious for pulmonary vascular congestion. Intersti tial inflammatory processes could appear similar. There is more focal pulmonary consolidation within the left lower lung zone. IMPRESSION: 1. Mediastinal widening. Adenopathy cannot be excluded. A chest CT scan might be considered in follow -up 2. Endotracheal tube 34 mm above the rio 3. Right internal jugular central venous catheter with its tip at the level of the right atrium. No p neumothorax identified on the supine study 4. Elevation of interstitium consistent with congestive failure/fluid overload. 5. Left lower lung zone parenchymal consolidation Electronically signed by: Carlos Burden M.D. 01/03/2019 11:11 AM
[2019-01-03] MEDS ORDERED: VANCOMYCIN HCL 1,500 MG in SODIUM CHLORIDE 0.9% 500 ML IV ONE (11:15)
[2019-01-03] MEDS: OCTREOTIDE ACETATE 500 MCG in 0.9 % SODIUM CHLORIDE 100 ML IV SCH ×2 (11:20→19:06)
[2019-01-03] MEDS ORDERED: VANCOMYCIN HCL 1,500 MG in SODIUM CHLORIDE 0.9% 250 ML IV ONE (11:30)
[2019-01-03] MEDS ORDERED: fentaNYL citrate 100 MCG/2 ML VIAL ONE (11:45)
[2019-01-03] MEDS ORDERED: PHENYLEPHRINE HCL 20 MG in DEXTROSE 5% 500 ML IV SCH (11:52)
[2019-01-03] MEDS ORDERED: PANTOprazole 80 MG in DEXTROSE 5% 100 ML IV ONE (12:00)
[2019-01-03] MEDS: VASOPRESSIN 20 UNITS in 0.9 % SODIUM CHLORIDE 100 ML IV SCH ×2 (12:00→19:08)
[2019-01-03] MEDS ORDERED: SODIUM CHLORIDE 0.9% 1000ML 1,000 ML IV PRN (12:20)
--- NOTE | 2019-01-03 12:28 | Critical Care Consultation ---
Date of Consultation January 03, 2019 Assessment & Plan (1) Admitted to intensive care unit: Reason Critically Ill: 58-year-old male here for resuscitation secondary to end-stage liver cirrhosis and multisystem organ failure. Past medical history significant for EtOH cirrhosis, ascities, PAF with RVR, RBBB, acute liver failure and prior EtOH withdrawal/DTs Code Status: See my attendings associated documentation for CODE STATUS. He is now DNR Neuro: Severe metabolic encephalopathy with hyperammonemia CAM ICU: POSITIVE Likely multifactorial in the setting of fulminant liver failure, hyperammonemia, shock, profound hypoglycemia, and severe electrolyte derangement -Providing supportive care with electrolyte repletion, treating the underlying cause of shock, correcting hypoglycemia Cardiac: Hypotension Patient profoundly hypotensive to the 60s over 40s. Pressor support was initiated in the emergency department, subsequently her central line was placed in the internal jugular. Patient is still hypotensive despite pressor support. -Continue norepinephrine per protocol -Continue phenylephrine per protocol -Continue vasopressin support -IV fluid resuscitation -IV albumin provided -Monitor blood pressure and wean pressors as tolerated Respiratory: Intubated status On physical exam crackles were appreciated given the patient's multisystem organ failure and elevated INR he was subsequently intubated for airway protection. -01/03 chest x-ray demonstrates low lung volumes and increasing mid to basilar opacities greater on the left. Infection cannot be ruled out. -See ID below GI: Fulminant liver failure [facility] and has a history of advanced alcoholic liver disease. He continues to drink despite extensive counseling on the risks and dangers. Initial labs on presentation the emergency department demonstrate INR greater than 4. Patient's meld score is greater than 40 indicating high mortality greater than 70% in the next 3 months. Given the patient's ongoing alcohol consumption he is not a candidate for transplant. Escalation of care to a tertiary center will likely not improve the patient's overall outcome. On physical exam patient has significant ascites with positive fluid wave. -Paracentesis was performed obtaining 9 L of fluid, labs pending -Started on octreotide drip,Zosyn and vancomycin -Provided IV vitamin K, FFP, albumin, 2 units of blood -ICU status for further evaluation and manage Hepatorenal syndrome End-stage liver failure leading to acute renal failure with anuria. Patient continues to have minimal to no urine output despite multiple fluid boluses, PRBCs, and pressor support. Creatinine had to be sent to [place] secondary to elevated bilirubin level. Patient is significantly volume overloaded, [facility] was consulted. There was a question of whether to transfer to tertiary care center for higher level of support or our ICU. Per conversation with nephrology they feel they would be able to perform the necessary dialysis in-house. -Femoral dialysis catheter placed -Dialysis per nephro GI bleed Patient has significant anemia and was noted to be guaiac positive in the ED. Initially started on a Protonix drip and given blood. Gastroenterology consulted following recommendations -Vitamin K 10 mEq, Protonix drip, octreotide drip x3 days, if patient stabilizes would consider EGD to rule out varices Trend H&H RENAL/LYTES: Hepatorenal syndrome See above Metabolic acidosis Secondary to liver failure, acute renal failure, and sepsis. Volume resuscitation was performed in the ED, patient prepped for dialysis with femoral catheter. Given 2 Amps of bicarb in the ED. -Received 1 bag of bicarbonate -Electrolytes every 4 hours replete as indicated -Nephrology consulted following recommendations -Currently anuric : - No concerns at this time. ENDO: Hypoglycemia Blood glucose on presentation was 46, given IV dextrose in the ED. Repeat PSG was 58. Patient was given a 10% dextrose infusion and continued to improve. Patient's effusion was stopped secondary to dextrose other IV fluids he was receiving. Hypoglycemia like the secondary to end-stage liver failure -Most recent blood sugar was 119 -ICU hypoglycemia protocol in place HEME: Pancytopenia Secondary to fulminant liver failure. -Transfuse blood products as indicated Anemia Hemoglobin on presentation was 6.1 he was given 2 units of PRBCs -Most recent hemoglobin was 7.4 -Transfuse for hemoglobin less than 7 Coagulopathy secondary to liver failure INR presentation was 4.5 -FFP and vitamin K provided -Trend INR Patient is extremely high risk for bleeding ID: Sepsis Patient's blood cultures are growing gram-negative bacilli, when correlated with his physical exam findings tachycardia, hypotension, declining respiratory status, pancytopenia. There is significant concern for gram-negative bacteremia sepsis secondary to SBP -Zosyn -Most recent lactate 13.1 down from 14.8 patient may be responding to therapy -Pro-Trevor 4.43 -Given a dose of vancomycin and ctx in the ED -Monitor for signs and symptoms of clinical improvement INTEGUMENTARY: -Profoundly jaundiced secondary to hyperbilirubinemia secondary to end-stage liver cirrhosis LINES/IV ACCESS: -PIVs intact. -IJ in place -Femoral dialysis catheter in place DVT PROPHYLAXIS: -Contraindicated secondary to INR of 4.5 Dispo: ICU Thank you for allowing us to be part of this patient's care. Please refer to Dr. Pizano's documentation for any further recommendations. (2) Coagulopathy: (3) Hepatic encephalopathy: (4) Alcoholic hepatitis: (5) Goals of care, counseling/discussion: (6) Alcoholic cirrhosis: (7) Elevated INR: (8) Septic shock: (9) Acute hypoxemic respiratory failure: (10) Hypotension: (11) Hyperammonemia: (12) Hypoglycemia: Supervising Physician Co-Signing Physician Notes Dr. Lea was the resident-physician during care of patient. I separately evaluated patient for nunez portions of the history and the exam. I was present during the critical portion of medical decision making, and I discussed the case with the resident. I generally agree with the findings and plan except for any additions/exceptions noted. -Septic shock secondary to possible spontaneous bacterial peritonitis -Hepatic renal syndrome versus ischemic ATN -Anuric renal failure -Severe upper GI bleed -Severe metabolic encephalopathy with hyperammonemia -Fulminant liver failure with hypoglycemia -Acute hypoxemic respiratory failure secondary to all the above and bilateral pleural effusions -Severe jaundice This is a very unfortunate 58-year-old male with a past medical history of cirrhosis, ascites, paroxysmal atrial fibrillation with a complicated history of numerous alcohol withdrawal/DTs and a recent hospitalization earlier this year that required transfer to [facility] for liver failure which involved intubation who presents to the hospital in acute respiratory failure and septic shock. When I entered the emergency department around 10 AM patient was found to be flailing his arms and very tachypneic. On exam he appears extremely jaundiced with scleral icterus readily apparent. He has a significantly distended abdomen with a present fluid wave. Bedside ultrasound performed of his lungs and abdomen demonstrates significant third spacing with bilateral pleural effusions and massive ascites. He has scleral edema as well. He has significant edema in his lower extremities and scrotum. He has a profound metabolic acidosis with a rising lactic acidosis. He is in profound septic shock requiring high doses of 3 different pressors which include norepinephrine, phenylephrine and vasopressin. We are not starting epinephrine at this time given his significant tachycardia. We obtained a blood gas which showed a severe metabolic acidosis with a pH of roughly 7. I placed a central line in his right IJ and then emergently intubated him. And then performed the paracentesis which showed yellow turbid fluid. I then placed a right femoral dialysis catheter. We had long discussions with the hospitalist and cleaning and maintenance worker regarding dialysis. We contacted [facility] to transfer him but they refused the transfer. They indicated that given his advanced liver failure and is very poor prognosis that he would be a poor candidate for continuous renal replacement therapy. After discussion with the cleaning and maintenance worker, they indicated they could perform slow ultrafiltration to help with his acidosis. Currently he is again requiring escalating amounts of pressors and appears to have refractory hypotension. He is at very high likelihood of complete circulatory collapse and demise. Given his severely poor prognosis and the unlikelihood that he would survive this catastrophic event that his body has sustained, I think that it is in his best interest to be a DO NOT RESUSCITATE at this time. We have involved our ethics committee and palliative care and appreciate their assistance in the matter. Unfortunately, it does not appear that we are able to contact any family and thus there is no one to discuss CODE STATUS with. Again, due to his extremely poor prognosis and his condition being refractory to multiple modalities of treatment which include a ventilator, central line with pressors, dialysis, paracentesis, octreotide, Protonix, antibiotics and fluids, I think the most ethical thing would be to proceed with DNR in the event that he sustained a cardiac arrest. Update: At about 4:20 PM I spoke with the patient's sister Guillermo Pineda (who can be r eached at [phone]) and updated her about her brother status. She indicated to me that he has been in denial about his alcoholism and apparently left against the advice of his medical team in and august. He did not want to go to a alcohol and drug rehab. He is apparently had a falling out with his family for quite some time. She indicated to me that there were some extramarital affairs occurring that he was cheating on his current . He is still to his current named Amalia Buitrago, but they are still in the process of divorce. He is apparently living with another woman at this present time. I asked patient's sister if I should call the , but she indicated to me that she would prefer to speak to her herself. She does agree that the patient should be a DNR and has a very poor prognosis. She will get back to me regarding moving towards comfort care. I have personally spent approximately 180 minutes of critical care time in the direct management of this patient. This is a life/limb threatening event. This includes time spent evaluating patient, direct bedside care, chart review, placing orders, interpretation of diagnostic studies, discussion with co nsultants, patient, and/or family members regarding treatment decisions, as well as other required patient management activities. This time is exclusive of all separately billable procedures, and teaching time and separate from and in addition to any other critical care service time. History of Present Illness Attending Physician: Angelica Recinos MD History of Present Illness History is limited secondary to the patient's being obtunded and no secondary contacts. Please refer to ED documentation for further HPI. The telesales agent team was consulted for emergent evaluation and treatment of the patient due to his declining cardiovascular eliazar status. When we arrived the patient was obtunded, severely jaundiced, and pressor support has just been initiated. At this point we began to aggressive resuscitation techniques. A central line was placed, a paracentesis was performed, blood cultures obtained, patient started on Zosyn, and Vanco, ABG obtained, and dialysis catheter placed in the femoral vein. Subsequently the patient stabilized. We are unable to assess the patient's CODE STATUS on admission due to poor cognition. Furthermore we are unable to contact any relations of the patient. Therefore an ethics consult was placed to determine goals of care. Patient was subsequently transferred to the ICU for further treatment Allergies Allergy/AdvReac Type Severity Reaction Status Date / Time No Known Allergies Allergy Verified 10/29/18 18:41 Home Medications Home Medications Medication Instructions Recorded Confirmed Type famotidine 20 mg PO HS 10/29/18 01/03/19 History folic acid 1 mg PO QAM 10/29/18 01/03/19 History furosemide 40 mg PO BID 10/29/18 01/03/19 History lactulose 20 g PO QID 10/29/18 01/03/19 History spironolactone 100 mg PO BID 10/29/18 01/03/19 History thiamine HCl (vitamin B1) 100 mg PO DAILY 10/29/18 01/03/19 History Caffeine Free Water Pills 1 tab PO UD 01/03/19 01/03/19 History docusate sodium 100 mg PO BID 01/03/19 01/03/19 History furosemide 20 mg PO BID 01/03/19 01/03/19 History Patient History Medical History Alcoholic cirrhosis (Acute) Acute liver failure (Acute) Ascites due to alcoholic cirrhosis RBBB Paroxysmal atrial fibrillation with RVR (Acute) Family history non-contributory Surgical History No pertinent past surgical history Family History Other Family history non-contributory Social History Preferred Language: [place] Communication Ability: Unable Communication Ability Comment: Intubated at this time, no response to stimulation Sheriff Sergeant Required: No Beliefs That Will Affect Care: None Current Living Situation: Alone Current Living Situation Comment: Apartment Feels Safe at Home: Yes Smoking Status: Never smoker Tobacco Type: smokeless tobacco ; Second Hand Exposure: No ; Hx Alcohol Use: Yes Alcohol type: beer Hx Substance Use: No Physical Exam Physical Exam: General: Elderly gentleman appearing very ill, skin yellow, protuberant abdomen, not mentating HEENT: Normocephalic atraumatic Neck: Right IJ in place Cardiac: Regular rate and rhythm, tachycardia Respiratory: Labored breathing, tachypnea, positive crackles but no wheezes GI: Distended abdomen did not appreciate bowel sounds, positive for ascites, positive, positive for dullness to percussion MSK: Deferred Skin: Profound jaundice Neuro: Obtunded groaning and moaning replies yes to everything not alert nor oriented Psych: Unable to assess Results & Data Vital Signs (Past 12 Hours) Vital Signs Temp Pulse Pulse Resp BP BP Pulse Ox 01/03/19 12:10 92/52 L 96 01/03/19 12:07 115 H 86/54 L 94 01/03/19 12:05 115 H 87/55 L 95 01/03/19 12:03 115 H 98/53 L 94 01/03/19 12:00 35.3 C L 115 H 22 98/53 L 93 01/03/19 11:55 114 H 93 01/03/19 11:50 116 H 92 01/03/19 11:45 116 H 94 01/03/19 11:43 116 H 78/49 L 89 L 01/03/19 11:40 116 H 81/49 L 89 L 01/03/19 11:39 116 H 91 01/03/19 11:38 117 H 90/53 L 91 01/03/19 11:35 115 H 93/52 L 94 01/03/19 11:32 118 H 92/69 L 91 01/03/19 11:30 118 H 85/70 L 93 01/03/19 11:27 119 H 88/55 L 92 01/03/19 11:25 120 H 95/47 L 91 01/03/19 11:23 120 H 94/52 L 89 L 01/03/19 11:20 119 H 93/51 L 91 01/03/19 11:17 120 H 97/55 L 90 01/03/19 11:15 119 H 86/52 L 91 01/03/19 11:13 119 H 94/49 L 92 01/03/19 11:10 119 H 98/40 L 92 01/03/19 11:07 120 H 90/46 L 91 01/03/19 11:05 120 H 86/52 L 92 01/03/19 11:02 120 H 95/55 L 93 01/03/19 11:00 120 H 98/52 L 94 01/03/19 10:57 112 H 19 88/49 L 94 01/03/19 10:55 113 H 18 95/50 L 99 01/03/19 10:53 113 H 16 89/49 L 99 01/03/19 10:50 113 H 20 95/44 L 99 01/03/19 10:48 115 H 19 78/62 L 92 01/03/19 10:45 114 H 20 99/64 L 89 L 01/03/19 10:40 116 H 19 88/59 L 91 01/03/19 10:35 153 H 21 87/47 L 92 01/03/19 10:30 162 H 21 100/65 92 01/03/19 10:25 155 H 21 97/64 L 99 01/03/19 10:20 147 H 20 104/61 94 01/03/19 10:15 132 H 19 91/71 L 96 01/03/19 10:10 150 H 21 100/62 91 01/03/19 10:06 146 H 21 91/57 L 95 01/03/19 10:05 136 H 20 91/57 L 94 01/03/19 10:00 141 H 21 92/47 L 93 01/03/19 09:58 149 H 19 70/33 L 94 01/03/19 09:55 142 H 22 94 01/03/19 09:50 134 H 18 92 01/03/19 09:47 34.3 C L 134 H 20 70/51 L 93 01/03/19 09:46 132 H 19 70/51 L 93 01/03/19 09:45 132 H 18 70/51 L 88 L 01/03/19 09:40 135 H 20 93 01/03/19 09:37 140 H 20 96 01/03/19 09:36 144 H 18 66/52 L 97 01/03/19 09:35 149 H 19 97 01/03/19 09:33 34.6 C L 139 H 20 65/44 L 97 01/03/19 09:30 128 H 20 65/44 L 95 01/03/19 09:26 139 H 17 81 L 01/03/19 09:25 128 H 19 75/51 L 94 01/03/19 09:20 134 H 22 92 01/03/19 09:15 23 75/53 L 92 01/03/19 09:12 152 H 21 68/51 L 92 01/03/19 09:10 136 H 21 90 01/03/19 09:05 158 H 18 94 01/03/19 08:55 158 H 21 93 01/03/19 08:51 145 H 23 88/67 L 89 L 01/03/19 08:50 165 H 24 90 01/03/19 08:46 110 H 20 77/44 L 96 01/03/19 08:45 110 H 19 77/44 L 93 01/03/19 08:43 111 H 19 75/46 L 96 01/03/19 08:42 112 H 19 93 01/03/19 08:20 121 H 23 95 01/03/19 08:15 112 H 23 83/50 L 96 01/03/19 08:10 112 H 22 95 01/03/19 08:07 111 H 20 83/48 L 95 01/03/19 08:05 111 H 24 95 01/03/19 08:03 112 H 23 76/42 L 94 01/03/19 08:01 111 H 25 H 77/44 L 96 01/03/19 08:00 112 H 23 80/54 L 97 01/03/19 07:59 111 H 20 105/49 L 96 01/03/19 07:56 112 H 22 105/49 L 97 01/03/19 07:55 111 H 22 93 01/03/19 07:50 113 H 22 89 L 01/03/19 07:48 114 H 24 88/51 L 88 L 01/03/19 07:46 114 H 26 H 58/40 L 87 L 01/03/19 07:45 115 H 20 85 L 01/03/19 07:40 113 H 23 91 01/03/19 07:37 34.5 C L 114 H 18 85 L 01/03/19 07:35 115 H 22 99/53 L 93 01/03/19 07:31 117 H 23 85 L 01/03/19 07:24 116 H 25 H 95/58 L 90 Laboratory Results 01/03/19 01/03/19 01/03/19 Range/Units Unknown 17:12 17:12 WBC (4.8-10.8) K/uL RBC (4.7-6.1) M/uL Hgb (14.0-18.0) g/dL POC Hgb (14.0-18.0) g/dl Hct (42-52) % POC Hct (42-52) % MCV (80-100) fL MCH (25-34) pg MCHC (32-36) g/dL RDW Std Deviation (36.4-46.3) fL RDW Coeff of Lesley (11.5-14.5) % Plt Count (130-400) K/uL MPV (7.4-10.4) fL Immature Gran % (Auto) % Neut % (Auto) % Lymph % (Auto) % [place] % (Auto) % Eos % (Auto) % Baso % (Auto) % Immature Gran # (Auto) (0.00-0.02) K/uL Neut # (Auto) (1.4-6.5) K/uL Lymph # (Auto) (1.2-3.4) K/uL [place] # (Auto) (0.11-0.59) K/uL Eos # (Auto) (0-0.5) K/uL Baso # (Auto) (0-0.2) K/uL Absolute Nucleated RBC (0-0) K/uL Nucleated RBC % (auto) % Toxic Vacuolation Dohle Bodies Platelet Estimate (Normal) Polychromasia Macrocytosis Echinocytes PT (9.0-12.0) Seconds INR (0.9-1.1) Fibrinogen (184-400) mg/dl Sample Site POC pH (7.35-7.45) POC pCO2 (35-46) mmHg POC pO2 (80-95) mmHg POC HCO3 (19-24) solomon/L POC Total CO2 (24-31) mEq/l POC Base Excess (-9-1.8) solomon/L Mervin Test O2 Delivery Device POC O2 Rate Minute Ventilation POC FiO2 % Tidal Volume PEEP POC Sodium (135-144) mEq/L Sodium (136-145) mmol/L POC Potassium (3.3-5.0) mEq/L Potassium (3.5-5.1) mmol/L Chloride (98-107) mmol/L Carbon Dioxide (21-32) mmol/L Anion Gap (3-11) BUN (7-18) mg/dl Creatinine (0.6-1.4) mg/dl Est Cr Clr Drug Dosing Est GFR ( Amer) Est GFR (Non-Af Amer) BUN/Creatinine Ratio Glucose (70-99) mg/dl POC Glucose (70-99) POC Glucose (other) (70-99) mg/dl Lactate 13.1 H* (0.4-2.0) mmol/L Calcium (8.5-10.1) mg/dl Magnesium Total Bilirubin (0.2-1) mg/dl Direct Bilirubin (0-0.2) mg/dl AST (15-37) U/L ALT (12-78) U/L Alkaline Phosphatase (45-117) U/L Ammonia (11-32) umol/L Lactate Dehydrogenase 468 H (87-241) U/L Total Creatine Kinase (39-308) U/L Troponin I (0-0.045) ng/ml Total Protein (6.4-8.2) gm/dl Albumin (3.4-5.0) gm/dl Globulin Albumin/Globulin Ratio Procalcitonin (0-0.5) ng/ml TSH (0.300-4.500) uIu/ml Peritoneal Color WEN Peritoneal Appearance HAZY Peritoneal WBC 3771 H (0-300) /ul Peritoneal RBC 3000 /uL Mononuclear WBCs % 24.4 % Polynuclear WBCs % 75.6 % Peritoneal Tot Protein 0.5 g/dl Peritoneal Albumin < 0.6 g/dl Nasal Screen MRSA (PCR) (Negative) Hep Bs Antigen Hep Bs Antibody Hep Bs Antibody, Quant Miscellaneous Test Ref Lab Test Result Blood Type Antibody Screen Crossmatch 01/03/19 01/03/19 01/03/19 Range/Units 17:12 17:12 17:12 WBC 2.32 L (4.8-10.8) K/uL RBC 2.15 L (4.7-6.1) M/uL Hgb 7.4 L (14.0-18.0) g/dL POC Hgb (14.0-18.0) g/dl Hct 22.8 L (42-52) % POC Hct (42-52) % MCV 106.0 H (80-100) fL MCH 34.4 H (25-34) pg MCHC 32.5 (32-36) g/dL RDW Std Deviation 79.4 H (36.4-46.3) fL RDW Coeff of Lesley 22.3 H (11.5-14.5) % Plt Count 46 L (130-400) K/uL MPV 9.3 (7.4-10.4) fL Immature Gran % (Auto) % Neut % (Auto) % Lymph % (Auto) % [place] % (Auto) % Eos % (Auto) % Baso % (Auto) % Immature Gran # (Auto) (0.00-0.02) K/uL Neut # (Auto) (1.4-6.5) K/uL Lymph # (Auto) (1.2-3.4) K/uL [place] # (Auto) (0.11-0.59) K/uL Eos # (Auto) (0-0.5) K/uL Baso # (Auto) (0-0.2) K/uL Absolute Nucleated RBC 1.19 H (0-0) K/uL Nucleated RBC % (auto) 51.3 % Toxic Vacuolation Dohle Bodies Platelet Estimate (Normal) Polychromasia Macrocytosis Echinocytes PT 26.4 H (9.0-12.0) Seconds INR 2.8 H (0.9-1.1) Fibrinogen (184-400) mg/dl Sample Site POC pH (7.35-7.45) POC pCO2 (35-46) mmHg POC pO2 (80-95) mmHg POC HCO3 (19-24) solomon/L POC Total CO2 (24-31) mEq/l POC Base Excess (-9-1.8) solomon/L Mervin Test O2 Delivery Device POC O2 Rate Minute Ventilation POC FiO2 % Tidal Volume PEEP POC Sodium (135-144) mEq/L Sodium Pending (136-145) mmol/L POC Potassium (3.3-5.0) mEq/L Potassium Pending (3.5-5.1) mmol/L Chloride Pending (98-107) mmol/L Carbon Dioxide Pending (21-32) mmol/L Anion Gap Pending (3-11) BUN Pending (7-18) mg/dl Creatinine Pending (0.6-1.4) mg/dl Est Cr Clr Drug Dosing Pending Est GFR ( Amer) Pending Est GFR (Non-Af Amer) Pending BUN/Creatinine Ratio Pending Glucose Pending (70-99) mg/dl POC Glucose (70-99) POC Glucose (other) (70-99) mg/dl Lactate (0.4-2.0) mmol/L Calcium Pending (8.5-10.1) mg/dl Magnesium Pending Total Bilirubin Pending (0.2-1) mg/dl Direct Bilirubin Pending (0-0.2) mg/dl AST Pending (15-37) U/L ALT Pending (12-78) U/L Alkaline Phosphatase Pending (45-117) U/L Ammonia (11-32) umol/L Lactate Dehydrogenase (87-241) U/L Total Creatine Kinase (39-308) U/L Troponin I (0-0.045) ng/ml Total Protein Pending (6.4-8.2) gm/dl Albumin Pending (3.4-5.0) gm/dl Globulin Pending Albumin/Globulin Ratio Pending Procalcitonin (0-0.5) ng/ml TSH (0.300-4.500) uIu/ml Peritoneal Color Peritoneal Appearance Peritoneal WBC (0-300) /ul Peritoneal RBC /uL Mononuclear WBCs % % Polynuclear WBCs % % Peritoneal Tot Protein g/dl Peritoneal Albumin g/dl Nasal Screen MRSA (PCR) (Negative) Hep Bs Antigen Hep Bs Antibody Hep Bs Antibody, Quant Miscellaneous Test Ref Lab Test Result Blood Type Antibody Screen Crossmatch 01/03/19 01/03/19 01/03/19 Range/Units 15:31 15:25 15:23 WBC (4.8-10.8) K/uL RBC (4.7-6.1) M/uL Hgb (14.0-18.0) g/dL POC Hgb (14.0-18.0) g/dl Hct (42-52) % POC Hct (42-52) % MCV (80-100) fL MCH (25-34) pg MCHC (32-36) g/dL RDW Std Deviation (36.4-46.3) fL RDW Coeff of Lesley (11.5-14.5) % Plt Count (130-400) K/uL MPV (7.4-10.4) fL Immature Gran % (Auto) % Neut % (Auto) % Lymph % (Auto) % [place] % (Auto) % Eos % (Auto) % Baso % (Auto) % Immature Gran # (Auto) (0.00-0.02) K/uL Neut # (Auto) (1.4-6.5) K/uL Lymph # (Auto) (1.2-3.4) K/uL [place] # (Auto) (0.11-0.59) K/uL Eos # (Auto) (0-0.5) K/uL Baso # (Auto) (0-0.2) K/uL Absolute Nucleated RBC (0-0) K/uL Nucleated RBC % (auto) % Toxic Vacuolation Dohle Bodies Platelet Estimate (Normal) Polychromasia Macrocytosis Echinocytes PT (9.0-12.0) Seconds INR (0.9-1.1) Fibrinogen 115 L (184-400) mg/dl Sample Site POC pH (7.35-7.45) POC pCO2 (35-46) mmHg POC pO2 (80-95) mmHg POC HCO3 (19-24) solomon/L POC Total CO2 (24-31) mEq/l POC Base Excess (-9-1.8) solomon/L Mervin Test O2 Delivery Device POC O2 Rate Minute Ventilation POC FiO2 % Tidal Volume PEEP POC Sodium (135-144) mEq/L Sodium (136-145) mmol/L POC Potassium (3.3-5.0) mEq/L Potassium (3.5-5.1) mmol/L Chloride (98-107) mmol/L Carbon Dioxide (21-32) mmol/L Anion Gap (3-11) BUN (7-18) mg/dl Creatinine (0.6-1.4) mg/dl Est Cr Clr Drug Dosing Est GFR ( Amer) Est GFR (Non-Af Amer) BUN/Creatinine Ratio Glucose (70-99) mg/dl POC Glucose (70-99) POC Glucose (other) 119 H (70-99) mg/dl Lactate (0.4-2.0) mmol/L Calcium (8.5-10.1) mg/dl Magnesium Total Bilirubin (0.2-1) mg/dl Direct Bilirubin (0-0.2) mg/dl AST (15-37) U/L ALT (12-78) U/L Alkaline Phosphatase (45-117) U/L Ammonia (11-32) umol/L Lactate Dehydrogenase (87-241) U/L Total Creatine Kinase (39-308) U/L Troponin I (0-0.045) ng/ml Total Protein (6.4-8.2) gm/dl Albumin (3.4-5.0) gm/dl Globulin Albumin/Globulin Ratio Procalcitonin (0-0.5) ng/ml TSH (0.300-4.500) uIu/ml Peritoneal Color Peritoneal Appearance Peritoneal WBC (0-300) /ul Peritoneal RBC /uL Mononuclear WBCs % % Polynuclear WBCs % % Peritoneal Tot Protein g/dl Peritoneal Albumin g/dl Nasal Screen MRSA (PCR) Negative (Negative) Hep Bs Antigen Hep Bs Antibody Hep Bs Antibody, Quant Miscellaneous Test Ref Lab Test Result Blood Type Antibody Screen Crossmatch 09/19/19 09/19/19 09/19/19 Range/Units 13:41 13:23 12:45 WBC 1.19 L (4.8-10.8) K/uL RBC 1.97 L (4.7-6.1) M/uL Hgb 7.0 L (14.0-18.0) g/dL POC Hgb 6.5 L* (14.0-18.0) g/dl Hct 21.4 L (42-52) % POC Hct 19 L* (42-52) % MCV 108.6 H D (80-100) fL MCH 35.5 H (25-34) pg MCHC 32.7 (32-36) g/dL RDW Std Deviation 82.3 H (36.4-46.3) fL RDW Coeff of Lesley 22.3 H (11.5-14.5) % Plt Count 59 L (130-400) K/uL MPV 9.2 (7.4-10.4) fL Immature Gran % (Auto) % Neut % (Auto) % Lymph % (Auto) % [place] % (Auto) % Eos % (Auto) % Baso % (Auto) % Immature Gran # (Auto) (0.00-0.02) K/uL Neut # (Auto) (1.4-6.5) K/uL Lymph # (Auto) (1.2-3.4) K/uL [place] # (Auto) (0.11-0.59) K/uL Eos # (Auto) (0-0.5) K/uL Baso # (Auto) (0-0.2) K/uL Absolute Nucleated RBC 0.41 H (0-0) K/uL Nucleated RBC % (auto) 33.9 % Toxic Vacuolation Dohle Bodies Platelet Estimate Decreased L (Normal) Polychromasia Macrocytosis Echinocytes PT (9.0-12.0) Seconds INR (0.9-1.1) Fibrinogen (184-400) mg/dl Sample Site L Radial POC pH 7.16 L* (7.35-7.45) POC pCO2 31 L (35-46) mmHg POC pO2 70 L (80-95) mmHg POC HCO3 11 L (19-24) solomon/L POC Total CO2 12 L (24-31) mEq/l POC Base Excess -17.0 L (-9-1.8) solomon/L Mervin Test Pass O2 Delivery Device Ventilator POC O2 Rate 28 Minute Ventilation 15.6 POC FiO2 75 % Tidal Volume 420 PEEP 5 POC Sodium 128 L (135-144) mEq/L Sodium (136-145) mmol/L POC Potassium 4.1 (3.3-5.0) mEq/L Potassium (3.5-5.1) mmol/L Chloride (98-107) mmol/L Carbon Dioxide (21-32) mmol/L Anion Gap (3-11) BUN (7-18) mg/dl Creatinine (0.6-1.4) mg/dl Est Cr Clr Drug Dosing Est GFR ( Amer) Est GFR (Non-Af Amer) BUN/Creatinine Ratio Glucose (70-99) mg/dl POC Glucose (70-99) POC Glucose (other) (70-99) mg/dl Lactate (0.4-2.0) mmol/L Calcium (8.5-10.1) mg/dl Magnesium Total Bilirubin (0.2-1) mg/dl Direct Bilirubin (0-0.2) mg/dl AST (15-37) U/L ALT (12-78) U/L Alkaline Phosphatase (45-117) U/L Ammonia (11-32) umol/L Lactate Dehydrogenase (87-241) U/L Total Creatine Kinase (39-308) U/L Troponin I (0-0.045) ng/ml Total Protein (6.4-8.2) gm/dl Albumin (3.4-5.0) gm/dl Globulin Albumin/Globulin Ratio Procalcitonin (0-0.5) ng/ml TSH (0.300-4.500) uIu/ml Peritoneal Color Peritoneal Appearance Peritoneal WBC (0-300) /ul Peritoneal RBC /uL Mononuclear WBCs % % Polynuclear WBCs % % Peritoneal Tot Protein g/dl Peritoneal Albumin g/dl Nasal Screen MRSA (PCR) (Negative) Hep Bs Antigen Hep Bs Antibody Hep Bs Antibody, Quant Miscellaneous Test Pending Ref Lab Test Result Blood Type Antibody Screen Crossmatch 01/03/19 01/03/19 01/03/19 Range/Units 12:45 12:42 12:42 WBC (4.8-10.8) K/uL RBC (4.7-6.1) M/uL Hgb (14.0-18.0) g/dL POC Hgb (14.0-18.0) g/dl Hct (42-52) % POC Hct (42-52) % MCV (80-100) fL MCH (25-34) pg MCHC (32-36) g/dL RDW Std Deviation (36.4-46.3) fL RDW Coeff of Lesley (11.5-14.5) % Plt Count (130-400) K/uL MPV (7.4-10.4) fL Immature Gran % (Auto) % Neut % (Auto) % Lymph % (Auto) % [place] % (Auto) % Eos % (Auto) % Baso % (Auto) % Immature Gran # (Auto) (0.00-0.02) K/uL Neut # (Auto) (1.4-6.5) K/uL Lymph # (Auto) (1.2-3.4) K/uL [place] # (Auto) (0.11-0.59) K/uL Eos # (Auto) (0-0.5) K/uL Baso # (Auto) (0-0.2) K/uL Absolute Nucleated RBC (0-0) K/uL Nucleated RBC % (auto) % Toxic Vacuolation Dohle Bodies Platelet Estimate (Normal) Polychromasia Macrocytosis Echinocytes PT (9.0-12.0) Seconds INR (0.9-1.1) Fibrinogen (184-400) mg/dl Sample Site POC pH (7.35-7.45) POC pCO2 (35-46) mmHg POC pO2 (80-95) mmHg POC HCO3 (19-24) solomon/L POC Total CO2 (24-31) mEq/l POC Base Excess (-9-1.8) solomon/L Mervin Test O2 Delivery Device POC O2 Rate Minute Ventilation POC FiO2 % Tidal Volume PEEP POC Sodium (135-144) mEq/L Sodium (136-145) mmol/L POC Potassium (3.3-5.0) mEq/L Potassium (3.5-5.1) mmol/L Chloride (98-107) mmol/L Carbon Dioxide (21-32) mmol/L Anion Gap (3-11) BUN (7-18) mg/dl Creatinine (0.6-1.4) mg/dl Est Cr Clr Drug Dosing Est GFR ( Amer) Est GFR (Non-Af Amer) BUN/Creatinine Ratio Glucose (70-99) mg/dl POC Glucose (70-99) POC Glucose (other) 169 H (70-99) mg/dl Lactate 14.8 H* (0.4-2.0) mmol/L Calcium (8.5-10.1) mg/dl Magnesium Total Bilirubin (0.2-1) mg/dl Direct Bilirubin (0-0.2) mg/dl AST (15-37) U/L ALT (12-78) U/L Alkaline Phosphatase (45-117) U/L Ammonia (11-32) umol/L Lactate Dehydrogenase (87-241) U/L Total Creatine Kinase (39-308) U/L Troponin I (0-0.045) ng/ml Total Protein (6.4-8.2) gm/dl Albumin (3.4-5.0) gm/dl Globulin Albumin/Globulin Ratio Procalcitonin 4.43 H (0-0.5) ng/ml TSH (0.300-4.500) uIu/ml Peritoneal Color Peritoneal Appearance Peritoneal WBC (0-300) /ul Peritoneal RBC /uL Mononuclear WBCs % % Polynuclear WBCs % % Peritoneal Tot Protein g/dl Peritoneal Albumin g/dl Nasal Screen MRSA (PCR) (Negative) Hep Bs Antigen Hep Bs Antibody Hep Bs Antibody, Quant Miscellaneous Test Ref Lab Test Result Blood Type Antibody Screen Crossmatch 01/03/19 01/03/19 01/03/19 Range/Units 12:42 12:42 11:02 WBC (4.8-10.8) K/uL RBC (4.7-6.1) M/uL Hgb (14.0-18.0) g/dL POC Hgb (14.0-18.0) g/dl Hct (42-52) % POC Hct (42-52) % MCV (80-100) fL MCH (25-34) pg MCHC (32-36) g/dL RDW Std Deviation (36.4-46.3) fL RDW Coeff of Lesley (11.5-14.5) % Plt Count (130-400) K/uL MPV (7.4-10.4) fL Immature Gran % (Auto) % Neut % (Auto) % Lymph % (Auto) % [place] % (Auto) % Eos % (Auto) % Baso % (Auto) % Immature Gran # (Auto) (0.00-0.02) K/uL Neut # (Auto) (1.4-6.5) K/uL Lymph # (Auto) (1.2-3.4) K/uL [place] # (Auto) (0.11-0.59) K/uL Eos # (Auto) (0-0.5) K/uL Baso # (Auto) (0-0.2) K/uL Absolute Nucleated RBC (0-0) K/uL Nucleated RBC % (auto) % Toxic Vacuolation Dohle Bodies Platelet Estimate (Normal) Polychromasia Macrocytosis Echinocytes PT 33.1 H (9.0-12.0) Seconds INR 3.5 H (0.9-1.1) Fibrinogen (184-400) mg/dl Sample Site POC pH (7.35-7.45) POC pCO2 (35-46) mmHg POC pO2 (80-95) mmHg POC HCO3 (19-24) solomon/L POC Total CO2 (24-31) mEq/l POC Base Excess (-9-1.8) solomon/L Mervin Test O2 Delivery Device POC O2 Rate Minute Ventilation POC FiO2 % Tidal Volume PEEP POC Sodium (135-144) mEq/L Sodium 131 L (136-145) mmol/L POC Potassium (3.3-5.0) mEq/L Potassium 4.5 (3.5-5.1) mmol/L Chloride 96 L (98-107) mmol/L Carbon Dioxide 13 L (21-32) mmol/L Anion Gap 22.0 H (3-11) BUN 39 H (7-18) mg/dl Creatinine (0.6-1.4) mg/dl Est Cr Clr Drug Dosing TNP Est GFR ( Amer) TNP Est GFR (Non-Af Amer) TNP BUN/Creatinine Ratio TNP Glucose 175 H (70-99) mg/dl POC Glucose 141 H (70-99) POC Glucose (other) (70-99) mg/dl Lactate (0.4-2.0) mmol/L Calcium 6.9 L (8.5-10.1) mg/dl Magnesium Total Bilirubin 21.3 H (0.2-1) mg/dl Direct Bilirubin 14.3 H (0-0.2) mg/dl AST 155 H (15-37) U/L ALT 45 (12-78) U/L Alkaline Phosphatase 34 L (45-117) U/L Ammonia (11-32) umol/L Lactate Dehydrogenase (87-241) U/L Total Creatine Kinase (39-308) U/L Troponin I 0.120 H* (0-0.045) ng/ml Total Protein (6.4-8.2) gm/dl Albumin 1.4 L (3.4-5.0) gm/dl Globulin TNP Albumin/Globulin Ratio TNP Procalcitonin (0-0.5) ng/ml TSH (0.300-4.500) uIu/ml Peritoneal Color Peritoneal Appearance Peritoneal WBC (0-300) /ul Peritoneal RBC /uL Mononuclear WBCs % % Polynuclear WBCs % % Peritoneal Tot Protein g/dl Peritoneal Albumin g/dl Nasal Screen MRSA (PCR) (Negative) Hep Bs Antigen Hep Bs Antibody Hep Bs Antibody, Quant Miscellaneous Test Ref Lab Test Result Blood Type Antibody Screen Crossmatch 01/03/19 01/03/19 01/03/19 Range/Units 10:27 09:56 09:13 WBC (4.8-10.8) K/uL RBC (4.7-6.1) M/uL Hgb (14.0-18.0) g/dL POC Hgb 6.5 L* (14.0-18.0) g/dl Hct (42-52) % POC Hct 19 L* (42-52) % MCV (80-100) fL MCH (25-34) pg MCHC (32-36) g/dL RDW Std Deviation (36.4-46.3) fL RDW Coeff of Lesley (11.5-14.5) % Plt Count (130-400) K/uL MPV (7.4-10.4) fL Immature Gran % (Auto) % Neut % (Auto) % Lymph % (Auto) % [place] % (Auto) % Eos % (Auto) % Baso % (Auto) % Immature Gran # (Auto) (0.00-0.02) K/uL Neut # (Auto) (1.4-6.5) K/uL Lymph # (Auto) (1.2-3.4) K/uL [place] # (Auto) (0.11-0.59) K/uL Eos # (Auto) (0-0.5) K/uL Baso # (Auto) (0-0.2) K/uL Absolute Nucleated RBC (0-0) K/uL Nucleated RBC % (auto) % Toxic Vacuolation Dohle Bodies Platelet Estimate (Normal) Polychromasia Macrocytosis Echinocytes PT (9.0-12.0) Seconds INR (0.9-1.1) Fibrinogen (184-400) mg/dl Sample Site POC pH 7.10 L* (7.35-7.45) POC pCO2 42 (35-46) mmHg POC pO2 98 H (80-95) mmHg POC HCO3 13 L (19-24) solomon/L POC Total CO2 14 L (24-31) mEq/l POC Base Excess -17.0 L (-9-1.8) solomon/L Mervin Test O2 Delivery Device POC O2 Rate Minute Ventilation POC FiO2 % Tidal Volume PEEP POC Sodium 130 L (135-144) mEq/L Sodium (136-145) mmol/L POC Potassium 4.5 (3.3-5.0) mEq/L Potassium (3.5-5.1) mmol/L Chloride (98-107) mmol/L Carbon Dioxide (21-32) mmol/L Anion Gap (3-11) BUN (7-18) mg/dl Creatinine (0.6-1.4) mg/dl Est Cr Clr Drug Dosing Est GFR ( Amer) Est GFR (Non-Af Amer) BUN/Creatinine Ratio Glucose (70-99) mg/dl POC Glucose 130 H 46 L* (70-99) POC Glucose (other) (70-99) mg/dl Lactate (0.4-2.0) mmol/L Calcium (8.5-10.1) mg/dl Magnesium Total Bilirubin (0.2-1) mg/dl Direct Bilirubin (0-0.2) mg/dl AST (15-37) U/L ALT (12-78) U/L Alkaline Phosphatase (45-117) U/L Ammonia (11-32) umol/L Lactate Dehydrogenase (87-241) U/L Total Creatine Kinase (39-308) U/L Troponin I (0-0.045) ng/ml Total Protein (6.4-8.2) gm/dl Albumin (3.4-5.0) gm/dl Globulin Albumin/Globulin Ratio Procalcitonin (0-0.5) ng/ml TSH (0.300-4.500) uIu/ml Peritoneal Color Peritoneal Appearance Peritoneal WBC (0-300) /ul Peritoneal RBC /uL Mononuclear WBCs % % Polynuclear WBCs % % Peritoneal Tot Protein g/dl Peritoneal Albumin g/dl Nasal Screen MRSA (PCR) (Negative) Hep Bs Antigen Hep Bs Antibody Hep Bs Antibody, Quant Miscellaneous Test Ref Lab Test Result Blood Type Antibody Screen Crossmatch 01/03/19 01/03/19 01/03/19 Range/Units 08:09 07:41 07:41 WBC (4.8-10.8) K/uL RBC (4.7-6.1) M/uL Hgb (14.0-18.0) g/dL POC Hgb (14.0-18.0) g/dl Hct (42-52) % POC Hct (42-52) % MCV (80-100) fL MCH (25-34) pg MCHC (32-36) g/dL RDW Std Deviation (36.4-46.3) fL RDW Coeff of Lesley (11.5-14.5) % Plt Count (130-400) K/uL MPV (7.4-10.4) fL Immature Gran % (Auto) % Neut % (Auto) % Lymph % (Auto) % [place] % (Auto) % Eos % (Auto) % Baso % (Auto) % Immature Gran # (Auto) (0.00-0.02) K/uL Neut # (Auto) (1.4-6.5) K/uL Lymph # (Auto) (1.2-3.4) K/uL [place] # (Auto) (0.11-0.59) K/uL Eos # (Auto) (0-0.5) K/uL Baso # (Auto) (0-0.2) K/uL Absolute Nucleated RBC (0-0) K/uL Nucleated RBC % (auto) % Toxic Vacuolation Dohle Bodies Platelet Estimate (Normal) Polychromasia Macrocytosis Echinocytes PT (9.0-12.0) Seconds INR (0.9-1.1) Fibrinogen (184-400) mg/dl Sample Site POC pH (7.35-7.45) POC pCO2 (35-46) mmHg POC pO2 (80-95) mmHg POC HCO3 (19-24) solomon/L POC Total CO2 (24-31) mEq/l POC Base Excess (-9-1.8) solomon/L Mervin Test O2 Delivery Device POC O2 Rate Minute Ventilation POC FiO2 % Tidal Volume PEEP POC Sodium (135-144) mEq/L Sodium (136-145) mmol/L POC Potassium (3.3-5.0) mEq/L Potassium (3.5-5.1) mmol/L Chloride (98-107) mmol/L Carbon Dioxide (21-32) mmol/L Anion Gap (3-11) BUN (7-18) mg/dl Creatinine (0.6-1.4) mg/dl Est Cr Clr Drug Dosing Est GFR ( Amer) Est GFR (Non-Af Amer) BUN/Creatinine Ratio Glucose (70-99) mg/dl POC Glucose 43 L* (70-99) POC Glucose (other) (70-99) mg/dl Lactate (0.4-2.0) mmol/L Calcium (8.5-10.1) mg/dl Magnesium Total Bilirubin (0.2-1) mg/dl Direct Bilirubin (0-0.2) mg/dl AST (15-37) U/L ALT (12-78) U/L Alkaline Phosphatase (45-117) U/L Ammonia 276.1 H (11-32) umol/L Lactate Dehydrogenase (87-241) U/L Total Creatine Kinase (39-308) U/L Troponin I (0-0.045) ng/ml Total Protein (6.4-8.2) gm/dl Albumin (3.4-5.0) gm/dl Globulin Albumin/Globulin Ratio Procalcitonin (0-0.5) ng/ml TSH (0.300-4.500) uIu/ml Peritoneal Color Peritoneal Appearance Peritoneal WBC (0-300) /ul Peritoneal RBC /uL Mononuclear WBCs % % Polynuclear WBCs % % Peritoneal Tot Protein g/dl Peritoneal Albumin g/dl Nasal Screen MRSA (PCR) (Negative) Hep Bs Antigen Hep Bs Antibody Hep Bs Antibody, Quant Miscellaneous Test Ref Lab Test Result Blood Type Antibody Screen Crossmatch 01/03/19 01/03/19 01/03/19 Range/Units 07:41 07:41 07:41 WBC (4.8-10.8) K/uL RBC (4.7-6.1) M/uL Hgb (14.0-18.0) g/dL POC Hgb (14.0-18.0) g/dl Hct (42-52) % POC Hct (42-52) % MCV (80-100) fL MCH (25-34) pg MCHC (32-36) g/dL RDW Std Deviation (36.4-46.3) fL RDW Coeff of Lesley (11.5-14.5) % Plt Count (130-400) K/uL MPV (7.4-10.4) fL Immature Gran % (Auto) % Neut % (Auto) % Lymph % (Auto) % [place] % (Auto) % Eos % (Auto) % Baso % (Auto) % Immature Gran # (Auto) (0.00-0.02) K/uL Neut # (Auto) (1.4-6.5) K/uL Lymph # (Auto) (1.2-3.4) K/uL [place] # (Auto) (0.11-0.59) K/uL Eos # (Auto) (0-0.5) K/uL Baso # (Auto) (0-0.2) K/uL Absolute Nucleated RBC (0-0) K/uL Nucleated RBC % (auto) % Toxic Vacuolation Dohle Bodies Platelet Estimate (Normal) Polychromasia Macrocytosis Echinocytes PT (9.0-12.0) Seconds INR (0.9-1.1) Fibrinogen (184-400) mg/dl Sample Site POC pH (7.35-7.45) POC pCO2 (35-46) mmHg POC pO2 (80-95) mmHg POC HCO3 (19-24) solomon/L POC Total CO2 (24-31) mEq/l POC Base Excess (-9-1.8) solomon/L Mervin Test O2 Delivery Device POC O2 Rate Minute Ventilation POC FiO2 % Tidal Volume PEEP POC Sodium (135-144) mEq/L Sodium (136-145) mmol/L POC Potassium (3.3-5.0) mEq/L Potassium (3.5-5.1) mmol/L Chloride (98-107) mmol/L Carbon Dioxide (21-32) mmol/L Anion Gap (3-11) BUN (7-18) mg/dl Creatinine (0.6-1.4) mg/dl Est Cr Clr Drug Dosing Est GFR ( Amer) Est GFR (Non-Af Amer) BUN/Creatinine Ratio Glucose (70-99) mg/dl POC Glucose (70-99) POC Glucose (other) (70-99) mg/dl Lactate 12.4 H* (0.4-2.0) mmol/L Calcium (8.5-10.1) mg/dl Magnesium Total Bilirubin (0.2-1) mg/dl Direct Bilirubin (0-0.2) mg/dl AST (15-37) U/L ALT (12-78) U/L Alkaline Phosphatase (45-117) U/L Ammonia (11-32) umol/L Lactate Dehydrogenase (87-241) U/L Total Creatine Kinase (39-308) U/L Troponin I Cancelled (0-0.045) ng/ml Total Protein (6.4-8.2) gm/dl Albumin (3.4-5.0) gm/dl Globulin Albumin/Globulin Ratio Procalcitonin (0-0.5) ng/ml TSH (0.300-4.500) uIu/ml Peritoneal Color Peritoneal Appearance Peritoneal WBC (0-300) /ul Peritoneal RBC /uL Mononuclear WBCs % % Polynuclear WBCs % % Peritoneal Tot Protein g/dl Peritoneal Albumin g/dl Nasal Screen MRSA (PCR) (Negative) Hep Bs Antigen Hep Bs Antibody Hep Bs Antibody, Quant Miscellaneous Test Ref Lab Test Result Blood Type O Negative Antibody Screen NEGATIVE Crossmatch See Detail 01/03/19 01/03/19 01/03/19 Range/Units 07:41 07:41 07:41 WBC 2.07 L (4.8-10.8) K/uL RBC 1.89 L (4.7-6.1) M/uL Hgb 7.1 L (14.0-18.0) g/dL POC Hgb (14.0-18.0) g/dl Hct 22.0 L (42-52) % POC Hct (42-52) % MCV 116.4 H (80-100) fL MCH 37.6 H (25-34) pg MCHC 32.3 (32-36) g/dL RDW Std Deviation 71.8 H (36.4-46.3) fL RDW Coeff of Lesley 18.2 H (11.5-14.5) % Plt Count 104 L (130-400) K/uL MPV 9.1 (7.4-10.4) fL Immature Gran % (Auto) 1.4 % Neut % (Auto) 64.8 % Lymph % (Auto) 30.9 % [place] % (Auto) 1.9 % Eos % (Auto) 0.5 % Baso % (Auto) 0.5 % Immature Gran # (Auto) 0.03 H (0.00-0.02) K/uL Neut # (Auto) 1.34 L (1.4-6.5) K/uL Lymph # (Auto) 0.64 L (1.2-3.4) K/uL [place] # (Auto) 0.04 L (0.11-0.59) K/uL Eos # (Auto) 0.01 (0-0.5) K/uL Baso # (Auto) 0.01 (0-0.2) K/uL Absolute Nucleated RBC 0.14 H (0-0) K/uL Nucleated RBC % (auto) 6.7 % Toxic Vacuolation 1+ Dohle Bodies 1+ Platelet Estimate (Normal) Polychromasia 1+ Macrocytosis Present Echinocytes 1+ PT 42.5 H (9.0-12.0) Seconds INR 4.6 H (0.9-1.1) Fibrinogen (184-400) mg/dl Sample Site POC pH (7.35-7.45) POC pCO2 (35-46) mmHg POC pO2 (80-95) mmHg POC HCO3 (19-24) solomon/L POC Total CO2 (24-31) mEq/l POC Base Excess (-9-1.8) solomon/L Mervin Test O2 Delivery Device POC O2 Rate Minute Ventilation POC FiO2 % Tidal Volume PEEP POC Sodium (135-144) mEq/L Sodium 131 L (136-145) mmol/L POC Potassium (3.3-5.0) mEq/L Potassium 4.9 (3.5-5.1) mmol/L Chloride 97 L (98-107) mmol/L Carbon Dioxide 16 L (21-32) mmol/L Anion Gap 19.0 H (3-11) BUN 42 H (7-18) mg/dl Creatinine (0.6-1.4) mg/dl Est Cr Clr Drug Dosing Not Reportable Est GFR ( Amer) Not Reportable Est GFR (Non-Af Amer) Not Reportable BUN/Creatinine Ratio TNP Glucose 49 L* (70-99) mg/dl POC Glucose (70-99) POC Glucose (other) (70-99) mg/dl Lactate (0.4-2.0) mmol/L Calcium 7.8 L (8.5-10.1) mg/dl Magnesium Total Bilirubin 24.0 H (0.2-1) mg/dl Direct Bilirubin (0-0.2) mg/dl AST 118 H (15-37) U/L ALT 42 (12-78) U/L Alkaline Phosphatase 40 L (45-117) U/L Ammonia (11-32) umol/L Lactate Dehydrogenase (87-241) U/L Total Creatine Kinase 675 H (39-308) U/L Troponin I 0.141 H* (0-0.045) ng/ml Total Protein (6.4-8.2) gm/dl Albumin 1.5 L (3.4-5.0) gm/dl Globulin TNP Albumin/Globulin Ratio TNP Procalcitonin (0-0.5) ng/ml TSH 0.705 (0.300-4.500) uIu/ml Peritoneal Color Peritoneal Appearance Peritoneal WBC (0-300) /ul Peritoneal RBC /uL Mononuclear WBCs % % Polynuclear WBCs % % Peritoneal Tot Protein g/dl Peritoneal Albumin g/dl Nasal Screen MRSA (PCR) (Negative) Hep Bs Antigen Hep Bs Antibody Hep Bs Antibody, Quant Miscellaneous Test Ref Lab Test Result Blood Type Antibody Screen Crossmatch 01/03/19 01/03/19 01/03/19 Range/Units 07:30 07:27 07:25 WBC (4.8-10.8) K/uL RBC (4.7-6.1) M/uL Hgb (14.0-18.0) g/dL POC Hgb (14.0-18.0) g/dl Hct (42-52) % POC Hct (42-52) % MCV (80-100) fL MCH (25-34) pg MCHC (32-36) g/dL RDW Std Deviation (36.4-46.3) fL RDW Coeff of Lesley (11.5-14.5) % Plt Count (130-400) K/uL MPV (7.4-10.4) fL Immature Gran % (Auto) % Neut % (Auto) % Lymph % (Auto) % [place] % (Auto) % Eos % (Auto) % Baso % (Auto) % Immature Gran # (Auto) (0.00-0.02) K/uL Neut # (Auto) (1.4-6.5) K/uL Lymph # (Auto) (1.2-3.4) K/uL [place] # (Auto) (0.11-0.59) K/uL Eos # (Auto) (0-0.5) K/uL Baso # (Auto) (0-0.2) K/uL Absolute Nucleated RBC (0-0) K/uL Nucleated RBC % (auto) % Toxic Vacuolation Dohle Bodies Platelet Estimate (Normal) Polychromasia Macrocytosis Echinocytes PT (9.0-12.0) Seconds INR (0.9-1.1) Fibrinogen (184-400) mg/dl Sample Site POC pH (7.35-7.45) POC pCO2 (35-46) mmHg POC pO2 (80-95) mmHg POC HCO3 (19-24) solomon/L POC Total CO2 (24-31) mEq/l POC Base Excess (-9-1.8) solomon/L Mervin Test O2 Delivery Device POC O2 Rate Minute Ventilation POC FiO2 % Tidal Volume PEEP POC Sodium (135-144) mEq/L Sodium (136-145) mmol/L POC Potassium (3.3-5.0) mEq/L Potassium (3.5-5.1) mmol/L Chloride (98-107) mmol/L Carbon Dioxide (21-32) mmol/L Anion Gap (3-11) BUN (7-18) mg/dl Creatinine (0.6-1.4) mg/dl Est Cr Clr Drug Dosing Est GFR ( Amer) Est GFR (Non-Af Amer) BUN/Creatinine Ratio Glucose (70-99) mg/dl POC Glucose 63 L* 66 L* (70-99) POC Glucose (other) (70-99) mg/dl Lactate (0.4-2.0) mmol/L Calcium (8.5-10.1) mg/dl Magnesium Total Bilirubin (0.2-1) mg/dl Direct Bilirubin (0-0.2) mg/dl AST (15-37) U/L ALT (12-78) U/L Alkaline Phosphatase (45-117) U/L Ammonia (11-32) umol/L Lactate Dehydrogenase (87-241) U/L Total Creatine Kinase (39-308) U/L Troponin I (0-0.045) ng/ml Total Protein (6.4-8.2) gm/dl Albumin (3.4-5.0) gm/dl Globulin Albumin/Globulin Ratio Procalcitonin (0-0.5) ng/ml TSH (0.300-4.500) uIu/ml Peritoneal Color Peritoneal Appearance Peritoneal WBC (0-300) /ul Peritoneal RBC /uL Mononuclear WBCs % % Polynuclear WBCs % % Peritoneal Tot Protein g/dl Peritoneal Albumin g/dl Nasal Screen MRSA (PCR) (Negative) Hep Bs Antigen Cancelled Hep Bs Antibody Cancelled Hep Bs Antibody, Quant Cancelled Miscellaneous Test Ref Lab Test Result Blood Type Antibody Screen Crossmatch Medications Administered Current Inpatient Medications Dextrose (D10w) 1,000 mls @ 125 mls/hr IV .Q8H [facility]INICIUS Stop: 02/02/19 07:44 Last Infusion: 01/03/19 12:30 Dose: 0 mls/hr Documented by: Sodium Chloride (Nss) 250 mls @ 15 mls/hr IV .[id number] PRN PRN Reason: For Transfusion Stop: 02/02/19 08:52 Octreotide Acetate 500 mcg/ (Sodium Chloride) 105 mls @ 10.5 mls/hr IV .Q10H [facility]ICIUS Stop: 02/02/19 10:59 Last Admin: 01/03/19 11:20 Dose: 50 mcg/hr, 10.5 mls/hr Documented by: Vasopressin 20 units/ Sodium (Chloride) 101 mls @ 12.12 mls/hr IV .Q8H20M [facility]ICIUS Stop: 02/02/19 11:04 Last Infusion: 01/03/19 15:16 Dose: 0.04 unit/min, 12.1 mls/hr Documented by: Pantoprazole Sodium 40 mg/ (Dextrose) 100 mls @ 20 mls/hr IV Q5H [facility]ICIUS Stop: 02/02/19 12:14 Last Admin: 01/03/19 13:10 Dose: 20 mls/hr Documented by: Phenylephrine HCl 60 mg/ (Dextrose) 506 mls @ 239.34 mls/hr IV .Q2H7M [facility]ICIUS; Protocol Stop: 02/02/19 12:59 Last Admin: 01/03/19 16:36 Dose: 5.5 mcg/kg/min, 239.3 mls/hr Documented by: Norepinephrine Bitartrate 32 (mg/ Dextrose) 532 mls @ 257.36 mls/hr IV .Q2H5M [facility]ICIUS; Protocol Stop: 02/02/19 16:59 Last Admin: 01/03/19 16:54 Dose: 3 mcg/kg/min, 257.4 mls/hr Documented by: Piperacillin Sod/Tazobactam (Sod 4.5 gm/ Dextrose) 120 mls @ 30 mls/hr IV Q12H [facility]ICIUS; Protocol Stop: 01/05/19 17:59 Last Admin: 01/03/19 17:51 Dose: 30 mls/hr Documented by: Miscellaneous (Icu Protocol For Hyperglycemia) 1 ea N/A PRN PRN; Protocol PRN Reason: Hyperglycemia Protocol Stop: 01/05/19 09:59 Miscellaneous Information (Consult) 1 ea N/A UD PRN PRN Reason: Consult Stop: 02/02/19 10:00 Miscellaneous Information (Consult) 1 ea N/A UD PRN PRN Reason: Consult Stop: 02/02/19 10:46 PG Care Time/CCT Total # of Minutes Spent Total Time Spent with Patient: Total time spent is greater than 50% in coordination of care (as documented) at patient's floor/unit and/or counseling patient: 180 min Critical Care Time: Yes Total Critical Care Time: 74 Prolonged Care Time Prolonged Care Time: Yes Total Prolonged Care Time: 106 Resident Activity Tracking Resident Involvement: Resident Care Provided Care Provided: Adult Hospital Medicine (ICU: SBP, fulminant liver failure, acute renal failure, severe upper GI bleed, severe metabolic encephalopathy with hyperammonemia, acute hypoxemic respiratory failure secondary to bilateral pleural effusions) (1) Alcoholic cirrhosis Ascites presence: with ascites Qualified Code(s): K70.31 - Alcoholic cirrhosis of liver with ascites (2) Hypotension Hypotension type: unspecified hypotension type Qualified Code(s): I95.9 - Hypotension, unspecified
--- NOTE | 2019-01-03 12:30 | Hospitalist Progress Note ---
Date of Service January 03, 2019 Subjective ATTENDING ADDENDUM: Patient seen and examined in ER room B1, care coordinated with Amanda Varma PA-C, labs, images reviewed This is a 58-year-old male who is known to [facility] service for chronic alcohol abuse, alcohol withdrawal, advanced alcoholic liver disease Patient has been continues to drink heavily in spite of multiple counseling provided by GI and internal medicine team: For the consequence of end- stage/fulminant liver failure Was recently admitted to [facility] on 08/2018, for severe alcohol withdrawal, DT Was life flighted to [facility] Patient was evaluated by liver transplant team/hepatology : Found not to be a transplant candidate secondary to poor compliance, ongoing alcohol abuse Patient was brought to ER in unresponsive, confused status Unable to obtain any information from patient secondary to altered mental status, Information obtained from ER physician and records as follows: Yesterday patient fell and was found on floor by caregiver, but patient refused help saying "he is fine" The caregiver left(we could not locate the name or phone number of caregiver-in any of the documents) This morning, apparently a neighbor heard him moaning/screaming for help 911 was called EMS found him on the floor lethargic, severely hypoglycemic with the BSG 28, hypotensive patient was given dextrose and IV fluid bolus in route On arrival to ER patient was found to be hypotensive SBP in low 70s Given 2 L IV fluid bolus, with minimum response patient was found continued to be hypotensive, tachycardic, lethargic, severely severely jaundiced Started on pressors, : Blood work showed pancytopenia WBC 2k /hemoglobin 7.1/hematocrit 22 Repeat lab: Hemoglobin 6.5/hematocrit 19 K Spontaneous anticoagulation:/Coagulopathy INR 4.5 BSG 49, received multiple episodes of dextrose Bilirubin 24/AST 118/ALT 42/ammonia 276 BUN 42, creatinine undetectable secondary to hyperbilirubinemia Metabolic acidosis with bicarb 16, anion gap 12, lactic acidosis: Lactate level elevated 12.4 PHYSICAL EXAM: General: Severely jaundiced: Deep yellow skin coloration Confused, obtunded, with rapid shallow breathing HEENT: Deeply icteric sclera: Eyes open with minimally reactive pupils, mid dilated, unable to follow commands Dried blood tinged oral mucosa Heart: Tachycardic Lungs: Bilateral , crackles Abdomen: Tense/severely distended severely distended with tense ascites Skin: Deeply jaundiced /dark yellow color Neuro: Severely encephalopathic/obtunded, ASSESSMENT AND PLAN Fulminant liver failure: History of advanced alcoholic liver disease, ongoing alcohol abuse, presents with unresponsiveness/hyperbilirubinemia, and uric renal failure, Report of fall yesterday and possibly was on the floor overnight INR more than 4, spontaneous anticoagulation secondary to liver failure Elevated MELD (model for end-stage liver disease) score more than 40: Suggestive of high mortality(more than 70% in 3 months) Patient is admitted to ICU, [facility] GI team updated Started on octreotide drip, ordered for IV Zosyn, added vancomycin Large amount of paracentesis done at the bedside in the ER by ICU team Patient was given IV vitamin K, FFP, albumin Intubated for airway protection Hepatorenal syndrome/anuria End-stage/fulminant liver failure causing acute renal failure with anuria: No urine output after giving multiple fluid bolus, PRBC transfusion, started on pressor Creatinine could not be calculated secondary to extremely high bilirubin level Last creatinine on 10/2018 was 0.9 Extremely poor prognosis, with massive volume overload [facility] nephrology consulted, case discussed with on-call nephrology Dr. Hurt Recommends ICU admission with hemodynamic support as much as possible, Will need to do dialysis if absolutely needed, Given patient is not a candidate for liver transplant, transferring patient to a tertiary care for CCRT will not provide any benefit SEVERE HYPOTENSION/SHOCK SBP in low 70s/80s, improved to 90s with multiple fluid bolus, given PRBC transfusion Altered factorial, fulminant liver failure: Causing massive vasodilatation /need to rule out sepsis as well IV fluid resuscitation, IV albumin, broad-spectrum antibiotic ordered, Admitted to ICU for further support Appreciate help/input from splicing machine operator METABOLIC ACIDOSIS Secondary to liver failure/acute renal failure with complete anuria, possible sepsis Started on bicarb drip Continue volume resuscitation, May need dialysis if no improvement of metabolic acidosis with supportive care Continue to monitor electrolytes every 4 hours Nephrology consulted, case discussed with on-call confidential investigator already PROFOUND HYPOGLYCEMIA BSG on presentation was 46, given IV dextrose bolus, repeat hypoglycemic episode noted 53,58 Patient is continued with IV dextrose infusion Profound hypoglycemia: Secondary to liver failure causing marked metabolic compromise Very poor prognostic sign PANCYTOPENIA WITH SEVERE ANEMIA Secondary to advanced liver disease, with marked hepatosplenomegaly Hemoglobin 6.1, given 2 units of PRBC transfusion Repeat H&H ordered, Transfuse if hemoglobin less than 7 POSSIBLE GI BLEED Profound anemia, with heme positive stool noted in ER IV Protonix drip Correction of anemia GI consulted, overall prognosis remains extremely poor Octreotide drip to prevent variceal bleed SEVERE COAGULOPATHY INR 4.5 Spontaneous anticoagulation secondary to liver failure Patient giving FFP/vitamin K Continue to monitor PT/INR, extremely high bleeding risk HEPATIC ENCEPHALOPATHY/OBTUNDATION Ammonia level more than 200, with severe electrolyte derangement Continue supportive care as outlined above STATUS: FULL CODE Extremely poor prognosis: Patient's calculated MELD score > 40 /3 months mortali ty more than 70% Patient presented with severe hemodynamic compromise, with multi organ failure Chance for reasonable recovery with good clinical outcome remains extremely low Unable to locate friend or family member patient even after multiple attempts At present patient remains as a full code Patient is already intubated for airway protection Admitted to ICU with pressure support broad-spectrum antibiotic blood products and if if he transfusion to correct anemia and coagulopathy High likelihood of hemodynamic compromise that can lead to cardiac arrest Given patient's end-stage status full resuscitation with CPR/chest compression/shock:, May not provide reasonable recovery for this patient Patient developed anuric renal failure, with metabolic acidosis, will need emergent dialysis/with lack of effective blood pressure, option for CRRT(continuous renal replacement therapy: )-Which is available at [facility] in [place] was considered [facility] transfer center was contacted Discussed with [facility] ICU /splicing machine operator Dr. Bruner : After reviewing patient's medical records, past medical history: Patient was in [facility] on 08/2018 Dr. Foley, suggests against transfer to tertiary care: As further escalation care with possible CCRT, may be "medically futile" as it will not change the outcome/patient's mortality Discussed with tinware lithograph press operator in [facility], in agreeable given fulminant liver failure, hepatorenal syndrome, poor outcome, escalation of further care will not provide any benefit [facility] ICU team/splicing machine operator, on-call [facility] GI and [facility] nephrology services(patient is known to them from prior admissions) : Agreeable that patient has extremely poor prognosis, high mortality, Further escalation of care, including dialysis, CRRT may not change the outcome Patient will be admitted to ICU, continue supportive care Ethics committee consulted to address goal of care Please refer to further documentation by Amanda Varma PA-C for discussion of other chronic issues Angelica Recinos MD Results & Data Vital Signs (Past 12 Hours) Vital Signs Temp Pulse Pulse Resp BP BP Pulse Ox 01/03/19 12:10 92/52 L 96 01/03/19 12:07 115 H 86/54 L 94 01/03/19 12:05 115 H 87/55 L 95 01/03/19 12:03 115 H 98/53 L 94 01/03/19 12:00 35.3 C L 115 H 22 98/53 L 93 01/03/19 11:55 114 H 93 01/03/19 11:50 116 H 92 01/03/19 11:45 116 H 94 01/03/19 11:43 116 H 78/49 L 89 L 01/03/19 11:40 116 H 81/49 L 89 L 01/03/19 11:39 116 H 91 01/03/19 11:38 117 H 90/53 L 91 01/03/19 11:35 115 H 93/52 L 94 01/03/19 11:32 118 H 92/69 L 91 01/03/19 11:30 118 H 85/70 L 93 01/03/19 11:27 119 H 88/55 L 92 01/03/19 11:25 120 H 95/47 L 91 01/03/19 11:23 120 H 94/52 L 89 L 01/03/19 11:20 119 H 93/51 L 91 01/03/19 11:17 120 H 97/55 L 90 01/03/19 11:15 119 H 86/52 L 91 01/03/19 11:13 119 H 94/49 L 92 01/03/19 11:10 119 H 98/40 L 92 01/03/19 11:07 120 H 90/46 L 91 01/03/19 11:05 120 H 86/52 L 92 01/03/19 11:02 120 H 95/55 L 93 01/03/19 11:00 120 H 98/52 L 94 01/03/19 10:57 112 H 19 88/49 L 94 01/03/19 10:55 113 H 18 95/50 L 99 01/03/19 10:53 113 H 16 89/49 L 99 01/03/19 10:50 113 H 20 95/44 L 99 01/03/19 10:48 115 H 19 78/62 L 92 01/03/19 10:45 114 H 20 99/64 L 89 L 01/03/19 10:40 116 H 19 88/59 L 91 01/03/19 10:35 153 H 21 87/47 L 92 01/03/19 10:30 162 H 21 100/65 92 01/03/19 10:25 155 H 21 97/64 L 99 01/03/19 10:20 147 H 20 104/61 94 01/03/19 10:15 132 H 19 91/71 L 96 01/03/19 10:10 150 H 21 100/62 91 01/03/19 10:06 146 H 21 91/57 L 95 01/03/19 10:05 136 H 20 91/57 L 94 01/03/19 10:00 141 H 21 92/47 L 93 01/03/19 09:58 149 H 19 70/33 L 94 01/03/19 09:55 142 H 22 94 01/03/19 09:50 134 H 18 92 01/03/19 09:47 34.3 C L 134 H 20 70/51 L 93 01/03/19 09:46 132 H 19 70/51 L 93 01/03/19 09:45 132 H 18 70/51 L 88 L 01/03/19 09:40 135 H 20 93 01/03/19 09:37 140 H 20 96 01/03/19 09:36 144 H 18 66/52 L 97 01/03/19 09:35 149 H 19 97 01/03/19 09:33 34.6 C L 139 H 20 65/44 L 97 01/03/19 09:30 128 H 20 65/44 L 95 01/03/19 09:26 139 H 17 81 L 01/03/19 09:25 128 H 19 75/51 L 94 01/03/19 09:20 134 H 22 92 01/03/19 09:15 23 75/53 L 92 01/03/19 09:12 152 H 21 68/51 L 92 01/03/19 09:10 136 H 21 90 01/03/19 09:05 158 H 18 94 01/03/19 08:55 158 H 21 93 01/03/19 08:51 145 H 23 88/67 L 89 L 01/03/19 08:50 165 H 24 90 01/03/19 08:46 110 H 20 77/44 L 96 01/03/19 08:45 110 H 19 77/44 L 93 01/03/19 08:43 111 H 19 75/46 L 96 01/03/19 08:42 112 H 19 93 01/03/19 08:20 121 H 23 95 01/03/19 08:15 112 H 23 83/50 L 96 01/03/19 08:10 112 H 22 95 01/03/19 08:07 111 H 20 83/48 L 95 01/03/19 08:05 111 H 24 95 01/03/19 08:03 112 H 23 76/42 L 94 01/03/19 08:01 111 H 25 H 77/44 L 96 01/03/19 08:00 112 H 23 80/54 L 97 01/03/19 07:59 111 H 20 105/49 L 96 01/03/19 07:56 112 H 22 105/49 L 97 01/03/19 07:55 111 H 22 93 01/03/19 07:50 113 H 22 89 L 01/03/19 07:48 114 H 24 88/51 L 88 L 01/03/19 07:46 114 H 26 H 58/40 L 87 L 01/03/19 07:45 115 H 20 85 L 01/03/19 07:40 113 H 23 91 01/03/19 07:37 34.5 C L 114 H 18 85 L 01/03/19 07:35 115 H 22 99/53 L 93 01/03/19 07:31 117 H 23 85 L 01/03/19 07:24 116 H 25 H 95/58 L 90
[2019-01-03 12:48] LABS: Appearance Peritoneal Fluid HAZY; Color Peritoneal Fluid AMBER; Mononuclear WBC Peritoneal 24.4 %; Polynuclear WBC Peritoneal 75.6 %; RBC Peritoneal Fluid (A) 3000 /uL; WBC Peritoneal Fluid (A) 3771 /ul (0-300)
[2019-01-03 12:55] LABS: Albumin Peritoneal Fluid < 0.6 g/dl; Total Protein Peritoneal Fluid 0.5 g/dl
--- NOTE | 2019-01-03 13:01 | Gastrointestinal Consultation ---
Date of Consultation January 03, 2019 Assessment & Plan (1) Alcoholic hepatitis: MELD score: unable to calculate as unable to obtain creatinine due to icteric blood sample. MAddrey's DF score: 118 The pt has a very poor prognosis. He has been set up for transplant eval in August 2018 but did not show for appt and was not available by phone for reschedule. He has continued to drink alcohol, thus is not currently a transplant candidate. Still it is very reasonable to consider transplant to [place] for subspecialty support. While here, recommend: - Vit K 10meq - Protonix drip (running) - Octreotide drip x 3 days (running, and would continue for 3 days after an gross GI bleeding - has subsided, though no clear evidence of gross GI bleeding). - If otherwise stable and there is evidence of GI bleeding, then would consider EGD to r/o varices. - LFTs, PT/INR daily Present on Admission?: Yes (2) Alcoholic cirrhosis: See Above Supervising Physician Co-Signing Physician Notes I saw and evaluated the patient. Unfortunately we are unable to obtain any history from the patient as he is intubated after he presented to this morning acutely ill. The patient appears to have a long history of alcohol abuse and has been reluctant to seek help with this. He was previously admitted to [facility] in August and again to [facility] [place] months ago for alcohol-related complications. Physical examination Deep scleral icterus Lower extremity edema noted bilaterally Patient is intubated Abdomen is soft but protuberant Impression: Patient presenting with complications related to alcoholic liver disease. He did have a question of perirectal bleeding upon admission to the ER however a recent rectal temperature showed no evidence of bleeding. In addition there is been no evidence of melena during the hospital stay nor hematemesis. Given the patient's unstable state I would hold on endoscopic evaluation for the present time. Given the patient's liver disease he is at high risk of otology as he is not been abstinent or compliant with basic recommendations over the last 6 months. It appears that the patient's case was discussed with the ICU service at a tertiary Medical Center who felt that transfer was unneeded as his likely outcome would be poor. Recommendations Vitamin K if possible Empiric antibiotic coverage with ceftriaxone or cefotaxime Octreotide drip Protonix drip Watch for signs of withdrawal or gastrointestinal bleeding Repeat thiamine and folate please Watch for electrolyte disturbances in particular magnesium History of Present Illness Reason for Consultation: Alcoholic Hepatitis and cirrhosis Requesting Physician: Esperanza Varma PA-C/Angelica Recinos MD Attending Physician: Angelica Recinos MD History of Present Illness Mr. Niranjan Barraza is a 58 yr old male with a hx of A-fib, ETOH cirrhosis and hepatitis. EMS was summoned by a neighbor today when they heard him shouting. He was found laying on the floor with bruising on his head and "blood in his mouth," according to the EMS report. A review of previous records shows that he had been brought to [facility] in August and life flighted to [place] for hyponatremia. An OP hepatology referral was initiated but pt did not come to OP appt and he was not reachable by phone. On arrival, Hb 6.5, down from 7.9 in August. ETOH 119, ammonia 276, BUN 42. He is hypotensive. At the time of my assessment, the pt is not communicative, alternating between periods of agitation and periods of quiet but not responding to verbal stimuli. He does not provide any eye contact or answer questions. On exam, he is very jaundiced. there is a small amt of dried blood around his mouth. Nursing tells us that they placed a rectal thermometer and no blood was seen on return. Post paracentesis (done in the ED), the abdomen is distended, moderately firm. In the ICU, he is on a pressor, airway in place, ventilated. Protonix and octreotide drips are running. Allergies Allergy/AdvReac Type Severity Reaction Status Date / Time No Known Allergies Allergy Verified 10/29/18 18:41 Home Medications Home Medications Medication Instructions Recorded Confirmed Type famotidine 20 mg PO HS 10/29/18 01/03/19 History folic acid 1 mg PO QAM 10/29/18 01/03/19 History furosemide 40 mg PO BID 10/29/18 01/03/19 History lactulose 20 g PO QID 10/29/18 01/03/19 History spironolactone 100 mg PO BID 10/29/18 01/03/19 History thiamine HCl (vitamin B1) 100 mg PO DAILY 10/29/18 01/03/19 History Caffeine Free Water Pills 1 tab PO UD 01/03/19 01/03/19 History docusate sodium 100 mg PO BID 01/03/19 01/03/19 History furosemide 20 mg PO BID 01/03/19 01/03/19 History Patient History Medical History Cirrhosis (Chronic) Family history non-contributory Surgical History No pertinent past surgical history Family History Other Family history non-contributory Social History Preferred Language: Arabic Communication Ability: Effective Body Service Team Member Required: No Beliefs That Will Affect Care: None Current Living Situation: Alone Current Living Situation Comment: Apartment Feels Safe at Home: Yes Smoking Status: Former smoker Tobacco Type: smokeless tobacco ; Second Hand Exposure: No ; Hx Alcohol Use: Yes Alcohol type: beer Hx Substance Use: No Review of Systems Review of Systems: Not obtainable from the pt and no family/friends present Physical Exam Constitutional: + acute distress (agitated) and + ill appearing Eyes: + scleral abnormality (+++ icterus' PERRL) ENMT: Lips with bruising, dried blood, oropharynx not examined. External ears, nose normal. Neck: trachea midline, no thyromegaly Respiratory: normal respiratory effort Auscultation: + wheezes (few scattered) sounds decreased at the bases Cardiovascular: Rate/Rhythm: regular rate Heart Sounds: normal S1 and normal S2 Extremities: + pedal edema (trace) Gastrointestinal (Abdomen): Inspection/Auscultation: + abdomen distended Percussion/Palpation: + abdomen tender (no obvious tenderness on exam) and + abdomen firm distended superficial abdominal veins; Skin: + jaundice (extreme) Neurologic: see HPI Psychiatric: non communicative Genitourinary: moderate scrotal edema Lymphatic: no cervical or axillary lymphadenopathy Results & Data Vital Signs (Past 12 Hours) Vital Signs Temp Pulse Pulse Resp BP BP Pulse Ox 01/03/19 12:30 86 28 H 96 01/03/19 12:10 92/52 L 96 01/03/19 12:07 115 H 86/54 L 94 01/03/19 12:05 115 H 87/55 L 95 01/03/19 12:03 115 H 98/53 L 94 01/03/19 12:00 35.3 C L 115 H 22 98/53 L 93 01/03/19 11:55 114 H 93 01/03/19 11:50 116 H 92 01/03/19 11:45 116 H 94 01/03/19 11:43 116 H 78/49 L 89 L 01/03/19 11:40 116 H 81/49 L 89 L 01/03/19 11:39 116 H 91 01/03/19 11:38 117 H 90/53 L 91 01/03/19 11:35 115 H 93/52 L 94 01/03/19 11:32 118 H 92/69 L 91 01/03/19 11:30 118 H 85/70 L 93 01/03/19 11:27 119 H 88/55 L 92 01/03/19 11:25 120 H 95/47 L 91 01/03/19 11:23 120 H 94/52 L 89 L 01/03/19 11:20 119 H 93/51 L 91 01/03/19 11:17 120 H 97/55 L 90 01/03/19 11:15 119 H 86/52 L 91 01/03/19 11:13 119 H 94/49 L 92 01/03/19 11:10 119 H 98/40 L 92 01/03/19 11:07 120 H 90/46 L 91 01/03/19 11:05 120 H 86/52 L 92 01/03/19 11:02 120 H 95/55 L 93 01/03/19 11:00 120 H 98/52 L 94 01/03/19 10:57 112 H 19 88/49 L 94 01/03/19 10:55 113 H 18 95/50 L 99 01/03/19 10:53 113 H 16 89/49 L 99 01/03/19 10:50 113 H 20 95/44 L 99 01/03/19 10:48 115 H 19 78/62 L 92 01/03/19 10:45 114 H 20 99/64 L 89 L 01/03/19 10:40 116 H 19 88/59 L 91 01/03/19 10:35 153 H 21 87/47 L 92 01/03/19 10:30 162 H 21 100/65 92 01/03/19 10:25 155 H 21 97/64 L 99 01/03/19 10:20 147 H 20 104/61 94 01/03/19 10:15 132 H 19 91/71 L 96 01/03/19 10:10 150 H 21 100/62 91 01/03/19 10:06 146 H 21 91/57 L 95 01/03/19 10:05 136 H 20 91/57 L 94 01/03/19 10:00 141 H 21 92/47 L 93 01/03/19 09:58 149 H 19 70/33 L 94 01/03/19 09:55 142 H 22 94 01/03/19 09:50 134 H 18 92 01/03/19 09:47 34.3 C L 134 H 20 70/51 L 93 01/03/19 09:46 132 H 19 70/51 L 93 01/03/19 09:45 132 H 18 70/51 L 88 L 01/03/19 09:40 135 H 20 93 01/03/19 09:37 140 H 20 96 01/03/19 09:36 144 H 18 66/52 L 97 01/03/19 09:35 149 H 19 97 01/03/19 09:33 34.6 C L 139 H 20 65/44 L 97 01/03/19 09:30 128 H 20 65/44 L 95 01/03/19 09:26 139 H 17 81 L 01/03/19 09:25 128 H 19 75/51 L 94 01/03/19 09:20 134 H 22 92 01/03/19 09:15 23 75/53 L 92 01/03/19 09:12 152 H 21 68/51 L 92 01/03/19 09:10 136 H 21 90 01/03/19 09:05 158 H 18 94 01/03/19 08:55 158 H 21 93 01/03/19 08:51 145 H 23 88/67 L 89 L 01/03/19 08:50 165 H 24 90 01/03/19 08:46 110 H 20 77/44 L 96 01/03/19 08:45 110 H 19 77/44 L 93 01/03/19 08:43 111 H 19 75/46 L 96 01/03/19 08:42 112 H 19 93 01/03/19 08:20 121 H 23 95 01/03/19 08:15 112 H 23 83/50 L 96 01/03/19 08:10 112 H 22 95 01/03/19 08:07 111 H 20 83/48 L 95 01/03/19 08:05 111 H 24 95 01/03/19 08:03 112 H 23 76/42 L 94 01/03/19 08:01 111 H 25 H 77/44 L 96 01/03/19 08:00 112 H 23 80/54 L 97 01/03/19 07:59 111 H 20 105/49 L 96 01/03/19 07:56 112 H 22 105/49 L 97 01/03/19 07:55 111 H 22 93 01/03/19 07:50 113 H 22 89 L 01/03/19 07:48 114 H 24 88/51 L 88 L 01/03/19 07:46 114 H 26 H 58/40 L 87 L 01/03/19 07:45 115 H 20 85 L 01/03/19 07:40 113 H 23 91 01/03/19 07:37 34.5 C L 114 H 18 85 L 01/03/19 07:35 115 H 22 99/53 L 93 01/03/19 07:31 117 H 23 85 L 01/03/19 07:24 116 H 25 H 95/58 L 90 Laboratory Results Hb 7.1, Hct 22, Platelets 104, PT 33, INR 3.5. Diagnostic Findings CXR: 1. Mediastinal widening. Adenopathy cannot be excluded. A chest CT scan might be considered in follow-up 2. Endotracheal tube 34 mm above the rio 3. Right internal jugular central venous catheter with its tip at the level of the right atrium. No pneumothorax identified on the supine study 4. Elevation of interstitium consistent with congestive failure/fluid overload. 5. Left lower lung zone parenchymal consolidation Medications Administered Protonix, octreotide drips (1) Alcoholic cirrhosis Ascites presence: with ascites Qualified Code(s): K70.31 - Alcoholic cirrhosis of liver with ascites
[2019-01-03] MEDS: PANTOprazole 40 MG in DEXTROSE 5% 100 ML IV SCH ×3 (13:10→23:38)
--- NOTE | 2019-01-03 13:13 | Palliative Care Consultation ---
Date of Consultation January 03, 2019 Assessment & Plan (1) Goals of care, counseling/discussion: This is a very unfortunate case. This is a 58 year old male who was found lying on his floor at home by a friend with unknown down time. This morning, a neighbor heard him screaming and called 911. This patient has had multiple admissions over the past few months related to alcoholic cirrhosis. Additional PMH includes Paroxysmal A-Fib, alcohol withdrawl and DT's. Patient was intubated in the ED and now in the ICU. Patient hemodynaimcally unstable with cuff B/P correlating 80's/40's. Patient on a Norepinephrine and Vasopressin drip. Patient ventilator settings include A/C FiO2 0.75 RR 28, breathing above vent at 34 RPM, PEEP 5. Patient is listed as a Full Code. Palliative Care consulted to discuss ethics behind decision making for this unfortunate gentleman. -Saw patient in room 109. Patient remains a FULL CODE. Patient now hemodynamically unstable and requiring vasoactive intervention and is on Norepinephrine and Vasopressin gtt. -Patient intubated A/C, FiO2 0.75%, RR 28, breathing above vent at 34 breath per minute, PEEP 5. -Patient history reviewed. -Previously, multiple attempts to reach numerous contacts listed in the system for discussion regarding decision making capability. 1. PCP office for additional information but those contacts were invalid. 2.Pt has a friend Mckenna Chandler who assists with his care and apparently brings him to his appointments. She was called at [phone] and [phone] and she did return the call and was advised to come to the hospital by nursing staff. 3.Attempted to call a Guillermo Pineda (contact info in [facility] 911) - left generic message but no call back. 4. ex- in [employer], Gem[facility] Barraza, , which was disconnected (apparently last year per previous review of notes) 5. Per records, it appears that Mckenna has no legal authority to make any decisions. 6. Per living will according to PCP office made by admitted hospitalist, no living will on file. -Even if the patient would benefit from CRRT, unable to stabilize for a transfer out of hospital. -Apparently, Mckenna was contacted and is coming into the hospital, unless appropriate decision making documents are provided, would not provide medical information to patient outside of 'the patient is very critical and in grave condition'. patient to remain a FULL CODE although prognosis appears poor even with aggressive interventions. -Should the patient code, as we anticipate, suggest two physicans or RADHAMES's cease to code and document for legality. -At this time, palliative care will sign off. Please advise if there is any other concerns or questions related to his care and decision making. -PPS: 10% (2) Multiorgan failure: (3) Alcoholic cirrhosis: Ascites presence: with ascites Qualified Code(s): K70.31 - Alcoholic cirrhosis of liver with ascites (4) Elevated troponin: History of Present Illness Reason for Consultation: goals of care Requesting Physician: Dr. Recinos Attending Physician: Angelica Recinos MD History of Present Illness This is a very unfortunate case. This is a 58 year old male who was found lying on his floor at home by a friend with unknown down time. This morning, a neighbor heard him screaming and called 911. This patient has had multiple admissions over the past few months related to alcoholic cirrhosis. Additional PMH includes Paroxysmal A-Fib, alcohol withdrawl and DT's. Patient was intubated in the ED and now in the ICU. Patient hemodynaimcally unstable with cuff B/P correlating 80's/40's. Patient on a Norepinephrine and Vasopressin drip. Patient ventilator settings include A/C FiO2 0.75 RR 28, breathing above vent at 34 RPM, PEEP 5. Patient is listed as a Full Code. Palliative Care consulted to discuss ethics behind decision making for this unfortunate gentleman. Please see A/P for further details. Thank you kindly for involving palliative care with this patient. Allergies Allergy/AdvReac Type Severity Reaction Status Date / Time No Known Allergies Allergy Verified 10/29/18 18:41 Home Medications Home Medications Medication Instructions Recorded Confirmed Type famotidine 20 mg PO HS 10/29/18 01/03/19 History folic acid 1 mg PO QAM 10/29/18 01/03/19 History furosemide 40 mg PO BID 10/29/18 01/03/19 History lactulose 20 g PO QID 10/29/18 01/03/19 History spironolactone 100 mg PO BID 10/29/18 01/03/19 History thiamine HCl (vitamin B1) 100 mg PO DAILY 10/29/18 01/03/19 History Caffeine Free Water Pills 1 tab PO UD 01/03/19 01/03/19 History docusate sodium 100 mg PO BID 01/03/19 01/03/19 History furosemide 20 mg PO BID 01/03/19 01/03/19 History Patient History Medical History Cirrhosis (Chronic) Family history non-contributory Surgical History No pertinent past surgical history Family History Other Family history non-contributory Social History Preferred Language: Stateless Communication Ability: Effective Chief Sustainability Officer Required: No Beliefs That Will Affect Care: None Current Living Situation: Alone Current Living Situation Comment: Apartment Feels Safe at Home: Yes Smoking Status: Former smoker Tobacco Type: smokeless tobacco ; Second Hand Exposure: No ; Hx Alcohol Use: Yes Alcohol type: beer Hx Substance Use: No Review of Systems Review of Systems: Unobtainable due to endotracheal tube Physical Exam Constitutional: + acute distress, + ill appearing, + intoxicated appearing and + disheveled Eyes: icteric sclera Respiratory: Auscultation: + rhonchi ETT Cardiovascular: Rate/Rhythm: + tachycardic Heart Sounds: normal S1 and normal S2 Vessels: radial pulses present Extremities: + edema Gastrointestinal (Abdomen): Inspection/Auscultation: + abdomen distended and normal bowel sounds Percussion/Palpation: + ascites Skin: + jaundice (generalized) Psychiatric: intubated Results & Data Vital Signs (Past 12 Hours) Vital Signs Temp Pulse Pulse Resp BP BP Pulse Ox 01/03/19 12:40 34.8 C L 111 H 22 84/44 L 96 01/03/19 12:39 111 H 83/59 L 95 01/03/19 12:30 112 H 28 H 96/61 L 94 01/03/19 12:21 89/42 L 93 01/03/19 12:10 92/52 L 96 01/03/19 12:07 115 H 86/54 L 94 01/03/19 12:05 115 H 87/55 L 95 01/03/19 12:03 115 H 98/53 L 94 01/03/19 12:00 35.3 C L 115 H 22 98/53 L 93 01/03/19 11:55 114 H 93 01/03/19 11:50 116 H 92 01/03/19 11:45 116 H 94 01/03/19 11:43 116 H 78/49 L 89 L 01/03/19 11:40 116 H 81/49 L 89 L 01/03/19 11:39 116 H 91 01/03/19 11:38 117 H 90/53 L 91 01/03/19 11:35 115 H 93/52 L 94 01/03/19 11:32 118 H 92/69 L 91 01/03/19 11:30 118 H 85/70 L 93 01/03/19 11:27 119 H 88/55 L 92 01/03/19 11:25 120 H 95/47 L 91 01/03/19 11:23 120 H 94/52 L 89 L 01/03/19 11:20 119 H 93/51 L 91 01/03/19 11:17 120 H 97/55 L 90 01/03/19 11:15 119 H 86/52 L 91 01/03/19 11:13 119 H 94/49 L 92 01/03/19 11:10 119 H 98/40 L 92 01/03/19 11:07 120 H 90/46 L 91 01/03/19 11:05 120 H 86/52 L 92 01/03/19 11:02 120 H 95/55 L 93 01/03/19 11:00 120 H 98/52 L 94 01/03/19 10:57 112 H 19 88/49 L 94 01/03/19 10:55 113 H 18 95/50 L 99 01/03/19 10:53 113 H 16 89/49 L 99 01/03/19 10:50 113 H 20 95/44 L 99 01/03/19 10:48 115 H 19 78/62 L 92 01/03/19 10:45 114 H 20 99/64 L 89 L 01/03/19 10:40 116 H 19 88/59 L 91 01/03/19 10:35 153 H 21 87/47 L 92 01/03/19 10:30 162 H 21 100/65 92 01/03/19 10:25 155 H 21 97/64 L 99 01/03/19 10:20 147 H 20 104/61 94 01/03/19 10:15 132 H 19 91/71 L 96 01/03/19 10:10 150 H 21 100/62 91 01/03/19 10:06 146 H 21 91/57 L 95 01/03/19 10:05 136 H 20 91/57 L 94 01/03/19 10:00 141 H 21 92/47 L 93 01/03/19 09:58 149 H 19 70/33 L 94 01/03/19 09:55 142 H 22 94 01/03/19 09:50 134 H 18 92 01/03/19 09:47 34.3 C L 134 H 20 70/51 L 93 01/03/19 09:46 132 H 19 70/51 L 93 01/03/19 09:45 132 H 18 70/51 L 88 L 01/03/19 09:40 135 H 20 93 01/03/19 09:37 140 H 20 96 01/03/19 09:36 144 H 18 66/52 L 97 01/03/19 09:35 149 H 19 97 01/03/19 09:33 34.6 C L 139 H 20 65/44 L 97 01/03/19 09:30 128 H 20 65/44 L 95 01/03/19 09:26 139 H 17 81 L 01/03/19 09:25 128 H 19 75/51 L 94 01/03/19 09:20 134 H 22 92 01/03/19 09:15 23 75/53 L 92 01/03/19 09:12 152 H 21 68/51 L 92 01/03/19 09:10 136 H 21 90 01/03/19 09:05 158 H 18 94 01/03/19 08:55 158 H 21 93 01/03/19 08:51 145 H 23 88/67 L 89 L 01/03/19 08:50 165 H 24 90 01/03/19 08:46 110 H 20 77/44 L 96 01/03/19 08:45 110 H 19 77/44 L 93 01/03/19 08:43 111 H 19 75/46 L 96 01/03/19 08:42 112 H 19 93 01/03/19 08:20 121 H 23 95 01/03/19 08:15 112 H 23 83/50 L 96 01/03/19 08:10 112 H 22 95 01/03/19 08:07 111 H 20 83/48 L 95 01/03/19 08:05 111 H 24 95 01/03/19 08:03 112 H 23 76/42 L 94 01/03/19 08:01 111 H 25 H 77/44 L 96 01/03/19 08:00 112 H 23 80/54 L 97 01/03/19 07:59 111 H 20 105/49 L 96 01/03/19 07:56 112 H 22 105/49 L 97 01/03/19 07:55 111 H 22 93 01/03/19 07:50 113 H 22 89 L 01/03/19 07:48 114 H 24 88/51 L 88 L 01/03/19 07:46 114 H 26 H 58/40 L 87 L 01/03/19 07:45 115 H 20 85 L 01/03/19 07:40 113 H 23 91 01/03/19 07:37 34.5 C L 114 H 18 85 L 01/03/19 07:35 115 H 22 99/53 L 93 01/03/19 07:31 117 H 23 85 L 01/03/19 07:24 116 H 25 H 95/58 L 90 PG Care Time/CCT Total # of Minutes Spent Total Time Spent with Patient: Total time spent is greater than 50% in coordination of care (as documented) at patient's floor/unit and/or counseling patient: 50 Time Spent Midlevel total time spent 50 minutes with > 50% of that time spent assessing the patient discussing goals of care with IDT and ethical decision making
[2019-01-03 13:19] LABS: INR 3.5 (0.9-1.1); Prothrombin Time 33.1 Seconds (9.0-12.0)
[2019-01-03] MEDS: DEXTROSE 5% IV SCH ×7 (13:20→23:36)
[2019-01-03] MEDS: PHENYLEPHRINE HCL IV SCH ×5 (13:20→23:36)
[2019-01-03 13:29] LABS: Alanine Aminotransferase 45 U/L (12-78); Albumin Level 1.4 gm/dl (3.4-5.0); Alkaline Phosphatase 34 U/L (45-117); Aspartate Aminotransferase 155 U/L (15-37); Bilirubin,Total 21.3 mg/dl (0.2-1); Blood Urea Nitrogen 39 mg/dl (7-18); Calcium 6.9 mg/dl (8.5-10.1); Carbon Dioxide 13 mmol/L (21-32); Chloride 96 mmol/L (98-107); Glucose 175 mg/dl (70-99); Potassium 4.5 mmol/L (3.5-5.1); Sodium 131 mmol/L (136-145)
[2019-01-03 13:37] LABS: iSTAT Allen Test Pass; iSTAT Arterial Blood Gas HCO3 11 meg/L (19-24); iSTAT Arterial Blood Gas pCO2 31 mmHg (35-46); iSTAT Arterial Blood Gas pH 7.16 (7.35-7.45); iSTAT Arterial Blood Gas pO2 70 mmHg (80-95); iSTAT Carbon Dioxide 12 mEq/l (24-31); iSTAT FiO2 75 %; iSTAT Hematocrit 19 % (42-52); iSTAT Hemoglobin 6.5 g/dl (14.0-18.0); iSTAT Potassium 4.1 mEq/L (3.3-5.0); iSTAT Site L Radial; iSTAT Sodium 128 mEq/L (135-144)
[2019-01-03 14:02] LABS: Bilirubin Direct 14.3 mg/dl (0-0.2)
[2019-01-03] MEDS: NOREPINEPHRINE BIT IV SCH ×2 (14:21→15:39)
[2019-01-03 14:45] LABS: Hematocrit (blood only) 21.4 % (42-52); Mean Corpuscular Hemoglobin 35.5 pg (25-34); Mean Corpuscular Hgb Conc 32.7 g/dL (32-36); Mean Corpuscular Volume 108.6 fL (80-100); Mean Platelet Volume 9.2 fL (7.4-10.4); Nucleated RBC # (auto) 0.41 K/uL (0-0); Nucleated RBC % (auto) 33.9 %; Platelet Count 59 K/uL (130-400); RDW Coefficient of Variation 22.3 % (11.5-14.5); RDW Standard Deviation 82.3 fL (36.4-46.3); Red Blood Count 1.97 M/uL (4.7-6.1); White Blood Count 1.19 K/uL (4.8-10.8)
[2019-01-03 14:48] LABS: Platelet Estimate Decreased (Normal)
--- NOTE | 2019-01-03 16:06 | Procedure Note ---
Procedure Note Date of Service January 03, 2019 INTERNAL JUGULAR CENTRAL LINE PROCEDURE NOTE: Procedure: Right Internal Jugular Central Line Placement Indication: Central Drug Administration, Poor Venous Access, Multiple Lab Draws Necessary, etc. Anesthesia: 8mlLidocaine 1% No consent was signed as the procedure was emergently needed Patients right neck was cleansed and draped in the typical sterile fashion using Chloraprep. The Internal Jugular Vein and Carotid Artery were identified using ultrasound. The superficial tissue was anesthetized using 8 mL of 1% lidocaine without epinephrine under direct visualization with the ultrasound. After adequate anesthetization was achieved, the Internal Jugular vein was cannulated under direct ultrasound guidance using an introducer needle on a syringe. Good venous blood return was maintained prior to removal of syringe from introducer needle. Using Seldinger Technique, a guide wire was advanced through the introducer needle without resistance. The introducer needle was removed and ultrasound images were obtained of the guide wire within the Internal Jugular Vein and saved to the patients medical record. A small incision was made in penetrating fashion at the guide wire insertion site utilizing an 11 blade scalpel. The dilator was advanced to the vessel without resistance. The dilator was exchanged for the triple lumen catheter which was advanced into the vessel without resistance. The guide wire was removed intact from the catheter without issue. Claves were placed on each catheter tip with confirmation of good blood flow from each lumen. Each port was easily flushed with sterile saline. The catheter was placed at 15 cm and sutured in place. BioPatch was applied to the catheter and a sterile Tegaderm dressing was applied over the catheter with careful attention to sterility. Patient tolerated procedure well. No immediate complications were met. Post procedure x-ray was completed, placement was appropriate and no pneumothorax was noted. Images obtained are saved for permanent record Procedural Ultrasound Guidance: Procedure Date: 01/03/2019 Indication: Severe septic shock Artery AND Vein visualized: Yes Compressible Vein: Yes Guidewire or Short Catheter seen in vein prior to dilation: Yes Images obtained are saved for permanent record. Coding CPT Codes Tubes, Drains, and Vasc Access - Tubes, Drains, and Vasc Access: Ultrasound Guidance For Vascular ([id number])
--- NOTE | 2019-01-03 16:11 | Procedure Note ---
Procedure Note Date of Service January 03, 2019 INTUBATION PROCEDURE NOTE: Dr. Amrit Pziano A time-out was completed verifying correct patient, procedure, site, positioning. Patient was evaluated and required intubation for acute metabolic encephalopathy and hypoxemic respiratory failure. Sedative agent used: 20 mg of etomidate Paralysis agent used: None Yes emergent consent was implied given patients rapidly declining clinical status and need for airway protection. Number of attempts: 1 Grade view: N/A The patient was prepared in the appropriate fashion. Sedation was achieved utilizing 20 mg of etomidate. The patient was easily ventilated using [id number] to achieve adequate oxygenation. A 7.5 Bangladeshi endotracheal tube was placed under video laryngoscope guidance to 23 cm at the lip. The stylette was removed and balloon was inflated with 10mL of air. Appropriate Colorimetric change was appreciated. Bilateral breath sounds were heard without air sounds in the abdomen. Post Intubation Chest X-ray ordered Patient tolerated the procedure well and there were no immediate complications. Coding CPT Codes Resuscitation - Resuscitation: Endotracheal Intubation, emergency ([id number])
[2019-01-03 16:23] LABS: Fibrinogen 115 mg/dl (184-400)
--- NOTE | 2019-01-03 16:32 | Hospitalist Progress Note ---
Date of Service January 03, 2019 Subjective Patient continued to require to pressor supports, remains hypotensive, no urine output, on dialysis, repeat blood work shows worsening of metabolic acidosis, persistent uremia, patient remains obtunded Discussed at length with ICU gaming director Patient showing no evidence of clinical improvement SHOWING EVIDENCE OF PROGRESSIVE DECLINE WHILE ON MAXIMUM CRITICAL CARE SUPPORT: ON MECHANICAL VENTILATION ON PRESSORS, BROAD-SPECTRUM ANTIBIOTIC, AND BICARB DRIP TO CORRECT ACIDOSIS, STARTED ON DIALYSIS If patient develops cardiac arrhythmia, proceed to cardiac arrest, CPR, cardioversion, will not provide any benefit in this scenario and myself agreeable not to escalate care, Patient will be DNR:-No CPR, no electrical or pharmacological cardioversion if patient develops fatal arrhythmia leading to cardiac arrest We will continue current management for at least 24 hours CODE STATUS changed to DNR/DNI Patient requiring multiple PRBC transfusion, for progressive decline in hemoglobin, without any obvious evidence of bleeding, peritoneal fluid analysis shows WBC more than 3000 suggestive of SBP possible source of sepsis Ordered for fibrinogen level for possible DIC Will need cryo precipitate infusion if fibrinogen level less than 150 Discussed with blood bank, does have supply for cryoprecipitate Overall prognosis remains extremely poor Angelica Recinos MD Results & Data Vital Signs (Past 12 Hours) Vital Signs Temp Pulse Pulse Resp BP BP BP 01/03/19 16:15 37.2 C 119 H 22 100/47 L 01/03/19 16:11 36.7 C 127 H 23 83/56 L 01/03/19 16:10 36.8 C 127 H 23 01/03/19 16:00 111 H 74/49 L 01/03/19 15:58 127 H 79/53 L 01/03/19 15:50 127 H 01/03/19 15:45 126 H 100/51 L 01/03/19 15:41 126 H 73/59 L 01/03/19 15:33 128 H 71/51 L 01/03/19 15:30 36.5 C 127 H 26 H 71/51 L 01/03/19 15:00 36.5 C 128 H 83/56 L 01/03/19 14:45 36.5 C 127 H 102/53 L 01/03/19 14:35 113 H 72/48 L 01/03/19 14:30 36.2 C L 120 H 36 H 71/49 L 01/03/19 14:28 119 H 74/42 L 01/03/19 14:27 123 H 36 H 01/03/19 14:26 120 H 63/46 L 01/03/19 14:20 125 H 87/52 L 01/03/19 14:15 35.8 C L 121 H 32 H 83/50 L 01/03/19 14:05 35.8 C L 122 H 36 H 86/61 L 01/03/19 14:00 35.8 C L 110 H 36 H 77/47 L 01/03/19 13:57 120 H 76/45 L 01/03/19 13:51 119 H 83/45 L 01/03/19 13:46 118 H 77/47 L 01/03/19 13:45 117 H 92/48 L 01/03/19 13:40 115 H 92/48 L 01/03/19 13:35 113 H 68/45 L 01/03/19 13:30 112 H 76/50 L 01/03/19 13:28 115 H 74/67 L 01/03/19 13:26 34.8 C L 113 H 111 H 82/64 L 01/03/19 13:20 113 H 86/52 L 01/03/19 13:15 115 H 74/48 L 01/03/19 13:10 114 H 82/46 L 01/03/19 13:05 114 H 79/48 L 01/03/19 13:00 34.8 C L 114 H 28 H 92/52 L 01/03/19 12:40 34.8 C L 111 H 22 84/44 L 01/03/19 12:39 111 H 83/59 L 01/03/19 12:30 112 H 28 H 96/61 L 01/03/19 12:21 89/42 L 01/03/19 12:10 92/52 L 01/03/19 12:07 115 H 86/54 L 01/03/19 12:05 115 H 87/55 L 01/03/19 12:03 115 H 98/53 L 01/03/19 12:00 35.3 C L 115 H 22 98/53 L 01/03/19 11:55 114 H 01/03/19 11:50 116 H 01/03/19 11:45 116 H 01/03/19 11:43 116 H 78/49 L 01/03/19 11:40 116 H 81/49 L 01/03/19 11:39 116 H 01/03/19 11:38 117 H 90/53 L 01/03/19 11:35 115 H 93/52 L 01/03/19 11:32 118 H 92/69 L 01/03/19 11:30 118 H 85/70 L 01/03/19 11:27 119 H 88/55 L 01/03/19 11:25 120 H 95/47 L 01/03/19 11:23 120 H 94/52 L 01/03/19 11:20 119 H 93/51 L 01/03/19 11:17 120 H 97/55 L 01/03/19 11:15 119 H 86/52 L 01/03/19 11:13 119 H 94/49 L 01/03/19 11:10 119 H 98/40 L 01/03/19 11:07 120 H 90/46 L 01/03/19 11:05 120 H 86/52 L 01/03/19 11:02 120 H 95/55 L 01/03/19 11:00 120 H 98/52 L 01/03/19 10:57 112 H 19 88/49 L 01/03/19 10:55 113 H 18 95/50 L 01/03/19 10:53 113 H 16 89/49 L 01/03/19 10:50 113 H 20 95/44 L 01/03/19 10:48 115 H 19 78/62 L 01/03/19 10:45 114 H 20 99/64 L 01/03/19 10:40 116 H 19 88/59 L 01/03/19 10:35 153 H 21 87/47 L 01/03/19 10:30 162 H 21 100/65 01/03/19 10:25 155 H 21 97/64 L 01/03/19 10:20 147 H 20 104/61 01/03/19 10:15 132 H 19 91/71 L 01/03/19 10:10 150 H 21 100/62 01/03/19 10:06 146 H 21 91/57 L 01/03/19 10:05 136 H 20 91/57 L 01/03/19 10:00 141 H 21 92/47 L 01/03/19 09:58 149 H 19 70/33 L 01/03/19 09:55 142 H 22 01/03/19 09:50 134 H 18 01/03/19 09:47 34.3 C L 134 H 20 70/51 L 01/03/19 09:46 132 H 19 70/51 L 01/03/19 09:45 132 H 18 70/51 L 01/03/19 09:40 135 H 20 01/03/19 09:37 140 H 20 01/03/19 09:36 144 H 18 66/52 L 01/03/19 09:35 149 H 19 01/03/19 09:33 34.6 C L 139 H 20 65/44 L 01/03/19 09:30 128 H 20 65/44 L 01/03/19 09:26 139 H 17 01/03/19 09:25 128 H 19 75/51 L 01/03/19 09:20 134 H 22 01/03/19 09:15 23 75/53 L 01/03/19 09:12 152 H 21 68/51 L 01/03/19 09:10 136 H 21 01/03/19 09:05 158 H 18 01/03/19 08:55 158 H 21 01/03/19 08:51 145 H 23 88/67 L 01/03/19 08:50 165 H 24 01/03/19 08:46 110 H 20 77/44 L 01/03/19 08:45 110 H 19 77/44 L 01/03/19 08:43 111 H 19 75/46 L 01/03/19 08:42 112 H 19 01/03/19 08:20 121 H 23 01/03/19 08:15 112 H 23 83/50 L 01/03/19 08:10 112 H 22 01/03/19 08:07 111 H 20 83/48 L 01/03/19 08:05 111 H 24 01/03/19 08:03 112 H 23 76/42 L 01/03/19 08:01 111 H 25 H 77/44 L 01/03/19 08:00 112 H 23 80/54 L 01/03/19 07:59 111 H 20 105/49 L 01/03/19 07:56 112 H 22 105/49 L 01/03/19 07:55 111 H 22 01/03/19 07:50 113 H 22 01/03/19 07:48 114 H 24 88/51 L 01/03/19 07:46 114 H 26 H 58/40 L 01/03/19 07:45 115 H 20 01/03/19 07:40 113 H 23 01/03/19 07:37 34.5 C L 114 H 18 01/03/19 07:35 115 H 22 99/53 L 01/03/19 07:31 117 H 23 01/03/19 07:24 116 H 25 H 95/58 L Pulse Ox 01/03/19 16:15 94 01/03/19 16:11 94 01/03/19 16:10 96 01/03/19 16:00 98 01/03/19 15:58 98 01/03/19 15:50 98 01/03/19 15:45 01/03/19 15:41 95 01/03/19 15:33 01/03/19 15:30 92 01/03/19 15:00 98 01/03/19 14:45 97 01/03/19 14:35 01/03/19 14:30 97 01/03/19 14:28 97 01/03/19 14:27 95 01/03/19 14:26 95 01/03/19 14:20 95 01/03/19 14:15 95 01/03/19 14:05 97 01/03/19 14:00 97 01/03/19 13:57 96 01/03/19 13:51 96 01/03/19 13:46 96 01/03/19 13:45 97 01/03/19 13:40 97 01/03/19 13:35 96 01/03/19 13:30 98 01/03/19 13:28 01/03/19 13:26 99 01/03/19 13:20 96 01/03/19 13:15 99 01/03/19 13:10 86 L 01/03/19 13:05 94 01/03/19 13:00 96 01/03/19 12:40 96 01/03/19 12:39 95 01/03/19 12:30 94 01/03/19 12:21 93 01/03/19 12:10 96 01/03/19 12:07 94 01/03/19 12:05 95 01/03/19 12:03 94 01/03/19 12:00 93 01/03/19 11:55 93 01/03/19 11:50 92 01/03/19 11:45 94 01/03/19 11:43 89 L 01/03/19 11:40 89 L 01/03/19 11:39 91 01/03/19 11:38 91 01/03/19 11:35 94 01/03/19 11:32 91 01/03/19 11:30 93 01/03/19 11:27 92 01/03/19 11:25 91 01/03/19 11:23 89 L 01/03/19 11:20 91 01/03/19 11:17 90 01/03/19 11:15 91 01/03/19 11:13 92 01/03/19 11:10 92 01/03/19 11:07 91 01/03/19 11:05 92 01/03/19 11:02 93 01/03/19 11:00 94 01/03/19 10:57 94 01/03/19 10:55 99 01/03/19 10:53 99 01/03/19 10:50 99 01/03/19 10:48 92 01/03/19 10:45 89 L 01/03/19 10:40 91 01/03/19 10:35 92 01/03/19 10:30 92 01/03/19 10:25 99 01/03/19 10:20 94 01/03/19 10:15 96 01/03/19 10:10 91 01/03/19 10:06 95 01/03/19 10:05 94 01/03/19 10:00 93 01/03/19 09:58 94 01/03/19 09:55 94 01/03/19 09:50 92 01/03/19 09:47 93 01/03/19 09:46 93 01/03/19 09:45 88 L 01/03/19 09:40 93 01/03/19 09:37 96 01/03/19 09:36 97 01/03/19 09:35 97 01/03/19 09:33 97 01/03/19 09:30 95 01/03/19 09:26 81 L 01/03/19 09:25 94 01/03/19 09:20 92 01/03/19 09:15 92 01/03/19 09:12 92 01/03/19 09:10 90 01/03/19 09:05 94 01/03/19 08:55 93 01/03/19 08:51 89 L 01/03/19 08:50 90 01/03/19 08:46 96 01/03/19 08:45 93 01/03/19 08:43 96 01/03/19 08:42 93 01/03/19 08:20 95 01/03/19 08:15 96 01/03/19 08:10 95 01/03/19 08:07 95 01/03/19 08:05 95 01/03/19 08:03 94 01/03/19 08:01 96 01/03/19 08:00 97 01/03/19 07:59 96 01/03/19 07:56 97 01/03/19 07:55 93 01/03/19 07:50 89 L 01/03/19 07:48 88 L 01/03/19 07:46 87 L 01/03/19 07:45 85 L 01/03/19 07:40 91 01/03/19 07:37 85 L 01/03/19 07:35 93 01/03/19 07:31 85 L 01/03/19 07:24 90
--- NOTE | 2019-01-03 16:32 | Procedure Note ---
Procedure Note Date of Service January 03, 2019 Right femoral dialysis catheter: Procedure: Right femoral dialysis catheter Indication: Dialysis Anesthesia: None Procedure was done emergently this consent was not obtained as consent is implied. Patients right groin cleansed and draped in the typical sterile fashion using Chloraprep. The right femoral vein and artery were identified using ultrasound. After adequate anesthetization was achieved, the right femoral vein was cannulated under direct ultrasound guidance using an introducer needle on a syringe. Good venous blood return was maintained prior to removal of syringe from introducer needle. Using Seldinger Technique, a guide wire was advanced through the introducer needle without resistance. The introducer needle was removed and ultrasound images were obtained of the guide wire within the right femoral vein and saved to the patients medical record. A small incision was made in penetrating fashion at the guide wire insertion site utilizing an 11 blade scalpel. The dilator was advanced to the vessel without resistance. The dilator was exchanged for the triple lumen dialysis catheter which was advanced into the vessel without resistance. The guide wire was removed intact from the catheter without issue. Claves were placed on each catheter tip with confirmati on of good blood flow from each lumen. Each port was easily flushed with sterile saline. The catheter was placed at 20 cm and sutured in place. BioPatch was applied to the catheter and a sterile Tegaderm dressing was applied over the catheter with careful attention to sterility. Patient tolerated procedure well. No immediate complications were met. Post procedure x-ray was completed, placement was appropriate and no pneumothorax was noted. Images obtained are saved for permanent record Procedural Ultrasound Guidance: Procedure Date: 01/03/2019 Indication: Emergent dialysis Artery AND Vein visualized: Yes Compressible Vein: Yes Guidewire or Short Catheter seen in vein prior to dilation: Yes Images obtained are saved for permanent record. Coding
--- NOTE | 2019-01-03 16:36 | Procedure Note ---
Procedure Note Date of Service January 03, 2019 Paracentesis was performed under ultrasonic guidance. Procedure was done emergently as patient was unable to consent for the procedure due to his medical condition. Right lower quadrant was visualized with ultrasound and a large pocket of fluid was visualized using ultrasound. An indentation was made to paradise the spot. The area was draped in sterile fashion and cleaned with a ChloraPrep in usual fashion. I used a 22-gauge lidocaine needle and syringe and instilled 8 mL's of lidocaine and aspirated back yellow peritoneal fluid. I then inserted paracentesis catheter over a needle and aspirated back fluid. 1.5 L of fluid was aspirated. We sent the fluid for chemistries and cultures. The catheter was left in place should he need further drainage. Patient tolerated the procedure well. Coding CPT Codes Abdomen - Abdominal: Abdominal Paracentesis (diagnostic or therapeutic); Without imaging ([id number])
[2019-01-03] MEDS: NOREPINEPHRINE BIT INJ 32 MG in DEXTROSE 5% 500 ML IV SCH ×4 (16:54→23:39)
[2019-01-03 17:33] LABS: Mean Corpuscular Hgb Conc 32.5 g/dL (32-36)
[2019-01-03 17:39] LABS: INR 2.8 (0.9-1.1); Prothrombin Time 26.4 Seconds (9.0-12.0)
[2019-01-03] MEDS ORDERED: PIPERACILLIN/TAZOBACTAM 4.5 GM in DEXTROSE 5% 100 ML IV SCH (18:00)
[2019-01-03 18:03] LABS: Hematocrit (blood only) 22.8 % (42-52); Hemoglobin 7.4 g/dL (14.0-18.0); Mean Corpuscular Hemoglobin 34.4 pg (25-34); Mean Platelet Volume 9.3 fL (7.4-10.4); Nucleated RBC # (auto) 1.19 K/uL (0-0); Nucleated RBC % (auto) 51.3 %; Platelet Count 46 K/uL (130-400); RDW Coefficient of Variation 22.3 % (11.5-14.5); RDW Standard Deviation 79.4 fL (36.4-46.3); Red Blood Count 2.15 M/uL (4.7-6.1); White Blood Count 2.32 K/uL (4.8-10.8)
[2019-01-03] MEDS ORDERED: ARTIFICIAL TEARS OP OINT 3.5 GM TUBE OP PRN (18:58)
[2019-01-03 19:30] LABS: Alanine Aminotransferase 77 U/L (12-78); Albumin Level 1.5 gm/dl (3.4-5.0); Alkaline Phosphatase 39 U/L (45-117); Aspartate Aminotransferase 311 U/L (15-37); Bilirubin,Total 21.6 mg/dl (0.2-1); Blood Urea Nitrogen 16 mg/dl (7-18); Calcium 6.7 mg/dl (8.5-10.1); Carbon Dioxide 18 mmol/L (21-32); Chloride 96 mmol/L (98-107); Glucose 93 mg/dl (70-99); Magnesium 1.7 mg/dl (1.8-2.4); Sodium 132 mmol/L (136-145)
[2019-01-03 19:35] LABS: Bilirubin Direct 13.4 mg/dl (0-0.2); Potassium 3.6 mmol/L (3.5-5.1)
--- NOTE | 2019-01-03 20:41 | Communication Note ---
Date of Service: January 03, 2019 Asked to see patient in regards to CODE STATUS as an ethics consult. Discussed case with ICU, later discussed case with attending hospitalist. Patient seen, chart reviewed. Case discussed with another member of the ethics committee. Unfortunately with his recent hospitalization having seen and expressed a desire to be a full code, and given that we do not have any legal decision-maker for him, the ethics committee would not have the authority to override his prior decision. Later I was informed in discussion with his primary hospitalist that 2 physicians corroborated on futility of coding him, but agreed to continue aggressive care otherwise. This certainly does appear to be reasonable.
--- NOTE | 2019-01-03 20:49 | Critical Care Progress Note ---
Date of Service January 03, 2019 Subjective 2020: Received phone call from patient's sister, Guillermo Pineda. She is requesting update. Explained in great detail the continued decline of the patient including worsening hypotension and worsening hypoxia as well as progressive mottling and poor urine output. She states that she did speak with the patient's . She reports that the patient's is currently carrying insurance for the patient. While she states that she will continue to do this, she states that the is not comfortable making any medical decisions at this time. Despite this, she is in agreement with DNR/DNI status with no further escalation of care. I did explain to the sister that I am concerned that the patient's clinical status will continue to decline throughout the night and he quite realistically may not make it until the morning. She does request a phone call to her home phone number, , if there were to be a dramatic decline overnight. In addition, she reports that after 7 AM tomorrow she can be reached at her cellular phone at, . She expresses that in discussion with the patient's , she will be making medical decisions for the patient, but certainly will be including the and these decisions as well. was reportedly in agreement with this as well. At this point, we will continue with no escalation of care at her request. She was not comfortable with making decision to proceed with comfort measures only at this point, however she did understand that this certainly is something that will need to be addressed in the near future pending patient's status throughout the night. We did establish a patient code word which had been used during his recent hospitalization at [facility]. The code word will be "Lassie." She does request that she be contacted directly for release of patient information to any other family or friends. She can be contacted for release of code word at either number. Results & Data Vital Signs (Past 12 Hours) Vital Signs Temp Pulse Pulse Resp BP BP BP 01/03/19 20:13 34 H 01/03/19 19:03 36.8 C 111 H 28 H 63/29 L 01/03/19 19:02 36.8 C 112 H 28 H 63/29 L 01/03/19 18:22 36.8 C 118 H 20 77/55 L 01/03/19 18:18 36.8 C 117 H 24 77/55 L 01/03/19 18:06 36.8 C 123 H 71/47 L 01/03/19 18:03 36.8 C 118 H 25 H 73/56 L 01/03/19 17:43 36.7 C 120 H 23 84/72 L 01/03/19 17:25 121 H 23 01/03/19 17:04 119 H 70/50 L 01/03/19 16:47 118 H 71/47 L 01/03/19 16:30 119 H 74/48 L 01/03/19 16:15 37.2 C 119 H 22 100/47 L 01/03/19 16:11 36.7 C 127 H 23 83/56 L 01/03/19 16:10 36.8 C 127 H 23 01/03/19 16:00 125 H 74/49 L 01/03/19 15:58 127 H 79/53 L 01/03/19 15:50 127 H 01/03/19 15:45 126 H 100/51 L 01/03/19 15:41 126 H 73/59 L 01/03/19 15:33 128 H 71/51 L 01/03/19 15:30 36.5 C 127 H 26 H 71/51 L 01/03/19 15:00 36.5 C 128 H 83/56 L 01/03/19 14:45 36.5 C 127 H 102/53 L 01/03/19 14:35 113 H 72/48 L 01/03/19 14:30 36.2 C L 120 H 36 H 71/49 L 01/03/19 14:28 119 H 74/42 L 01/03/19 14:27 123 H 36 H 01/03/19 14:26 120 H 63/46 L 01/03/19 14:20 125 H 87/52 L 01/03/19 14:15 35.8 C L 121 H 32 H 83/50 L 01/03/19 14:05 35.8 C L 122 H 36 H 86/61 L 01/03/19 14:00 35.8 C L 110 H 36 H 77/47 L 01/03/19 13:57 120 H 76/45 L 01/03/19 13:51 119 H 83/45 L 01/03/19 13:46 118 H 77/47 L 01/03/19 13:45 117 H 92/48 L 01/03/19 13:40 115 H 92/48 L 01/03/19 13:35 113 H 68/45 L 01/03/19 13:30 112 H 76/50 L 01/03/19 13:28 115 H 74/67 L 01/03/19 13:26 34.8 C L 113 H 111 H 82/64 L 01/03/19 13:20 113 H 86/52 L 01/03/19 13:15 115 H 74/48 L 01/03/19 13:10 114 H 82/46 L 01/03/19 13:05 114 H 79/48 L 01/03/19 13:00 34.8 C L 114 H 28 H 92/52 L 01/03/19 12:40 34.8 C L 111 H 22 84/44 L 01/03/19 12:39 111 H 83/59 L 01/03/19 12:30 112 H 28 H 96/61 L 01/03/19 12:21 89/42 L 01/03/19 12:10 92/52 L 01/03/19 12:07 115 H 86/54 L 01/03/19 12:05 115 H 87/55 L 01/03/19 12:03 115 H 98/53 L 01/03/19 12:00 35.3 C L 115 H 22 98/53 L 01/03/19 11:55 114 H 01/03/19 11:50 116 H 01/03/19 11:45 116 H 01/03/19 11:43 116 H 78/49 L 01/03/19 11:40 116 H 81/49 L 01/03/19 11:39 116 H 01/03/19 11:38 117 H 90/53 L 01/03/19 11:35 115 H 93/52 L 01/03/19 11:32 118 H 92/69 L 01/03/19 11:30 118 H 85/70 L 01/03/19 11:27 119 H 88/55 L 01/03/19 11:25 120 H 95/47 L 01/03/19 11:23 120 H 94/52 L 01/03/19 11:20 119 H 93/51 L 01/03/19 11:17 120 H 97/55 L 01/03/19 11:15 119 H 86/52 L 01/03/19 11:13 119 H 94/49 L 01/03/19 11:10 119 H 98/40 L 01/03/19 11:07 120 H 90/46 L 01/03/19 11:05 120 H 86/52 L 01/03/19 11:02 120 H 95/55 L 01/03/19 11:00 120 H 98/52 L 01/03/19 10:57 112 H 19 88/49 L 01/03/19 10:55 113 H 18 95/50 L 01/03/19 10:53 113 H 16 89/49 L 01/03/19 10:50 113 H 20 95/44 L 01/03/19 10:48 115 H 19 78/62 L 01/03/19 10:45 114 H 20 99/64 L 01/03/19 10:40 116 H 19 88/59 L 01/03/19 10:35 153 H 21 87/47 L 01/03/19 10:30 162 H 21 100/65 01/03/19 10:25 155 H 21 97/64 L 01/03/19 10:20 147 H 20 104/61 01/03/19 10:15 132 H 19 91/71 L 01/03/19 10:10 150 H 21 100/62 01/03/19 10:06 146 H 21 91/57 L 01/03/19 10:05 136 H 20 91/57 L 01/03/19 10:00 141 H 21 92/47 L 01/03/19 09:58 149 H 19 70/33 L 01/03/19 09:55 142 H 22 01/03/19 09:50 134 H 18 01/03/19 09:47 34.3 C L 134 H 20 70/51 L 01/03/19 09:46 132 H 19 70/51 L 01/03/19 09:45 132 H 18 70/51 L 01/03/19 09:40 135 H 20 01/03/19 09:37 140 H 20 01/03/19 09:36 144 H 18 66/52 L 01/03/19 09:35 149 H 19 01/03/19 09:33 34.6 C L 139 H 20 65/44 L 01/03/19 09:30 128 H 20 65/44 L 01/03/19 09:26 139 H 17 01/03/19 09:25 128 H 19 75/51 L 01/03/19 09:20 134 H 22 01/03/19 09:15 23 75/53 L 01/03/19 09:12 152 H 21 68/51 L 01/03/19 09:10 136 H 21 01/03/19 09:05 158 H 18 01/03/19 08:55 158 H 21 01/03/19 08:51 145 H 23 88/67 L 01/03/19 08:50 165 H 24 01/03/19 08:46 110 H 20 77/44 L 01/03/19 08:45 110 H 19 77/44 L 01/03/19 08:43 111 H 19 75/46 L 01/03/19 08:42 112 H 19 Pulse Ox 01/03/19 20:13 01/03/19 19:03 90 01/03/19 19:02 90 01/03/19 18:22 01/03/19 18:18 01/03/19 18:06 01/03/19 18:03 96 01/03/19 17:43 97 01/03/19 17:25 100 01/03/19 17:04 01/03/19 16:47 01/03/19 16:30 01/03/19 16:15 94 01/03/19 16:11 94 01/03/19 16:10 96 01/03/19 16:00 98 01/03/19 15:58 98 01/03/19 15:50 98 01/03/19 15:45 01/03/19 15:41 95 01/03/19 15:33 01/03/19 15:30 92 01/03/19 15:00 98 01/03/19 14:45 97 01/03/19 14:35 01/03/19 14:30 97 01/03/19 14:28 97 01/03/19 14:27 95 01/03/19 14:26 95 01/03/19 14:20 95 01/03/19 14:15 95 01/03/19 14:05 97 01/03/19 14:00 97 01/03/19 13:57 96 01/03/19 13:51 96 01/03/19 13:46 96 01/03/19 13:45 97 01/03/19 13:40 97 01/03/19 13:35 96 01/03/19 13:30 98 01/03/19 13:28 01/03/19 13:26 99 01/03/19 13:20 96 01/03/19 13:15 99 01/03/19 13:10 86 L 01/03/19 13:05 94 01/03/19 13:00 96 01/03/19 12:40 96 01/03/19 12:39 95 01/03/19 12:30 94 01/03/19 12:21 93 01/03/19 12:10 96 01/03/19 12:07 94 01/03/19 12:05 95 01/03/19 12:03 94 01/03/19 12:00 93 01/03/19 11:55 93 01/03/19 11:50 92 01/03/19 11:45 94 01/03/19 11:43 89 L 01/03/19 11:40 89 L 01/03/19 11:39 91 01/03/19 11:38 91 01/03/19 11:35 94 01/03/19 11:32 91 01/03/19 11:30 93 01/03/19 11:27 92 01/03/19 11:25 91 01/03/19 11:23 89 L 01/03/19 11:20 91 01/03/19 11:17 90 01/03/19 11:15 91 01/03/19 11:13 92 01/03/19 11:10 92 01/03/19 11:07 91 01/03/19 11:05 92 01/03/19 11:02 93 01/03/19 11:00 94 01/03/19 10:57 94 01/03/19 10:55 99 01/03/19 10:53 99 01/03/19 10:50 99 01/03/19 10:48 92 01/03/19 10:45 89 L 01/03/19 10:40 91 01/03/19 10:35 92 01/03/19 10:30 92 01/03/19 10:25 99 01/03/19 10:20 94 01/03/19 10:15 96 01/03/19 10:10 91 01/03/19 10:06 95 01/03/19 10:05 94 01/03/19 10:00 93 01/03/19 09:58 94 01/03/19 09:55 94 01/03/19 09:50 92 01/03/19 09:47 93 01/03/19 09:46 93 01/03/19 09:45 88 L 01/03/19 09:40 93 01/03/19 09:37 96 01/03/19 09:36 97 01/03/19 09:35 97 01/03/19 09:33 97 01/03/19 09:30 95 01/03/19 09:26 81 L 01/03/19 09:25 94 01/03/19 09:20 92 01/03/19 09:15 92 01/03/19 09:12 92 01/03/19 09:10 90 01/03/19 09:05 94 01/03/19 08:55 93 01/03/19 08:51 89 L 01/03/19 08:50 90 01/03/19 08:46 96 01/03/19 08:45 93 01/03/19 08:43 96 01/03/19 08:42 93 PG Care Time/CCT Total # of Minutes Spent Total Time Spent with Patient: Total time spent is greater than 50% in coordination of care (as documented) at patient's floor/unit and/or counseling patient:
--- NOTE | 2019-01-03 20:54 | Nephrology Consultation ---
Date of Consultation January 03, 2019 Assessment & Plan (1) Acute renal failure: Patient with ARF likely due to ischemic ATN in setting of shock. He is anuric. He has severe acidosis and volume overload. We did emergent dialysis to correct acidosis and hopefuly improve hemodynamics. Patient could not consent to dialysis as he is comatose. Attempt to locate family members or next of kin were futile. He had 4 hours of hemodialysis with low blood flows of 250 and dialysate flow of 500 to avoid hemodynamic instability. No UF Will monitor daily for dialysis need (2) Acute hypoxemic respiratory failure: Patient is on mechanical ventilation with PEEP of 5 and Fio2 of 75%. Vent management per ICU. Unable to do ultrafiltration due to severe shock. Will attempt UF if BP improves (3) Septic shock: Patient on maximum pressor support and still in shock. Acidosis is contributing to the hemodynamic instability. will correct acidosis with HD. Continue broad spectrum antibiotics per ICU (4) Acute liver failure: Patient has ESLD. he is not a transplant candidate due to ongoing ETOH. Chances of recovery without liver transplant are small. Palliative care has been involved. Patient now DNR. History of Present Illness Reason for Consultation: Acute renal failure Requesting Physician: Angelica Recinos MD Attending Physician: Angelica Recinos MD History of Present Illness This is a 58 YoM with past medical history of cirrhosis, ascites, paroxysmal atrial fibrillation with a complicated history of numerous alcohol withdrawal/DTs and a recent hospitalization earlier this year that required transfer to [facility] for liver failure which involved intubation who was admitted on 01/01 with AMS, found to have Multiorgan failure. He is in septic shock, liver failure, respiratory failure on mechanical ventilation and acute renal failure. I saw the patient at 12:30pm. He was anuric, acidotic with PH of 7.1 and on 2 pressors. Patient could not consent for dialysis and attempts to get a family member to consent were futile. Given severe acidosis and after discussion with cable ferry operator we agreed to HD to help correct the severe acidosis. Allergies Allergy/AdvReac Type Severity Reaction Status Date / Time No Known Allergies Allergy Verified 10/29/18 18:41 Home Medications Home Medications Medication Instructions Recorded Confirmed Type famotidine 20 mg PO HS 10/29/18 01/03/19 History folic acid 1 mg PO QAM 10/29/18 01/03/19 History furosemide 40 mg PO BID 10/29/18 01/03/19 History lactulose 20 g PO QID 10/29/18 01/03/19 History spironolactone 100 mg PO BID 10/29/18 01/03/19 History thiamine HCl (vitamin B1) 100 mg PO DAILY 10/29/18 01/03/19 History Caffeine Free Water Pills 1 tab PO UD 01/03/19 01/03/19 History docusate sodium 100 mg PO BID 01/03/19 01/03/19 History furosemide 20 mg PO BID 01/03/19 01/03/19 History Patient History Medical History Alcoholic cirrhosis (Acute) Acute liver failure (Acute) Ascites due to alcoholic cirrhosis RBBB Paroxysmal atrial fibrillation with RVR (Acute) Family history non-contributory Surgical History No pertinent past surgical history Family History Other Family history non-contributory Social History Preferred Language: Albanian Communication Ability: Unable Communication Ability Comment: Intubated at this time, no response to stimulation Product Lister Required: No Beliefs That Will Affect Care: None Current Living Situation: Alone Current Living Situation Comment: Apartment Feels Safe at Home: Yes Smoking Status: Never smoker Tobacco Type: smokeless tobacco ; Second Hand Exposure: No ; Hx Alcohol Use: Yes Alcohol type: beer Hx Substance Use: No Review of Systems Review of Systems: Unobtainable due to endotracheal tube and Unobtainable due to reduced consciousness Physical Exam Physical Exam: General exam: Intubated HEENT: Deep jaundice Neck: No JVD, neck is supple trachea is midline Respiratory system: Clear breath sounds bilaterally. Gastrointestinal: Abdomen is distended, CVS: Regular rate and rhythm. No murmurs, rubs or gallops Musculoskeletal: No joint or muscle tenderness Extremities: Non tender, 1+ edema, peripheral pulses are present Neuro: Comatose Skin: deep jaundice Results & Data Vital Signs (Past 12 Hours) Vital Signs Temp Pulse Pulse Resp BP BP BP 01/03/19 20:13 34 H 01/03/19 19:03 36.8 C 111 H 28 H 63/29 L 01/03/19 19:02 36.8 C 112 H 28 H 63/29 L 01/03/19 18:22 36.8 C 118 H 20 77/55 L 01/03/19 18:18 36.8 C 117 H 24 77/55 L 01/03/19 18:06 36.8 C 123 H 71/47 L 01/03/19 18:03 36.8 C 118 H 25 H 73/56 L 01/03/19 17:43 36.7 C 120 H 23 84/72 L 01/03/19 17:25 121 H 23 01/03/19 17:04 119 H 70/50 L 01/03/19 16:47 118 H 71/47 L 01/03/19 16:30 119 H 74/48 L 01/03/19 16:15 37.2 C 119 H 22 100/47 L 01/03/19 16:11 36.7 C 127 H 23 83/56 L 01/03/19 16:10 36.8 C 127 H 23 01/03/19 16:00 125 H 74/49 L 01/03/19 15:58 127 H 79/53 L 01/03/19 15:50 127 H 01/03/19 15:45 126 H 100/51 L 01/03/19 15:41 126 H 73/59 L 01/03/19 15:33 128 H 71/51 L 01/03/19 15:30 36.5 C 127 H 26 H 71/51 L 01/03/19 15:00 36.5 C 128 H 83/56 L 01/03/19 14:45 36.5 C 127 H 102/53 L 01/03/19 14:35 113 H 72/48 L 01/03/19 14:30 36.2 C L 120 H 36 H 71/49 L 01/03/19 14:28 119 H 74/42 L 01/03/19 14:27 123 H 36 H 01/03/19 14:26 120 H 63/46 L 01/03/19 14:20 125 H 87/52 L 01/03/19 14:15 35.8 C L 121 H 32 H 83/50 L 01/03/19 14:05 35.8 C L 122 H 36 H 86/61 L 09/19/19 14:00 35.8 C L 110 H 36 H 77/47 L 01/03/19 13:57 120 H 76/45 L 01/03/19 13:51 119 H 83/45 L 01/03/19 13:46 118 H 77/47 L 01/03/19 13:45 117 H 92/48 L 01/03/19 13:40 115 H 92/48 L 01/03/19 13:35 113 H 68/45 L 01/03/19 13:30 112 H 76/50 L 01/03/19 13:28 115 H 74/67 L 01/03/19 13:26 34.8 C L 113 H 111 H 82/64 L 01/03/19 13:20 113 H 86/52 L 01/03/19 13:15 115 H 74/48 L 01/03/19 13:10 114 H 82/46 L 01/03/19 13:05 114 H 79/48 L 01/03/19 13:00 34.8 C L 114 H 28 H 92/52 L 01/03/19 12:40 34.8 C L 111 H 22 84/44 L 01/03/19 12:39 111 H 83/59 L 01/03/19 12:30 112 H 28 H 96/61 L 01/03/19 12:21 89/42 L 01/03/19 12:10 92/52 L 01/03/19 12:07 115 H 86/54 L 01/03/19 12:05 115 H 87/55 L 01/03/19 12:03 115 H 98/53 L 01/03/19 12:00 35.3 C L 115 H 22 98/53 L 01/03/19 11:55 114 H 01/03/19 11:50 116 H 01/03/19 11:45 116 H 01/03/19 11:43 116 H 78/49 L 01/03/19 11:40 116 H 81/49 L 01/03/19 11:39 116 H 01/03/19 11:38 117 H 90/53 L 01/03/19 11:35 115 H 93/52 L 01/03/19 11:32 118 H 92/69 L 01/03/19 11:30 118 H 85/70 L 01/03/19 11:27 119 H 88/55 L 01/03/19 11:25 120 H 95/47 L 01/03/19 11:23 120 H 94/52 L 01/03/19 11:20 119 H 93/51 L 01/03/19 11:17 120 H 97/55 L 01/03/19 11:15 119 H 86/52 L 01/03/19 11:13 119 H 94/49 L 01/03/19 11:10 119 H 98/40 L 01/03/19 11:07 120 H 90/46 L 01/03/19 11:05 120 H 86/52 L 01/03/19 11:02 120 H 95/55 L 01/03/19 11:00 120 H 98/52 L 01/03/19 10:57 112 H 19 88/49 L 01/03/19 10:55 113 H 18 95/50 L 01/03/19 10:53 113 H 16 89/49 L 01/03/19 10:50 113 H 20 95/44 L 01/03/19 10:48 115 H 19 78/62 L 01/03/19 10:45 114 H 20 99/64 L 01/03/19 10:40 116 H 19 88/59 L 01/03/19 10:35 153 H 21 87/47 L 01/03/19 10:30 162 H 21 100/65 01/03/19 10:25 155 H 21 97/64 L 01/03/19 10:20 147 H 20 104/61 01/03/19 10:15 132 H 19 91/71 L 01/03/19 10:10 150 H 21 100/62 01/03/19 10:06 146 H 21 91/57 L 01/03/19 10:05 136 H 20 91/57 L 01/03/19 10:00 141 H 21 92/47 L 01/03/19 09:58 149 H 19 70/33 L 01/03/19 09:55 142 H 22 01/03/19 09:50 134 H 18 01/03/19 09:47 34.3 C L 134 H 20 70/51 L 01/03/19 09:46 132 H 19 70/51 L 01/03/19 09:45 132 H 18 70/51 L 01/03/19 09:40 135 H 20 01/03/19 09:37 140 H 20 01/03/19 09:36 144 H 18 66/52 L 01/03/19 09:35 149 H 19 01/03/19 09:33 34.6 C L 139 H 20 65/44 L 01/03/19 09:30 128 H 20 65/44 L 01/03/19 09:26 139 H 17 01/03/19 09:25 128 H 19 75/51 L 01/03/19 09:20 134 H 22 01/03/19 09:15 23 75/53 L 01/03/19 09:12 152 H 21 68/51 L 01/03/19 09:10 136 H 21 01/03/19 09:05 158 H 18 01/03/19 08:55 158 H 21 01/03/19 08:51 145 H 23 88/67 L 01/03/19 08:50 165 H 24 01/03/19 08:46 110 H 20 77/44 L 01/03/19 08:45 110 H 19 77/44 L 01/03/19 08:43 111 H 19 75/46 L 01/03/19 08:42 112 H 19 Pulse Ox 01/03/19 20:13 01/03/19 19:03 90 01/03/19 19:02 90 01/03/19 18:22 01/03/19 18:18 01/03/19 18:06 01/03/19 18:03 96 01/03/19 17:43 97 01/03/19 17:25 100 01/03/19 17:04 01/03/19 16:47 01/03/19 16:30 01/03/19 16:15 94 01/03/19 16:11 94 01/03/19 16:10 96 01/03/19 16:00 98 01/03/19 15:58 98 01/03/19 15:50 98 01/03/19 15:45 01/03/19 15:41 95 01/03/19 15:33 01/03/19 15:30 92 01/03/19 15:00 98 01/03/19 14:45 97 01/03/19 14:35 01/03/19 14:30 97 01/03/19 14:28 97 01/03/19 14:27 95 01/03/19 14:26 95 01/03/19 14:20 95 01/03/19 14:15 95 01/03/19 14:05 97 01/03/19 14:00 97 01/03/19 13:57 96 01/03/19 13:51 96 01/03/19 13:46 96 01/03/19 13:45 97 01/03/19 13:40 97 01/03/19 13:35 96 01/03/19 13:30 98 01/03/19 13:28 01/03/19 13:26 99 01/03/19 13:20 96 01/03/19 13:15 99 01/03/19 13:10 86 L 01/03/19 13:05 94 01/03/19 13:00 96 01/03/19 12:40 96 01/03/19 12:39 95 01/03/19 12:30 94 01/03/19 12:21 93 01/03/19 12:10 96 01/03/19 12:07 94 01/03/19 12:05 95 01/03/19 12:03 94 01/03/19 12:00 93 01/03/19 11:55 93 01/03/19 11:50 92 01/03/19 11:45 94 01/03/19 11:43 89 L 01/03/19 11:40 89 L 01/03/19 11:39 91 01/03/19 11:38 91 01/03/19 11:35 94 01/03/19 11:32 91 01/03/19 11:30 93 01/03/19 11:27 92 01/03/19 11:25 91 01/03/19 11:23 89 L 01/03/19 11:20 91 01/03/19 11:17 90 01/03/19 11:15 91 01/03/19 11:13 92 01/03/19 11:10 92 01/03/19 11:07 91 01/03/19 11:05 92 01/03/19 11:02 93 01/03/19 11:00 94 01/03/19 10:57 94 01/03/19 10:55 99 01/03/19 10:53 99 01/03/19 10:50 99 01/03/19 10:48 92 01/03/19 10:45 89 L 01/03/19 10:40 91 01/03/19 10:35 92 01/03/19 10:30 92 01/03/19 10:25 99 01/03/19 10:20 94 01/03/19 10:15 96 01/03/19 10:10 91 01/03/19 10:06 95 01/03/19 10:05 94 01/03/19 10:00 93 01/03/19 09:58 94 01/03/19 09:55 94 01/03/19 09:50 92 01/03/19 09:47 93 01/03/19 09:46 93 01/03/19 09:45 88 L 01/03/19 09:40 93 01/03/19 09:37 96 01/03/19 09:36 97 01/03/19 09:35 97 01/03/19 09:33 97 01/03/19 09:30 95 01/03/19 09:26 81 L 01/03/19 09:25 94 01/03/19 09:20 92 01/03/19 09:15 92 01/03/19 09:12 92 01/03/19 09:10 90 01/03/19 09:05 94 01/03/19 08:55 93 01/03/19 08:51 89 L 01/03/19 08:50 90 01/03/19 08:46 96 01/03/19 08:45 93 01/03/19 08:43 96 01/03/19 08:42 93 Laboratory Results Laboratory Results - last 24 hr 01/03/19 01/03/19 01/03/19 07:25 07:27 07:30 WBC RBC Hgb POC Hgb Hct POC Hct MCV MCH MCHC RDW Std Deviation RDW Coeff of Lesley Plt Count MPV Immature Gran % (Auto) Neut % (Auto) Lymph % (Auto) Hickman % (Auto) Eos % (Auto) Baso % (Auto) Immature Gran # (Auto) Neut # (Auto) Lymph # (Auto) Hickman # (Auto) Eos # (Auto) Baso # (Auto) Absolute Nucleated RBC Nucleated RBC % (auto) Toxic Vacuolation Dohle Bodies Platelet Estimate Polychromasia Macrocytosis Echinocytes PT INR Fibrinogen Sample Site POC pH POC pCO2 POC pO2 POC HCO3 POC Total CO2 POC Base Excess Mervin Test O2 Delivery Device POC O2 Rate Minute Ventilation POC FiO2 Tidal Volume PEEP POC Sodium Sodium POC Potassium Potassium Chloride Carbon Dioxide Anion Gap BUN Creatinine Est Cr Clr Drug Dosing Est GFR ( Amer) Est GFR (Non-Af Amer) BUN/Creatinine Ratio Glucose POC Glucose 66 L* 63 L* POC Glucose (other) Lactate Calcium Magnesium Total Bilirubin Direct Bilirubin AST ALT Alkaline Phosphatase Ammonia Lactate Dehydrogenase Total Creatine Kinase Troponin I Total Protein Albumin Globulin Albumin/Globulin Ratio Procalcitonin TSH Peritoneal Color Peritoneal Appearance Peritoneal WBC Peritoneal RBC Mononuclear WBCs % Polynuclear WBCs % Peritoneal Tot Protein Peritoneal Albumin Nasal Screen MRSA (PCR) Hep Bs Antigen Cancelled Hep Bs Antibody Cancelled Hep Bs Antibody, Quant Cancelled Miscellaneous Test Ref Lab Test Result Blood Type Antibody Screen Crossmatch 01/03/19 01/03/19 01/03/19 07:41 07:41 07:41 WBC 2.07 L RBC 1.89 L Hgb 7.1 L POC Hgb Hct 22.0 L POC Hct MCV 116.4 H MCH 37.6 H MCHC 32.3 RDW Std Deviation 71.8 H RDW Coeff of Lesley 18.2 H Plt Count 104 L MPV 9.1 Immature Gran % (Auto) 1.4 Neut % (Auto) 64.8 Lymph % (Auto) 30.9 Hickman % (Auto) 1.9 Eos % (Auto) 0.5 Baso % (Auto) 0.5 Immature Gran # (Auto) 0.03 H Neut # (Auto) 1.34 L Lymph # (Auto) 0.64 L Hickman # (Auto) 0.04 L Eos # (Auto) 0.01 Baso # (Auto) 0.01 Absolute Nucleated RBC 0.14 H Nucleated RBC % (auto) 6.7 Toxic Vacuolation 1+ Dohle Bodies 1+ Platelet Estimate Polychromasia 1+ Macrocytosis Present Echinocytes 1+ PT 42.5 H INR 4.6 H Fibrinogen Sample Site POC pH POC pCO2 POC pO2 POC HCO3 POC Total CO2 POC Base Excess Mervin Test O2 Delivery Device POC O2 Rate Minute Ventilation POC FiO2 Tidal Volume PEEP POC Sodium Sodium 131 L POC Potassium Potassium 4.9 Chloride 97 L Carbon Dioxide 16 L Anion Gap 19.0 H BUN 42 H Creatinine Est Cr Clr Drug Dosing Not Reportable Est GFR ( Amer) Not Reportable Est GFR (Non-Af Amer) Not Reportable BUN/Creatinine Ratio TNP Glucose 49 L* POC Glucose POC Glucose (other) Lactate Calcium 7.8 L Magnesium Total Bilirubin 24.0 H Direct Bilirubin AST 118 H ALT 42 Alkaline Phosphatase 40 L Ammonia Lactate Dehydrogenase Total Creatine Kinase 675 H Troponin I 0.141 H* Total Protein Albumin 1.5 L Globulin TNP Albumin/Globulin Ratio TNP Procalcitonin TSH 0.705 Peritoneal Color Peritoneal Appearance Peritoneal WBC Peritoneal RBC Mononuclear WBCs % Polynuclear WBCs % Peritoneal Tot Protein Peritoneal Albumin Nasal Screen MRSA (PCR) Hep Bs Antigen Hep Bs Antibody Hep Bs Antibody, Quant Miscellaneous Test Ref Lab Test Result Blood Type Antibody Screen Crossmatch 01/03/19 01/03/19 01/03/19 07:41 07:41 07:41 WBC RBC Hgb POC Hgb Hct POC Hct MCV MCH MCHC RDW Std Deviation RDW Coeff of Lesley Plt Count MPV Immature Gran % (Auto) Neut % (Auto) Lymph % (Auto) Hickman % (Auto) Eos % (Auto) Baso % (Auto) Immature Gran # (Auto) Neut # (Auto) Lymph # (Auto) Hickman # (Auto) Eos # (Auto) Baso # (Auto) Absolute Nucleated RBC Nucleated RBC % (auto) Toxic Vacuolation Dohle Bodies Platelet Estimate Polychromasia Macrocytosis Echinocytes PT INR Fibrinogen Sample Site POC pH POC pCO2 POC pO2 POC HCO3 POC Total CO2 POC Base Excess Mervin Test O2 Delivery Device POC O2 Rate Minute Ventilation POC FiO2 Tidal Volume PEEP POC Sodium Sodium POC Potassium Potassium Chloride Carbon Dioxide Anion Gap BUN Creatinine Est Cr Clr Drug Dosing Est GFR ( Amer) Est GFR (Non-Af Amer) BUN/Creatinine Ratio Glucose POC Glucose POC Glucose (other) Lactate 12.4 H* Calcium Magnesium Total Bilirubin Direct Bilirubin AST ALT Alkaline Phosphatase Ammonia Lactate Dehydrogenase Total Creatine Kinase Troponin I Cancelled Total Protein Albumin Globulin Albumin/Globulin Ratio Procalcitonin TSH Peritoneal Color Peritoneal Appearance Peritoneal WBC Peritoneal RBC Mononuclear WBCs % Polynuclear WBCs % Peritoneal Tot Protein Peritoneal Albumin Nasal Screen MRSA (PCR) Hep Bs Antigen Hep Bs Antibody Hep Bs Antibody, Quant Miscellaneous Test Ref Lab Test Result Blood Type O Negative Antibody Screen NEGATIVE Crossmatch See Detail 01/03/19 01/03/19 01/03/19 07:41 07:41 08:09 WBC RBC Hgb POC Hgb Hct POC Hct MCV MCH MCHC RDW Std Deviation RDW Coeff of Lesley Plt Count MPV Immature Gran % (Auto) Neut % (Auto) Lymph % (Auto) Hickman % (Auto) Eos % (Auto) Baso % (Auto) Immature Gran # (Auto) Neut # (Auto) Lymph # (Auto) Hickman # (Auto) Eos # (Auto) Baso # (Auto) Absolute Nucleated RBC Nucleated RBC % (auto) Toxic Vacuolation Dohle Bodies Platelet Estimate Polychromasia Macrocytosis Echinocytes PT INR Fibrinogen Sample Site POC pH POC pCO2 POC pO2 POC HCO3 POC Total CO2 POC Base Excess Mervin Test O2 Delivery Device POC O2 Rate Minute Ventilation POC FiO2 Tidal Volume PEEP POC Sodium Sodium POC Potassium Potassium Chloride Carbon Dioxide Anion Gap BUN Creatinine Est Cr Clr Drug Dosing Est GFR ( Amer) Est GFR (Non-Af Amer) BUN/Creatinine Ratio Glucose POC Glucose 43 L* POC Glucose (other) Lactate Calcium Magnesium Total Bilirubin Direct Bilirubin AST ALT Alkaline Phosphatase Ammonia 276.1 H Lactate Dehydrogenase Total Creatine Kinase Troponin I Total Protein Albumin Globulin Albumin/Globulin Ratio Procalcitonin TSH Peritoneal Color Peritoneal Appearance Peritoneal WBC Peritoneal RBC Mononuclear WBCs % Polynuclear WBCs % Peritoneal Tot Protein Peritoneal Albumin Nasal Screen MRSA (PCR) Hep Bs Antigen Hep Bs Antibody Hep Bs Antibody, Quant Miscellaneous Test Ref Lab Test Result Blood Type Antibody Screen Crossmatch 01/03/19 01/03/19 01/03/19 09:13 09:56 10:27 WBC RBC Hgb POC Hgb 6.5 L* Hct POC Hct 19 L* MCV MCH MCHC RDW Std Deviation RDW Coeff of Lesley Plt Count MPV Immature Gran % (Auto) Neut % (Auto) Lymph % (Auto) Hickman % (Auto) Eos % (Auto) Baso % (Auto) Immature Gran # (Auto) Neut # (Auto) Lymph # (Auto) Hickman # (Auto) Eos # (Auto) Baso # (Auto) Absolute Nucleated RBC Nucleated RBC % (auto) Toxic Vacuolation Dohle Bodies Platelet Estimate Polychromasia Macrocytosis Echinocytes PT INR Fibrinogen Sample Site POC pH 7.10 L* POC pCO2 42 POC pO2 98 H POC HCO3 13 L POC Total CO2 14 L POC Base Excess -17.0 L Mervin Test O2 Delivery Device POC O2 Rate Minute Ventilation POC FiO2 Tidal Volume PEEP POC Sodium 130 L Sodium POC Potassium 4.5 Potassium Chloride Carbon Dioxide Anion Gap BUN Creatinine Est Cr Clr Drug Dosing Est GFR ( Amer) Est GFR (Non-Af Amer) BUN/Creatinine Ratio Glucose POC Glucose 46 L* 130 H POC Glucose (other) Lactate Calcium Magnesium Total Bilirubin Direct Bilirubin AST ALT Alkaline Phosphatase Ammonia Lactate Dehydrogenase Total Creatine Kinase Troponin I Total Protein Albumin Globulin Albumin/Globulin Ratio Procalcitonin TSH Peritoneal Color Peritoneal Appearance Peritoneal WBC Peritoneal RBC Mononuclear WBCs % Polynuclear WBCs % Peritoneal Tot Protein Peritoneal Albumin Nasal Screen MRSA (PCR) Hep Bs Antigen Hep Bs Antibody Hep Bs Antibody, Quant Miscellaneous Test Ref Lab Test Result Blood Type Antibody Screen Crossmatch 01/03/19 01/03/19 01/03/19 11:02 12:42 12:42 WBC RBC Hgb POC Hgb Hct POC Hct MCV MCH MCHC RDW Std Deviation RDW Coeff of Lesley Plt Count MPV Immature Gran % (Auto) Neut % (Auto) Lymph % (Auto) Hickman % (Auto) Eos % (Auto) Baso % (Auto) Immature Gran # (Auto) Neut # (Auto) Lymph # (Auto) Hickman # (Auto) Eos # (Auto) Baso # (Auto) Absolute Nucleated RBC Nucleated RBC % (auto) Toxic Vacuolation Dohle Bodies Platelet Estimate Polychromasia Macrocytosis Echinocytes PT 33.1 H INR 3.5 H Fibrinogen Sample Site POC pH POC pCO2 POC pO2 POC HCO3 POC Total CO2 POC Base Excess Mervin Test O2 Delivery Device POC O2 Rate Minute Ventilation POC FiO2 Tidal Volume PEEP POC Sodium Sodium 131 L POC Potassium Potassium 4.5 Chloride 96 L Carbon Dioxide 13 L Anion Gap 22.0 H BUN 39 H Creatinine Est Cr Clr Drug Dosing TNP Est GFR ( Amer) TNP Est GFR (Non-Af Amer) TNP BUN/Creatinine Ratio TNP Glucose 175 H POC Glucose 141 H POC Glucose (other) Lactate Calcium 6.9 L Magnesium Total Bilirubin 21.3 H Direct Bilirubin 14.3 H AST 155 H ALT 45 Alkaline Phosphatase 34 L Ammonia Lactate Dehydrogenase Total Creatine Kinase Troponin I 0.120 H* Total Protein Albumin 1.4 L Globulin TNP Albumin/Globulin Ratio TNP Procalcitonin TSH Peritoneal Color Peritoneal Appearance Peritoneal WBC Peritoneal RBC Mononuclear WBCs % Polynuclear WBCs % Peritoneal Tot Protein Peritoneal Albumin Nasal Screen MRSA (PCR) Hep Bs Antigen Hep Bs Antibody Hep Bs Antibody, Quant Miscellaneous Test Ref Lab Test Result Blood Type Antibody Screen Crossmatch 01/03/19 01/03/19 01/03/19 12:42 12:42 12:45 WBC RBC Hgb POC Hgb Hct POC Hct MCV MCH MCHC RDW Std Deviation RDW Coeff of Lesley Plt Count MPV Immature Gran % (Auto) Neut % (Auto) Lymph % (Auto) Hickman % (Auto) Eos % (Auto) Baso % (Auto) Immature Gran # (Auto) Neut # (Auto) Lymph # (Auto) Hickman # (Auto) Eos # (Auto) Baso # (Auto) Absolute Nucleated RBC Nucleated RBC % (auto) Toxic Vacuolation Dohle Bodies Platelet Estimate Polychromasia Macrocytosis Echinocytes PT INR Fibrinogen Sample Site POC pH POC pCO2 POC pO2 POC HCO3 POC Total CO2 POC Base Excess Mervin Test O2 Delivery Device POC O2 Rate Minute Ventilation POC FiO2 Tidal Volume PEEP POC Sodium Sodium POC Potassium Potassium Chloride Carbon Dioxide Anion Gap BUN Creatinine Est Cr Clr Drug Dosing Est GFR ( Amer) Est GFR (Non-Af Amer) BUN/Creatinine Ratio Glucose POC Glucose POC Glucose (other) 169 H Lactate 14.8 H* Calcium Magnesium Total Bilirubin Direct Bilirubin AST ALT Alkaline Phosphatase Ammonia Lactate Dehydrogenase Total Creatine Kinase Troponin I Total Protein Albumin Globulin Albumin/Globulin Ratio Procalcitonin 4.43 H TSH Peritoneal Color Peritoneal Appearance Peritoneal WBC Peritoneal RBC Mononuclear WBCs % Polynuclear WBCs % Peritoneal Tot Protein Peritoneal Albumin Nasal Screen MRSA (PCR) Hep Bs Antigen Hep Bs Antibody Hep Bs Antibody, Quant Miscellaneous Test Ref Lab Test Result Blood Type Antibody Screen Crossmatch 01/03/19 01/03/19 01/03/19 12:45 13:23 13:41 WBC 1.19 L RBC 1.97 L Hgb 7.0 L POC Hgb 6.5 L* Hct 21.4 L POC Hct 19 L* MCV 108.6 H D MCH 35.5 H MCHC 32.7 RDW Std Deviation 82.3 H RDW Coeff of Lesley 22.3 H Plt Count 59 L MPV 9.2 Immature Gran % (Auto) Neut % (Auto) Lymph % (Auto) Hickman % (Auto) Eos % (Auto) Baso % (Auto) Immature Gran # (Auto) Neut # (Auto) Lymph # (Auto) Hickman # (Auto) Eos # (Auto) Baso # (Auto) Absolute Nucleated RBC 0.41 H Nucleated RBC % (auto) 33.9 Toxic Vacuolation Dohle Bodies Platelet Estimate Decreased L Polychromasia Macrocytosis Echinocytes PT INR Fibrinogen Sample Site L Radial POC pH 7.16 L* POC pCO2 31 L POC pO2 70 L POC HCO3 11 L POC Total CO2 12 L POC Base Excess -17.0 L Mervin Test Pass O2 Delivery Device Ventilator POC O2 Rate 28 Minute Ventilation 15.6 POC FiO2 75 Tidal Volume 420 PEEP 5 POC Sodium 128 L Sodium POC Potassium 4.1 Potassium Chloride Carbon Dioxide Anion Gap BUN Creatinine Est Cr Clr Drug Dosing Est GFR ( Amer) Est GFR (Non-Af Amer) BUN/Creatinine Ratio Glucose POC Glucose POC Glucose (other) Lactate Calcium Magnesium Total Bilirubin Direct Bilirubin AST ALT Alkaline Phosphatase Ammonia Lactate Dehydrogenase Total Creatine Kinase Troponin I Total Protein Albumin Globulin Albumin/Globulin Ratio Procalcitonin TSH Peritoneal Color Peritoneal Appearance Peritoneal WBC Peritoneal RBC Mononuclear WBCs % Polynuclear WBCs % Peritoneal Tot Protein Peritoneal Albumin Nasal Screen MRSA (PCR) Hep Bs Antigen Hep Bs Antibody Hep Bs Antibody, Quant Miscellaneous Test Pending Ref Lab Test Result Blood Type Antibody Screen Crossmatch 01/03/19 01/03/19 01/03/19 15:23 15:25 15:31 WBC RBC Hgb POC Hgb Hct POC Hct MCV MCH MCHC RDW Std Deviation RDW Coeff of Lesley Plt Count MPV Immature Gran % (Auto) Neut % (Auto) Lymph % (Auto) Hickman % (Auto) Eos % (Auto) Baso % (Auto) Immature Gran # (Auto) Neut # (Auto) Lymph # (Auto) Hickman # (Auto) Eos # (Auto) Baso # (Auto) Absolute Nucleated RBC Nucleated RBC % (auto) Toxic Vacuolation Dohle Bodies Platelet Estimate Polychromasia Macrocytosis Echinocytes PT INR Fibrinogen 115 L Sample Site POC pH POC pCO2 POC pO2 POC HCO3 POC Total CO2 POC Base Excess Mervin Test O2 Delivery Device POC O2 Rate Minute Ventilation POC FiO2 Tidal Volume PEEP POC Sodium Sodium POC Potassium Potassium Chloride Carbon Dioxide Anion Gap BUN Creatinine Est Cr Clr Drug Dosing Est GFR ( Amer) Est GFR (Non-Af Amer) BUN/Creatinine Ratio Glucose POC Glucose POC Glucose (other) 119 H Lactate Calcium Magnesium Total Bilirubin Direct Bilirubin AST ALT Alkaline Phosphatase Ammonia Lactate Dehydrogenase Total Creatine Kinase Troponin I Total Protein Albumin Globulin Albumin/Globulin Ratio Procalcitonin TSH Peritoneal Color Peritoneal Appearance Peritoneal WBC Peritoneal RBC Mononuclear WBCs % Polynuclear WBCs % Peritoneal Tot Protein Peritoneal Albumin Nasal Screen MRSA (PCR) Negative Hep Bs Antigen Hep Bs Antibody Hep Bs Antibody, Quant Miscellaneous Test Ref Lab Test Result Blood Type Antibody Screen Crossmatch 01/03/19 01/03/19 01/03/19 17:12 17:12 17:12 WBC 2.32 L RBC 2.15 L Hgb 7.4 L POC Hgb Hct 22.8 L POC Hct MCV 106.0 H MCH 34.4 H MCHC 32.5 RDW Std Deviation 79.4 H RDW Coeff of Lesley 22.3 H Plt Count 46 L MPV 9.3 Immature Gran % (Auto) Neut % (Auto) Lymph % (Auto) Hickman % (Auto) Eos % (Auto) Baso % (Auto) Immature Gran # (Auto) Neut # (Auto) Lymph # (Auto) Hickman # (Auto) Eos # (Auto) Baso # (Auto) Absolute Nucleated RBC 1.19 H Nucleated RBC % (auto) 51.3 Toxic Vacuolation Dohle Bodies Platelet Estimate Polychromasia Macrocytosis Echinocytes PT 26.4 H INR 2.8 H Fibrinogen Sample Site POC pH POC pCO2 POC pO2 POC HCO3 POC Total CO2 POC Base Excess Mervin Test O2 Delivery Device POC O2 Rate Minute Ventilation POC FiO2 Tidal Volume PEEP POC Sodium Sodium 132 L POC Potassium Potassium 3.6 D Chloride 96 L Carbon Dioxide 18 L Anion Gap 18.0 H BUN 16 D Creatinine Est Cr Clr Drug Dosing TNP Est GFR ( Amer) TNP Est GFR (Non-Af Amer) TNP BUN/Creatinine Ratio TNP Glucose 93 POC Glucose POC Glucose (other) Lactate Calcium 6.7 L Magnesium 1.7 L Total Bilirubin 21.6 H Direct Bilirubin 13.4 H AST 311 H ALT 77 Alkaline Phosphatase 39 L Ammonia Lactate Dehydrogenase Total Creatine Kinase Troponin I Total Protein Albumin 1.5 L Globulin TNP Albumin/Globulin Ratio TNP Procalcitonin TSH Peritoneal Color Peritoneal Appearance Peritoneal WBC Peritoneal RBC Mononuclear WBCs % Polynuclear WBCs % Peritoneal Tot Protein Peritoneal Albumin Nasal Screen MRSA (PCR) Hep Bs Antigen Hep Bs Antibody Hep Bs Antibody, Quant Miscellaneous Test Ref Lab Test Result Blood Type Antibody Screen Crossmatch 01/03/19 01/03/19 01/03/19 17:12 17:12 17:12 WBC RBC Hgb POC Hgb Hct POC Hct MCV MCH MCHC RDW Std Deviation RDW Coeff of Lesley Plt Count MPV Immature Gran % (Auto) Neut % (Auto) Lymph % (Auto) Hickman % (Auto) Eos % (Auto) Baso % (Auto) Immature Gran # (Auto) Neut # (Auto) Lymph # (Auto) Hickman # (Auto) Eos # (Auto) Baso # (Auto) Absolute Nucleated RBC Nucleated RBC % (auto) Toxic Vacuolation Dohle Bodies Platelet Estimate Polychromasia Macrocytosis Echinocytes PT INR Fibrinogen Sample Site POC pH POC pCO2 POC pO2 POC HCO3 POC Total CO2 POC Base Excess Mervin Test O2 Delivery Device POC O2 Rate Minute Ventilation POC FiO2 Tidal Volume PEEP POC Sodium Sodium POC Potassium Potassium Chloride Carbon Dioxide Anion Gap BUN Creatinine Est Cr Clr Drug Dosing Est GFR ( Amer) Est GFR (Non-Af Amer) BUN/Creatinine Ratio Glucose POC Glucose POC Glucose (other) Lactate 13.1 H* Calcium Magnesium Total Bilirubin Direct Bilirubin AST ALT Alkaline Phosphatase Ammonia Lactate Dehydrogenase 468 H Total Creatine Kinase Troponin I Total Protein Albumin Globulin Albumin/Globulin Ratio Procalcitonin TSH Peritoneal Color Peritoneal Appearance Peritoneal WBC Peritoneal RBC Mononuclear WBCs % Polynuclear WBCs % Peritoneal Tot Protein Peritoneal Albumin Nasal Screen MRSA (PCR) Hep Bs Antigen Hep Bs Antibody Hep Bs Antibody, Quant Miscellaneous Test Ref Lab Test Result Blood Type Antibody Screen Crossmatch 01/03/19 Unknown WBC RBC Hgb POC Hgb Hct POC Hct MCV MCH MCHC RDW Std Deviation RDW Coeff of Lesley Plt Count MPV Immature Gran % (Auto) Neut % (Auto) Lymph % (Auto) Hickman % (Auto) Eos % (Auto) Baso % (Auto) Immature Gran # (Auto) Neut # (Auto) Lymph # (Auto) Hickman # (Auto) Eos # (Auto) Baso # (Auto) Absolute Nucleated RBC Nucleated RBC % (auto) Toxic Vacuolation Dohle Bodies Platelet Estimate Polychromasia Macrocytosis Echinocytes PT INR Fibrinogen Sample Site POC pH POC pCO2 POC pO2 POC HCO3 POC Total CO2 POC Base Excess Mervin Test O2 Delivery Device POC O2 Rate Minute Ventilation POC FiO2 Tidal Volume PEEP POC Sodium Sodium POC Potassium Potassium Chloride Carbon Dioxide Anion Gap BUN Creatinine Est Cr Clr Drug Dosing Est GFR ( Amer) Est GFR (Non-Af Amer) BUN/Creatinine Ratio Glucose POC Glucose POC Glucose (other) Lactate Calcium Magnesium Total Bilirubin Direct Bilirubin AST ALT Alkaline Phosphatase Ammonia Lactate Dehydrogenase Total Creatine Kinase Troponin I Total Protein Albumin Globulin Albumin/Globulin Ratio Procalcitonin TSH Peritoneal Color WEN Peritoneal Appearance HAZY Peritoneal WBC 3771 H Peritoneal RBC 3000 Mononuclear WBCs % 24.4 Polynuclear WBCs % 75.6 Peritoneal Tot Protein 0.5 Peritoneal Albumin < 0.6 Nasal Screen MRSA (PCR) Hep Bs Antigen Hep Bs Antibody Hep Bs Antibody, Quant Miscellaneous Test Ref Lab Test Result Blood Type Antibody Screen Crossmatch (1) Acute liver failure Hepatic coma status: without hepatic coma Qualified Code(s): K72.00 - Acute and subacute hepatic failure without coma
[2019-01-03 23:04] LABS: Hematocrit (blood only) 20.2 % (42-52); Hemoglobin 6.4 g/dL (14.0-18.0); Mean Corpuscular Hemoglobin 35.2 pg (25-34); Mean Corpuscular Hgb Conc 31.7 g/dL (32-36); Mean Platelet Volume 8.9 fL (7.4-10.4); Nucleated RBC # (auto) 2.99 K/uL (0-0); Nucleated RBC % (auto) 52.2 %; Platelet Count 30 K/uL (130-400); RDW Coefficient of Variation 24.2 % (11.5-14.5); RDW Standard Deviation 89.7 fL (36.4-46.3); Red Blood Count 1.82 M/uL (4.7-6.1); White Blood Count 5.72 K/uL (4.8-10.8)
[2019-01-03 23:17] LABS: Albumin Globulin Ratio 0.6 (0.9-2); Albumin Level 1.3 gm/dl (3.4-5.0); BUN Creatinine Ratio 10.5 (10-20); Bilirubin,Total 17.4 mg/dl (0.2-1); Calcium 6.4 mg/dl (8.5-10.1); Creatinine Clr Calc Pharmacy 43.7 ml/min; Est GFR (African American) 39.9; Est GFR (Non-African American) 34.4; Globulin 2.3 gm/dl (2.5-4.0); Potassium 3.9 mmol/L (3.5-5.1); Total Protein 3.6 gm/dl (6.4-8.2)
[2019-01-03 23:19] LABS: Bilirubin Direct 12.1 mg/dl (0-0.2)
[2019-01-03 23:30] LABS: Fibrinogen 122 mg/dl (184-400); INR 3.6 (0.9-1.1); Prothrombin Time 33.3 Seconds (9.0-12.0)
--- NOTE | 2019-01-04 01:59 | Critical Care Progress Note ---
Date of Service January 04, 2019 Subjective Return of labs were concerning for worsening anemia and decreased fibrinogen levels with concerns for persistent DIC. On review of patient's prior transfusions, orders were placed for 3 units PRBCs, 2 units cryoprecipitate, and 2 units FFP. In addition, patient was noted to have a serum BiCarb of 8. Orders were also placed for 1 amp of bicarb to be infused as well. Serum calcium was 6.4 however, corrected calcium in relationship to patient's albumin was calculated to be >9. Will not replace at this time. Worsening Lactic acidosis. He has been persistently hypotensive despite impressive doses of levophed, Ramana- Synephrine, and vasopressin. Per previous discussion with family and upon review of note from ethics consultation, will proceed with transfusions at this time in hopes of providing additional hemodynamic support. 0145: Patient's heart rate began to rapidly decline into the 50's. Patient is showing a sinus bradycardia on monitor. 0152: Phoned patient's sister, Guillermo at provided home number. By the time that I was able to inform her of the rapid decline in status, the patient became asystolic on airport guide. This information was relayed to the patient's sister. She is comfortable with no further intervention, specifically, no further resuscitation efforts at this time. 0153: Pronouncement. Please see separate note. I have personally spent 30 minutes of critical care time in the direct management of this patient. This is a life/limb threatening event. This includes time spent evaluating patient, direct bedside care, chart review, placing orders, interpretation of diagnostic studies, discussion with consultants, patient, and family members, as well as other required patient management activities. This time is exclusive of all separately billable procedures, and teaching time and separate from and in addition to any other critical care service time. Results & Data Vital Signs (Past 12 Hours) Vital Signs Temp Pulse Pulse Resp BP BP Pulse Ox 01/04/19 01:30 36.1 C L 84 28 H 01/04/19 01:28 36.1 C L 84 28 H 01/04/19 01:02 36.2 C L 78 29 H 58/41 L 01/04/19 00:10 84 30 H 01/04/19 00:00 84 01/03/19 22:31 95 H 29 H 01/03/19 22:30 95 H 32 H 01/03/19 22:16 96 H 26 H 101/41 L 01/03/19 22:15 97 H 30 H 01/03/19 22:01 98 H 28 H 01/03/19 22:00 98 H 30 H 01/03/19 21:45 99 H 27 H 113/59 L 01/03/19 21:30 100 H 23 110/49 L 01/03/19 21:16 103 H 31 H 82/69 L 78 L 01/03/19 21:15 102 H 31 H 82 L 01/03/19 21:03 104 H 32 H 102/58 L 81 L 01/03/19 21:02 104 H 26 H 82 L 01/03/19 21:00 105 H 26 H 86 L 01/03/19 20:59 105 H 25 H 70/62 L 86 L 01/03/19 20:47 105 H 26 H 85 L 01/03/19 20:45 105 H 30 H 82 L 01/03/19 20:33 106 H 32 H 01/03/19 20:30 107 H 30 H 58/50 L 79 L 01/03/19 20:19 107 H 29 H 94/58 L 87 L 01/03/19 20:16 106 H 28 H 87 L 01/03/19 20:15 107 H 26 H 01/03/19 20:13 34 H 01/03/19 20:00 108 H 32 H 63/47 L 01/03/19 19:45 108 H 22 102/58 L 01/03/19 19:32 109 H 28 H 71/40 L 01/03/19 19:30 109 H 21 01/03/19 19:15 110 H 29 H 74/60 L 01/03/19 19:03 36.8 C 111 H 28 H 63/29 L 90 01/03/19 19:02 36.8 C 111 H 28 H 63/29 L 93 01/03/19 19:00 111 H 35 H 63/29 L 86 L 01/03/19 18:59 113 H 31 H 74/63 L 83 L 01/03/19 18:45 114 H 27 H 94 01/03/19 18:30 118 H 25 H 01/03/19 18:22 36.8 C 118 H 20 77/55 L 01/03/19 18:20 118 H 28 H 77/55 L 01/03/19 18:18 36.8 C 117 H 24 77/55 L 01/03/19 18:15 119 H 29 H 01/03/19 18:06 36.8 C 123 H 71/47 L 01/03/19 18:05 119 H 27 H 73/56 L 01/03/19 18:03 36.8 C 118 H 25 H 73/56 L 96 01/03/19 18:01 131 H 25 H 01/03/19 18:00 111 H 29 H 01/03/19 17:46 120 H 27 H 87/64 L 94 01/03/19 17:45 121 H 29 H 97 01/03/19 17:43 36.7 C 120 H 23 84/72 L 97 01/03/19 17:31 120 H 25 H 84/72 L 98 01/03/19 17:30 120 H 24 100 01/03/19 17:25 121 H 23 100 01/03/19 17:15 119 H 27 H 95/46 L 97 01/03/19 17:04 119 H 70/50 L 01/03/19 17:01 117 H 28 H 70/50 L 95 01/03/19 17:00 117 H 27 H 91 01/03/19 16:55 112 H 26 H 60/39 L 98 01/03/19 16:50 114 H 29 H 60/45 L 68 L 01/03/19 16:47 118 H 71/47 L 01/03/19 16:45 120 H 22 71/47 L 91 01/03/19 16:41 122 H 27 H 73/44 L 97 01/03/19 16:32 126 H 24 97 01/03/19 16:30 128 H 33 H 74/48 L 96 01/03/19 16:25 126 H 26 H 85/61 L 97 01/03/19 16:21 127 H 26 H 85/41 L 97 01/03/19 16:15 37.2 C 124 H 28 H 100/47 L 96 01/03/19 16:11 36.7 C 130 H 32 H 83/56 L 98 01/03/19 16:10 36.8 C 127 H 23 96 01/03/19 16:05 128 H 31 H 100/55 L 98 01/03/19 16:00 125 H 74/49 L 98 01/03/19 15:58 127 H 79/53 L 98 01/03/19 15:50 127 H 98 01/03/19 15:45 126 H 100/51 L 01/03/19 15:41 126 H 73/59 L 95 01/03/19 15:33 128 H 71/51 L 01/03/19 15:30 36.5 C 127 H 26 H 71/51 L 92 01/03/19 15:00 36.5 C 128 H 83/56 L 98 01/03/19 14:45 36.5 C 127 H 102/53 L 97 01/03/19 14:35 113 H 72/48 L 01/03/19 14:30 36.2 C L 120 H 36 H 71/49 L 97 01/03/19 14:28 119 H 74/42 L 97 01/03/19 14:27 123 H 36 H 95 01/03/19 14:26 120 H 63/46 L 95 01/03/19 14:20 125 H 87/52 L 95 01/03/19 14:15 35.8 C L 121 H 32 H 83/50 L 95 01/03/19 14:05 35.8 C L 122 H 36 H 86/61 L 97 01/03/19 14:00 35.8 C L 110 H 36 H 77/47 L 97 01/03/19 13:57 120 H 76/45 L 96 PG Care Time/CCT Total # of Minutes Spent Total Time Spent with Patient: Total time spent is greater than 50% in coordination of care (as documented) at patient's floor/unit and/or counseling patient: Critical Care Time: Yes Total Critical Care Time: 30
--- NOTE | 2019-01-04 02:18 | Death Summary ---
Date of Service January 04, 2019 Pronouncement Note Contributing Factors (1) Acute renal failure: (2) Acute hypoxemic respiratory failure: (3) Septic shock: (4) Acute liver failure: Additional Data Attending physician: Angelica Recinos MD Date: 01/04/2019 Time: 0153 I was contacted by nursing staff regarding the patients declining status and concerns for imminent demise. In short, patient was admitted to this facility in a severely metabolically acidotic state in the setting of severe liver failure with anuria. Patient required endotracheal intubation and vasopressors x3 to maintain appropriate maps. Patient underwent hemodialysis earlier today. He received multiple blood products with concerns for DIC. Despite multiple aggressive measures, patient continued to decline clinically. Despite multiple aggressive measures, the patient continued decline throughout the night and eventually rapidly went into a sinus bradycardia followed quickly by asystole. Family was contacted and agrees with no further intervention, specifically no resuscitative efforts. 2 physicians decision was previously made to make patient DNR/DNI which was upheld by patient's sister. Assessment: I presented to the patients room for evaluation. Upon assessment, the patient was found to be in a terminal state. Pupils were fixed and dilated without response. No palpable pulses appreciated. No spontaneous breaths noted. Heart sounds were absent. No response to painful stimuli. Time of : 0153 as pronounced by myself. Patient's family contacted by phone. Appropriate response to grief appreciated. Condolences provided. Questions were addressed and emotional support was provided. Patients primary service was contacted and made aware of patient demise. Pronouncement section of the Certificate was filled out and signed by myself. Cause of : Primary - Septic Shock Secondary - Metabolic Acidosis Contributing Causes of - Liver Failure, DIC, Hepatic Encephalopathy. Please feel free to contact me with any questions regarding the above-mentioned course.
--- NOTE | 2019-01-04 17:47 | Discharge Summary ---
Date of Service January 04, 2019 Admission HPI Per Admitting Provider This is a 58 y/o male with a PMH of EtOH cirrhosis, ascities, PAF with RVR, RBBB, acute liver failure and prior EtOH withdrawal/DTs who was found hypoglycemic in his apartment this morning. History obtained from ED provider and EMS records as when pt seen in the ED he was unable to provide any history. Apparently, someone went to check on pt yesterday and was found to be lying on the floor. He told her that he was comfortable and so she left him there. This morning, pt's neighbor heard him screaming for help so called EMS. Pt found to be hypoglycemic was BSG of 27. EMS gave D10 wiht improvement of BSG to 84. When presented to the ED, pt was hypotensive and has been persistently hypotensive in spite of receiving a banana bag and two additional liters of fluid. When initially called for admission to ICU, BP in 70s/40s. Hgb upon presentation was 7.1 which appears to be around pt's baseline. However, he was noted by ED physician to have small amount of rectal bleeding as well as an INR of 4.6 (not on anticoagulation). Two units of PRBCs were ordered and being transfused upon my assessment. Also to receive FFP and being started on norepinephrine drip. Continues to require D10 in ED to maintain blood glucose. Critical care has been consulted as well. Initially when pt arrived in ED he was able to answer some simple questions but mental status has been declining. When I assessed pt, history from pt was unobtainable. Principal Diagnosis patient in ICU Date: 01/04/2019 Time of : 0153 Cause of : Primary - Septic Shock Secondary - Metabolic Acidosis Contributing Causes of - Liver Failure, DIC, Hepatic Encephalopathy. Discharge Exam PATIENT Discharge Data Allergies Allergy/AdvReac Type Severity Reaction Status Date / Time No Known Allergies Allergy Verified 10/29/18 18:41 Consultations 01/03/19 10:01 Consult Case Management - Discharge Planning Routine 01/03/19 10:02 Consult Press Cutter Routine 01/03/19 10:08 Consult Gastroenterology Routine 01/03/19 10:13 Consult Nephrology Stat 01/03/19 11:07 Consult Ethics Stat 01/03/19 11:09 Consult Ethics Stat 01/03/19 11:16 Consult Palliative Care Routine 01/03/19 11:17 ED Decision to Admit Stat 01/03/19 12:12 Consult Case Management - Discharge Planning Routine Ordered Studies 01/03/19 07:33 CT head/brain wo con Stat Hospital Course (1) Septic shock: , patient was admitted early this morning: In a severely metabolically acidotic state in the setting of severe liver failure with anuria. Patient required endotracheal intubation and vasopressors x3 to maintain appropriate maps. Patient underwent hemodialysis earlier today. He received multiple blood products with concerns for DIC. Despite multiple aggressive measures, patient continued to decline clinically. Despite multiple aggressive measures, the patient continued decline throughout the night and eventually rapidly went into a sinus bradycardia followed quickly by asystole. Family was contacted and agrees with no further intervention, specifically no resuscitative efforts. 2 physicians decision was previously made to make patient DNR/DNI which was upheld by patient's sister. Patient in ICU, 1:53 AM pronouncement was done by ICU team Patient's family contacted by phone. Appropriate response to grief appreciated. Condolences provided. Questions were addressed and emotional support was provided. Pronouncement section of the Certificate was filled out and signed by ICU team and extrusion supervisor hospitalist Cause of : Primary - Septic Shock Secondary - Metabolic Acidosis Contributing Causes of - Liver Failure, DIC, Hepatic Encephalopathy. Total Time Total Time Spent Total Time Spent (In Minutes): PATIENT Discharge Plan Discharge Items Patient Disposition: Admission Data Admit Date/Time: 01/03/19 10:01 Other DC Date/Time DO NOT enter until pt leaves facility: 01/04/19 02:38
== END 2019-01-04 02:38 | disposition expired | DRG 871 ==
LOC: ED 07:17 → 1E 10:01
DX: K76.7 Hepatorenal syndrome; F10.188 Alcohol abuse with other alcohol-induced disorder; I48.0 Paroxysmal atrial fibrillation; A41.50 Gram-negative sepsis, unspecified; R79.89 Other specified abnormal findings of blood chemistry; E87.2 Acidosis; K72.01 Acute and subacute hepatic failure with coma; E87.70 Fluid overload, unspecified; S00.93XA Contusion of unspecified part of head, initial encounter; R65.21 Severe sepsis with septic shock; W19.XXXA Unspecified fall, initial encounter; E72.20 Disorder of urea cycle metabolism, unspecified; G93.41 Metabolic encephalopathy; R00.1 Bradycardia, unspecified; D65 Disseminated intravascular coagulation [defibrination syndrome]; J96.01 Acute respiratory failure with hypoxia; D61.818 Other pancytopenia; Z51.5 Encounter for palliative care; N17.0 Acute kidney failure with tubular necrosis; Z87.891 Personal history of nicotine dependence; D68.4 Acquired coagulation factor deficiency; Z79.899 Other long term (current) drug therapy; K70.11 Alcoholic hepatitis with ascites; K62.5 Hemorrhage of anus and rectum; E16.2 Hypoglycemia, unspecified; Z66 Do not resuscitate; R34 Anuria and oliguria; K70.31 Alcoholic cirrhosis of liver with ascites